=== PATIENT | female | born 1940 | race Caucasian/White ===

== ENCOUNTER → 2018-01-20 13:49 | Outpatient (CLI) | payer MEDICARE, MEDICAID, SELFPAY ==
--- NOTE | 2018-01-20 13:56 | US_ITS ---
US transvaginal HISTORY: ITS.REASON: POST MENOPAUSAL BLEEDING ORDERING PHYSICIAN: Marianela Claudio MD PATIENT AGE: 77 years COMPARISON: 08/26/17 FINDINGS: The uterus is 6.8 x 2.1 x 4 cm with a combined endometrial thickness of 1 cm. The ovaries are not well demonstrated probably atrophic with what appears to represent left ovary a 1 cm x 1.5 cm and possible right ovary at 1.3 x 0.9 cm. No adnexal mass or cul-de-sac fluid. IMPRESSION: Thickened endometrium which may be seen with endometrial hyperplasia or carcinoma
== END ==
PROVIDERS: PCP Family Medicine; Visit Provider Family Medicine
DX: N95.0 Postmenopausal bleeding (principal)
CPT/HCPCS: 76830

== ENCOUNTER → 2019-06-13 08:30 | Outpatient (CLI) | payer MEDICARE, MEDICAID, SELFPAY ==
--- NOTE | 2019-06-13 08:34 | CA_ITS ---
APPROVED REPORT Electrical Test Engineer: RICHELLE Laterality: Bilateral Study Quality: Good Indications: Carotid artery stenosis Risk Factors Hypertension: Hyperlipidemia Doppler Spectral Velocity Analysis ECA (R) 167.00/ cm/s ECA (L) 135.00/ cm/s dICA (R) 105.00/29.90 cm/s dICA (L) 82.30/22.00 cm/s Handy (R) 122.00/28.30 cm/s Handy (L) 89.90/25.10 cm/s pICA (R) 153.00/24.40 cm/s pICA (L) 91.80/20.70 cm/s dCCA (R) 76.60/16.00 cm/s dCCA (L) 98.20/15.70 cm/s pCCA (R) 76.10/11.60 cm/s pCCA (L) 131.00/14.10 cm/s Vert (R) 64.40/ cm/s Vert (L) 33.90/ cm/s ICA/CCA 2.00 ICA/CCA 0.90 Findings Duplex evaluation demonstrates stenosis of the right proximal internal carotid artery in the range of 50-69% with PSV =140 cm/sec, EDV <100 cm/sec, and IC/CC Ratio <4.0. SUHAIL unchanged from study done 08/11/17. Duplex evaluation demonstrates stenosis of /the left proximal internal carotid artery in the range of 20-49% with PSV <140 cm/sec, EDV <100 cm/sec, and IC/CC Ratio <4.0. LICA unchanged from study done 08/11/17. Conclusion Duplex evaluation demonstrates stenosis of the right proximal internal carotid artery in the range of 50-69% with PSV =140 cm/sec, EDV <100 cm/sec, and IC/CC Ratio <4.0. SUHAIL unchanged from study done 08/11/17. Duplex evaluation demonstrates stenosis of /the left proximal internal carotid artery in the range of 20-49% with PSV <140 cm/sec, EDV <100 cm/sec, and IC/CC Ratio <4.0. LICA unchanged from study done 08/11/17. Electronically signed by : Francois Cardona MD 06/14/2019 11:06:58
== END ==
PROVIDERS: PCP Family Medicine; Visit Provider Internal Medicine Cardiovascular Disease
DX: I10 Essential (primary) hypertension (principal); I25.10 Atherosclerotic heart disease of native coronary artery without angina pectoris; I48.0 Paroxysmal atrial fibrillation; I65.29 Occlusion and stenosis of unspecified carotid artery; R09.89 Other specified symptoms and signs involving the circulatory and respiratory systems
CPT/HCPCS: 93880

== ENCOUNTER → 2020-06-17 09:53 | Outpatient (CLI) | payer MEDICARE, MEDICAID, SELFPAY ==
--- NOTE | 2020-06-17 09:54 | CA_ITS ---
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 Study suggests 20-49% stenosis of the left internal cartoid artery unchanged from the 06/13/19 study. Antegrade flow seen bilateral vertebral arteries. 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 Study suggests 20-49% stenosis of the left internal cartoid artery unchanged from the 06/13/19 study. Antegrade flow seen bilateral vertebral arteries. Electronically signed by : Francois Cardona MD 06/17/2020 18:06:53
== END ==
PROVIDERS: PCP Family Medicine; Visit Provider Internal Medicine Cardiovascular Disease
DX: I65.23 Occlusion and stenosis of bilateral carotid arteries (principal); I10 Essential (primary) hypertension; I25.10 Atherosclerotic heart disease of native coronary artery without angina pectoris; I48.0 Paroxysmal atrial fibrillation; R09.89 Other specified symptoms and signs involving the circulatory and respiratory systems
CPT/HCPCS: 93880

== ENCOUNTER 2020-10-18 12:01 | Emergency (ER) | payer MEDICARE, MEDICAID, SELFPAY ==
[2020-10-18 12:15] VITALS: BP 138/61; PULSE 93; RESP 17; TEMP 36.6; O2SAT 97; BMI 28.3
--- NOTE | 2020-10-18 12:17 | HMH.EDUTC ---
[facility] [place] Clinical Impression: Abnormal vaginal bleeding Disposition: Still a Patient Condition on Discharge: Fair Referrals: Marianela Claudio MD [Primary Care Provider] - Time of Disposition: 12:26 Medical Decision Making - Get Inquiry Pt receiving controlled substance: No Get was queried for this patient: No Vital Signs: 10/18/20 12:15 Temperature 97.9 F Temperature Source Oral Pulse Rate [Radial] 93 H Respiratory Rate 17 Blood Pressure [Right Arm] 138/61 Blood Pressure Mean [Right Arm] 86 Blood Pressure Source [Right Arm] Automatic Cuff Blood Pressure Position [Right Arm] Sitting 02 Sat by Pulse Oximetry 97 Oxygen Delivery Method Room Air Medical Decision Narrative: Due to patient age and on xarelto having abnormal vaginal bleeding and passing of clots, patient reporting that she has bleed through 3 pads since 8am this morning recommended transfer to ED for further treatment and evaluation and patient agreed with transfer, spoke with Sheila Ayoub RN and patient moved to room 11 in ED for further treatment [facility] [place] - General Stated complaint: Bleeding Time Seen by Provider: 10/18/20 12:18 Mode of Arrival: Ambulatory Source of Information: Patient Limitations: No Limitations Description of Symptoms (Recalled from Triage Doc. by RN): bleeding from vagina. States she is hacing to use pads and is passing clots. Takes xarelto. HEENT Symptoms (Recalled from RN notes): No Resp Symptoms (Recalled from RN notes): No Skin Symptoms (Recalled from RN notes): No MS Symptoms (Recalled from RN notes): No Functional Status (Recalled from RN notes): wnl - History of Present Illness Provider Complaint: Patient state that she is on xarelto, states that when she initially started the medication a few years ago she had some vaginal bleeding and spotting on and off States that they adjusted the medication and got it to stop but for the last three days she has started bleeding again like she was having a period States that today bleeding is worse and and passing clots States that she has had to change her pad 3 times already today since 8am - Related Data Home Medications Medication Instructions Recorded Confirmed aspirin 81 mg tablet,delayed 81 mg PO ONCE 03/27/18 06/12/20 release biotin 1,000 mcg chewable tablet 1,000 mcg PO DAILY tab 03/27/18 06/12/20 loratadine 10 mg tablet 10 mg PO ONCE 04/06/18 06/12/20 metformin 500 mg tablet 500 mg PO DAILY tab 11/24/18 06/12/20 coenzyme Q10 100 mg capsule 100 mg PO DAILY 06/12/20 06/12/20 Previous Rx's Medication Instructions Recorded simvastatin 10 mg tablet 10 mg PO DAILY #90 tab 06/13/20 furosemide 20 mg tablet 20 mg PO Q OTHER DAY 90 Days #45 07/02/20 tab furosemide 40 mg tablet 40 mg PO Q OTHER DAY 90 Days #45 07/02/20 tab rivaroxaban 15 mg tablet 15 mg PO DAILY #90 tab 07/14/20 lisinopril 5 mg tablet 5 mg PO DAILY #90 tab 07/29/20 diltiazem HCl 240 mg 240 mg PO DAILY #90 cap 09/02/20 capsule,extended release 24 hr Allergies Allergy/AdvReac Type Severity Reaction Status Date / Time rosuvastatin [From Crestor] AdvReac Intermediate stomach Verified 06/13/20 13:50 ache - Worker's Comp Is this a Worker's Comp case?: No [facility] History - Hepatitis A Screen Drug use history?: No High risk sexual behaviors?: No History of sexually transmitted infection?: No Currently employed?: No Childcare worker?: No Do you have indoor plumbing?: Yes Do you have electricity?: Yes Attestation statement:: This patient has been screened for Hepatitis A risk factors. I have reviewed the patient's past medical history: Yes Medical History: Reports:: Anxiety, Atrial Fibrillation, Coronary Artery Disease, Cerebrovascular Accident, Depression, Diabetes Mellitus Type 2, Gastroesophageal Reflux Disease(GERD), Hyperlipidemia, Hypertension, Palpitations Denies:: Diabetes Mellitus Type 1, Seizures Other Medical History: Reports: Arthritis Other [place]
[2020-10-18 12:26] VITALS: BP 161/56; PULSE 90; RESP 20; TEMP 36.6; O2SAT 96; BMI 28.3
[2020-10-18 12:50] LABS: Microscopic, Urine URINE MICROSCOPIC (MICROSCOPIC)
[2020-10-18 12:56] LABS: Basophils # 0.1 K/mm3 (0-0.2); Basophils % 0.7 % (0.1-2.0); Eosinophils # 0.2 K/mm3 (0.0-0.4); Eosinophils % 1.2 % (0.1-12.0); Hematocrit 42.4 % (37.0-47.0); Hemoglobin 13.7 g/dL (12.2-16.2); Lymphocytes # 1.8 K/mm3 (0.7-4.5); Lymphocytes % 14.9 % (10-50); Mean Corpuscular HGB Conc 32.4 g/dL (31.8-35.4); Mean Corpuscular Hemoglobin 30.6 pg (27.0-31.2); Mean Corpuscular Volume 94.3 fl (81-99); Mean Platelet Volume 8.6 fl (7.4-10.4); Monocytes # 0.5 K/mm3 (0.1-1.0); Neutrophils # 9.7 K/mm3 (1.8-7.8); Neutrophils % 79.3 % (37.0-80.0); Platelet Count 266 K/mm3 (142-424); Red Blood Count 4.49 M/mm3 (4.20-5.40); Red Cell Distribution Width 13.5 % (11.5-17.5); White Blood Count 12.2 K/mm3 (4.8-10.8)
[2020-10-18 12:57] LABS: Appearance,Urine SL CLOUDY (Clear); Bilirubin,Urine Negative (Negative); Blood, Urine 3+ (Negative); Color,Urine RED (Yellow); Glucose,Urine (UA) Negative (Negative); Ketones,Urine Negative (Negative); Leukocyte Esterase,Urine TRACE (Negative); Nitrate,Urine POSITIVE (Negative); PH,Urine 5.5 (5.0-8.5); Protein,Urine 1+ (Negative)
[2020-10-18 13:00] LABS: Chloride 106 mmol/L (98-107); Potassium 4.1 mmoL/L (3.5-5.1); Sodium 140 mmol/L (136-145)
[2020-10-18 13:02] LABS: Alanine Aminotransferase 21 U/L (12-78); Aspartate Amino Transferase 25 U/L (14-36); Bacteria,Urine 2+ /lpf; Blood Urea Nitrogen 23 mg/dl (7-17); Creatinine Clearance Estimated 47 mL/min (50-200); Estimated Glomerular Filt Rate 60 ml/min (>60); GFR (African American) 73 ML/MIN (>60); RBC,Urine TNTC #/hpf (0-3)
[2020-10-18 13:03] LABS: Albumin Level 4.6 g/dl (3.5-5.0); Albumin/Globulin Ratio 1.3 (1.1-1.8); Alkaline Phosphatase 74 U/L (38-126); Anion Gap 14.1 mEq/L (5-15); Bilirubin,Total 0.5 mg/dl (0.2-1.3); Calcium 9.7 mg/dl (8.4-10.2); Carbon Dioxide 24 mmol/L (22.0-30.0); Globulin 3.5 g/dL (1.3-3.2); Glucose 168 mg/dl (74-100); Total Protein,Serum 8.1 g/dl (6.3-8.2)
--- NOTE | 2020-10-18 13:07 | PC.NURSE ---
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
--- NOTE | 2020-10-18 13:08 | HMH.EDGENADL ---
ED Disposition Clinical Impression: Vaginal bleeding Disposition: Still a Patient Condition on Discharge: Good Instructions: DI for Vaginal Bleeding Additional Instructions: Call Dr. Rivera on Tuesday to arrange follow-up for vaginal bleeding. Do not take Xarelto today or tomorrow. Call Dr. Rubio on Tuesday for further instructions on Xarelto. Rest and stay off your feet as much as possible for the next 2 days. Return to the emergency room if heavy bleeding or passing of clots returns. Referrals: Pito Kohli MD [Staff Physician] - Marianela Claudio MD [Primary Care Provider] - - Critical Care Critical Care Time: No Attestation: On 10/18/20, the high probability of a clinically significant, sudden or life threatening deterioration of the following system(s) required my full and direct attention, intervention and personal management. The time I documented below is in addition to time spent performing reported procedures but includes the following listed in this critical care notation. Medical Decision Making - Medical Records Medical records reviewed: Yes: I reviewed the patient's medical records. MR Comment: Reviewed prior evaluation for postmenopausal bleeding 2018. Office visit with Dr. Rivera, ultrasound, pathology reports. Ultrasound result as below. - Get Inquiry Pt receiving controlled substance: No Vital Signs: 10/18/20 12:15 10/18/20 12:26 10/18/20 13:10 Temperature 97.9 F 97.8 F Temperature Source Oral Oral Pulse Rate Pulse Rate [Radial] 93 H 90 85 Respiratory Rate 17 20 Blood Pressure Blood Pressure [Right Arm] 138/61 161/56 H 146/58 H Blood Pressure Mean [Right Arm] 86 91 87 Blood Pressure Source Blood Pressure Source [Right Arm] Automatic Cuff Automatic Cuff Automatic Cuff Blood Pressure Position Blood Pressure Position [Right Arm] Sitting Sitting Sitting 02 Sat by Pulse Oximetry 97 96 97 Oxygen Delivery Method Room Air Room Air Room Air 10/18/20 13:32 10/18/20 14:07 10/18/20 14:51 Temperature 97.8 F Temperature Source Oral Pulse Rate 86 Pulse Rate [Radial] 81 64 Respiratory Rate 19 Blood Pressure 126/50 L Blood Pressure [Right Arm] 134/50 L 144/73 H Blood Pressure Mean [Right Arm] 78 96 Blood Pressure Source Automatic Cuff Blood Pressure Source [Right Arm] Automatic Cuff Automatic Cuff Blood Pressure Position Sitting Blood Pressure Position [Right Arm] Sitting Sitting 02 Sat by Pulse Oximetry 97 96 Oxygen Delivery Method Room Air Room Air Room Air - Lab Data Lab Results 10/18/20 12:40: WBC 12.2 H, RBC 4.49, Hgb 13.7, Hct 42.4, MCV 94.3, MCH 30.6, MCHC 32.4, RDW 13.5, Plt Count 266, MPV 8.6, Neut % (Auto) 79.3, Lymph % (Auto) 14.9, [place] % (Auto) 4.0, Eos % (Auto) 1.2, Baso % (Auto) 0.7, Neut # (Auto) 9.7 H, Lymph # (Auto) 1.8, [place] # (Auto) 0.5, Eos # (Auto) 0.2, Baso # (Auto) 0.1 10/18/20 12:40: Sodium 140, Potassium 4.1, Chloride 106, Carbon Dioxide 24, Anion Gap 14.1, BUN 23 H, Creatinine 0.90, Estimated Creat Clear 47, Estimated GFR 60, Est GFR ( Amer) 73, Glucose 168 H, Calcium 9.7, Total Bilirubin 0.5, AST 25, ALT 21, Alkaline Phosphatase 74, Total Protein 8.1, Albumin 4.6, Globulin 3.5 H, Albumin/Globulin Ratio 1.3 10/18/20 12:40: Urine Color Red, Urine Appearance Sl cloudy, Urine pH 5.5, Ur Specific [place] 1.020, Urine Protein 1+, Urine Glucose (UA) Negative, Urine Ketones Negative, Urine Blood 3+, Urine Nitrate Positive, Urine Bilirubin Negative, Urine Urobilinogen 1.0, Ur Leukocyte Esterase Trace, Urine RBC Tntc, Urine WBC 3-5, Ur Squamous Epith Cells 5-10, Urine Bacteria 2+ Result diagrams: 10/18/20 12:40 10/18/20 12:40 Orders (Tests/Meds): ED MEDICATIONS Generic Name Dose Route Start Last Admin Trade Name Freq PRN Reason Stop Dose Admin Silver Nitrate 1 each 10/18/20 14:53 Silver Nitrate Applicator TP 10/18/20 14:54 ONCE ONE Discontinued Medications Generic Name Dose Route Start Last A
[2020-10-18 13:10] VITALS: BP 146/58; PULSE 85; O2SAT 97
--- NOTE | 2020-10-18 13:30 | PC.NURSE ---
Dr Kohli returned call.
--- NOTE | 2020-10-18 13:31 | PC.NURSE ---
Assisted MD with pelvic exam. Pt tolerated well. Pt placed back into original position, blanket placed back over pt pelvic area once the exam was complete.
[2020-10-18 13:32] VITALS: BP 134/50; PULSE 81; O2SAT 97
--- NOTE | 2020-10-18 13:32 | PC.NURSE ---
Dr Durand returned call as well.
--- NOTE | 2020-10-18 13:40 | PC.NURSE ---
SHEN SALVADOR spoke with Dr. Kohli
--- NOTE | 2020-10-18 13:56 | PC.NURSE ---
DR BLAND IN WITH PT
--- NOTE | 2020-10-18 14:06 | PC.NURSE ---
Assisted with pelvic exam, pt tolerated well.
--- NOTE | 2020-10-18 14:06 | HMH.GYNCON ---
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 Negrete is a 80 year old female who is a patient of Dr. Cedillo. She was seen in the past for vaginal bleeding and had a cervical polyp removed. She also had an endometrial biopsy which was negative for hyperplasia. She returns with increased vaginal bleeding. She does take Xarelto for her atrial fibrillation. Her hemoglobin is stable. CC: Review of Systems - Review of Systems Review of systems:: pertinent systems reviewed and negative unless documented below [facility] History I have reviewed the patient's past medical history: Yes Medical History: Reports:: Anxiety, Atrial Fibrillation, Coronary Artery Disease, Cerebrovascular Accident, Depression, Diabetes Mellitus Type 2, Gastroesophageal Reflux Disease(GERD), Hyperlipidemia, Hypertension, Palpitations Denies:: Diabetes Mellitus Type 1, Seizures *Have you ever received a pneumonia vaccine?: No *Have you received a flu vaccine this season?: No Other Medical History: Reports: Arthritis Other Surgeries: Yes: Cardiac Catheterization, Cardiac Surgery, Tubal Ligation Amputation: No - *Social History Smoking Status: Never smoker Alcohol Intake: never Alcohol Intake Frequency:: other Substance Use Type: denies use *Occupational Status:: retired *Travel in the last 8 weeks: None - Psychiatric History Pschychiatric History:: Reports:: Anxiety, Depression Family Hx:: Coronary Artery Disease Meds Home Medications Medication Instructions Recorded Confirmed Type aspirin 81 mg tablet,delayed 81 mg PO ONCE 03/27/18 10/18/20 History release biotin 1,000 mcg chewable tablet 1,000 mcg PO DAILY tab 03/27/18 10/18/20 History loratadine 10 mg tablet 10 mg PO ONCE 04/06/18 10/18/20 History metformin 500 mg tablet 500 mg PO DAILY tab 11/24/18 10/18/20 History coenzyme Q10 100 mg capsule 100 mg PO DAILY 06/12/20 10/18/20 History furosemide 40 mg tablet 40 mg PO Q OTHER DAY 90 Days #45 07/02/20 10/18/20 Rx tab Furosemide [Furosemide 20mg Tab*] 20 mg PO Q OTHER DAY 10/18/20 10/18/20 History Rivaroxaban [Xarelto] 15 mg PO DAILY 10/18/20 10/18/20 History Simvastatin 10 mg PO DAILY 10/18/20 10/18/20 History dilTIAZem HCl [Diltiazem 240mg 240 mg PO DAILY 10/18/20 10/18/20 History 24Hr ER Cap] lisinopriL [Lisinopril 5mg 5 mg PO DAILY 10/18/20 10/18/20 History Tablet] Allergies Allergy/AdvReac Type Severity Reaction Status Date / Time rosuvastatin [From Crestor] AdvReac Intermediate stomach Verified 06/13/20 13:50 ache ASSOCIATE THEATRE PROFESSOR - Exam Vital signs: Temp Pulse Resp BP Pulse Ox 97.8 F 81 20 134/50 L 97 10/18/20 12:26 10/18/20 13:32 10/18/20 12:26 10/18/20 13:32 10/18/20 13:32 - Constitutional no acute distress - Routine HEENT Exam Head: Present: normocephalic Eye: Present: EOMI, PERRL ENT: Present: mucous membranes moist - Routine Exam Patient deferred: external exam, groin exam, perineal exam Comments: She had friable tissue at the top of the vagina. Is not clear whether this with the cervix or the vaginal mucosa. Was difficult to see in the emergency room. I did apply Monsel solution to the top of the vagina. It seemed to stop the bleeding. It seemed that the bleeding was coming from this friable mass - Detailed Pelvic Exam Vagina: Present: ulceration Cervix: Present: ulceration ASSOCIATE THEATRE PROFESSOR - Results - Labs CBC & Chem 7: 10/18/20 12:40 10/18/20 12:40 Labs: Short CBC 10/18/20 Range/Units 12:40 WBC 12.2 H (4.8-10.8) K/mm3 Hgb 13.7 (12.2-16.2) g/dL Hct 42.4 (37.0-47.0) % Plt Count 266 (142-424) K/mm3 BMP 10/18/20 12:40 Sodium 140 Potassium 4.1 Chloride 106 Carbon Dioxide 24 BUN 23 H Creatinine 0.90 Glucose 168 H Calcium 9.7 Liver F
[2020-10-18 14:07] VITALS: BP 144/73; PULSE 64; O2SAT 96
--- NOTE | 2020-10-18 14:39 | PC.NURSE ---
NO blood noted on new araseli.
[2020-10-18 14:51] VITALS: BP 126/50; PULSE 86; RESP 19; TEMP 36.6; O2SAT 96
== END 2020-10-18 14:55 | disposition still patient (30) ==
LOC: UTC 12:06 → ER 12:18
PROVIDERS: Emergency Provider Emergency Medicine; PCP Family Medicine
DX: N93.8 Other specified abnormal uterine and vaginal bleeding (principal); I25.10 Atherosclerotic heart disease of native coronary artery without angina pectoris; I10 Essential (primary) hypertension; I48.0 Paroxysmal atrial fibrillation; E11.65 Type 2 diabetes mellitus with hyperglycemia; F41.8 Other specified anxiety disorders; Z86.73 Personal history of transient ischemic attack (TIA), and cerebral infarction without residual deficits; E78.5 Hyperlipidemia, unspecified; K21.9 Gastro-esophageal reflux disease without esophagitis; Z79.899 Other long term (current) drug therapy
CPT/HCPCS: 17250; 80053; 81001; 85025; 87086; 87088; 87186; 96365; 99283

== ENCOUNTER → 2020-10-20 16:49 | Outpatient (CLI) | payer MEDICARE, MEDICAID, SELFPAY ==
[2020-10-20 16:52] LABS: Microscopic, Urine URINE MICROSCOPIC (MICROSCOPIC)
[2020-10-20 17:33] LABS: Appearance,Urine SL CLOUDY (Clear); Bilirubin,Urine Negative (Negative); Blood, Urine 1+ (Negative); Color,Urine YELLOW (Yellow); Glucose,Urine (UA) TRACE (Negative); Ketones,Urine Negative (Negative); Leukocyte Esterase,Urine 2+ (Negative); Nitrate,Urine Negative (Negative); PH,Urine 5.5 (5.0-8.5); Protein,Urine Negative (Negative); Specific Gravity, Urine 1.015 (1.005-1.030); Urobilinogen,Urine 0.2 EU/dl (0.2)
[2020-10-20 17:55] LABS: Bacteria,Urine 4+ /lpf; Squamous Epithelial Cell,Urine Occasional #/hpf (0-5)
== END ==
PROVIDERS: Visit Provider Nurse Practitioner Obstetrics & Gynecology
DX: N39.0 Urinary tract infection, site not specified (principal)
CPT/HCPCS: 81001; 87086; 87186

== ENCOUNTER 2020-12-11 14:49 | Inpatient (IN) | payer MEDICARE, MEDICAID, SELFPAY ==
[2020-12-11] VITALS (11 sets, daily range): BP systolic 101–159; BP diastolic 38–66; PULSE 39–80; RESP 18–22; TEMP 36.5–37.1; O2SAT 95–98; BMI 27.1; BMI 27.6
--- NOTE | 2020-12-11 15:02 | XR_ITS ---
PROCEDURE: XR CHEST PORTABLE CLINICAL HISTORY: cough Cough, shortness of air, nonsmoker COMPARISON: No exams were available for comparison FINDINGS: A rounded structure with internal ectopic components and leads is present. Bibasilar in new nurse distal increased markings could represent chronic interstitial change however subtle infiltrate cannot be excluded. There is prominence of the right hilar region. Comparison with prior chest x-rays or nonemergent chest CT with contrast recommended to exclude an underlying lesion. There are no pleural effusions. There are degenerative changes in the skeleton. IMPRESSION: Bibasilar increased markings, electronic device, enlarged right hilum. Dictated by: Nikky Owusu MD 12/11/2020 15:45 Nikky Owusu MD in [place] 12/11/2020 15:45
--- NOTE | 2020-12-11 15:05 | PC.NURSE ---
spoke with Sunil Velez
[2020-12-11 15:22] LABS: Basophils # 0.1 K/mm3 (0-0.2); Basophils % 0.5 % (0.1-2.0); Eosinophils # 0.1 K/mm3 (0.0-0.4); Eosinophils % 1.2 % (0.1-12.0); Hematocrit 36.5 % (37.0-47.0); Hemoglobin 11.5 g/dL (12.2-16.2); Lymphocytes # 2.1 K/mm3 (0.7-4.5); Lymphocytes % 19.3 % (10-50); Mean Corpuscular HGB Conc 31.4 g/dL (31.8-35.4); Mean Corpuscular Hemoglobin 29.6 pg (27.0-31.2); Mean Platelet Volume 8.2 fl (7.4-10.4); Monocytes # 0.4 K/mm3 (0.1-1.0); Monocytes % 3.4 % (1.7-9.3); Neutrophils % 75.6 % (37.0-80.0); Platelet Count 295 K/mm3 (142-424); Red Blood Count 3.88 M/mm3 (4.20-5.40); Red Cell Distribution Width 14.1 % (11.5-17.5); White Blood Count 10.6 K/mm3 (4.8-10.8)
[2020-12-11 15:32] LABS: Chloride 106 mmol/L (98-107); Potassium 5.1 mmoL/L (3.5-5.1); Sodium 140 mmol/L (136-145)
[2020-12-11 15:34] LABS: Alanine Aminotransferase 18 U/L (12-78); Aspartate Amino Transferase 23 U/L (14-36); Blood Urea Nitrogen 28 mg/dl (7-17); Creatinine Clearance Estimated 36 mL/min (50-200); Estimated Glomerular Filt Rate 39 ml/min (>60); GFR (African American) 48 ML/MIN (>60)
--- NOTE | 2020-12-11 15:34 | HMH.EDSYNC ---
ED Disposition Clinical Impression: Symptomatic bradycardia, Acute kidney injury, Syncope, near Disposition: Admitted As Inpatient Condition on Discharge: Fair Instructions: DI for Syncope in Adults (Fainting), DI for Syncope in Children (Fainting) Referrals: Marianela Claudio MD [Primary Care Provider] - - Critical Care Critical Care Time: No Attestation: On 12/11/20, the high probability of a clinically significant, sudden or life threatening deterioration of the following system(s) required my full and direct attention, intervention and personal management. The time I documented below is in addition to time spent performing reported procedures but includes the following listed in this critical care notation. Medical Decision Making - Medical Records Medical records reviewed: Yes: I reviewed the patient's medical records. - Get Inquiry Pt receiving controlled substance: No Vital Signs: 12/11/20 14:50 12/11/20 15:20 12/11/20 16:21 Temperature 97.7 F Temperature Source Oral Pulse Rate [Left Radial] 39 L 42 L 75 Respiratory Rate 18 18 22 Blood Pressure [Right Arm] 101/38 L 124/40 L 122/47 L Blood Pressure Mean [Right Arm] 59 68 72 Blood Pressure Source [Right Arm] Automatic Cuff Blood Pressure Position [Right Arm] Sitting 02 Sat by Pulse Oximetry 97 95 97 Oxygen Delivery Method Room Air - Lab Data Lab Results 12/11/20 15:00: WBC 10.6, RBC 3.88 L, Hgb 11.5 L, Hct 36.5 L, MCV 94.0, MCH 29.6, MCHC 31.4 L, RDW 14.1, Plt Count 295, MPV 8.2, Neut % (Auto) 75.6, Lymph % (Auto) 19.3, [place] % (Auto) 3.4, Eos % (Auto) 1.2, Baso % (Auto) 0.5, Neut # (Auto) 8.0 H, Lymph # (Auto) 2.1, [place] # (Auto) 0.4, Eos # (Auto) 0.1, Baso # (Auto) 0.1 12/11/20 15:00: Sodium 140, Potassium 5.1, Chloride 106, Carbon Dioxide 23, Anion Gap 16.1 H, BUN 28 H, Creatinine 1.30 H, Estimated Creat Clear 36, Estimated GFR 39 L, Est GFR ( Amer) 48 L, Glucose 314 H, Calcium 9.2, Total Bilirubin 0.4, AST 23, ALT 18, Alkaline Phosphatase 64, Troponin I < 0.01, Total Protein 7.3, Albumin 4.1, Globulin 3.2, Albumin/Globulin Ratio 1.3, TSH 1.60 12/11/20 15:00: PT 11.5, INR 1.04, APTT 21.8 L 12/11/20 15:00: NT-Pro-B Natriuret Pep 645 H Result diagrams: 12/11/20 15:00 12/11/20 15:00 Orders (Tests/Meds): ED MEDICATIONS Discontinued Medications Generic Name Dose Route Start Last Admin Trade Name Freq PRN Reason Stop Dose Admin Atropine Sulfate 0.5 mg 12/11/20 15:02 Atropine 1mg/10ml Syringe (Crash Cart) IV 12/11/20 15:03 ONCE ONE ORDERS Category Date Time Status CT head/brain wo con Stat Cat Scan 12/11/20 16:54 Ordered Consult to Cardiology [CONS] Routine Cons 12/11/20 16:56 Active Acetone, Serum (Rapid) Stat Lab 12/11/20 16:55 Ordered Covid-19 Nasal PCR ([facility]) Routine Lab 12/11/20 15:51 Ordered Troponin I Q3H Lab 12/11/20 18:15 Ordered Troponin I Q3H Lab 12/11/20 21:15 Ordered Urinalysis and Microscopic Stat Lab 12/11/20 16:55 Ordered - Radiology Data #1 Image(s): Chest Image Reviewed: Yes I reviewed the patient's radiology results, Yes I reviewed the patient's radiology image, Yes I have reviewed radiologist's interpretation IMPRESSION: Bibasilar increased markings, electronic device, enlarged right hilum. - ECG Data Tracing #1 ECG initial impression date: 12/11/20 ECG initial impression time: 14:40 Arrhythmias present: other (Junctional bradycardia with a rate of 40 bpm, normal QTC, nonspecific ST changes) - Reevaluation(s) Time: 17:03 Reevaluation #1: On reevaluation, patient is doing better. She continues to tolerate pacing well. She feels much better with the pacing. I did speak with cardiology. They will continue to monitor the patient. We will admit her for further monitoring and treatment. Medical Decision Narrative: 80-year-old female presented to the emergency department with syncopal episodes. The patient is profoundly bradycardic on examina
[2020-12-11 15:35] LABS: Albumin Level 4.1 g/dl (3.5-5.0); Albumin/Globulin Ratio 1.3 (1.1-1.8); Alkaline Phosphatase 64 U/L (38-126); Anion Gap 16.1 mEq/L (5-15); Bilirubin,Total 0.4 mg/dl (0.2-1.3); Calcium 9.2 mg/dl (8.4-10.2); Carbon Dioxide 23 mmol/L (22.0-30.0); Globulin 3.2 g/dL (1.3-3.2); Glucose 314 mg/dl (74-100); Total Protein,Serum 7.3 g/dl (6.3-8.2)
[2020-12-11 15:44] LABS: NT Pro Brain Natriuretic Pep. 645 pg/mL (0-450)
[2020-12-11 15:51] LABS: Troponin I < 0.01 ng/ml (0.00-0.034)
[2020-12-11 15:55] LABS: INR 1.04 (0.9-1.1); Prothrombin Time 11.5 seconds (9.4-11.8)
[2020-12-11 15:57] LABS: Activated Partial Thrombo Time 21.8 seconds (23.6-34.0)
--- NOTE | 2020-12-11 16:01 | HMH.PNCARD ---
Subjective Date: 12/11/20 Time: 16:01 Principal diagnosis: Syncope, Junctional rhythm Interval history: This 80-year-old female presented to the emergency department with multiple syncopal episodes. The patient is a longstanding history of atrial fibrillation. Patient was having some issues with rapid heart rate and was put on sotalol 2 weeks ago. She states that since then her heart rate has been running low as well as her blood pressure. She states that when she gets up and tries to exert herself she has episodes where she feels like she is going to pass out and she is also passed out a few times. She had another 1 of these episodes earlier today prompting her to come to the emergency department. Cardiology has been decreasing her dose of sotalol, however the patient continues to have symptoms. She does not have any associated chest pain, however does have some mild shortness of breath. She denies any cough or hemoptysis. No abdominal pain or vomiting. She denies any headache or change in vision. No focal weakness. No fevers or chills. The above per Dr. Galvez Patient is feeling better after having atropine and external pacing applied. She denies any chest pain, pressure or tightness. She relates being diagnosed with cervical cancer with plans for complete hysterectomy at on December 29. No earlier appointments with this current physician that she is seeing were available. Past medical history includes: CAD-Medical mgt (2017) YOANDY is present. LICA 20-49% and 50-69% in [place] in 05/2019. A-fib is sinus.A/C with Xarelto, on hold secondary to vaginal bleeding (now discovered to be related to cervical cancer). CHADS-VASC score of 5 (age, female, HTN, DM) with stroke rate of 6.7% annually. LDL goal is < 55, LDL is 105. On statin. Exam Vital signs and Labs for Last 24 Hours: Temp Pulse Resp BP Pulse Ox 97.7 F 39 L 18 101/38 L 97 12/11/20 14:50 12/11/20 14:50 12/11/20 14:50 12/11/20 14:50 12/11/20 14:50 Laboratory Results - last 24 hr 12/11/20 15:00: WBC 10.6, RBC 3.88 L, Hgb 11.5 L, Hct 36.5 L, MCV 94.0, MCH 29.6, MCHC 31.4 L, RDW 14.1, Plt Count 295, MPV 8.2, Neut % (Auto) 75.6, Lymph % (Auto) 19.3, [place] % (Auto) 3.4, Eos % (Auto) 1.2, Baso % (Auto) 0.5, Neut # (Auto) 8.0 H, Lymph # (Auto) 2.1, [place] # (Auto) 0.4, Eos # (Auto) 0.1, Baso # (Auto) 0.1 12/11/20 15:00: Sodium 140, Potassium 5.1, Chloride 106, Carbon Dioxide 23, Anion Gap 16.1 H, BUN 28 H, Creatinine 1.30 H, Estimated Creat Clear 36, Estimated GFR 39 L, Est GFR ( Amer) 48 L, Glucose 314 H, Calcium 9.2, Total Bilirubin 0.4, AST 23, ALT 18, Alkaline Phosphatase 64, Troponin I < 0.01, Total Protein 7.3, Albumin 4.1, Globulin 3.2, Albumin/Globulin Ratio 1.3 12/11/20 15:00: NT-Pro-B Natriuret Pep 645 H I & O for Last 24 hours: Intake & Output 12/09/20 12/10/20 12/11/20 12/12/20 11:59 11:59 11:59 11:59 Weight 148 lb - Constitutional no acute distress - *Routine HEENT Exam Head: Present: normocephalic Eye: Present: EOMI, PERRL ENT: Present: mucous membranes moist - *Routine Neck Exam Present: supple. Absent: lymphadenopathy - *Routine Respiratory Exam Present: CTA bilaterally - *Routine Cardiovascular Exam Present: RRR - *Routine Abdominal Exam Present: soft, normoactive bowel sounds. Absent: tenderness - *Routine Extremities Exam Absent: cyanosis, clubbing, edema - *Routine Skin Exam Present: warm. Absent: rash - *Routine Neurological Exam Present: alert, oriented X3 Progress Note: A&P (1) Bradycardia Status: Acute (2) Cervical cancer Status: Acute (3) Hypotension Status: Acute (4) Vaginal bleeding Status: Acute (5) CAD (coronary artery disease) Status: Chronic (6) Carotid artery stenosis Status: Chronic (7) HTN (hypertension) Status: Chronic (8) PAF (paroxysmal atrial fibrillation) Status: Chronic (9) Junctional escape rhythm Status: Acute Assessment and Plan for
--- NOTE | 2020-12-11 17:02 | PC.NURSE ---
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
[2020-12-11 17:05] LABS: Acetone, Serum (Rapid) None Detected (None Detect)
[2020-12-11 17:23] LABS: Adenovirus,PCR Not Detected (NotDetected); Bordetella Pertussis Not Detected (NotDetected); Chlamydophila Pneumoniae, PCR Not Detected (NotDetected); Coronavirus 19, PCR Not Detected (NotDetected); Coronavirus 229E Not Detected (NotDetected); Coronavirus NL63 Not Detected (NotDetected); Coronavirus OC43 Not Detected (NotDetected); Coronovirus HKU1,PCR Not Detected (NotDetected); Human Metapneumovirus Not Detected (NotDetected); Influenza A, PCR Not Detected (NotDetected); Influenza AH1, 2009 Not Detected (NotDetected); Influenza AH1, PCR Not Detected (NotDetected); Influenza AH3,PCR Not Detected (NotDetected); Influenza B, PCR Not Detected (NotDetected); Mycoplasma Pneumoniae, PCR Not Detected (NotDetected); Parainfluenza 1, PCR Not Detected (NotDetected); Parainfluenza 2, PCR Not Detected (NotDetected); Parainfluenza 3, PCR Not Detected (NotDetected); Parainfluenza 4, PCR Not Detected (NotDetected); Respiratory Syncytial Virus Not Detected (NotDetected); Rhinovirus/Enterovirus Not Detected (NotDetected)
--- NOTE | 2020-12-11 19:20 | PC.NURSE ---
PT ARRIVED TO FLOOR VIA W/C FROM ED W/STAFF AT 1919
[2020-12-11 19:21] LABS: Microscopic, Urine URINE MICROSCOPIC (MICROSCOPIC)
[2020-12-11 19:24] LABS: Appearance,Urine CLEAR (Clear); Bilirubin,Urine Negative (Negative); Blood, Urine Negative (Negative); Color,Urine YELLOW (Yellow); Glucose,Urine (UA) 2+ (Negative); Ketones,Urine Negative (Negative); Leukocyte Esterase,Urine 1+ (Negative); Nitrate,Urine Negative (Negative); Protein,Urine Negative (Negative); Urobilinogen,Urine 0.2 EU/dl (0.2)
[2020-12-11 19:30] LABS: Troponin I < 0.01 ng/ml (0.00-0.034)
[2020-12-11 19:37] LABS: Bacteria,Urine 1+ /lpf; RBC,Urine Occasional #/hpf (0-3)
[2020-12-11 20:51] LABS: POC Glucose,Bedside 248 (70-110)
[2020-12-11 21:45] LABS: Troponin I < 0.01 ng/ml (0.00-0.034)
[2020-12-12] VITALS (8 sets, daily range): BP systolic 131–150; BP diastolic 51–60; PULSE 60–82; RESP 17–20; TEMP 36.7–36.9; O2SAT 95–97; BMI 27.6
--- NOTE | 2020-12-12 06:13 | PC.NURSE ---
Candelaria GUZMAN NOTIFIED OF CONSULT.
--- NOTE | 2020-12-12 06:16 | PC.NURSE ---
Pt is A&Ox4 and has ambulated with staff SBA ad tolerated well. Pt has denied any continued dizziness since admission. Lungs CTA, room air sats >94% t/o shift. Heart sounds are RRR, NSR noted on tele, and rate 60s-80s t/o shift. SBP 130s-150s. Pt denies any chest pain or SOB. No edema present, peripheral pulse 2+. Pt denies any N/V/D. ABD is soft, non-tender with active bowel sounds. Pt reports last BM was 12/10/20. Pt reports chronic constipation. Skin is C/D/I. PIV to Left wrist is intact and no s/s infiltration or infection. NS infusing @ 50ml/hr. Pt remains afebrile. Call light within reach.
[2020-12-12 06:36] LABS: Chloride 109 mmol/L (98-107)
[2020-12-12 06:37] LABS: Sodium 142 mmol/L (136-145)
[2020-12-12 06:39] LABS: Alanine Aminotransferase 11 U/L (12-78); Alkaline Phosphatase 60 U/L (38-126); Aspartate Amino Transferase 17 U/L (14-36); Bilirubin,Total 0.4 mg/dl (0.2-1.3); Blood Urea Nitrogen 24 mg/dl (7-17); Carbon Dioxide 29 mmol/L (22.0-30.0); Creatinine Clearance Estimated 46 mL/min (50-200); Estimated Glomerular Filt Rate 60 ml/min (>60); GFR (African American) 73 ML/MIN (>60)
[2020-12-12 06:40] LABS: Albumin Level 3.7 g/dl (3.5-5.0); Albumin/Globulin Ratio 1.2 (1.1-1.8); Calcium 9.2 mg/dl (8.4-10.2); Glucose 163 mg/dl (74-100); Magnesium 2.2 mg/dl (1.6-2.3); Total Protein,Serum 6.7 g/dl (6.3-8.2)
[2020-12-12 06:41] LABS: Basophils % 0.5 % (0.1-2.0); Eosinophils # 0.2 K/mm3 (0.0-0.4); Eosinophils % 1.8 % (0.1-12.0); Hematocrit 35.9 % (37.0-47.0); Hemoglobin 11.2 g/dL (12.2-16.2); Lymphocytes # 2.3 K/mm3 (0.7-4.5); Lymphocytes % 27.1 % (10-50); Mean Corpuscular HGB Conc 31.1 g/dL (31.8-35.4); Mean Corpuscular Hemoglobin 29.6 pg (27.0-31.2); Mean Corpuscular Volume 95.1 fl (81-99); Monocytes # 0.4 K/mm3 (0.1-1.0); Monocytes % 4.9 % (1.7-9.3); Neutrophils # 5.6 K/mm3 (1.8-7.8); Neutrophils % 65.8 % (37.0-80.0); Platelet Count 220 K/mm3 (142-424); Red Blood Count 3.77 M/mm3 (4.20-5.40); Red Cell Distribution Width 13.9 % (11.5-17.5); White Blood Count 8.4 K/mm3 (4.8-10.8)
[2020-12-12 06:52] LABS: POC Glucose,Bedside 151 (70-110)
--- NOTE | 2020-12-12 07:28 | HMH.PHAVTE ---
[facility] Pharm[facility] VTE Monitoring - Patient Demographics Admission date: 12/11/20 Report Date: 12/12/20 Time: 07:28 Allergies/Adverse Reactions: Patient Allergies rosuvastatin [From Crestor] Adverse Reaction (Intermediate, Verified 12/11/20 14:42) stomach ache Height: 1.55 m Weight: 66.423 kg Patient Problems: Current Active Problems (Last Updated 06/08/19 @ 09:45 by Ashli Garcia RN) Vaginal bleeding (Acute) Cervical cancer (Acute) Junctional escape rhythm (Acute) Symptomatic bradycardia (Acute) Acute kidney injury (Acute) Syncope, near (Acute) Bradycardia (Acute) Hypotension (Acute) Carotid artery stenosis (Chronic) HTN (hypertension) (Chronic) PAF (paroxysmal atrial fibrillation) (Chronic) CAD (coronary artery disease) (Chronic) - VTE Risk Labs: VTE Related Lab Results Hgb 11.2 g/dL (12.2-16.2) L 12/12/20 05:33 Hct 35.9 % (37.0-47.0) L 12/12/20 05:33 Plt Count 220 K/mm3 (142-424) D 12/12/20 05:33 PT 11.5 seconds (9.4-11.8) 12/11/20 15:00 INR 1.04 (0.9-1.1) 12/11/20 15:00 APTT 21.8 seconds (23.6-34.0) L 12/11/20 15:00 BUN 24 mg/dl (7-17) H 12/12/20 05:33 Creatinine 0.90 mg/dl (0.52-1.04) D 12/12/20 05:33 Estimated Creat Clear 46 mL/min (50-200) 12/12/20 05:33 VTE Score: 3 VTE Risk Level: Low Risk - Prophylaxis VTE Prophylaxis Ordered?: Yes Types of VTE Prophylaxis: TEDS Knee High, Pharmacological Location of Applied Device: Bilateral Lower Extremeties Pharmacologic Type: Enoxaparin
--- NOTE | 2020-12-12 08:59 | HMH.PHAINT ---
HOME MEDICATION LIST CLARIFIED USING LIST FROM [facility], [facility] OFFICE AND CARDIOLOGY OFFICE. THE LIST FROM [facility] OFFICE IS NOT CORRECT PT HAS SEEN CARDIOLOGY SINCE LAST [facility] VISIT AND MEDICINES HAVE CHANGED.
--- NOTE | 2020-12-12 09:16 | HMH.PNCARD ---
Subjective Date: 12/12/20 Time: 09:16 Principal diagnosis: Syncope, Junctional rhythm Interval history: 80-year-old white female in bed in no acute distress. Looks much more alert, talkative and interactive today. She denies any problems overnight and has anxious to go home. Telemetry overnight is sinus rhythm. Troponins negative x3. Exam Vital signs and Labs for Last 24 Hours: Temp Pulse Resp BP Pulse Ox 98.1 F 73 20 149/53 H 97 12/12/20 08:00 12/12/20 08:00 12/12/20 08:00 12/12/20 08:00 12/12/20 08:00 Laboratory Results - last 24 hr 12/11/20 15:00: WBC 10.6, RBC 3.88 L, Hgb 11.5 L, Hct 36.5 L, MCV 94.0, MCH 29.6, MCHC 31.4 L, RDW 14.1, Plt Count 295, MPV 8.2, Neut % (Auto) 75.6, Lymph % (Auto) 19.3, [place] % (Auto) 3.4, Eos % (Auto) 1.2, Baso % (Auto) 0.5, Neut # (Auto) 8.0 H, Lymph # (Auto) 2.1, [place] # (Auto) 0.4, Eos # (Auto) 0.1, Baso # (Auto) 0.1 12/11/20 15:00: Sodium 140, Potassium 5.1, Chloride 106, Carbon Dioxide 23, Anion Gap 16.1 H, BUN 28 H, Creatinine 1.30 H, Estimated Creat Clear 36, Estimated GFR 39 L, Est GFR ( Amer) 48 L, Glucose 314 H, Calcium 9.2, Total Bilirubin 0.4, AST 23, ALT 18, Alkaline Phosphatase 64, Troponin I < 0.01, Total Protein 7.3, Albumin 4.1, Globulin 3.2, Albumin/Globulin Ratio 1.3, TSH 1.60 12/11/20 15:00: PT 11.5, INR 1.04, APTT 21.8 L 12/11/20 15:00: NT-Pro-B Natriuret Pep 645 H 12/11/20 15:00: Acetone Level None detected 12/11/20 17:15: Chlamy pneumoniae PCR Not detected, Adenovirus (PCR) Not detected, B. pertussis DNA (PCR) Not detected, Coronavirus OC43 (PCR) Not detected, Coronavirus HKU1 (PCR) Not detected, Coronavirus 229E (PCR) Not detected, SARS-CoV-2 (PCR) Not detected, Coronavirus NL63 (PCR) Not detected, Human Metapneumovir PCR Not detected, Influenza A (H1) PCR Not detected, Influ A (H1N1/09) PCR Not detected, Influenza A (H3) PCR Not detected, Influenza Type A (PCR) Not detected, Influenza Type B (PCR) Not detected, M. pneumoniae (PCR) Not detected, Parainfluenza 1 (PCR) Not detected, Parainfluenza 2 (PCR) Not detected, Parainfluenza 3 (PCR) Not detected, Parainfluenza 4 (PCR) Not detected, RSV (PCR) Not detected, Entero/Rhino (PCR) Not detected 12/11/20 18:18: Troponin I < 0.01 12/11/20 19:15: Urine Color Yellow, Urine Appearance Clear, Urine pH 6.0, Ur Specific [place] 1.020, Urine Protein Negative, Urine Glucose (UA) 2+, Urine Ketones Negative, Urine Blood Negative, Urine Nitrate Negative, Urine Bilirubin Negative, Urine Urobilinogen 0.2, Ur Leukocyte Esterase 1+ A, Urine RBC Occasional, Urine WBC 5-10, Ur Squamous Epith Cells 5-10, Urine Bacteria 1+, Hyaline Casts 3-5 12/11/20 20:28: POC Glucose 248 H 12/11/20 20:58: Troponin I < 0.01 12/12/20 05:33: WBC 8.4, RBC 3.77 L, Hgb 11.2 L, Hct 35.9 L, MCV 95.1, MCH 29.6, MCHC 31.1 L, RDW 13.9, Plt Count 220 D, MPV 8.0, Neut % (Auto) 65.8, Lymph % (Auto) 27.1, [place] % (Auto) 4.9, Eos % (Auto) 1.8, Baso % (Auto) 0.5, Neut # (Auto) 5.6, Lymph # (Auto) 2.3, [place] # (Auto) 0.4, Eos # (Auto) 0.2, Baso # (Auto) 0.0 12/12/20 05:33: Sodium 142, Potassium 5.0, Chloride 109 H, Carbon Dioxide 29 D, Anion Gap 9.0, BUN 24 H, Creatinine 0.90 D, Estimated Creat Clear 46, Estimated GFR 60, Est GFR ( Amer) 73 D, Glucose 163 H D, Calcium 9.2, Magnesium 2.2, Total Bilirubin 0.4, AST 17 D, ALT 11 L D, Alkaline Phosphatase 60, Total Protein 6.7, Albumin 3.7, Globulin 3.0, Albumin/Globulin Ratio 1.2 12/12/20 06:44: POC Glucose 151 H I & O for Last 24 hours: Intake & Output 12/09/20 12/10/20 12/11/20 12/12/20 11:59 11:59 11:59 11:59 Intake Total 1401 / 1401 Output Total 500 / 500 Balance 901 / 901 Weight 146 lb 7 oz - Constitutional no acute distress - *Routine HEENT Exam Head: Present: normocephalic Eye: Present: EOMI, PERRL ENT: Present: mucous membranes moist - *Routine Neck Exam Present: supple. Absent: lymphadenopathy - *Routine Respiratory Exam Present: CTA bilaterally - *Routine Cardiovascular Exam
--- NOTE | 2020-12-12 09:25 | HMH.HPDC ---
General - General Admission date:: 12/11/20 Discharge date: 12/12/20 *Admission Date: 12/11/20 *Chief complaint: weakness, bradycardia *History of present illness: Ms. Negrete is an 80-year-old female with a longstanding history of atrial fibrillation who began feeling weak on her way home from a doctor's appointment in [place] yesterday. She was being seen at for preparation for a complete hysterectomy for cervical cancer and states while at , her heart rate was in the 50s and she felt fine. On the way home, she stopped at a [employer] restaurant to eat and began feeling weak. The patient states she never actually passed out, but she felt like she was in a dream state. She could see and hear everything, but could not talk or move. She had been having issues with rapid heart rate and was placed on sotalol 2 weeks ago by cardiology. Since that time, her heart rate had been running low. She states her dose had been decreased from 80 mg twice daily to 40 mg twice daily by cardiology. She did not have any associated chest pain, however she did have some mild shortness of breath. Her family brought her to the emergency room. Her heart rate was in the 30s and her blood pressure was 101/38. An EKG showed junctional bradycardia with a rate of 40. They did attempt to give her atropine in the emergency room, however she continued to be lightheaded, therefore they placed the patient on external pacing. Her blood pressure medications were stopped and she was admitted. Cardiology saw the patient on consultation and they agreed with the discontinuation of her sotalol and diltiazem. They also stopped her Xarelto due to chronic vaginal bleeding from cervical cancer. She is scheduled to have a complete hysterectomy on December 29 at . [facility] History I have reviewed the patient's past medical history: Yes Medical History: Reports:: Anxiety, Atrial Fibrillation, Cancer (Cervical), Coronary Artery Disease, Cerebrovascular Accident, Depression, Diabetes Mellitus Type 2, Gastroesophageal Reflux Disease(GERD), Hyperlipidemia, Hypertension, Palpitations Denies:: Diabetes Mellitus Type 1, MRSA, Seizures *Have you ever received a pneumonia vaccine?: Yes *Have you received a flu vaccine this season?: Yes Other Medical History: Reports: Arthritis Other Surgeries: Yes: Cardiac Catheterization, Cardiac Surgery, Tubal Ligation Amputation: No Fractures: No - *Social History Smoking Status: Never smoker Alcohol Intake: never Alcohol Intake Frequency:: other Substance Use Type: denies use *Occupational Status:: retired *Travel in the last 8 weeks: None - Psychiatric History Pschychiatric History:: Reports:: Anxiety, Depression Family Hx:: Coronary Artery Disease Review of Systems - Constitutional Reports weakness, Denies chills, Denies fever(s) - Eyes Reports blurry vision, Denies double vision - ENT Denies nasal congestion, Denies sore throat - *Cardiovascular Reports shortness of breath, Denies chest pain - *Respiratory Reports shortness of breath, Denies cough - *Gastrointestinal Reports bright, red blood in stools, Denies abdominal pain, Denies loose stools, Denies nausea, Denies vomiting - *Genitourinary Denies difficulty urinating, Denies painful urination - *Musculoskeletal Denies joint pain - *Neurologic Reports unsteadiness, Reports fainting, Reports dizziness, Reports weakness Exam Vital signs and Labs for Last 24 Hours: Temp Pulse Resp BP Pulse Ox 98.1 F 73 20 149/53 H 97 12/12/20 08:00 12/12/20 08:00 12/12/20 08:00 12/12/20 08:00 12/12/20 08:00 Laboratory Results - last 24 hr 12/11/20 15:00: WBC 10.6, RBC 3.88 L, Hgb 11.5 L, Hct 36.5 L, MCV 94.0, MCH 29.6, MCHC 31.4 L, RDW 14.1, Plt Count 295, MPV 8.2, Neut % (Auto) 75.6, Lymph % (Auto) 19.3, [place] % (Auto) 3.4, Eos % (Auto) 1.2, Baso % (Auto) 0.5, Neut # (Auto) 8.0 H, Lymph # (Auto) 2.1, [place] # (Auto) 0.4, Eos # (Auto) 0.1, Baso # (Auto) 0.1
--- NOTE | 2020-12-12 11:14 | HMH.ACPN2 ---
Internal Medicine - PN: Subj *Date: 12/12/20 *Time: 11:14 Interval history: S: 80-year-old white female hospitalized for symptomatic bradycardia due to medications. The chart has been reviewed. Diltiazem will be discontinued and sotalol will be decreased to 40 mg p.o. twice daily. She is scheduled for [employer] surgery at the beginning of December. Exam Vital signs and Labs for Last 24 Hours: Temp Pulse Resp BP Pulse Ox 98.1 F 74 18 139/52 L 97 12/12/20 08:00 12/12/20 10:00 12/12/20 10:00 12/12/20 10:00 12/12/20 10:00 Laboratory Results - last 24 hr 12/11/20 15:00: WBC 10.6, RBC 3.88 L, Hgb 11.5 L, Hct 36.5 L, MCV 94.0, MCH 29.6, MCHC 31.4 L, RDW 14.1, Plt Count 295, MPV 8.2, Neut % (Auto) 75.6, Lymph % (Auto) 19.3, [place] % (Auto) 3.4, Eos % (Auto) 1.2, Baso % (Auto) 0.5, Neut # (Auto) 8.0 H, Lymph # (Auto) 2.1, [place] # (Auto) 0.4, Eos # (Auto) 0.1, Baso # (Auto) 0.1 12/11/20 15:00: Sodium 140, Potassium 5.1, Chloride 106, Carbon Dioxide 23, Anion Gap 16.1 H, BUN 28 H, Creatinine 1.30 H, Estimated Creat Clear 36, Estimated GFR 39 L, Est GFR ( Amer) 48 L, Glucose 314 H, Calcium 9.2, Total Bilirubin 0.4, AST 23, ALT 18, Alkaline Phosphatase 64, Troponin I < 0.01, Total Protein 7.3, Albumin 4.1, Globulin 3.2, Albumin/Globulin Ratio 1.3, TSH 1.60 12/11/20 15:00: PT 11.5, INR 1.04, APTT 21.8 L 12/11/20 15:00: NT-Pro-B Natriuret Pep 645 H 12/11/20 15:00: Acetone Level None detected 12/11/20 17:15: Chlamy pneumoniae PCR Not detected, Adenovirus (PCR) Not detected, B. pertussis DNA (PCR) Not detected, Coronavirus OC43 (PCR) Not detected, Coronavirus HKU1 (PCR) Not detected, Coronavirus 229E (PCR) Not detected, SARS-CoV-2 (PCR) Not detected, Coronavirus NL63 (PCR) Not detected, Human Metapneumovir PCR Not detected, Influenza A (H1) PCR Not detected, Influ A (H1N1/09) PCR Not detected, Influenza A (H3) PCR Not detected, Influenza Type A (PCR) Not detected, Influenza Type B (PCR) Not detected, M. pneumoniae (PCR) Not detected, Parainfluenza 1 (PCR) Not detected, Parainfluenza 2 (PCR) Not detected, Parainfluenza 3 (PCR) Not detected, Parainfluenza 4 (PCR) Not detected, RSV (PCR) Not detected, Entero/Rhino (PCR) Not detected 12/11/20 18:18: Troponin I < 0.01 12/11/20 19:15: Urine Color Yellow, Urine Appearance Clear, Urine pH 6.0, Ur Specific [place] 1.020, Urine Protein Negative, Urine Glucose (UA) 2+, Urine Ketones Negative, Urine Blood Negative, Urine Nitrate Negative, Urine Bilirubin Negative, Urine Urobilinogen 0.2, Ur Leukocyte Esterase 1+ A, Urine RBC Occasional, Urine WBC 5-10, Ur Squamous Epith Cells 5-10, Urine Bacteria 1+, Hyaline Casts 3-5 12/11/20 20:28: POC Glucose 248 H 12/11/20 20:58: Troponin I < 0.01 12/12/20 05:33: WBC 8.4, RBC 3.77 L, Hgb 11.2 L, Hct 35.9 L, MCV 95.1, MCH 29.6, MCHC 31.1 L, RDW 13.9, Plt Count 220 D, MPV 8.0, Neut % (Auto) 65.8, Lymph % (Auto) 27.1, [place] % (Auto) 4.9, Eos % (Auto) 1.8, Baso % (Auto) 0.5, Neut # (Auto) 5.6, Lymph # (Auto) 2.3, [place] # (Auto) 0.4, Eos # (Auto) 0.2, Baso # (Auto) 0.0 12/12/20 05:33: Sodium 142, Potassium 5.0, Chloride 109 H, Carbon Dioxide 29 D, Anion Gap 9.0, BUN 24 H, Creatinine 0.90 D, Estimated Creat Clear 46, Estimated GFR 60, Est GFR ( Amer) 73 D, Glucose 163 H D, Calcium 9.2, Magnesium 2.2, Total Bilirubin 0.4, AST 17 D, ALT 11 L D, Alkaline Phosphatase 60, Total Protein 6.7, Albumin 3.7, Globulin 3.0, Albumin/Globulin Ratio 1.2 12/12/20 06:44: POC Glucose 151 H I & O for Last 24 hours: Intake & Output 12/09/20 12/10/20 12/11/20 12/12/20 11:59 11:59 11:59 11:59 Intake Total 1401 / 1401 Output Total 500 / 500 Balance 901 / 901 Weight 146 lb 7 oz - Constitutional no acute distress - *Routine HEENT Exam Head: Present: normocephalic Eye: Present: PERRL ENT: Present: mucous membranes moist - *Routine Neck Exam Absent: JVD, carotid bruit - Routine Chest/Breast/Axilla Exam Chest wall: Absent: tenderness - *Routine Respiratory Exam P
[2020-12-12 11:36] LABS: POC Glucose,Bedside 191 (70-110)
--- NOTE | 2020-12-12 11:50 | ECG_ITS ---
APPROVED REPORT Exam: Resting ECG HR:76 bpm ECG Measurements Heart Rate 76 AXES MD 184 P 64 QRSd 82 QRS 11 QT 414 T 64 QTc 465 Conclusion Normal sinus rhythm Normal ECG Electronically signed by : Fausto Nunes, 12/12/2020 14:54:09
== END 2020-12-12 12:28 | disposition home or self-care (01) | DRG 310 ==
LOC: ER 17:04 → 2ND 17:15
PROVIDERS: Admitting Provider Family Medicine; Emergency Provider Emergency Medicine; PCP Family Medicine; Visit Provider Family Medicine
DX: R00.1 Bradycardia, unspecified (principal); I48.0 Paroxysmal atrial fibrillation; E11.9 Type 2 diabetes mellitus without complications; I10 Essential (primary) hypertension; I95.9 Hypotension, unspecified; I25.10 Atherosclerotic heart disease of native coronary artery without angina pectoris; C53.9 Malignant neoplasm of cervix uteri, unspecified; Z79.4 Long term (current) use of insulin; Z79.01 Long term (current) use of anticoagulants; Z79.899 Other long term (current) drug therapy
CPT/HCPCS: 36415; 71045; 80053; 81001; 82009; 82962; 83735; 83880; 84443; 84484; 85025; 85610; 85730; 87086; 87581; 87633; 87798; 93005; 99284

== ENCOUNTER → 2021-01-20 13:01 | Outpatient (CLI) | payer MEDICARE, MEDICAID, SELFPAY ==
--- NOTE | 2021-01-20 13:17 | ECG_ITS ---
APPROVED REPORT Exam: Resting ECG HR:69 bpm ECG Measurements Heart Rate 69 AXES WI 180 P 63 QRSd 78 QRS 13 QT 448 T 55 QTc 480 Conclusion Normal sinus rhythm Normal ECG Electronically signed by : Fausto Nunes, 01/21/2021 13:22:08
== END ==
PROVIDERS: PCP Family Medicine; Visit Provider Obstetrics & Gynecology Gynecology
DX: T50.905A Adverse effect of unspecified drugs, medicaments and biological substances, initial encounter (principal); C53.9 Malignant neoplasm of cervix uteri, unspecified
CPT/HCPCS: 93005

== ENCOUNTER → 2022-05-07 07:55 | Outpatient (CLI) | payer MEDICARE, MEDICAID, SELFPAY ==
[2022-05-07 08:35] LABS: Blood Urea Nitrogen 21 mg/dl (7-17); Estimated Glomerular Filt Rate 69 ml/min (>60); GFR (African American) 83 ML/MIN (>60)
--- NOTE | 2022-05-07 08:41 | CT_ITS ---
FINAL REPORT TECHNIQUE: After the administration of oral and intravenous contrast, axial images were obtained through the abdomen and pelvis by computed tomography. The study was performed with techniques to keep radiation dose as low as reasonably achievable, (ALARA). Individual dose reduction techniques using automated exposure control or adjustment of mA and/or kV according to the patient's size were employed. CLINICAL HISTORY: ENDOMETRIAL CANCER, HERNIA FINDINGS: Abdomen: There is chronic scarring in the lung bases. The liver parenchyma is homogeneous. The gallbladder is present. There are calcified granulomas in the spleen. The pancreas, adrenals and kidneys appear unremarkable. The aorta is normal in caliber. There is no free fluid or adenopathy. There is diastasis of the anterior abdominal wall fascia with a herniated segment of transverse colon. Pelvis: The appendix is not identified. The urinary bladder is incompletely distended. There is no free fluid or adenopathy. The rectum is distended up to 7.3 cm in transverse dimensions. IMPRESSION: Anterior abdominal wall hernia. Distended rectum. Reviewed, Interpreted and Dictated by Real Del Cid MD Transcribed by Christian Escamilla Authenticated and [facility]
== END ==
PROVIDERS: PCP Family Medicine; Visit Provider Nurse Practitioner Family
DX: C54.1 Malignant neoplasm of endometrium (principal)
CPT/HCPCS: 36415; 74177; 82565; 84520; Q9967

== ENCOUNTER → 2022-08-06 15:45 | Outpatient (CLI) | payer MEDICARE, MEDICAID, SELFPAY ==
[2022-08-06 18:25] LABS: Basophils % 0.8 % (0.1-2.0); Eosinophils % 0.3 % (0.1-12.0); Hematocrit 43.8 % (37.0-47.0); Lymphocytes # 0.5 K/mm3 (0.7-4.5); Lymphocytes % 12.8 % (10-50); Mean Corpuscular HGB Conc 31.9 g/dL (31.8-35.4); Mean Corpuscular Hemoglobin 30.8 pg (27.0-31.2); Mean Corpuscular Volume 96.4 fl (81-99); Mean Platelet Volume 9.1 fl (7.4-10.4); Monocytes # 0.2 K/mm3 (0.1-1.0); Monocytes % 5.1 % (1.7-9.3); Neutrophils # 3.3 K/mm3 (1.8-7.8); Platelet Count 258 K/mm3 (142-424); Red Blood Count 4.55 M/mm3 (4.20-5.40); Red Cell Distribution Width 13.7 % (11.5-17.5); White Blood Count 4.1 K/mm3 (4.8-10.8)
[2022-08-06 18:47] LABS: Alanine Aminotransferase 14 U/L (12-78); Albumin Level 4.1 g/dl (3.5-5.0); Albumin/Globulin Ratio 1.4 (1.1-1.8); Alkaline Phosphatase 83 U/L (38-126); Amylase 43 U/L (30-110); Anion Gap 17.9 mEq/L (5-15); Aspartate Amino Transferase 22 U/L (14-36); Bilirubin,Total 0.8 mg/dl (0.2-1.3); Blood Urea Nitrogen 30 mg/dl (7-17); Calcium 8.8 mg/dl (8.4-10.2); Carbon Dioxide 30 mmol/L (22.0-30.0); Chloride 99 mmol/L (98-107); Estimated Glomerular Filt Rate 69 ml/min (>60); GFR (African American) 83 ML/MIN (>60); Globulin 2.9 g/dL (1.3-3.2); Glucose 175 mg/dl (74-100); Lipase 93 U/L (23-300); Potassium 4.9 mmoL/L (3.5-5.1); Sodium 142 mmol/L (136-145)
== END ==
PROVIDERS: PCP Family Medicine; Visit Provider Family Medicine
DX: I25.10 Atherosclerotic heart disease of native coronary artery without angina pectoris (principal); K43.9 Ventral hernia without obstruction or gangrene
CPT/HCPCS: 80053; 82150; 83690; 85025

== ENCOUNTER → 2022-08-26 11:25 | Outpatient (CLI) | payer MEDICARE, MEDICAID, SELFPAY ==
[2022-08-26 18:05] LABS: Basophils % 0.5 % (0.1-2.0); Eosinophils % 0.2 % (0.1-12.0); Hematocrit 40.9 % (37.0-47.0); Hemoglobin 12.8 g/dL (12.2-16.2); Lymphocytes # 1.5 K/mm3 (0.7-4.5); Lymphocytes % 16.5 % (10-50); Mean Corpuscular HGB Conc 31.4 g/dL (31.8-35.4); Mean Corpuscular Hemoglobin 30.8 pg (27.0-31.2); Mean Corpuscular Volume 98.2 fl (81-99); Mean Platelet Volume 9.3 fl (7.4-10.4); Monocytes # 0.5 K/mm3 (0.1-1.0); Monocytes % 5.9 % (1.7-9.3); Neutrophils # 6.9 K/mm3 (1.8-7.8); Neutrophils % 76.8 % (37.0-80.0); Platelet Count 221 K/mm3 (142-424); Red Blood Count 4.16 M/mm3 (4.20-5.40); Red Cell Distribution Width 13.7 % (11.5-17.5)
[2022-08-26 18:56] LABS: Alanine Aminotransferase 15 U/L (12-78); Albumin Level 4.4 g/dl (3.5-5.0); Albumin/Globulin Ratio 1.7 (1.1-1.8); Alkaline Phosphatase 85 U/L (38-126); Anion Gap 18.4 mEq/L (5-15); Aspartate Amino Transferase 23 U/L (14-36); Blood Urea Nitrogen 21 mg/dl (7-17); Calcium 9.8 mg/dl (8.4-10.2); Carbon Dioxide 30 mmol/L (22.0-30.0); Chloride 100 mmol/L (98-107); Estimated Glomerular Filt Rate 69 ml/min (>60); GFR (African American) 83 ML/MIN (>60); Globulin 2.6 g/dL (1.3-3.2); Glucose 206 mg/dl (74-100); Potassium 5.4 mmoL/L (3.5-5.1); Sodium 143 mmol/L (136-145); Uric Acid 9.2 mg/dl (2.5-6.2)
== END ==
PROVIDERS: PCP Nurse Practitioner; Visit Provider Nurse Practitioner
DX: E79.0 Hyperuricemia without signs of inflammatory arthritis and tophaceous disease (principal); L03.114 Cellulitis of left upper limb; N95.0 Postmenopausal bleeding
CPT/HCPCS: 80053; 84550; 85025

== ENCOUNTER → 2022-11-04 07:19 | Outpatient (CLI) | payer MEDICARE, MEDICAID, SELFPAY ==
--- NOTE | 2022-11-04 07:56 | CT_ITS ---
FINAL REPORT TECHNIQUE: After the administration of intravenous contrast, axial images through the chest were performed by computed tomography.This study was performed with techniques to keep radiation doses as low as reasonably achievable, (ALARA). Individualized dose reduction techniques using automated exposure control or adjustment of mA and/or kV according to the patient''s size were employed. CLINICAL HISTORY: ABDOMINAL WALL HERNIA FINDINGS: There are several nonspecific thyroid nodules. There are multiple mildly enlarged mediastinal nodes which are nonspecific, favor reactive. There is no axillary adenopathy. There is mild wall thickening of the thoracic esophagus, favor inflammatory. The heart size is normal. There is no pericardial or pleural effusion. Limited images of the upper abdomen are unremarkable. There are mild bilateral pulmonary ground-glass opacities, favor mild edema. IMPRESSION: Nonspecific thyroid nodules. This could be further evaluated with thyroid ultrasound. Bilateral pulmonary ground-glass opacities, favor mild edema. Reviewed, Interpreted and Dictated by Volodymyr Cowan III, MD Transcribed by Debra Anglin Authenticated and . [facility]
--- NOTE | 2022-11-04 07:56 | CT_ITS ---
FINAL REPORT TECHNIQUE: Postcontrast axial images through the abdomen and pelvis were performed. This study was performed with techniques to keep radiation doses as low as reasonably achievable, (ALARA). Individualized dose reduction techniques using automated exposure control or adjustment of mA and/or kV according to the patient's size were employed. CLINICAL HISTORY: ABDOMINAL WALL HERNIA COMPARISON: 05/07/2022 FINDINGS: Abdomen: The lung bases are clear. The liver is normal in size and attenuation. The gallbladder is present. The spleen is unremarkable. The adrenals are normal. The pancreas is unremarkable. There is a less than 1 cm cyst in the lateral left kidney. The aorta is normal in caliber. No free fluid or adenopathy is identified. Pelvis: The appendix is unremarkable. The patient is status post hysterectomy. There is descending and sigmoid diverticulosis without evidence of diverticulitis. There is a periumbilical hernia containing nonobstructed portions of transverse colon and small bowel. Hernia orifice measures 6 cm in transverse dimension. Hernia sac measures 8.5 cm in transverse dimension. Findings are visually stable since prior. The urinary bladder is unremarkable. No free fluid, free air, abscess or adenopathy is identified. IMPRESSION: Periumbilical hernia as above, visually stable. Descending and sigmoid diverticulosis without evidence of diverticulitis. Reviewed, Interpreted and Dictated by Volodymyr Cowan III, MD Transcribed by Debra Anglin Authenticated and [facility]
[2022-11-04 08:04] LABS: Blood Urea Nitrogen 20 mg/dl (7-17); Estimated Glomerular Filt Rate 69 ml/min (>60); GFR (African American) 83 ML/MIN (>60)
== END ==
PROVIDERS: PCP Family Medicine; Visit Provider Nurse Practitioner Family
DX: K43.9 Ventral hernia without obstruction or gangrene (principal)
CPT/HCPCS: 36415; 71260; 74177; 82565; 84520; Q9967

== ENCOUNTER → 2022-12-28 23:35 | Outpatient (CLI) | payer MEDICARE, MEDICAID, SELFPAY ==
[2022-12-28 19:32] LABS: Alanine Aminotransferase 13 U/L (12-78); Albumin Level 4.1 g/dl (3.5-5.0); Albumin/Globulin Ratio 1.3 (1.1-1.8); Alkaline Phosphatase 68 U/L (38-126); Anion Gap 12.1 mEq/L (5-15); Aspartate Amino Transferase 20 U/L (14-36); Bilirubin,Total 0.5 mg/dl (0.2-1.3); Blood Urea Nitrogen 21 mg/dl (7-17); Calcium 9.2 mg/dl (8.4-10.2); Carbon Dioxide 30 mmol/L (22.0-30.0); Chloride 104 mmol/L (98-107); Estimated Glomerular Filt Rate 69 ml/min (>60); GFR (African American) 83 ML/MIN (>60); Globulin 3.1 g/dL (1.3-3.2); Glucose 143 mg/dl (74-100); Potassium 5.1 mmoL/L (3.5-5.1); Sodium 141 mmol/L (136-145); Total Protein,Serum 7.2 g/dl (6.3-8.2)
== END ==
PROVIDERS: PCP Family Medicine; Visit Provider Family Medicine
DX: E87.5 Hyperkalemia (principal); I10 Essential (primary) hypertension; K43.9 Ventral hernia without obstruction or gangrene
CPT/HCPCS: 80053

== ENCOUNTER → 2023-01-20 12:37 | Outpatient (CLI) | payer MEDICARE, MEDICAID, SELFPAY ==
--- NOTE | 2023-01-20 12:48 | US_ITS ---
FINAL REPORT TECHNIQUE: Sonographic images of the thyroid gland were obtained in the longitudinal and transverse planes. CLINICAL HISTORY: MULTIPLE THYROID NODULES FINDINGS: The right lobe measures 2.4 x 1.9 x 4.8 cm. Multiple cysts and nodules are identified. There is a mixed cystic and solid nodule measuring 2.2 cm consistent with TI-RADS category 3. The left lobe measures 2.4 x 1.5 x 4.5 cm. Multiple cysts are identified. There is an isoechoic 2.2 nodule consistent with TI-RADS category 3. In addition, there are several sub cm nodules consistent with TI-RADS category 4. The isthmus measures 5 mm. This is normal. There is a 1.2 cm hypoechoic nodule consistent with TI-RADS category 4. There is also a 1 cm nodule consistent with TI-RADS category 4. IMPRESSION: Multiple cysts and nodules, favor multinodular goiter. TI-RADS category 3 and 4 nodules. Recommend follow-up but none meet the criteria for biopsy according to size. Reviewed, Interpreted and Dictated by Meme Pike MD Transcribed by Debra Anglin Authenticated and [facility]
== END ==
PROVIDERS: PCP Family Medicine; Visit Provider Registered Nurse
DX: E04.2 Nontoxic multinodular goiter (principal)
CPT/HCPCS: 76536

== ENCOUNTER → 2023-05-10 08:08 | Outpatient (CLI) | payer MEDICARE, MEDICAID, SELFPAY ==
--- NOTE | 2023-05-10 08:14 | CT_ITS ---
FINAL REPORT TECHNIQUE: Thin section axial images are obtained through the abdomen and pelvis after intravenous contrast. Reconstruction images were obtained from the axial data. Exam was performed using dose reduction techniques. CLINICAL HISTORY: ENDOMETRIAL CANCER COMPARISON: 11/04/2022 FINDINGS: LIVER: Homogeneous. No focal lesion. GALLBLADDER/BILIARY SYSTEM: Gallbladder is present. There are probable small gallstones noted in the gallbladder. No biliary dilatation. SPLEEN: There are 2 stable peripheral hypodense splenic lesions unchanged from the prior exam. PANCREAS: Unremarkable. ADRENALS: Unremarkable. SYSTEM: No hydronephrosis, renal mass, or renal stone. Unremarkable urinary bladder. Pelvic organs are unremarkable for age. GI TRACT: No small bowel obstruction or dilatation. Normal appendix. There is diverticulosis without diverticulitis once again noted. There is a ventral hernia containing transverse colon, stable since the prior exam. LYMPH NODES/RETROPERITONEUM/MESENTERY: No lymphadenopathy. No abdominal aortic aneurysm. OTHER: No ascites. A small amount of free fluid is once again noted in the pelvis, unchanged. The uterus is surgically absent. Remaining soft tissues without acute abnormality. BONES: No acute osseous abnormality. IMPRESSION: Stable CT abdomen and pelvis without evidence of recurrence or metastatic disease. Reviewed, Interpreted and Dictated by Meme Pike MD Transcribed by Vivian Stewart Authenticated and [facility]
--- NOTE | 2023-05-10 08:14 | CT_ITS ---
FINAL REPORT TECHNIQUE: Thin section axial images were obtained from the thoracic inlet through the upper abdomen after intravenous contrast injection. Reconstruction images were obtained from the axial data. Exam was performed using dose reduction technique. CLINICAL HISTORY: ENDOMETRIAL CANCER COMPARISON: 11/04/2022 FINDINGS: The enlarged AP window nodes noted previously are stable. For example, the index node was previously noted to be 2.2 cm and on today's exam measures 2 cm. No hilar adenopathy is seen. There is no pleural or pericardial effusion. The bilateral hypodense thyroid nodules noted on the prior CT are stable. There are a cluster of 5 mm or smaller left lower lobe densities present, best seen on images #33 and 34, stable. There is a subpleural less than 5 mm nodule seen best on image #14, also stable. There are new reticulonodular opacities in the posterior right upper lobe when compared to the prior exam. No acute osseous abnormality. IMPRESSION: New reticulonodular densities posterior right upper lobe, favor inflammatory or infection. The AP window adenopathy in the chest is stable. Otherwise stable nodular opacities when compared to the prior CT. Reviewed, Interpreted and Dictated by Meme Pike MD Transcribed by Vivian Stewart Authenticated and [facility]
[2023-05-10 08:43] LABS: Blood Urea Nitrogen 20 mg/dl (7-17); Estimated Glomerular Filt Rate 69 ml/min (>60); GFR (African American) 83 ML/MIN (>60)
== END ==
PROVIDERS: PCP Family Medicine; Visit Provider Registered Nurse
DX: C54.1 Malignant neoplasm of endometrium (principal)
CPT/HCPCS: 36415; 71260; 74177; 82565; 84520; Q9967

== ENCOUNTER → 2023-07-05 12:00 | Outpatient (CLI) | payer MEDICARE, MEDICAID, SELFPAY ==
[2023-07-05 17:57] LABS: Coronavirus 19, PCR Not Detected (NotDetected); Influenza A, PCR Not Detected (NotDetected); Influenza B, PCR Not Detected (NotDetected)
[2023-07-05 18:26] LABS: Anion Gap 14.7 mEq/L (5-15); Blood Urea Nitrogen 27 mg/dl (7-17); Calcium 9.1 mg/dl (8.4-10.2); Carbon Dioxide 31 mmol/L (22.0-30.0); Chloride 101 mmol/L (98-107); Estimated Glomerular Filt Rate 60 ml/min (>60); GFR (African American) 72 ML/MIN (>60); Glucose 213 mg/dl (74-100); Potassium 4.7 mmoL/L (3.5-5.1); Sodium 142 mmol/L (136-145)
[2023-07-05 19:00] LABS: Basophils % 0.3 % (0.1-2.0); Eosinophils # 0.2 K/mm3 (0.0-0.4); Eosinophils % 2.2 % (0.1-12.0); Hematocrit 42.3 % (37.0-47.0); Hemoglobin 13.3 g/dL (12.2-16.2); Lymphocytes # 1.7 K/mm3 (0.7-4.5); Lymphocytes % 20.7 % (10-50); Mean Corpuscular HGB Conc 31.5 g/dL (31.8-35.4); Mean Corpuscular Hemoglobin 30.2 pg (27.0-31.2); Mean Corpuscular Volume 95.6 fl (81-99); Mean Platelet Volume 8.9 fl (7.4-10.4); Monocytes # 0.4 K/mm3 (0.1-1.0); Monocytes % 5.2 % (1.7-9.3); Neutrophils # 5.8 K/mm3 (1.8-7.8); Neutrophils % 71.5 % (37.0-80.0); Platelet Count 218 K/mm3 (142-424); Red Blood Count 4.42 M/mm3 (4.20-5.40); Red Cell Distribution Width 13.6 % (11.5-17.5); White Blood Count 8.1 K/mm3 (4.8-10.8)
== END ==
PROVIDERS: PCP Family Medicine; Visit Provider Family Medicine
DX: J40 Bronchitis, not specified as acute or chronic (principal); R05.9 Cough, unspecified; R93.89 Abnormal findings on diagnostic imaging of other specified body structures; R06.02 Shortness of breath
CPT/HCPCS: 80048; 85025; 87636

== ENCOUNTER 2023-12-13 19:13 | Outpatient (CLI) | payer MEDICARE, MEDICAID, SELFPAY ==
[2023-12-13 19:39] LABS: Basophils % 0.3 % (0.1-2.0); Eosinophils # 0.1 K/mm3 (0.0-0.4); Hematocrit 38.3 % (37.0-47.0); Hemoglobin 12.8 g/dL (12.2-16.2); Lymphocytes # 1.9 K/mm3 (0.7-4.5); Mean Corpuscular HGB Conc 33.3 g/dL (31.8-35.4); Mean Corpuscular Hemoglobin 31.7 pg (27.0-31.2); Mean Corpuscular Volume 95.2 fl (81-99); Mean Platelet Volume 9.6 fl (7.4-10.4); Monocytes # 0.4 K/mm3 (0.1-1.0); Monocytes % 5.8 % (1.7-9.3); Neutrophils # 4.5 K/mm3 (1.8-7.8); Platelet Count 214 K/mm3 (142-424); Red Blood Count 4.02 M/mm3 (4.20-5.40); Red Cell Distribution Width 13.6 % (11.5-17.5); White Blood Count 6.9 K/mm3 (4.8-10.8)
[2023-12-13 21:07] LABS: Alanine Aminotransferase 10 U/L (12-78); Albumin Level 4.3 g/dl (3.5-5.0); Albumin/Globulin Ratio 1.5 (1.1-1.8); Alkaline Phosphatase 68 U/L (38-126); Anion Gap 13.5 mEq/L (5-15); Aspartate Amino Transferase 20 U/L (14-36); Bilirubin,Total 0.6 mg/dl (0.2-1.3); Blood Urea Nitrogen 25 mg/dl (7-17); Calcium 9.7 mg/dl (8.4-10.2); Carbon Dioxide 29 mmol/L (22.0-30.0); Chloride 105 mmol/L (98-107); Estimated Glomerular Filt Rate 60 ml/min (>60); GFR (African American) 72 ML/MIN (>60); Globulin 2.9 g/dL (1.3-3.2); Glucose 136 mg/dl (74-100); Potassium 5.5 mmoL/L (3.5-5.1); Sodium 142 mmol/L (136-145); Total Protein,Serum 7.2 g/dl (6.3-8.2)
== END 2023-12-13 23:59 ==
PROVIDERS: PCP Family Medicine; Visit Provider Family Medicine
DX: E11.9 Type 2 diabetes mellitus without complications (principal); Z87.42 Personal history of other diseases of the female genital tract; Z79.84 Long term (current) use of oral hypoglycemic drugs
CPT/HCPCS: 80053; 85025

== ENCOUNTER 2023-12-27 18:22 | Outpatient (CLI) | payer MEDICARE, MEDICAID, SELFPAY ==
[2023-12-27 18:39] LABS: Chloride 108 mmol/L (98-107); Potassium 4.9 mmoL/L (3.5-5.1); Sodium 141 mmol/L (136-145)
[2023-12-27 18:42] LABS: Anion Gap 9.9 mEq/L (5-15); Blood Urea Nitrogen 31 mg/dl (7-17); Calcium 9.7 mg/dl (8.4-10.2); Carbon Dioxide 28 mmol/L (22.0-30.0); Estimated Glomerular Filt Rate 60 ml/min (>60); GFR (African American) 72 ML/MIN (>60); Glucose 156 mg/dl (74-100)
== END 2023-12-27 23:59 ==
PROVIDERS: PCP Family Medicine; Visit Provider Family Medicine
DX: E11.9 Type 2 diabetes mellitus without complications; Z79.84 Long term (current) use of oral hypoglycemic drugs; Z79.899 Other long term (current) drug therapy; I65.23 Occlusion and stenosis of bilateral carotid arteries
CPT/HCPCS: 80048

== ENCOUNTER 2024-01-04 08:15 | Outpatient (CLI) | payer MEDICARE, MEDICAID, SELFPAY ==
--- NOTE | 2024-01-04 08:15 | CA_ITS ---
APPROVED REPORT EXAM: Comprehensive 2D, Doppler, and color-flow Echocardiogram [employer] Professor: RUPERT Goodwin, RVS Ht: 5 ft 1 in Wt: 146lbs BSA: 1.65 BP: 159/55 mmHg Rhythm: Atrial Fibrillation Indications: cad, paf, aortic valve murmur, Dyspnea 2D Dimensions IVSd 0.99 cm LVEF (Visual) 66.50 % PWd 1.03 cm LA Volume 51.90 mL LVDd 4.66 cm LA Volume Index 30.70 mL/m2 (M/F) 16-34 LVDs 2.95 cm Left Atrium 3.40 cm M-Mode Dimensions RVDd 1.28 cm (0.9-2.6) LA Diam 4.13 cm (1.9-4.0) LVDd 6.02 cm (3.5-5.7) LVDs 4.09 cm (3.5-5.7) IVSd 0.96 cm (0.6-1.1) PWd 0.89 cm (0.6-1.1) EF (Teich) 59.30% EPSs 0.65 cm FS 32.10% EDV (Teich) 181.40 mL TAPSE 1.53 (<1.7) ESV (Teich) 73.80 mL LV Diastology E Decel Time 237 (160-240 msec) E/A Ratio 0.76 MED A' 11.00 cm/s LAT A' 8.90 cm/s Aortic Valve MARY ANN Index 0.59 cm2/m2 AoV Peak Dhruv. 264.0 (50-130 cm/s) AI PHT 421.00 ms AO Peak GR. 27.90 mmHg AO Mean GR. 13.80 (<5 mmHg) AO VTI 64.5 (18-25 cm) MARY ANN (VTI) 1.00 (2.5-4.5 cm2) Mitral Valve MV A Velocity 110.0 (40-130 cm/s) E/A Ratio 0.76 Pulmonary Valve TX End VMAX 177.0 cm/s Left Ventricle The left ventricle is normal size. The left ventricular systolic function is normal. The left ventricular ejection fraction is within the normal range. There is normal left ventricular wall thickness. There is normal LV segmental wall motion. The left ventricular diastolic function is normal. LVEF is 60%. Right Ventricle The right ventricle is normal size. The right ventricular systolic function is normal. Atria The left atrium size is normal. The right atrium size is normal. There is no Doppler evidence of interatrial shunt. Aortic Valve The aortic valve is moderately thickened. Mild to moderate aortic stenosis. MARY ANN by 2D planimetry is 1.4 cm2. Peak velocity 2.7 m/s. Mean AV gradient is 13 mmHg. Max AV gradient is 28 mmHg. Mild aortic regurgitation. Mitral Valve The mitral valve is mildly thickened. No evidence of mitral valve stenosis. There is no mitral valve regurgitation noted. Tricuspid Valve The tricuspid valve leaflets are thin and pliable. Trace tricuspid regurgitation. There is insufficient TR jet to estimate RVSP. Pulmonic Valve The pulmonary valve is normal in structure. Mild pulmonic regurgitation. Great Vessels The aortic root is normal in size. IVC is normal in size and collapses >50% with inspiration. Pericardium There is no pericardial effusion. Other Information Study Quality: Fair Conclusion Normal biventricular systolic function. Mild PI. Mild AI. Mild to moderate (MARY ANN by 2D planimetry is 1.4 cm2. Peak velocity 2.7 m/s. Mean AV gradient is 13 mmHg. Max AV gradient is 28 mmHg). Electronically signed by : Ana Sloan MD 01/06/2024 22:48:40
--- NOTE | 2024-01-04 08:18 | CA_ITS ---
FINAL REPORT TECHNIQUE: Color Doppler, duplex Doppler and oliavres scale sonography of the bilateral neck arterial vasculature was performed. Velocities were measured in the carotid arteries. Stenosis evaluation based on the validated velocity criteria. CLINICAL HISTORY: dizziness, carotid stenosis, Afib FINDINGS: The peak systolic velocity of the right common carotid artery is 69 cm/s. The peak systolic velocity of the right internal carotid artery is 141 cm/s and end diastolic velocity 12 cm/s. The ICA/CCA ratio is 2.1. A mild to moderate amount of plaque is present. The right external carotid artery is patent. The right vertebral artery is patent with antegrade flow. The peak systolic velocity of the left common carotid artery is 115 cm/s. The peak systolic velocity of the left internal carotid artery is 99 cm/s and end diastolic velocity 16 cm/s. The ICA/CCA ratio is 1.0. A [id number] amount of plaque is present. The left external carotid artery is patent.The left vertebral artery is patent with antegrade flow. IMPRESSION: Less than 50% bilateral carotid stenoses. Bilateral patent vertebral arteries with antegrade flow. If indicated, CTA or MRA could further evaluate. Reviewed, Interpreted and Dictated by Volodymyr Cowan III, MD Transcribed by Debra Anglin Authenticated and [facility]
--- NOTE | 2024-01-04 09:08 | US_ITS ---
FINAL REPORT CLINICAL HISTORY: thyroid nodules COMPARISON: 01/20/2023 FINDINGS: THYROID ULTRASOUND: Multiple nodules are present in the thyroid gland bilaterally. The right lobe of the thyroid measures 4.2 x 2.4 x 1.4 cm in size. The largest nodule on the right side measures 17 x 13 x 12 mm in size, was previously 16 x 13 x 12 mm in size. This nodule is cystic and solid, and is stable. Other nodules in the right lobe of the thyroid are stable as well when compared to the prior exam. The left lobe of the thyroid measures 3.6 x 1.6 x 1.6 cm in size. Largest nodule on the left side measures 17 x 15 x 10 mm in size, is solid, isoechoic. This nodule was previously 22 x 20 x 16 mm in size, so is slightly smaller on today's exam. Numerous other left thyroid nodules remain present and are stable in appearance. The isthmus of the thyroid gland measures 5 mm in thickness, and contains several nodules as well, all stable since the prior exam. IMPRESSION: Multiple bilateral thyroid nodules are present, and as described are all either stable in appearance when compared with the prior exam of 2022, or are slightly smaller. Recommend 12-month follow-up thyroid ultrasound for continued evaluation. Reviewed, Interpreted and Dictated by Volodymyr Cowan III, MD Transcribed by Vivian Stewart Authenticated and [facility]
== END 2024-01-04 23:59 ==
LOC: RT 08:15
PROVIDERS: PCP Family Medicine; Visit Provider Otolaryngology
DX: R06.00 Dyspnea, unspecified (principal); R42 Dizziness and giddiness; E04.2 Nontoxic multinodular goiter
CPT/HCPCS: 76536; 93306; 93880

== ENCOUNTER 2024-03-06 13:00 | Outpatient (CLI) | payer MEDICARE, MEDICAID, SELFPAY ==
[2024-03-06 19:39] LABS: Alanine Aminotransferase 13 U/L (12-78); Albumin/Globulin Ratio 1.3 (1.1-1.8); Alkaline Phosphatase 71 U/L (38-126); Anion Gap 12.4 mEq/L (5-15); Aspartate Amino Transferase 22 U/L (14-36); Bilirubin,Total 0.4 mg/dl (0.2-1.3); Blood Urea Nitrogen 21 mg/dl (7-17); Calcium 9.2 mg/dl (8.4-10.2); Carbon Dioxide 32 mmol/L (22.0-30.0); Chloride 102 mmol/L (98-107); Estimated Glomerular Filt Rate 68 ml/min (>60); GFR (African American) 83 ML/MIN (>60); Globulin 3.1 g/dL (1.3-3.2); Glucose 121 mg/dl (74-100); Potassium 4.4 mmoL/L (3.5-5.1); Sodium 142 mmol/L (136-145); Total Protein,Serum 7.1 g/dl (6.3-8.2)
[2024-03-06 20:10] LABS: Thyroid Stimulating Hormone 1.06 uIU/mL (0.465-4.68)
== END 2024-03-06 23:59 | disposition home or self-care (01) ==
LOC: LAB.DROPOF 03-07 09:58
PROVIDERS: PCP Family Medicine; Visit Provider Family Medicine
DX: E04.2 Nontoxic multinodular goiter (principal)
CPT/HCPCS: 80053; 84443

== ENCOUNTER 2024-06-12 14:47 | Outpatient (CLI) | payer MEDICARE, MEDICAID, SELFPAY ==
[2024-06-12 18:44] LABS: Basophils % 0.6 % (0.1-2.0); Eosinophils # 0.1 K/mm3 (0.0-0.4); Eosinophils % 1.7 % (0.1-12.0); Hematocrit 41.6 % (37.0-47.0); Hemoglobin 12.8 g/dL (12.2-16.2); Lymphocytes # 2.1 K/mm3 (0.7-4.5); Lymphocytes % 27.3 % (10-50); Mean Corpuscular HGB Conc 30.8 g/dL (31.8-35.4); Mean Corpuscular Hemoglobin 30.8 pg (27.0-31.2); Mean Platelet Volume 9.4 fl (7.4-10.4); Monocytes # 0.4 K/mm3 (0.1-1.0); Monocytes % 5.9 % (1.7-9.3); Neutrophils # 4.9 K/mm3 (1.8-7.8); Neutrophils % 64.6 % (37.0-80.0); Platelet Count 239 K/mm3 (142-424); Red Blood Count 4.16 M/mm3 (4.20-5.40); Red Cell Distribution Width 14.2 % (11.5-17.5); White Blood Count 7.5 K/mm3 (4.8-10.8)
[2024-06-12 19:39] LABS: Alanine Aminotransferase 11 U/L (12-78); Albumin Level 3.8 g/dl (3.5-5.0); Albumin/Globulin Ratio 1.2 (1.1-1.8); Alkaline Phosphatase 62 U/L (38-126); Anion Gap 9.8 mEq/L (5-15); Aspartate Amino Transferase 20 U/L (14-36); Bilirubin,Total 0.5 mg/dl (0.2-1.3); Blood Urea Nitrogen 36 mg/dl (7-17); Calcium 9.1 mg/dl (8.4-10.2); Carbon Dioxide 29 mmol/L (22.0-30.0); Chloride 105 mmol/L (98-107); Estimated Glomerular Filt Rate 53 ml/min (>60); GFR (African American) 64 ML/MIN (>60); Globulin 3.3 g/dL (1.3-3.2); Glucose 113 mg/dl (74-100); Potassium 4.8 mmoL/L (3.5-5.1); Sodium 139 mmol/L (136-145); Total Protein,Serum 7.1 g/dl (6.3-8.2)
== END 2024-06-12 23:59 | disposition home or self-care (01) ==
LOC: LAB.DROPOF 06-13 14:48
PROVIDERS: PCP Family Medicine; Visit Provider Family Medicine
DX: E11.9 Type 2 diabetes mellitus without complications (principal); R05.9 Cough, unspecified; Z79.84 Long term (current) use of oral hypoglycemic drugs
CPT/HCPCS: 80053; 85025

== ENCOUNTER 2024-08-20 11:21 | Inpatient (IN) | payer MEDICARE, MEDICAID, SELFPAY ==
[2024-08-20] VITALS (14 sets, daily range): BP systolic 105–157; BP diastolic 35–89; PULSE 61–71; RESP 16–18; TEMP 36.6–37.1; O2SAT 90–100; BMI 25.9; BMI 26.1
--- NOTE | 2024-08-20 11:37 | XR_ITS ---
PROCEDURE INFORMATION: Exam: XR Chest Exam date and time: 08/20/2024 12:38 PM Age: 84 years old Clinical indication: Other: Hypotension; Additional info: Pre-syncope, hypotension at scene, gi bleed TECHNIQUE: Imaging protocol: Radiologic exam of the chest. Views: 1 view. COMPARISON: CR XR CHEST PORTABLE 08/20/2024 12:38 PM FINDINGS: Lungs: Bilateral ground-glass regions of opacification. Findings nonspecific however most likely reflect interstitial lung disease. An acute inflammatory process could not be entirely excluded. Pleural spaces: Unremarkable. No pleural effusion. No pneumothorax. Heart/Mediastinum: Unremarkable. No cardiomegaly. Bones/joints: Unremarkable. IMPRESSION: No evidence of acute cardiopulmonary disease.
--- NOTE | 2024-08-20 11:37 | CT_ITS ---
PROCEDURE INFORMATION: Exam: CT Abdomen And Pelvis With Contrast Exam date and time: 08/20/2024 12:39 PM Age: 84 years old Clinical indication: Other: Hypotension; Additional info: Pre-syncope, hypotension, gi bleed TECHNIQUE: Imaging protocol: Computed tomography of the abdomen and pelvis with contrast. Radiation optimization: All CT scans at this facility use at least one of these dose optimization techniques: automated exposure control; mA and/or kV adjustment per patient size (includes targeted exams where dose is matched to clinical indication); or iterative reconstruction. Contrast material: ISOVUE; Contrast volume: 75 ml; Contrast route: IV; COMPARISON: CT ABDOMEN PELVIS W CON 05/10/2023 8:59 AM FINDINGS: Lungs: Bibasilar atelectasis versus parenchymal scarring. Calcified granuloma right lung base Diaphragm: Small hiatal hernia Liver: Decreased density throughout the liver compatible with hepatic steatosis. Evidence of prior hepatic, splenic granulomatous disease. Gallbladder and biliary ducts: Tiny gallstones again suggested. Pancreas: Pancreas unremarkable Spleen: Stable peripheral hypodense splenic lesions unchanged. Adrenal glands: Adrenal glands unremarkable. Kidneys and ureters: Normal. No hydronephrosis. Stomach and bowel: Colonic diverticulosis. No evidence of diverticulitis. Appendix: Appendix unremarkable Intraperitoneal space: Unremarkable. No free air. No significant fluid collection. Vasculature: Moderate regions of atherosclerotic vascular calcification are demonstrated within the abdominal aorta and common iliac arteries. Lymph nodes: Unremarkable. No enlarged lymph nodes. Urinary bladder: Unremarkable as visualized. Reproductive: Unremarkable as visualized. Bones/joints: Unremarkable. No acute fracture. Soft tissues: Unremarkable. IMPRESSION: No evidence of acute abnormality.
--- NOTE | 2024-08-20 11:40 | CT_ITS ---
PROCEDURE INFORMATION: Exam: CT Cervical Spine Without Contrast Exam date and time: 08/20/2024 12:35 PM Age: 84 years old Clinical indication: Injury or trauma; Fall; Blunt trauma TECHNIQUE: Imaging protocol: Computed tomography of the cervical spine without contrast. Radiation optimization: All CT scans at this facility use at least one of these dose optimization techniques: automated exposure control; mA and/or kV adjustment per patient size (includes targeted exams where dose is matched to clinical indication); or iterative reconstruction. COMPARISON: CT HEAD/BRAIN WO CON 08/20/2024 12:35 PM FINDINGS: Bones/joints: No acute fracture. Normal alignment. There is moderate to advanced multilevel degenerative disc disease. The spinal canal appears patent. Lungs: Multiple scattered nodule clusters are identified in the lung apices. Soft tissues: Unremarkable. IMPRESSION: 1. No evidence of acute fracture. 2. Scattered nodule clusters in the lung apices. Comparison with prior chest CT from 05/10/2023 is recommended when it becomes available.
--- NOTE | 2024-08-20 11:40 | CT_ITS ---
PROCEDURE INFORMATION: Exam: CT Head Without Contrast Exam date and time: 08/20/2024 12:35 PM Age: 84 years old Clinical indication: Injury or trauma; Fall; Blunt trauma (contusions or hematomas); Without loss of consciousness TECHNIQUE: Imaging protocol: Computed tomography of the head without contrast. Radiation optimization: All CT scans at this facility use at least one of these dose optimization techniques: automated exposure control; mA and/or kV adjustment per patient size (includes targeted exams where dose is matched to clinical indication); or iterative reconstruction. COMPARISON: CT CERVICAL SPINE WO CON 08/20/2024 12:35 PM FINDINGS: Brain: There is mild to moderate small vessel disease. There is no evidence of acute hemorrhage. There is an extra-axial left frontal mass measuring 3.7 x 2.4 x 2.4 cm with associated vasogenic edema. There is mass effect on the adjacent left frontal lobe. Cerebral ventricles: No ventriculomegaly. Paranasal sinuses: Visualized sinuses are unremarkable. No fluid levels. Mastoid air cells: Visualized mastoid air cells are well aerated. Bones: Soft tissues: Unremarkable. IMPRESSION: 1. No evidence of acute intracranial process. 2. Extra-axial left frontal mass with associated vasogenic edema and mass effect on the adjacent left frontal lobe likely representing a meningioma. MRI would be helpful for further characterization.
[2024-08-20] MEDS: ONDANSETRON 4MG/2ML VIAL 4 MG IV (11:46)
[2024-08-20 11:47] LABS: Albumin Level 3.2 g/dl (3.5-5.0); Chloride 108 mmol/L (98-107); Sodium 141 mmol/L (136-145)
[2024-08-20 11:48] LABS: Potassium 4.3 mmoL/L (3.5-5.1)
[2024-08-20] MEDS: CEFTRIAXONE 1 GM 1 GM in 0.9 % SODIUM CHLORIDE 50 ML IV ×2 (11:49→18:06)
[2024-08-20 11:50] LABS: Alanine Aminotransferase 10 U/L (12-78); Albumin/Globulin Ratio 1.1 (1.1-1.8); Alkaline Phosphatase 43 U/L (38-126); Anion Gap 10.3 mEq/L (5-15); Aspartate Amino Transferase 19 U/L (14-36); Bilirubin,Total 0.4 mg/dl (0.2-1.3); Blood Urea Nitrogen 46 mg/dl (7-17); Carbon Dioxide 27 mmol/L (22.0-30.0); Creatinine Clearance Estimated 42 mL/min (50-200); Estimated Glomerular Filt Rate 60 ml/min (>60); GFR (African American) 72 ML/MIN (>60); Globulin 2.9 g/dL (1.3-3.2); Total Protein,Serum 6.1 g/dl (6.3-8.2)
--- NOTE | 2024-08-20 11:50 | ECG_ITS ---
APPROVED REPORT Exam: Resting ECG HR:63 bpm ECG Measurements Heart Rate 63 AXES NE 204 P 92 QRSd 85 QRS 16 QT 406 T 9 QTc 414 Conclusion SINUS RHYTHM NONSPECIFIC T-WAVE ABNORMALITY BORDERLINE ECG UNCONFIRMED REPORT Electronically signed by : BEULAH WIN, 08/21/2024 05:27:25
[2024-08-20 11:51] LABS: Calcium 8.3 mg/dl (8.4-10.2); Glucose 191 mg/dl (74-100); Lipase 153 U/L (23-300)
[2024-08-20 11:56] LABS: Basophils # 0.1 K/mm3 (0-0.2); Basophils % 0.7 % (0.1-2.0); Eosinophils # 0.1 K/mm3 (0.0-0.4); Eosinophils % 1.4 % (0.1-12.0); Hematocrit 25.4 % (37.0-47.0); Hemoglobin 8.1 g/dL (12.2-16.2); Lymphocytes # 1.3 K/mm3 (0.7-4.5); Lymphocytes % 16.6 % (10-50); Mean Corpuscular HGB Conc 31.9 g/dL (31.8-35.4); Mean Corpuscular Hemoglobin 30.8 pg (27.0-31.2); Mean Corpuscular Volume 96.5 fl (81-99); Mean Platelet Volume 8.4 fl (7.4-10.4); Monocytes # 0.3 K/mm3 (0.1-1.0); Monocytes % 3.7 % (1.7-9.3); Neutrophils # 6.1 K/mm3 (1.8-7.8); Neutrophils % 77.6 % (37.0-80.0); Platelet Count 214 K/mm3 (142-424); Red Blood Count 2.63 M/mm3 (4.20-5.40); Red Cell Distribution Width 14.4 % (11.5-17.5); White Blood Count 7.9 K/mm3 (4.8-10.8)
--- NOTE | 2024-08-20 11:58 | HMH.EDGENADL ---
Discharge Plan Disposition Patient Disposition: Admitted Clinical Impressions Clinical Impression: Acute upper gastrointestinal bleeding, Anemia Discharge ED Provider: [facility] General Chief complaint: Nausea/Vomiting/Diarrhea Stated complaint: Weakness Time Seen by Provider: 08/20/24 11:26 Mode of Arrival: Ambulatory Source of Information: Patient and EMS Limitations: No Limitations Description of Symptoms (Recalled from ER Triage Doc. by RN): Patient presents to ED via EMS with c/o of increased weakness, vomiting, nausea, and dark color bowel movements. Patient reports dark BM's have been 3-4 days. History of Present Illness HPI narrative: 84yoF patient presents with a chief complaint of a single episode of pre-syncope. She reports feeling dizzy while standing up and baking cookies. No witnesses were present during the event. The patient has a history of atrial fibrillation, hypertension, and diabetes. The patient experienced an episode of vomiting with black, coffee-ground emesis. States she has also had black stools for the last couple days. she has a known intracranial tumor and a hernia in her abdomen, which she reports is not causing her pain. Per EMS on scene her initial blood pressure was 92/38. The patient remained alert and oriented throughout the incident. Emergency responders administered a liter of fluid and Zofran for the vomiting. On arrival to ED patient alert, oriented, vitals hemodynamically stable, airway breathing circulation intact. GCS 15 Please note that above description of symptoms, in this electronic medical record under categorization of recalled from ER triage doctor by RN are reflective of an initial nursing assessment, however, is not reflective of my full history and physical exam that was personally taken and clarified. Consequentially, this preceding description of symptoms, which may include the patient's categorized chief complaint in the EMR, do not reflect my personal clinical impression, and the ultimate description of history of present illness and patient stated complaints should be deferred to this section of the note. Unless stated otherwise or congruent with this section of the note, additional signs, symptoms, or incongruence should be interpreted as inaccurate with my clinical impression. Related Data Home Medications ?Medication ?Instructions ?Recorded ?Confirmed aspirin 81 mg tablet,delayed 81 mg PO DAILY heart health 03/27/18 06/12/24 release biotin 1,000 mcg chewable tablet 1,000 mcg PO DAILY Supplement 03/27/18 06/12/24 coenzyme Q10 100 mg capsule (Co 100 mg PO DAILY Supplement 06/12/20 06/12/24 Q-10) fluticasone propionate 50 1 spray intranasal DAILY 11/06/21 06/12/24 mcg/actuation nasal spray,suspension docusate sodium 100 mg capsule 100 mg PO DAILY 05/07/22 06/12/24 (Colace) ascorbic acid (vitamin C) 500 mg 500 mg PO DAILY 11/10/23 06/12/24 tablet docusate sodium 100 mg capsule 100 mg PO DAILY 11/10/23 06/12/24 (Stool Softener) furosemide 20 mg tablet mg PO 11/10/23 06/12/24 Previous Rx's ?Medication ?Instructions ?Recorded furosemide 40 mg tablet See Rx Instructions .Route 09/13/23 .COMPLEX #30 tabs lisinopril 10 mg tablet See Rx Instructions .Route 11/17/23 .COMPLEX #90 tabs rivaroxaban 15 mg tablet (Xarelto) See Rx Instructions .Route 04/09/24 .COMPLEX #30 tabs simvastatin 10 mg tablet See Rx Instructions .Route 04/09/24 .COMPLEX #90 tabs metformin 500 mg tablet See Rx Instructions .Route 04/19/24 .COMPLEX #90 tabs albuterol sulfate 90 mcg/actuation 2 puff inhalation Q4-6H PRN 05/15/24 aerosol inhaler shortness of breath or wheezing #8.5 grams benzonatate 200 mg capsule 200 mg PO TID PRN cough #30 caps 05/15/24 dextromethorphan-guaifenesin ER 60 1 tab PO Q12H #60 tabs 05/15/24 mg-1,200 mg tab,extend release,12hr blood sugar diagnostic (True #50 ea 06/21/24 Metrix Glucose Test Strip) lancets 30 gauge #100 ea 06/21/24 montelukast 10 mg tablet See Rx Instructions .Route 06/27/24 .COMPLEX #30 tabs pramipexole 0.25 mg tablet See Rx Instructions .Route 06/27/24 .COMPLEX #30 tabs gabapentin 100 mg capsule 100 mg PO HS #90 caps 06/28/24 sotalol 80 mg tablet See Rx Instructions .Route 07/05/24 .COMPLEX #60 tabs Allergies Allergy/AdvReac Type Severity Reaction Status Date / Time rosuvastatin [From Crestor] AdvReac Intermediate stomach Verified 06/12/24 11:45 [facility] Disclaimer: The information contained in this section may have been updated after the patient was seen, as this information can be updated by other users. Medical History Thyromegaly Hyperlipidemia Encounter for immunization Abnormal chest CT Bronchitis Multiple thyroid nodules She is basically asymptomatic and these nodules were picked up on a routine CT scan. We will continue to monitor them as they are all less than 1 cm. Per recommendation. She will contact us should the note any change in size or sudden swelling. Renal insufficiency Hyperkalemia Ventral hernia Leg pain, bilateral Hyperuricemia Ventral hernia Discussed smaller portions. Likely had transient obstruction Dyspnea Bradycardia Hypotension Syncope Carotid artery stenosis HTN (hypertension) PAF (paroxysmal atrial fibrillation) CAD (coronary artery disease) Surgical History History of hysterectomy Social History Smoking Status: Never smoker alcohol intake: never substance use type: denies use current occupational status: retired Travel in the last 8 weeks: Inside the [place] Other Medical History Have you received the Flu Vaccine for this season: No Have you received the Pneumonia Vaccine: Yes ROS Obtained: Yes Systems reviewed as appropriate & no additional complaints except as documented Physical Exam General General appearance: alert, in no apparent distress and in distress Head Head exam: atraumatic, normocephalic and normal inspection Eye Eye exam: Present normal appearance, PERRL and EOMI ENT ENT exam: Present normal exam Neck Neck exam: Present normal inspection and full ROM; Absent tenderness Chest Chest inspection: Present normal inspection and symmetric chest wall rise; Absent tenderness Respiratory Respiratory exam: Present normal lung sounds bilaterally; Absent respiratory distress Cardiovascular Cardiovascular exam: Present regular rate, normal rhythm and normal heart sounds Abdominal Exam Abdominal exam: Present soft, normal bowel sounds and hernia (Umbilical hernia, no overlying skin changes, nontender); Absent distention, tenderness, guarding, rebound or rigidity Extremities Exam Extremities exam: Present normal inspection and full ROM; Absent tenderness Back Exam Back exam: Present normal inspection Neurological Exam Neurological exam: Present alert, oriented X3 and CN II-XII intact; Absent motor sensory deficit Psychiatric Psychiatric exam: Present normal affect and normal mood Skin Skin exam: Present warm, dry, intact and normal color; Absent rash Medical Decision Making Medical Records Medical records reviewed: Yes I reviewed the patient's medical records. Screening: Per USPSTF and CDC recommendations, given the prevalence of disease in our region, it is our hospital?s policy to screen for HIV and viral Hepatitis for all patients aged 18 and over and those with ongoing risk factors. Get Inquiry Pt receiving controlled substance: No Get was queried for this patient: No Vital Signs: 08/20/24 11:21 08/20/24 11:30 08/20/24 12:02 Temperature 97.8 F Temperature Source Oral Pulse Rate 64 64 Pulse Rate [Right Brachial] 66 Respiratory Rate 18 Blood Pressure 124/41 L 124/35 L Blood Pressure [Right Arm] 122/42 L Blood Pressure Mean [Right Arm] 68 Blood Pressure Source [Right Arm] Automatic Cuff Blood Pressure Position [Right Arm] Supine 02 Sat by Pulse Oximetry 94 L 100 96 Oxygen Delivery Method Room Air Room Air Room Air 08/20/24 13:00 08/20/24 13:32 08/20/24 14:01 Temperature Temperature Source Pulse Rate 66 69 69 Pulse Rate [Right Brachial] Respiratory Rate Blood Pressure 128/46 L 105/63 L 136/45 L Blood Pressure [Right Arm] Blood Pressure Mean [Right Arm] Blood Pressure Source [Right Arm] Blood Pressure Position [Right Arm] 02 Sat by Pulse Oximetry 93 L 90 L 96 Oxygen Delivery Method Room Air Room Air Room Air 08/20/24 14:30 08/20/24 15:01 Temperature Temperature Source Pulse Rate 65 69 Pulse Rate [Right Brachial] Respiratory Rate Blood Pressure 121/44 L 148/89 H Blood Pressure [Right Arm] Blood Pressure Mean [Right Arm] Blood Pressure Source [Right Arm] Blood Pressure Position [Right Arm] 02 Sat by Pulse Oximetry 96 94 L Oxygen Delivery Method Room Air Room Air Lab Data Lab Results 08/20/24 11:26: WBC 7.9, RBC 2.63 L, Hgb 8.1 L, Hct 25.4 L, MCV 96.5, MCH 30.8, MCHC 31.9, RDW 14.4, Plt Count 214, MPV 8.4, Neut % (Auto) 77.6, Lymph % (Auto) 16.6, Petroleum % (Auto) 3.7, Eos % (Auto) 1.4, Baso % (Auto) 0.7, Neut # (Auto) 6.1, Lymph # (Auto) 1.3, Petroleum # (Auto) 0.3, Eos # (Auto) 0.1, Baso # (Auto) 0.1, PT 13.0 H, INR 1.18 H, APTT 23.2, Sodium 141, Potassium 4.3, Chloride 108 H, Carbon Dioxide 27, Anion Gap 10.3, BUN 46 H, Creatinine 0.90, Estimated Creat Clear 42, Estimated GFR 60, Est GFR ( Amer) 72, Glucose 191 H, Calcium 8.3 L, Total Bilirubin 0.4, AST 19, ALT 10 L, Alkaline Phosphatase 43, Troponin I < 0.01, Total Protein 6.1 L, Albumin 3.2 L, Globulin 2.9, Albumin/Globulin Ratio 1.1, Lipase 153, HIV 1&2 Antibody Rapid Nonreactive 08/20/24 11:58: Blood Type B Positive, Antibody Screen Negative 08/20/24 12:32: Urine Color Yellow, Urine Appearance Clear, Urine pH 6.0, Ur Specific Edison 1.015, Urine Protein Negative, Urine Glucose (UA) Negative, Urine Ketones Negative, Urine Blood Negative, Urine Nitrate Positive, Urine Bilirubin Negative, Urine Urobilinogen 0.2, Ur Leukocyte Esterase 2+ A, Urine RBC None, Urine WBC 10-20, Ur Squamous Epith Cells Occasional, Urine Bacteria 3+ 08/20/24 11:26 08/20/24 11:26 Orders (Tests/Meds): ED MEDICATIONS Generic Name Dose Route Start Last Admin Trade Name Freq PRN Reason Stop Dose Admin Sodium Chloride 10 ml 08/20/24 13:02 08/20/24 13:04 Sodium Chloride 0.9% 10ml Syr (Rad Only) IV 09/19/24 13:01 10 ml NEEDED PRN Administration Maintain IV Site Discontinued Medications Generic Name Dose Route Start Last Admin Trade Name Freq PRN Reason Stop Dose Admin Pantoprazole Sodium 80 mg/ 100 mls @ 100 mls/hr 08/20/24 11:37 08/20/24 12:14 Sodium Chloride IV 08/20/24 12:36 100 mls/hr ONCE ONE Administration Ceftriaxone Sodium 1 gm/ 50 mls @ 100 mls/hr 08/20/24 11:44 08/20/24 11:49 Sodium Chloride IV 08/20/24 12:13 100 mls/hr ONCE ONE Administration Iopamidol 75 ml 08/20/24 13:02 08/20/24 13:03 Iopamidol-370 (76%);100ml Bottle IV 08/20/24 13:03 75 ml ONCE ONE Administration Ondansetron HCl 4 mg 08/20/24 11:37 08/20/24 11:46 Ondansetron 4mg/2ml Vial IV 08/20/24 11:38 4 mg ONCE ONE Administration ORDERS Category Date Time Status Type and Screen Stat BBK 08/20/24 11:[address] abdomen pelvis w con Stat Cat Scan 08/20/24 11:[address] cervical spine wo con Stat Cat Scan 08/20/24 11:[address] head/brain wo con Stat Cat Scan 08/20/24 11:40 Completed XR chest portable Stat Exams 08/20/24 11:37 Completed Activated Partial Thrombo Time Stat Lab 08/20/24 11:26 Completed Complete Blood Count Auto Diff Stat Lab 08/20/24 11:26 Completed Comprehensive Metabolic Panel Stat Lab 08/20/24 11:26 Completed HIV (1&2) Antibody Rapid Stat Lab 08/20/24 11:26 Completed Hep C Ab with Reflex to RNA Stat Lab 08/20/24 11:26 Received Lipase Stat Lab 08/20/24 11:26 Completed Prothrombin Time INR Stat Lab 08/20/24 11:26 Completed Troponin I Q3H Lab 08/20/24 Completed Troponin I Q3H Lab 08/20/24 17:45 Ordered Troponin I Stat Lab 08/20/24 11:26 Completed Urinalysis and Microscopic Stat Lab 08/20/24 12:32 Completed Urine Culture Stat Micro 08/20/24 12:32 Received ECG Data Tracing #1: I reviewed this ECG and interpreted as documented below: Normal sinus rhythm, normal axis, normal intervals, no noted ST elevation. Artifact noted Tracing #2: I reviewed this ECG and interpreted as documented below: Normal sinus rhythm, normal axis, normal intervals, no noted ST elevation HEART Score History (anamnesis): Slightly suspicious ECG: Non-specific disturbance Age: >65 years Risk factors: 1-2 risk factors Troponin: </= normal limit HEART Score: 4 Medical Decision Narrative: Patient with history and exam per above presenting for evaluation of presyncopal episode, coffee-ground emesis, melena, hypotension per EMS. Patient denies hitting her head, denies loss of consciousness, denies neck pain, denies any other symptoms at this time beyond some increased weakness over the last couple days Diagnoses considered include GI bleed, ACS, syncope, arrhythmia, electrolyte abnormality, anemia, UTI ED workup and treatment included: As above Labs were independently interpreted by me, significant for anemia with hemoglobin 8.1, no noted leukocytosis no noted acute electrolyte abnormality, troponin negative, lipase within normal limits, CMP nonactionable, CBC nonactionable, urinalysis with no noted UTI, no hematuria Imaging was independently visualized and interpreted by me, significant for CT imaging no noted acute process of abdomen pelvis no noted acute intracranial abnormality. 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 Fracture or malalignment. There are scattered pulmonary nodules noted which will need follow-up with patient's primary care physician - service she is being admitted to. CT C-spine without noted chest x-ray with no noted acute cardiopulmonary process Please refer to radiology report for full details. My clinical impression at this time is most consistent with symptomatic anemia onset of of upper GI bleed. Discussed patient with gastroenterology who plan to scope patient tomorrow morning. Discussed patient with Dr. Claudio who is agreed to admit patient to his service. Patient admitted with hemodynamically stable vitals. I discussed my clinical impression with patient and answered all questions. At this time, the evidence for any other entities in the differential is insufficient to warrant any further testing or ED observation. This was explained to the patient. The patient was advised that persistent or worsening symptoms require further evaluation. Critical Care Critical Care Time Critical Care Time: Yes Attestation: On 08/20/24, the high probability of a clinically significant, sudden or life threatening deterioration of the following system(s) required my full and direct attention, intervention and personal management. The time I documented below is in addition to time spent performing reported procedures but includes the following listed in this critical care notation. Total Time Total Critical Care Time: 35
[2024-08-20 12:06] LABS: Troponin I < 0.01 ng/ml (0.00-0.034)
[2024-08-20] MEDS: PANTOPRAZOLE SODIUM 80 MG in 0.9 % SODIUM CHLORIDE 100 ML 100 MG IV (12:14)
[2024-08-20 12:20] LABS: Activated Partial Thrombo Time 23.2 seconds (22.8-30.6); INR 1.18 (0.9-1.1)
[2024-08-20 12:36] LABS: Microscopic, Urine URINE MICROSCOPIC (MICROSCOPIC)
--- NOTE | 2024-08-20 12:54 | ECG_ITS ---
APPROVED REPORT Exam: Resting ECG HR:71 bpm ECG Measurements Heart Rate 71 AXES SD 192 P 57 QRSd 90 QRS 10 QT 436 T 48 QTc 458 Conclusion SINUS RHYTHM NONSPECIFIC ST & T-WAVE ABNORMALITY BORDERLINE ECG UNCONFIRMED REPORT Electronically signed by : BEULAH WIN, 08/21/2024 05:27:11
[2024-08-20 12:58] LABS: Appearance,Urine CLEAR (Clear); Bilirubin,Urine Negative (Negative); Blood, Urine Negative (Negative); Color,Urine YELLOW (Yellow); Glucose,Urine (UA) Negative (Negative); Ketones,Urine Negative (Negative); Leukocyte Esterase,Urine 2+ (Negative); Nitrate,Urine POSITIVE (Negative); Protein,Urine Negative (Negative); Specific Gravity, Urine 1.015 (1.005-1.030); Urobilinogen,Urine 0.2 EU/dl (0.2)
[2024-08-20] MEDS: IOPAMIDOL-370 (76%);100ML BOTTLE 75 ML IV (13:03)
[2024-08-20] MEDS: SODIUM CHLORIDE 0.9% 10ML SYR (RAD ONLY) 10 ML IV ×2 (13:03→13:04)
[2024-08-20 13:15] LABS: Bacteria,Urine 3+ /lpf; Squamous Epithelial Cell,Urine Occasional #/hpf (0-5)
[2024-08-20 14:18] LABS: HIV (1&2) Antibody Rapid NONREACTIVE (NONREACTIVE)
--- NOTE | 2024-08-20 14:21 | PC.NURSE ---
MESSAGE LEFT GI TO SPEAK WITH ED MD
--- NOTE | 2024-08-20 14:29 | PC.NURSE ---
SPEAKING WITH GI
[2024-08-20 15:20] LABS: Troponin I < 0.01 ng/ml (0.00-0.034)
--- NOTE | 2024-08-20 15:38 | PC.NURSE ---
DR TORO SPEAKING WITH DR MARCOS
--- NOTE | 2024-08-20 15:47 | PC.NURSE ---
SHOE FITTER NOTIFIED OF ADMISSION
--- NOTE | 2024-08-20 16:12 | EXP.HP ---
History of Present Illness *Admission Date: 08/20/24 *Reason for visit:: near syncope *History of present illness: Ms. Negrete is an 84-year-old female with a history of hyperlipidemia, type 2 diabetes mellitus, hypertension, renal insufficiency, carotid stenosis, paroxysmal atrial fibrillation on Xarelto, coronary artery disease, ventral hernia, and syncope and hypotension who presented to [facility] for evaluation after near syncopal episode at home. She was in the process of baking cookies when she had a sudden onset of feeling funny and almost falling. She was able to catch herself and states she did not fall. She was on the phone with her daughter who called EMS who thus brought her to the ER for evaluation. She did vomit in the ambulance and it was noted to be coffee-ground material. Initial blood pressure was then 92/38. She remained alert and oriented throughout. Follow-up vital signs were normal. She describes recent black stools and weakness. She states she has just had a cold. Laboratory data in the emergency room revealed a hemoglobin of 8.1 hematocrit of 25.4. Platelet count was normal at 214,000. White blood cell count was 7900. Urine revealed a urinary tract infection with positive leuk esterase 2+ positive nitrates and urine bacteria at 3+. She was given Protonix IV, ceftriaxone IV, and Zofran IV. Head CT showed no evidence of acute intracranial process. Neck CT showed no evidence of acute fracture. Chest x-ray showed no evidence of acute cardiopulmonary disease. Abdomen/pelvis CT showed no evidence of acute abnormality. She was admitted with symptomatic anemia. The case was discussed with gastroenterology with plans for scoping the following a.m. Patient at this time denies any chest pain and shortness of breath. She does not recall having any palpitations. She has occasional leg edema. She denies fever and has a periodic cough. [facility] Disclaimer: The information contained in this section may have been updated after the patient was seen, as this information can be updated by other users. Medical History Thyromegaly Hyperlipidemia Encounter for immunization Abnormal chest CT Bronchitis Multiple thyroid nodules She is basically asymptomatic and these nodules were picked up on a routine CT scan. We will continue to monitor them as they are all less than 1 cm. Per recommendation. She will contact us should the note any change in size or sudden swelling. Renal insufficiency Hyperkalemia Ventral hernia Leg pain, bilateral Hyperuricemia Ventral hernia Discussed smaller portions. Likely had transient obstruction Dyspnea Bradycardia Hypotension Syncope Carotid artery stenosis HTN (hypertension) PAF (paroxysmal atrial fibrillation) CAD (coronary artery disease) Surgical History History of hysterectomy Family History (Updated 08/20/24 @ 16:18 by Debra Berg APRN) Other Cancer Diabetes Social History Smoking Status: Never smoker alcohol intake: never substance use type: denies use current occupational status: retired Travel in the last 8 weeks: Inside the [place] Other Medical History Have you received the Flu Vaccine for this season: No Have you received the Pneumonia Vaccine: Yes Review of Systems Constitutional Constitutional: Denies body ache(s), Denies difficulty sleeping, Denies frequent falls and Denies headache(s) Eyes Eyes: Denies change in vision ENT Ears, Nose, Mouth, and Throat: Denies otalgia, Denies headache(s), Reports hearing loss, Denies neck pain and Denies sore throat *Cardiovascular Cardiovascular: Denies chest pain, Reports dyspnea, Denies irregular heart rhythm and Denies palpitations *Respiratory Respiratory: Denies chest congestion, Reports cough (Periodic) and Reports dyspnea *Genitourinary Genitourinary: Denies difficulty voiding and Denies dysuria *Musculoskeletal Musculoskeletal: Reports abnormal gait (Uses a cane or walker when out of the house) and Denies neck pain *Neurologic Neurologic: Reports abnormal gait (Uses a cane or walker when out of the house), Denies abnormal speech, Denies confusion, Denies convulsions, Denies frequent falls and Denies headache(s) Psychiatric Psychiatric: Denies confusion Endocrine Endocrine: Denies palpitations Meds Home Medications and Allergies Home Medications ?Medication ?Instructions ?Recorded ?Confirmed ?Type aspirin 81 mg tablet,delayed 81 mg PO DAILY heart health 03/27/18 06/12/24 History release biotin 1,000 mcg chewable tablet 1,000 mcg PO DAILY Supplement 03/27/18 06/12/24 History coenzyme Q10 100 mg capsule (Co 100 mg PO DAILY Supplement 06/12/20 06/12/24 History Q-10) fluticasone propionate 50 1 spray intranasal DAILY 11/06/21 06/12/24 History mcg/actuation nasal spray,suspension docusate sodium 100 mg capsule 100 mg PO DAILY 05/07/22 06/12/24 History (Colace) furosemide 40 mg tablet See Rx Instructions .Route 09/13/23 06/12/24 Rx .COMPLEX #30 tabs ascorbic acid (vitamin C) 500 mg 500 mg PO DAILY 11/10/23 06/12/24 History tablet docusate sodium 100 mg capsule 100 mg PO DAILY 11/10/23 06/12/24 History (Stool Softener) furosemide 20 mg tablet mg PO 11/10/23 06/12/24 History lisinopril 10 mg tablet See Rx Instructions .Route 11/17/23 06/12/24 Rx .COMPLEX #90 tabs rivaroxaban 15 mg tablet (Xarelto) See Rx Instructions .Route 04/09/24 06/12/24 Rx .COMPLEX #30 tabs simvastatin 10 mg tablet See Rx Instructions .Route 04/09/24 06/12/24 Rx .COMPLEX #90 tabs metformin 500 mg tablet See Rx Instructions .Route 04/19/24 06/12/24 Rx .COMPLEX #90 tabs albuterol sulfate 90 mcg/actuation 2 puff inhalation Q4-6H PRN 05/15/24 06/12/24 Rx aerosol inhaler shortness of breath or wheezing #8.5 grams benzonatate 200 mg capsule 200 mg PO TID PRN cough #30 caps 05/15/24 06/12/24 Rx dextromethorphan-guaifenesin ER 60 1 tab PO Q12H #60 tabs 05/15/24 06/12/24 Rx mg-1,200 mg tab,extend release,12hr blood sugar diagnostic (True #50 ea 06/21/24 Rx Metrix Glucose Test Strip) lancets 30 gauge #100 ea 06/21/24 Rx montelukast 10 mg tablet See Rx Instructions .Route 06/27/24 Rx .COMPLEX #30 tabs pramipexole 0.25 mg tablet See Rx Instructions .Route 06/27/24 Rx .COMPLEX #30 tabs gabapentin 100 mg capsule 100 mg PO HS #90 caps 06/28/24 Rx sotalol 80 mg tablet See Rx Instructions .Route 07/05/24 Rx .COMPLEX #60 tabs New Prescriptions to Start Prescriptions: Allergies Allergy/AdvReac Type Severity Reaction Status Date / Time rosuvastatin [From Crestor] AdvReac Intermediate stomach Verified 06/12/24 11:45 ache Exam Data for Last 24 hours Vital signs and Labs for Last 24 Hours: Temp Pulse Resp BP Pulse Ox O2 Del Method 97.8 F 69 18 148/89 H 94 L Room Air 08/20/24 11:21 08/20/24 15:01 08/20/24 11:21 08/20/24 15:01 08/20/24 15:01 08/20/24 15:01 Laboratory Results - last 24 hr 08/20/24 11:26: WBC 7.9, RBC 2.63 L, Hgb 8.1 L, Hct 25.4 L, MCV 96.5, MCH 30.8, MCHC 31.9, RDW 14.4, Plt Count 214, MPV 8.4, Neut % (Auto) 77.6, Lymph % (Auto) 16.6, [place] % (Auto) 3.7, Eos % (Auto) 1.4, Baso % (Auto) 0.7, Neut # (Auto) 6.1, Lymph # (Auto) 1.3, [place] # (Auto) 0.3, Eos # (Auto) 0.1, Baso # (Auto) 0.1, PT 13.0 H, INR 1.18 H, APTT 23.2, Sodium 141, Potassium 4.3, Chloride 108 H, Carbon Dioxide 27, Anion Gap 10.3, BUN 46 H, Creatinine 0.90, Estimated Creat Clear 42, Estimated GFR 60, Est GFR ( Amer) 72, Glucose 191 H, Calcium 8.3 L, Total Bilirubin 0.4, AST 19, ALT 10 L, Alkaline Phosphatase 43, Troponin I < 0.01, Total Protein 6.1 L, Albumin 3.2 L, Globulin 2.9, Albumin/Globulin Ratio 1.1, Lipase 153, HIV 1&2 Antibody Rapid Nonreactive 08/20/24 11:58: Blood Type B Positive, Antibody Screen Negative 08/20/24 12:32: Urine Color Yellow, Urine Appearance Clear, Urine pH 6.0, Ur Specific [place] 1.015, Urine Protein Negative, Urine Glucose (UA) Negative, Urine Ketones Negative, Urine Blood Negative, Urine Nitrate Positive, Urine Bilirubin Negative, Urine Urobilinogen 0.2, Ur Leukocyte Esterase 2+ A, Urine RBC None, Urine WBC 10-20, Ur Squamous Epith Cells Occasional, Urine Bacteria 3+ 08/20/24 : Troponin I < 0.01 I & O for Last 24 hours: Intake & Output 08/18/24 08/19/24 08/20/24 08/21/24 11:59 11:59 11:59 11:59 Weight 142 lb Constitutional Constitutional: no acute distress Comments: She appears comfortable lying in the bed. Conversant. Hard of hearing *Routine HEENT Exam Head: Present normocephalic and atraumatic Eye: Present PERRL; Absent conjunctival icterus, scleral injection or conjunctivae pink ENT: Present mucous membranes moist and oropharynx clear *Routine Neck Exam Neck: Present carotid bruit (Versus radiating murmur); Absent lymphadenopathy, thyromegaly or tenderness *Routine Respiratory Exam Respiratory: Present crackles (Few in bilateral bases posteriorly) *Routine Cardiovascular Exam Cardiovascular: Present RRR *Routine Abdominal Exam Abdominal: Present soft and normoactive bowel sounds; Absent tenderness *Routine Rectal Exam Rectal:: deferred *Routine Genitalia Exam Genitalia:: deferred *Routine Extremities Exam Extremities: Present pulses intact; Absent edema or calf tenderness *Routine Neurological Exam Neurological: Present alert, oriented X3 and normal speech Assessment and Plan *Assessment and plan (1) Anemia: Status: Acute Category: Medical Code(s): D64.9 - Anemia, unspecified (2) Gastrointestinal tract bleed: Status: Acute Category: Medical Code(s): K92.2 - Gastrointestinal hemorrhage, unspecified (3) Aortic stenosis: Status: Acute Qualifiers: Cardiac valve disease etiology: etiology unspecified Qualified Code(s): I35.0 - Nonrheumatic aortic (valve) stenosis Category: Medical Code(s): I35.0 - Nonrheumatic aortic (valve) stenosis (4) Thyromegaly: Status: Acute Category: Medical Code(s): E01.0 - Iodine-deficiency related diffuse (endemic) goiter (5) Hyperlipidemia: Status: Acute Qualifiers: Hyperlipidemia type: mixed hyperlipidemia Qualified Code(s): E78.2 - Mixed hyperlipidemia Category: Medical Code(s): E78.5 - Hyperlipidemia, unspecified (6) Multiple thyroid nodules: Problem Comment: She is basically asymptomatic and these nodules were picked up on a routine CT scan. We will continue to monitor them as they are all less than 1 cm. Per recommendation. She will contact us should the note any change in size or sudden swelling. Status: Acute Category: Medical Code(s): E04.2 - Nontoxic multinodular goiter (7) Diabetes mellitus: Status: Acute Category: Medical Code(s): E11.9 - Type 2 diabetes mellitus without complications (8) Renal insufficiency: Status: Acute Category: Medical Code(s): N28.9 - Disorder of kidney and ureter, unspecified (9) Ventral hernia: Status: Acute Category: Medical Code(s): K43.9 - Ventral hernia without obstruction or gangrene (10) Syncope, near: Status: Acute Category: Medical Code(s): R55 - Syncope and collapse (11) PAF (paroxysmal atrial fibrillation): Status: Chronic Category: Medical Code(s): I48.0 - Paroxysmal atrial fibrillation (12) CAD (coronary artery disease): Status: Chronic Qualifiers: Coronary Disease-Associated Artery/Lesion type: [place] artery [place] vs. transplanted heart: [place] heart Associated angina: without angina Qualified Code(s): I25.10 - Atherosclerotic heart disease of [place] coronary artery without angina pectoris Category: Medical Code(s): I25.10 - Atherosclerotic heart disease of [place] coronary artery without angina pectoris Plan Gastroenterology has been consulted. Will place on sliding scale insulin. Will continue with antibiotic for UTI. 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
--- NOTE | 2024-08-20 16:42 | PC.NURSE ---
arrived by w/c from ED
--- NOTE | 2024-08-20 18:13 | PC.NURSE ---
NEW ADMIT THIS SHIFT FOR ANEMIA AND SYNCOPE. SHE IS AOX4 BUT VERY [place]. VERY PLEASANT SINCE ARRIVAL TO FLOOR. 1 ASSIST TO TRANSFER FROM WHEELCHAIR TO BED. NOT REQUIRING O2 SUPPORT. NPO @ MIDNIGHT FOR GI CONSULT IN AM.
[2024-08-20 18:47] LABS: Troponin I < 0.01 ng/ml (0.00-0.034)
[2024-08-20 19:25] LABS: Basophils # 0.1 K/mm3 (0-0.2); Basophils % 0.7 % (0.1-2.0); Eosinophils # 0.1 K/mm3 (0.0-0.4); Eosinophils % 0.7 % (0.1-12.0); Hematocrit 23.3 % (37.0-47.0); Hemoglobin 7.4 g/dL (12.2-16.2); Lymphocytes # 1.7 K/mm3 (0.7-4.5); Mean Corpuscular HGB Conc 31.7 g/dL (31.8-35.4); Mean Corpuscular Hemoglobin 30.5 pg (27.0-31.2); Mean Corpuscular Volume 96.2 fl (81-99); Mean Platelet Volume 8.1 fl (7.4-10.4); Monocytes # 0.5 K/mm3 (0.1-1.0); Neutrophils # 6.7 K/mm3 (1.8-7.8); Neutrophils % 74.7 % (37.0-80.0); Platelet Count 201 K/mm3 (142-424); Red Blood Count 2.43 M/mm3 (4.20-5.40); Red Cell Distribution Width 14.7 % (11.5-17.5)
[2024-08-20] MEDS: SOTALOL 80MG TABLET 80 MG PO (20:53)
[2024-08-20 21:05] LABS: POC Glucose,Bedside 186 (70-110)
[2024-08-20] MEDS: humaLOG 100 UNITS/ML 10ML VIAL (SSI) SUBCUT (21:21)
[2024-08-20 22:14] LABS: Hematocrit 22.3 % (37.0-47.0); Hemoglobin 7.3 g/dL (12.2-16.2)
[2024-08-21] VITALS (28 sets, daily range): BP systolic 111–149; BP diastolic 41–67; PULSE 60–112; RESP 16–20; TEMP 36.6–37; O2SAT 90–100; BMI 66.4
--- NOTE | 2024-08-21 00:05 | PC.NURSE ---
1 unit of blood started at this time, d/t Hgb: 7.4
--- NOTE | 2024-08-21 02:53 | PC.NURSE ---
blood transfusion ended at this time, Pt tolerated transfusion well, will follow vitals in 1 hour, 2 Hour Post H&H per MD ordered for 0438.
[2024-08-21 05:53] LABS: MANUAL DIFFERENTIAL MANUAL DIFFERENTIAL (MANUAL DIFF)
[2024-08-21 05:54] LABS: POC Glucose,Bedside 175 (70-110)
[2024-08-21 05:57] LABS: Basophils % 0.4 % (0.1-2.0); Eosinophils # 0.2 K/mm3 (0.0-0.4); Hematocrit 28.2 % (37.0-47.0); Lymphocytes # 1.7 K/mm3 (0.7-4.5); Lymphocytes % 21.4 % (10-50); Mean Corpuscular HGB Conc 33.7 g/dL (31.8-35.4); Mean Corpuscular Hemoglobin 31.1 pg (27.0-31.2); Mean Corpuscular Volume 92.5 fl (81-99); Mean Platelet Volume 8.2 fl (7.4-10.4); Monocytes # 0.4 K/mm3 (0.1-1.0); Monocytes % 5.3 % (1.7-9.3); Neutrophils # 5.8 K/mm3 (1.8-7.8); Neutrophils % 70.9 % (37.0-80.0); Platelet Count 171 K/mm3 (142-424); Red Blood Count 3.04 M/mm3 (4.20-5.40); Red Cell Distribution Width 15.8 % (11.5-17.5); White Blood Count 8.1 K/mm3 (4.8-10.8)
[2024-08-21 06:05] LABS: Hemoglobin 9.5 g/dL (12.2-16.2)
--- NOTE | 2024-08-21 06:42 | PC.NURSE ---
Patient left floor to go to the OR at 06:41.
[2024-08-21] MEDS: LACTATED RINGERS 1000ML 1,000 ML 25 ML IV (06:56)
[2024-08-21 07:03] LABS: Lymphocytes % 25 % (10-50); Monocytes % 7 % (2-9); Neutrophils % 68 % (42-76); Total Cells Counted 100
[2024-08-21 07:04] LABS: Platelet Estimate Normal; RBC Morphology Normal
--- NOTE | 2024-08-21 07:10 | EXP.ANES.CKL ---
[facility] Disclaimer: The information contained in this section may have been updated after the patient was seen, as this information can be updated by other users. Medical History Thyromegaly Hyperlipidemia Encounter for immunization Abnormal chest CT Bronchitis Multiple thyroid nodules She is basically asymptomatic and these nodules were picked up on a routine CT scan. We will continue to monitor them as they are all less than 1 cm. Per recommendation. She will contact us should the note any change in size or sudden swelling. Renal insufficiency Hyperkalemia Ventral hernia Leg pain, bilateral Hyperuricemia Ventral hernia Discussed smaller portions. Likely had transient obstruction Dyspnea Bradycardia Hypotension Syncope Carotid artery stenosis HTN (hypertension) PAF (paroxysmal atrial fibrillation) CAD (coronary artery disease) Surgical History History of hysterectomy Family History (Updated 08/20/24 @ 16:18 by Debra Berg APRN) Other Cancer Diabetes Social History Smoking Status: Never smoker alcohol intake: never substance use type: denies use current occupational status: retired Travel in the last 8 weeks: Inside the [facility] Anesthesia Checklist Patient Identification Patient Identification: Arm Band and Family Structural Data Admitted From: Inpatient Planned Operative Procedure/s: EGD. Consent for Planned Operative Procedure(s) Verified: Yes Verified Documents: Surgical Consent and History and Physical NPO Status Verified Time NPO: 00:00 Additional verifications Patient : No Anesthesia Reactions: No Hx Blood Transfusions: No Blood Transfusion Reaction: No Cephalosporin Allergy: No Previous Colonoscopy: Yes Airway Assessment Mallampati Score:: Class III C-Spine Mobility Assessed: Yes TMJ Mobility Assessed: Yes Dentition: Edentulous Neurological Assessment Level of Consciousness: Awake, Alert, Appropriate and Follows Commands Hx Seizures: No Numbness or tingling in extremities: No Anesthesia Plan Anesthesia Risk discussed: Yes ASA Class: III Anesthesia Type: MAC Preoperative Comments Pre-Operative Comments: History of esophogeal polyps. Advanced age. Hard of hearing. Upper gastrointestinal bleeding. Aortic stenosis. Renal insufficiency. Ventral hernia. HTN. CAD.
--- NOTE | 2024-08-21 07:49 | ECG_ITS ---
APPROVED REPORT Exam: Resting ECG HR:73 bpm ECG Measurements Heart Rate 73 AXES MI 203 P 48 QRSd 94 QRS -1 QT 414 T 17 QTc 440 Conclusion SINUS RHYTHM LEFT VENTRICULAR HYPERTROPHY AND ST-T CHANGE [VOLTAGE CRITERIA PLUS ST/T ABNORMALITY] INFERIOR MYOCARDIAL INFARCTION , PROBABLY OLD [40+ ms Q WAVE AND/OR ST/T ABNORMALITY IN II/aVF] ABNORMAL ECG UNCONFIRMED REPORT Electronically signed by : Fausto Nunes MD 08/21/2024 15:53:07
--- NOTE | 2024-08-21 07:50 | HMH.PROCNOTE ---
[facility] Procedure Note Date: 08/21/24 Time: 07:50 Procedure Note:: Upper Endoscopy Procedure Report: Esophagogastroduodenoscopy with APC ablation and cold biopsies Endoscopost: Naseem Gale II, MD Referring Physician: Suresh Claudio MD Date of Procedure: August 21, 2024 Equipment: Olympus GIF 190 standard upper endoscope Sedation: MAC sedation Indications: Mrs. Ngerete is an 84-year-old female who is admitted for acute GI bleed. The patient does report melena and coffee-ground emesis. She had a feeling of near syncope and called EMS. She had coffee-ground emesis in the ambulance. She has had recent black/melanotic stools. In the emergency room, her hemoglobin and hematocrit were 8.1 and 25.4. The patient is on Xarelto and baby aspirin but reports no NSAIDs. The patient did receive 2 units of PRBCs. Her hemoglobin and hematocrit last evening were 7.3 and 22.3. Today her hemoglobin 9.5 and hematocrit 28.2 improved. The patient reports no prior upper GI bleed. Iron studies are pending. Procedure: Prior to the procedure, a history and physical exam was performed, and patient's medications and allergies were reviewed. The risks, benefits and alternatives of the sedation and procedure were discussed with the patient. All questions were answered and informed consent was obtained. The patient was brought to the procedure room. Patient identification and proposed procedure were verified by the physician and the nurse. The patient was placed in a left lateral decubitus position and the scope was passed under direct vision. Throughout the procedure, the patient's blood pressure, pulse, and oxygen saturations were monitored continuously. The upper GI endoscopy was accomplished without difficulty. The patient tolerated the procedure well. Findings: The scope was passed directly into the upper esophagus and advanced to the third portion of the duodenum. The post bulbar duodenum and duodenal bulb were normal with normal mucosa and conniventes. There was mild to moderate duodenal lymphoid stasis. The scope was withdrawn through a normal duodenal bulb and pylorus into the stomach. Within the stomach there was a moderate amount of coffee-ground material and some fresh heme/blood. After washings, there was oozing of fresh blood from an angiodysplasia/AVM along the lesser curvature. The APC was utilized to ablate/coagulate this AVM with hemostasis. After multiple washings, there were a few other scattered AVMs with a little coffee-ground. Each of these was ablated using the APC (argon plasma blue leather setter). There was mild gastric atrophy and mild chronic gastritis. Biopsies were obtained from the incisura/lesser curvature. Upon retroflexion there was a very small sliding 1 to 2 cm hiatal hernia. The scope was then withdrawn into the esophagus. There was no evidence of reflux esophagitis but there was a single tongue of salmon-colored mucosa consistent with short segment Larsen's esophagus. Biopsies were obtained from the distal esophagus. The remainder of the mid and proximal esophageal mucosa was normal. Impression: 1. 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 Mild chronic gastritis with gastric atrophy 3. Short segment Larsen's esophagus with very small 1 to 2 cm hiatal hernia Plan: The patient's GI bleeding was from the gastric AVMs/angiodysplasias. I did do APC ablation of all visualized AVMs. Angiodysplasias which are also called AVMs (arteriovenous malformations) can remain clinically silent or cause gastrointestinal bleeding. Patients who bleed typically present with occult not overt gastrointestinal blood loss. Angiodysplasias are aberrant blood vessels which are more frequently found in the gastrointestinal tract, where they are probably more common than anywhere else in the body. The vast majority are acquired later in life. The reasons for the distortion of vascular structures observed as we get older are poorly understood. Angiodysplasias are composed of ectatic, dilated, thin-walled blood vessels and the most prominent feature in angiodysplasias is the presence of dilated, tortuous submucosal veins. A proposed theory is that angiodysplasias develop due to intermittent, recurrent low-grade obstruction of submucosal veins. Over years, the obstruction results in dilatation and tortuosity of the draining areas (ie, submucosal vessels, venules, and superficial capillaries). Angiodysplasia may be found during evaluation of gastrointestinal (GI) bleeding or it may be discovered incidentally during an endoscopic evaluation being performed for other reasons. If bleeding occurs, the bleeding tends be recurrent and chronic. However, marked acute bleeding causing orthostasis or hypotension can rarely occur. Angiodysplasia of the stomach or duodenum has been incriminated as the cause of blood loss in 4 to 7 percent of patients with gastrointestinal bleeding . Such patients may present with either occult bleeding or overt bleeding. In addition, angiodysplasia may be detected as an incidental finding. I recommend treating angiodysplasia found during upper endoscopy or colonoscopy in patients with occult bleeding, even if the lesions are not bleeding at the time of the endoscopy. If needed, patients should also be started on iron replacement therapy. If the anemia persists despite these measures, more aggressive diagnostic and therapeutic options can be considered (eg, video capsule enteroscopy or even interoperative enteroscopy which is deeper evaluation of the small intestine). In refractory and difficult cases, some medical therapies have been effectively used including estrogen (with or without progesterone), angiogenesis inhibitors (i.e. thalidomide) and octreotide have been used. A variety of endoscopic treatments can be used to treat angiodysplasia, with approaches employing cautery being the most widely used. Argon plasma coagulation (APC) uses high frequency energy transmitted to tissue by ionized gas. This technique has been used for a variety of bleeding lesions, including angiodysplasia. APC is safe and is the most common and most successful method used to treat angiodysplasia. I will check iron studies and would recommend parenteral iron repletion if the patient is iron deficient.
--- NOTE | 2024-08-21 08:07 | EXP.ACUTE.PN ---
Subjective *Date: 08/21/24 *Time: 08:40 Interval history: Patient is just returned from the procedure. Daughters are at her bedside. They state that she ate and drank well last evening and enjoyed her dinner. She did not sleep much due to being nervous for the procedure. At this time patient denies any chest pain or shortness of breath. She is still quite drowsy. Hemoglobin this morning was 9.5 with hematocrit of 28.2. She did receive 1 unit of packed red blood cells during the night. Documentation from EGD per Dr. Gale on 08/21/2024 as follows. Impression: 1. 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 Mild chronic gastritis with gastric atrophy 3. Short segment Larsen's esophagus with very small 1 to 2 cm hiatal hernia Plan: The patient's GI bleeding was from the gastric AVMs/angiodysplasias. I did do APC ablation of all visualized AVMs. Angiodysplasias which are also called AVMs (arteriovenous malformations) can remain clinically silent or cause gastrointestinal bleeding. Patients who bleed typically present with occult not overt gastrointestinal blood loss. Angiodysplasias are aberrant blood vessels which are more frequently found in the gastrointestinal tract, where they are probably more common than anywhere else in the body. The vast majority are acquired later in life. The reasons for the distortion of vascular structures observed as we get older are poorly understood. Angiodysplasias are composed of ectatic, dilated, thin-walled blood vessels and the most prominent feature in angiodysplasias is the presence of dilated, tortuous submucosal veins. A proposed theory is that angiodysplasias develop due to intermittent, recurrent low-grade obstruction of submucosal veins. Over years, the obstruction results in dilatation and tortuosity of the draining areas (ie, submucosal vessels, venules, and superficial capillaries). Angiodysplasia may be found during evaluation of gastrointestinal (GI) bleeding or it may be discovered incidentally during an endoscopic evaluation being performed for other reasons. If bleeding occurs, the bleeding tends be recurrent and chronic. However, marked acute bleeding causing orthostasis or hypotension can rarely occur. Angiodysplasia of the stomach or duodenum has been incriminated as the cause of blood loss in 4 to 7 percent of patients with gastrointestinal bleeding . Such patients may present with either occult bleeding or overt bleeding. In addition, angiodysplasia may be detected as an incidental finding. I recommend treating angiodysplasia found during upper endoscopy or colonoscopy in patients with occult bleeding, even if the lesions are not bleeding at the time of the endoscopy. If needed, patients should also be started on iron replacement therapy. If the anemia persists despite these measures, more aggressive diagnostic and therapeutic options can be considered (eg, video capsule enteroscopy or even interoperative enteroscopy which is deeper evaluation of the small intestine). In refractory and difficult cases, some medical therapies have been effectively used including estrogen (with or without progesterone), angiogenesis inhibitors (i.e. thalidomide) and octreotide have been used. A variety of endoscopic treatments can be used to treat angiodysplasia, with approaches employing cautery being the most widely used. Argon plasma coagulation (APC) uses high frequency energy transmitted to tissue by ionized gas. This technique has been used for a variety of bleeding lesions, including angiodysplasia. APC is safe and is the most common and most successful method used to treat angiodysplasia. I will check iron studies and would recommend parenteral iron repletion if the patient is iron deficient. Medical Exam Vital signs and Labs for Last 24 Hours: Vital Signs Temp Pulse Pulse Resp BP BP Pulse Ox 08/21/24 07:44 98.2 F 77 18 133/63 94 L 08/21/24 07:18 08/21/24 04:52 70 08/21/24 04:31 08/21/24 04:00 98.2 F 70 16 133/44 L 94 L 08/21/24 03:38 98.5 F 71 18 128/41 L 90 L 08/21/24 03:00 08/21/24 02:38 98.3 F 71 16 149/48 H 91 L 08/21/24 02:05 98.5 F 69 18 130/45 L 90 L 08/21/24 01:05 98.6 F 69 18 111/50 L 90 L 08/21/24 01:00 08/21/24 00:50 98.4 F 69 20 120/43 L 92 L 08/21/24 00:35 98.4 F 69 18 111/43 L 93 L 08/21/24 00:20 98.3 F 70 18 90 L 08/21/24 00:15 97.9 F 71 20 122/42 L 91 L 08/21/24 00:10 98.0 F 72 20 122/46 L 91 L 08/21/24 00:05 98.3 F 71 18 128/43 L 90 L 08/21/24 00:00 70 08/21/24 00:00 98.0 F 70 16 128/49 L 91 L 08/20/24 23:55 98.2 F 71 18 157/44 H 92 L 08/20/24 23:00 08/20/24 21:00 08/20/24 20:27 70 08/20/24 20:00 08/20/24 18:09 08/20/24 17:00 08/20/24 16:20 98.7 F 61 18 122/36 L 08/20/24 16:01 65 122/36 L 97 08/20/24 16:00 98.1 F 66 16 136/53 L 96 08/20/24 15:30 64 134/45 L 96 08/20/24 15:01 69 148/89 H 94 L 08/20/24 14:30 65 121/44 L 96 08/20/24 14:01 69 136/45 L 96 08/20/24 13:32 69 105/63 L 90 L 08/20/24 13:00 66 128/46 L 93 L 08/20/24 12:02 64 124/35 L 96 08/20/24 11:30 64 124/41 L 100 08/20/24 11:21 97.8 F 66 18 122/42 L 94 L O2 Del Method O2 Flow Rate 08/21/24 07:44 Nasal Cannula 5 08/21/24 07:18 Nasal Cannula 5 08/21/24 04:52 08/21/24 04:31 Room Air 08/21/24 04:00 Room Air 08/21/24 03:38 08/21/24 03:00 Room Air 08/21/24 02:38 08/21/24 02:05 08/21/24 01:05 08/21/24 01:00 Room Air 08/21/24 00:50 08/21/24 00:35 08/21/24 00:20 08/21/24 00:15 08/21/24 00:10 08/21/24 00:05 08/21/24 00:00 08/21/24 00:00 Room Air 08/20/24 23:55 08/20/24 23:00 Room Air 08/20/24 21:00 Room Air 08/20/24 20:27 08/20/24 20:00 Room Air 08/20/24 18:09 Room Air 08/20/24 17:00 Room Air 08/20/24 16:20 Room Air 08/20/24 16:01 Room Air 08/20/24 16:00 Room Air 08/20/24 15:30 Room Air 08/20/24 15:01 Room Air 08/20/24 14:30 Room Air 08/20/24 14:01 Room Air 08/20/24 13:32 Room Air 08/20/24 13:00 Room Air 08/20/24 12:02 Room Air 08/20/24 11:30 Room Air 08/20/24 11:21 Room Air Intake and Output 08/20/24 08/21/24 08/21/24 19:59 03:59 11:59 Intake Total 450 / 450 250 / 700 Output Total 0 / 0 400 / 400 Balance 450 / 450 250 / 700 -400 / 300 Intake: Intake, Oral Amount 450 / 450 0 / 450 Intake (Blood Product) Amt 250 / 250 Red Blood Cells Unit 250 / 250 [id number] Output: Output, Urine Amount 0 / 0 400 / 400 Other: Weight 141 lb 14.938 oz 361 lb 1.875 oz Patient Weight 08/21/24 11:59 Weight 361 lb 1.875 oz Laboratory Results - last 24 hr 08/20/24 11:26: WBC 7.9, RBC 2.63 L, Hgb 8.1 L, Hct 25.4 L, MCV 96.5, MCH 30.8, MCHC 31.9, RDW 14.4, Plt Count 214, MPV 8.4, Neut % (Auto) 77.6, Lymph % (Auto) 16.6, [place] % (Auto) 3.7, Eos % (Auto) 1.4, Baso % (Auto) 0.7, Neut # (Auto) 6.1, Lymph # (Auto) 1.3, [place] # (Auto) 0.3, Eos # (Auto) 0.1, Baso # (Auto) 0.1, PT 13.0 H, INR 1.18 H, APTT 23.2, Sodium 141, Potassium 4.3, Chloride 108 H, Carbon Dioxide 27, Anion Gap 10.3, BUN 46 H, Creatinine 0.90, Estimated Creat Clear 42, Estimated GFR 60, Est GFR ( Amer) 72, Glucose 191 H, Calcium 8.3 L, Total Bilirubin 0.4, AST 19, ALT 10 L, Alkaline Phosphatase 43, Troponin I < 0.01, Total Protein 6.1 L, Albumin 3.2 L, Globulin 2.9, Albumin/Globulin Ratio 1.1, Lipase 153, HIV 1&2 Antibody Rapid Nonreactive 08/20/24 11:58: Blood Type B Positive, Antibody Screen Negative 08/20/24 12:32: Urine Color Yellow, Urine Appearance Clear, Urine pH 6.0, Ur Specific [place] 1.015, Urine Protein Negative, Urine Glucose (UA) Negative, Urine Ketones Negative, Urine Blood Negative, Urine Nitrate Positive, Urine Bilirubin Negative, Urine Urobilinogen 0.2, Ur Leukocyte Esterase 2+ A, Urine RBC None, Urine WBC 10-20, Ur Squamous Epith Cells Occasional, Urine Bacteria 3+ 08/20/24 16:05: Troponin I < 0.01 08/20/24 19:06: WBC 9.0, RBC 2.43 L, Hgb 7.4 L, Hct 23.3 L, MCV 96.2, MCH 30.5, MCHC 31.7 L, RDW 14.7, Plt Count 201, MPV 8.1, Neut % (Auto) 74.7, Lymph % (Auto) 19.0, [place] % (Auto) 5.0, Eos % (Auto) 0.7, Baso % (Auto) 0.7, Neut # (Auto) 6.7, Lymph # (Auto) 1.7, [place] # (Auto) 0.5, Eos # (Auto) 0.1, Baso # (Auto) 0.1, Blood Type B Positive, Antibody Screen Negative, Crossmatch (AHG) See Detail 08/20/24 20:52: POC Glucose 186 H 08/20/24 22:06: Hgb 7.3 L, Hct 22.3 L 08/20/24 : Troponin I < 0.01 08/21/24 05:45: WBC 8.1, RBC 3.04 L D, Hgb 9.5 L D, Hct 28.2 L, MCV 92.5, MCH 31.1, MCHC 33.7, RDW 15.8, Plt Count 171, MPV 8.2, Neut % (Auto) 70.9, Lymph % (Auto) 21.4, [place] % (Auto) 5.3, Eos % (Auto) 2.0, Baso % (Auto) 0.4, Neut # (Auto) 5.8, Lymph # (Auto) 1.7, [place] # (Auto) 0.4, Eos # (Auto) 0.2, Baso # (Auto) 0.0, Total Counted 100, Neutrophils % (Manual) 68, Lymphocytes % (Manual) 25, Monocytes % (Manual) 7, Platelet Estimate Normal, RBC Morphology Normal 08/21/24 05:46: POC Glucose 175 H I & O for Labs for Last 24 Hours: Intake & Output 08/18/24 08/19/24 08/20/24 08/21/24 11:59 11:59 11:59 11:59 Intake Total 700 / 700 Output Total 400 / 400 Balance 300 / 300 Weight 142 lb 361 lb 1.875 oz Constitutional: Present no acute distress and somnolent Comment:: Warm and pale Respiratory: Present CTA bilaterally Cardiac: Present Reg Rate and Rhythm (Monitor showing sinus rhythm) GI: Present soft and normal bowel sounds; Absent distention, tenderness or guarding Extremities: Absent tenderness or edema Neuro: Present alert (Awakens easily but wants to sleep. Does seem oriented.) Assessment and Plan *Assessment and plan (1) Anemia: Status: Acute Category: Medical Code(s): D64.9 - Anemia, unspecified (2) Gastrointestinal tract bleed: Status: Acute Category: Medical Code(s): K92.2 - Gastrointestinal hemorrhage, unspecified (3) Aortic stenosis: Status: Acute Qualifiers: Cardiac valve disease etiology: etiology unspecified Qualified Code(s): I35.0 - Nonrheumatic aortic (valve) stenosis Category: Medical Code(s): I35.0 - Nonrheumatic aortic (valve) stenosis (4) Thyromegaly: Status: Acute Category: Medical Code(s): E01.0 - Iodine-deficiency related diffuse (endemic) goiter (5) Hyperlipidemia: Status: Acute Qualifiers: Hyperlipidemia type: mixed hyperlipidemia Qualified Code(s): E78.2 - Mixed hyperlipidemia Category: Medical Code(s): E78.5 - Hyperlipidemia, unspecified (6) Multiple thyroid nodules: Problem Comment: She is basically asymptomatic and these nodules were picked up on a routine CT scan. We will continue to monitor them as they are all less than 1 cm. Per recommendation. She will contact us should the note any change in size or sudden swelling. Status: Acute Category: Medical Code(s): E04.2 - Nontoxic multinodular goiter (7) Diabetes mellitus: Status: Acute Category: Medical Code(s): E11.9 - Type 2 diabetes mellitus without complications (8) Renal insufficiency: Status: Acute Category: Medical Code(s): N28.9 - Disorder of kidney and ureter, unspecified (9) Ventral hernia: Status: Acute Category: Medical Code(s): K43.9 - Ventral hernia without obstruction or gangrene (10) Syncope, near: Status: Acute Category: Medical Code(s): R55 - Syncope and collapse (11) PAF (paroxysmal atrial fibrillation): Status: Chronic Category: Medical Code(s): I48.0 - Paroxysmal atrial fibrillation (12) CAD (coronary artery disease): Status: Chronic Qualifiers: Associated angina: without angina Coronary Disease-Associated Artery/Lesion type: [place] artery [place] vs. transplanted heart: [place] heart Qualified Code(s): I25.10 - Atherosclerotic heart disease of [place] coronary artery without angina pectoris Category: Medical Code(s): I25.10 - Atherosclerotic heart disease of [place] coronary artery without angina pectoris (13) AVM (arteriovenous malformation) of stomach, acquired with hemorrhage: Status: Acute Category: Medical Code(s): K31.811 - Angiodysplasia of stomach and duodenum with bleeding Plan EGD completed. Continue with H&H monitoring. Dr. Gale to follow as well. Iron studies have been ordered.
[2024-08-21] MEDS: SOTALOL 80 MG PO ×2 (08:36→20:32)
[2024-08-21] MEDS: PANTOPRAZOLE 40MG VIAL 40 MG IV ×2 (08:36→20:32)
[2024-08-21 09:25] LABS: Iron 253 ug/dL (37-170)
[2024-08-21 09:34] LABS: Total Iron Binding Capacity 313 ug/dL (265-497)
[2024-08-21 09:38] LABS: HCV Ab Non Reactive (Non Reactive)
[2024-08-21 10:03] LABS: Ferritin 37.9 ng/ml (11.1-264)
[2024-08-21 10:21] LABS: POC Glucose,Bedside 264 (70-110)
--- OUTSIDE RECORDS SUMMARY | 2024-08-21 10:21 | XMS_ITS ---
[facility] Address [address] [facility] [address] [place] [id number] Care Team Providers Care Civil Estimator Name Role Phone Swathi Claudio Primary Care Provider [phone] Migration, Provider Unavailable Unavailable ALLERGIES Allergen (clinical drug ingredient) Drug/Non Drug Allergy documented on EMR Reaction Allergy Type Onset Date Status colchicine Colcrys stomach upset Drug Allergy Ac tive REASON FOR VISIT Multum To Medispan Conversion Encounter MEDICATIONS Medication SIG (Take, Route, Frequency, Duration) Notes Start Date End Date Status Pramipexole Dihydrochloride 0.25 MG 1 tab(s) orally At Bed Time for 30 day(s) 04/06/2022 Active Colace 100 MG 1 cap(s) orally once a day Active metFORMIN HCl 500 MG 1 tab(s) orally for 90 Active Flonase Allergy Relief 50 MCG/ACT as directed in each nostril once a day for 30 day(s) 12/19/2020 Active Lisinopril 10 MG 1 tab(s) orally once a day Active Gabapentin 100 MG 1 cap(s) orally At B ed Time 07/07/2022 Active Furosemide 20 MG 1 tab(s) orally everyother day Active CoQ-10 100 MG 1 cap(s) orally once a day for 30 day(s) 04/18/2020 Active Biotin 1000 MCG 1 tab(s) orally once a day for 30 day(s) Active Loratadine 10 MG 1 tab(s) orally once a day Active Sotalol HCl 80 MG 1/2 orally twice a day Active Furosemide 40 MG 1 tab(s) orally ever y other day Active Simvastatin 10 MG 1 tab(s) orally once a day (at bedtime) for 30 Active Aspirin 81 MG 1 tab(s) orally once a day Active Encounters Encounter Location Date Provider Diagnosis [facility] [address] [facility] [address] [place] [id number] 03/26/2023 Provider Migration Type 2 diabetes mellitus with diabetic neuropathy, without long-term current use of insulin E11.40 ASSESSMENTS Encounter Date Diagnosis Assessment Notes Treatment Notes Treatment Clinical Notes 03/26/2023 Type 2 diabetes mellitus with diabetic neuropathy, without long-term current use of insulin (ICD-10 - E11.40) PLAN OF TREATMENT Medication Medication Name Sig Start Date Stop Date Notes metFORMIN HCl 500 MG 1 tab(s) orally for 90 Gabapentin 100 MG 1 cap(s) orally At Bed Time 07/07/2022 Sotalol HCl 80 MG 1/2 orally twice a day
--- OUTSIDE RECORDS SUMMARY | 2024-08-21 10:21 | XMS_ITS | Patient Health Record ---
[facility] Address [address] [facility] [address] [place] [id number] Care Team Providers Care Change House Attendant Name Role Phone Swathi Claudio Primary Care Provider ALLERGIES Allergen (clinical drug ingredient) Drug/Non Drug Allergy documented on EMR Reaction Allergy Type Onset Date Status colchicine Colcrys stomach upset Drug Allergy Ac tive RESULTS Component Value Reference Range Notes H-CBC (Not yet reviewed by darryn cruz) Interpretation: Performing Lab: Notes/Report: WBC 9.0 4.8-10.8 K/mm3 RBC 2.43 4.20-5.40 M/mm3 HGB 7.4 12.2-16.2 g/dL HCT 23.3 37.0-47.0 % MCV 96.2 81-99 fl MCH 30.5 27.0-31.2 pg MCHC 31.7 31.8-35.4 g/dL RDW 14.7 11.5-17.5 % PLT 201 142-424 K/mm3 MPV 8.1 7.4-10.4 fl NE% 74.7 37.0-80.0 % LY% 19.0 10-50 % MO% 5.0 1.7-9.3 % EO% 0.7 0.1-12.0 % BA% 0.7 0.1-2.0 % NE# 6.7 1.8-7.8 K/mm3 LY# 1.7 0.7-4.5 K/mm3 MO# 0.5 0.1-1.0 K/mm3 EO# 0.1 0.0-0.4 K/mm3 BA# 0.1 0-0.2 K/mm3 H-URC (Not yet reviewed by darryn cruz) Interpretation: Performing Lab: Notes/Report: U500.0100 TRANSFUSED PRODUCT: Red Blood Cells COUNT: 1 M-Hemoglobin and Hematocrit (Not yet reviewed by provider) Interpretation: Performing Lab: Notes/Report: HGB 7.3 12.2-16.2 g/dL HCT 22.3 37.0-47.0 % H-Type and Screen (Not yet r eviewed by provider) Interpretation: Performing Lab: Notes/Report: Comment: Type and hold 2 units PRBC BT B Positive ABS NEGATIVE H-Crossmatch (Not yet review ed by provider) Interpretation: Performing Lab: Notes/Report: Comment: Type and hold 2 units PRBC XM UNIT NUMBER: [id number] XM COMPATIBLE: Y XM PRODUCT: Red Blood Cells XM SOURCE: [facility] XM BLOOD TYPE: B Positive XM VOLUME: 250mL XM CROSSMATCH COMPONENTS: XMNOTE Notification JUANA ZAMORANO Notified by Fernanda Worthington, [facility] 08/20/24 231. JUANA ZAMORANO Notified by Fernanda Worthington [facility] 08/20/24 231. XM UNIT NUMBER: [id number] XM COMPATIBLE: Y XM PRODUCT: Red Blood Cells XM SOURCE: [facility] XM BLOOD TYPE: B Positive XM VOLUME: 250mL XM CROSSMATCH COMPONENTS: XMNOTE Notification JUANA ZAMORANO Notified by Fernanda Worthington, [facility] 08/20/24 231. JUANA ZAMORANO Notified by Fernanda Worthington, [facility] 08/20/24 231. M-Complete Blood Count Man D if (Not yet reviewed by provider) Interpretation: Performing Lab: Notes/Report: WBC 8.1 4.8-10.8 K/mm3 RBC 3.04 4.20-5.40 M/mm3 Delta: 2.43 on 08/20/24-1905 HGB 9.5 12.2-16.2 g/dL Delta: 7.3 on 08/20/24-2205 HCT 28.2 37.0-47.0 % MCV 92.5 81-99 fl MCH 31.1 27.0-31.2 pg MCHC 33.7 31.8-35.4 g/dL RDW 15.8 11.5-17.5 % PLT 171 142-424 K/mm3 MPV 8.2 7.4-10.4 fl NE% 70.9 37.0-80.0 % LY% 21.4 10-50 % MO% 5.3 1.7-9.3 % EO% 2.0 0.1-12.0 % BA% 0.4 0.1-2.0 % NE# 5.8 1.8-7.8 K/mm3 LY# 1.7 0.7-4.5 K/mm3 MO# 0.4 0.1-1.0 K/mm3 EO# 0.2 0.0-0.4 K/mm3 BA# 0.0 0-0.2 K/mm3 MDIFF MANUAL DIFFERENTIAL MANUAL DIFF TCC 100 NEUT%M 68 42-76 % LYMPH%M 25 10-50 % MONO%M 7 2-9 % PLTE Normal RM Normal REASON FOR REFERRAL No Information MEDICATIONS Medication SIG (Take, Route, Frequency, Duration) Notes Start Date End Date Status Pramipexole Dihydrochloride 0.25 MG 1 tab(s) orally At Bed Time for 30 day(s) 04/06/2022 Active Sotalol HCl 80 MG 1/2 orally twice a day Active Furosemide 40 MG 1 tab(s) orally ever y other day Active Simvastatin 10 MG 1 tab(s) orally once a day (at bedtime) for 30 Active Gabapentin 100 MG 1 cap(s) orally At B ed Time 07/07/2022 Active Colace 100 MG 1 cap(s) orally once a day Active Aspirin 81 MG 1 tab(s) orally once a day Active Furosemide 20 MG 1 tab(s) orally everyother day Active CoQ-10 100 MG 1 cap(s) orally once a day for 30 day(s) 04/18/2020 Active Biotin 1000 MCG 1 tab(s) orally once a day for 30 day(s) Active Loratadine 10 MG 1 tab(s) orally once a day Active metFORMIN HCl 500 MG 1 tab(s) orally for 90 Active Flonase Allergy Relief 50 MCG/ACT as directed in each nostril once a day for 30 day(s) 12/19/2020 Active Lisinopril 10 MG 1 tab(s) orally once a day Active IMMUNIZATIONS Vaccine Route Administration Date Status Comme nts mDtngkge-cawofbdjo-vdgqkel e pts. IM Intramuscular 09/02/2009 Administered dKmnosbt-gahpcpifq-mlhzafj e pts. IM 08/05/2010 Administered bPkwzsmf-grcynlita-fpwgqis e pts. IM Intramuscular 07/27/2011 Administered xFlu shot-36 months and older IM Intramuscular 09/14/2005 Administered xFlu shot-36 months and older IM Intramuscular 09/02/2006 Administered xFlu shot-36 months and older IM Intramuscular 08/21/2007 Administered xFlu shot-36 months and older IM Intramuscular 07/31/2008 Administered xFlu shot-36 months and older IM Intramuscular 09/02/2009 Administered Tetanus Tdap-Adacel (over 7yrs) IM Intramuscular 08/08/2017 Administered Shingrix Unknown 04/07/2019 Administered Prevnar (PCV13) IM Intramuscular 07/31/2014 Administered PNEUMOVAX 23 VACCINE IM Intramuscular 04/06/2019 Administe red pneumovax IM Intramuscular 09/14/2005 Administered Fluzone High Dose (65yr and older) IM Intramuscular 07/25/2012 Administered Fluzone High Dose (65yr and older) IM Intramuscular 08/01/2013 Administered Fluzone High Dose (65yr and older) IM Intramuscular 07/31/2014 Administered Fluzone High Dose (65yr and older) IM Intramuscular 07/31/2015 Administered Fluzone High Dose (65yr and older) IM Intramuscular 06/29/2016 Administered Fluzone High Dose (65yr and older) IM Intramuscular 08/08/2017 Administered Fluzone High Dose (65yr and older) IM Intramuscular 08/22/2018 Administered Fluzone High Dose (65yr and older) IM Intramuscular 08/01/2020 Administered Fluzone High Dose (65yr and older) IM Intramuscular 07/23/2021 Administered SOCIAL HISTORY Sex Assigned At : Social History Observation Description Sex Assigned At Unknown PROBLEMS Problem Type ICD Code Onset Dates Problem Status W/U Status Risk SNOMED Code Notes Problem Type 2 diabetes mellitus without complications (E11.9) Active confirmed 99148880 Problem Essential (primary) hypertension (I10) Active confirmed 43389802 Problem Vertigo (R42) Active confirmed 92574079 1 Problem Hyperuricemia (E79.0) Active confirmed 58977846 Problem Mixed hyperlipidemia (E78.2) Active confirmed 83695416 Problem Vasomotor rhinitis (J30.0) Active confirmed 6793746 Problem Ventral hernia without obstruction or gangrene (K43.9) Active confirmed 358055026 Problem Postmenopausal bleeding (N95.0) Active confirmed 32141091 Problem Acquired 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) Active confirmed 223929790 Problem Acquired absence of ovaries, unilateral (Z90.721) Active confirmed 621624279 Problem DUB (dysfunctional uterine bleeding) (N93.8) Active confirmed 03350837 Problem skilled nursing current use of anticoagulant therapy (Z79.01) Active confirmed 560685722 Problem 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) Active confirmed 98654145 Problem Endometrial carcinoma (C54.1) Active confirmed 960348361 Problem Cataract of both eyes, unspecified cataract type (H26.9) Active confirmed 24250564 Problem Type 2 diabetes mellitus with diabetic neuropathy, without long-term current use of insulin (E11.40) Active confirmed 91991133 PLAN OF TREATMENT Pending Test Test Name Order Date H-CBC 08/20/2024 H-URC 08/20/2024 M-Complete Blood Count Man Dif M-Hemoglobin and Hematocrit 08/20/2024 H-Type and Screen 08/20/2024 H-Crossmatch 08/20/2024 Insurance Providers Payer Name Payer Address Payer Phone Subscriber Number Group Number Insured Name Patient Relationship to Insured Coverage Start Date Coverage End Date MEDICARE PART B [address] [address] [place] [address] [phone] [id number] LEONEL BALLARD Self - patient is the insured [employer] [address] [place] [address] [id number] LEONEL BALLARD Self - patient is the insured MEDICATIONS ADMINISTERED Medication Instructions Date of Administration Dosage Notes Depo- Medrol 40 mg/ml 05/27/2008 1.0 cm3 MEDICAL (GENERAL) HISTORY Medical History History ICD Code hyperlipidemia type 2 diabetes cataracts declines mammogram - 08/08/17 declines colonoscopy - 08/08/17 declines DEXA - 08/08/17 hypertension cancer, cervical Surgical History Surgery Date(Month/Year) tubal ligation 1978 colonoscopy 2004 Total Hysterectomy 12/29/2020 Hospitalization History Reason Date(Month/Year) [id number] tubal atrial flutter/fib dizziness 08/10/17 Dr. Rivera, [facility] endometrial bx and polyp removal 03/2018 Total Hysterectomy, [facility] 12/29/2020
[2024-08-21] MEDS: humaLOG 100 UNITS/ML 10ML VIAL (SSI) SUBCUT ×3 (10:50→20:49)
[2024-08-21 10:54] LABS: POC Glucose,Bedside 225 (70-110)
[2024-08-21] MEDS: DOCUSATE SODIUM 100 MG CAPSULE PO (14:06)
[2024-08-21 14:24] LABS: Hematocrit 27.4 % (37.0-47.0); Hemoglobin 9.2 g/dL (12.2-16.2)
[2024-08-21 16:06] LABS: POC Glucose,Bedside 203 (70-110)
--- NOTE | 2024-08-21 16:12 | PC.NURSE ---
PT IS SITTING UP IN THE CHAIR. ALERT AND ORIENTED X4. EATING AND DRINKING WELL. PT HAS AMBULATED TO THE BATHROOM WITH 1 ASSIST. ABDOMEN SOFT/DISTENDED WITH HERNIA NOTED. ACTIVE BOWEL SOUNDS. VSS. WILL CONTINUE TO MONITOR.
[2024-08-21] MEDS: CEFTRIAXONE 1 GM 1 GM in 0.9 % SODIUM CHLORIDE 50 ML IV (17:54)
[2024-08-21] MEDS: SODIUM CHLORIDE 0.9% 10ML VIAL 10 ML IV (20:32)
[2024-08-21 20:49] LABS: POC Glucose,Bedside 207 (70-110)
[2024-08-22] VITALS: BP 130/45; PULSE 69; PULSE 70; RESP 16; TEMP 36.9; O2SAT 93
[2024-08-22 04:00] VITALS: BP 126/40; PULSE 66; PULSE 70; RESP 17; TEMP 37.1; O2SAT 95; BMI 30.8
[2024-08-22] MEDS: humaLOG 100 UNITS/ML 10ML VIAL (SSI) SUBCUT ×2 (06:49→11:25)
--- NOTE | 2024-08-22 07:40 | PC.NURSE ---
Dr. Gale at bedside
[2024-08-22 07:54] VITALS: BP 151/52; PULSE 78; RESP 20; TEMP 36.8; O2SAT 91
[2024-08-22 08:00] VITALS: PULSE 75
--- NOTE | 2024-08-22 08:06 | EXP.PN ---
Subjective *Date: 08/22/24 *Time: 08:06 Interval history: No further hematemesis. Patient reports no abdominal pain or melena. Patient not back on anticoagulation. Hemoglobin and hematocrit this morning stable. No abdominal complaints. Exam Data for Last 24 hours Vital signs and Labs for Last 24 Hours: Temp Pulse Resp BP Pulse Ox O2 Del Method O2 Flow Rate 98.3 F 78 20 151/52 H 91 L Room Air 2 08/22/24 07:54 08/22/24 07:54 08/22/24 07:54 08/22/24 07:54 08/22/24 07:54 08/22/24 07:54 08/21/24 10:30 Laboratory Results - last 24 hr 08/20/24 11:26: Hepatitis C Antibody Non reactive 08/21/24 07:58: POC Glucose 264 H 08/21/24 08:40: Iron 253 H, TIBC 313, Iron Saturation 80.02922 H, Ferritin 37.9 08/21/24 10:45: POC Glucose 225 H 08/21/24 14:07: Hgb 9.2 L, Hct 27.4 L 08/21/24 15:57: POC Glucose 203 H 08/21/24 20:39: POC Glucose 207 H I & O for Last 24 hours: Intake & Output 08/19/24 08/20/24 08/21/24 08/22/24 23:59 23:59 23:59 23:59 Intake Total 450 / 450 1000 / 1000 540 / 540 Output Total 0 / 0 400 / 400 0 / 0 Balance 450 / 450 600 / 600 540 / 540 Weight 141 lb 14.938 oz 361 lb 1.875 oz 167 lb 9.6 oz Microbiology Reports for the Last 24 Hours: Microbiology 08/20/24 12:32 Urine,Clean Catch Urine Culture - Preliminary Assessment and Plan *Assessment and plan (1) AVM (arteriovenous malformation) of stomach, acquired with hemorrhage: Status: Acute Category: Medical Code(s): K31.811 - Angiodysplasia of stomach and duodenum with bleeding (2) Gastrointestinal tract bleed: Status: Acute Category: Medical Code(s): K92.2 - Gastrointestinal hemorrhage, unspecified (3) Acute upper gastrointestinal bleeding: Status: Acute Category: Medical Code(s): K92.2 - Gastrointestinal hemorrhage, unspecified Plan 1. Bleeding gastric angiodysplasias. I did perform APC ablation with control of hemorrhage. The patient has been off of anticoagulation. She is on this for atrial fibrillation. I do feel that she will need to resume this within 5 to 7 days. I did speak with family and there should be consideration for the Watchman procedure. The Watchman Left Atrial Appendage Closure provides a new option for patients with non-valvular atrial fibrillation who may require an alternative to long-term use of blood thinners. This is especially important in persons that have chronic gastrointestinal blood loss with resulting iron deficiency anemia that is greatly exacerbated by the use of blood thinners (anticoagulation). Patient's recent iron levels were increased (iron saturation of 80%).
--- NOTE | 2024-08-22 08:20 | PC.NURSE ---
Saritha BINDER SORTER at bedside
[2024-08-22 08:38] LABS: Basophils % 0.5 % (0.1-2.0); Eosinophils # 0.2 K/mm3 (0.0-0.4); Eosinophils % 2.4 % (0.1-12.0); Hemoglobin 9.2 g/dL (12.2-16.2); Lymphocytes # 1.6 K/mm3 (0.7-4.5); Lymphocytes % 20.5 % (10-50); Mean Corpuscular HGB Conc 33.9 g/dL (31.8-35.4); Mean Corpuscular Hemoglobin 31.3 pg (27.0-31.2); Mean Corpuscular Volume 92.6 fl (81-99); Mean Platelet Volume 8.8 fl (7.4-10.4); Monocytes # 0.4 K/mm3 (0.1-1.0); Monocytes % 4.8 % (1.7-9.3); Neutrophils # 5.6 K/mm3 (1.8-7.8); Neutrophils % 71.8 % (37.0-80.0); Platelet Count 203 K/mm3 (142-424); Red Blood Count 2.92 M/mm3 (4.20-5.40); Red Cell Distribution Width 16.4 % (11.5-17.5); White Blood Count 7.9 K/mm3 (4.8-10.8)
--- NOTE | 2024-08-22 08:51 | EXP.ACUTE.PN ---
Subjective *Date: 08/22/24 *Time: 08:51 Interval history: Patient's daughter states they are concerned with her BP. She states it drops when she stands and her diastolic is always low. She thinks this is what causes her to be dizzy. She is also concerned with her taking a diuretic. She would like to have cardiology speak with the patient about a Watchman procedure again. Medical Exam Vital signs and Labs for Last 24 Hours: Vital Signs Temp Pulse Pulse Resp BP Pulse Ox O2 Del Method 08/22/24 08:12 Room Air 08/22/24 07:54 98.3 F 78 20 151/52 H 91 L Room Air 08/22/24 06:51 Room Air 08/22/24 05:00 Room Air 08/22/24 04:00 98.7 F 66 17 126/40 L 95 08/22/24 04:00 70 08/22/24 03:00 Room Air 08/22/24 01:00 Room Air 08/22/24 00:00 98.5 F 69 16 130/45 L 93 L Room Air 08/22/24 00:00 70 08/21/24 23:00 Room Air 08/21/24 21:00 Room Air 08/21/24 20:32 Room Air 08/21/24 20:00 71 08/21/24 20:00 97.9 F 112 H 17 133/43 L 92 L Nasal Cannula 08/21/24 18:09 Room Air 08/21/24 17:00 Room Air 08/21/24 16:00 98.1 F 66 19 118/43 L 95 Room Air 08/21/24 16:00 70 08/21/24 15:00 Room Air 08/21/24 12:30 71 16 132/46 L 99 Room Air 08/21/24 12:30 Room Air 08/21/24 12:00 60 08/21/24 10:58 Nasal Cannula 08/21/24 10:30 98.4 F 60 20 123/44 L 100 Nasal Cannula 08/21/24 10:00 64 16 130/46 L 100 Nasal Cannula 08/21/24 09:30 68 17 149/56 H 99 Nasal Cannula 08/21/24 09:15 73 20 142/51 H 96 Nasal Cannula 08/21/24 09:00 72 16 143/59 H 93 L Nasal Cannula O2 Flow Rate 08/22/24 08:12 08/22/24 07:54 08/22/24 06:51 08/22/24 05:00 08/22/24 04:00 08/22/24 04:00 08/22/24 03:00 08/22/24 01:00 08/22/24 00:00 08/22/24 00:00 08/21/24 23:00 08/21/24 21:00 08/21/24 20:32 08/21/24 20:00 08/21/24 20:00 08/21/24 18:09 08/21/24 17:00 08/21/24 16:00 08/21/24 16:00 08/21/24 15:00 08/21/24 12:30 08/21/24 12:30 08/21/24 12:00 08/21/24 10:58 08/21/24 10:30 2 08/21/24 10:00 2 08/21/24 09:30 2 08/21/24 09:15 2 08/21/24 09:00 2 Intake and Output 08/21/24 08/22/24 08/22/24 19:59 03:59 11:59 Intake Total 750 / 1290 540 / 1290 Output Total 0 / 0 0 / 0 0 / 0 Balance 750 / 1290 0 / 1290 540 / 1290 Intake: Intake, Oral Amount 750 / 1290 540 / 1290 Output: Output, Urine Amount 0 / 0 0 / 0 0 / 0 Other: Number of Unmeasured Voids 1 1 1 Weight 167 lb 9.6 oz Patient Weight 08/22/24 11:59 Weight 167 lb 9.6 oz Laboratory Results - last 24 hr 08/20/24 11:26: Hepatitis C Antibody Non reactive 08/21/24 07:58: POC Glucose 264 H 08/21/24 08:40: Iron 253 H, TIBC 313, Iron Saturation 80.63634 H, Ferritin 37.9 08/21/24 10:45: POC Glucose 225 H 08/21/24 14:07: Hgb 9.2 L, Hct 27.4 L 08/21/24 15:57: POC Glucose 203 H 08/21/24 20:39: POC Glucose 207 H 08/22/24 08:30: WBC 7.9, RBC 2.92 L, Hgb 9.2 L, Hct 27.0 L, MCV 92.6, MCH 31.3 H, MCHC 33.9, RDW 16.4, Plt Count 203, MPV 8.8, Neut % (Auto) 71.8, Lymph % (Auto) 20.5, [place] % (Auto) 4.8, Eos % (Auto) 2.4, Baso % (Auto) 0.5, Neut # (Auto) 5.6, Lymph # (Auto) 1.6, [place] # (Auto) 0.4, Eos # (Auto) 0.2, Baso # (Auto) 0.0 I & O for Labs for Last 24 Hours: Intake & Output 08/19/24 08/20/24 08/21/24 08/22/24 11:59 11:59 11:59 11:59 Intake Total 700 / 700 1290 / 1290 Output Total 400 / 400 0 / 0 Balance 300 / 300 1290 / 1290 Weight 142 lb 361 lb 1.875 oz 167 lb 9.6 oz Microbiology Reports for the Last 24 Hours: Microbiology 08/20/24 12:32 Urine,Clean Catch Urine Culture - Preliminary Constitutional: Present no acute distress Respiratory: Present CTA bilaterally Cardiac: Present Reg Rate and Rhythm GI: Present soft and tenderness (mild tenderness around the umbilicus); Absent distention Extremities: Absent edema Skin: Present intact Neuro: Present alert, awake and oriented x 3 Assessment and Plan *Assessment and plan (1) Anemia: Status: Acute Category: Medical Code(s): D64.9 - Anemia, unspecified (2) Gastrointestinal tract bleed: Status: Acute Category: Medical Code(s): K92.2 - Gastrointestinal hemorrhage, unspecified (3) Aortic stenosis: Status: Acute Qualifiers: Cardiac valve disease etiology: etiology unspecified Qualified Code(s): I35.0 - Nonrheumatic aortic (valve) stenosis Category: Medical Code(s): I35.0 - Nonrheumatic aortic (valve) stenosis (4) Thyromegaly: Status: Acute Category: Medical Code(s): E01.0 - Iodine-deficiency related diffuse (endemic) goiter (5) Hyperlipidemia: Status: Acute Qualifiers: Hyperlipidemia type: mixed hyperlipidemia Qualified Code(s): E78.2 - Mixed hyperlipidemia Category: Medical Code(s): E78.5 - Hyperlipidemia, unspecified (6) Multiple thyroid nodules: Problem Comment: She is basically asymptomatic and these nodules were picked up on a routine CT scan. We will continue to monitor them as they are all less than 1 cm. Per recommendation. She will contact us should the note any change in size or sudden swelling. Status: Acute Category: Medical Code(s): E04.2 - Nontoxic multinodular goiter (7) Diabetes mellitus: Status: Acute Category: Medical Code(s): E11.9 - Type 2 diabetes mellitus without complications (8) Renal insufficiency: Status: Acute Category: Medical Code(s): N28.9 - Disorder of kidney and ureter, unspecified (9) Ventral hernia: Status: Acute Category: Medical Code(s): K43.9 - Ventral hernia without obstruction or gangrene (10) Syncope, near: Status: Acute Category: Medical Code(s): R55 - Syncope and collapse (11) PAF (paroxysmal atrial fibrillation): Status: Chronic Category: Medical Code(s): I48.0 - Paroxysmal atrial fibrillation (12) CAD (coronary artery disease): Status: Chronic Qualifiers: Coronary Disease-Associated Artery/Lesion type: [place] artery [place] vs. transplanted heart: [place] heart Associated angina: without angina Qualified Code(s): I25.10 - Atherosclerotic heart disease of [place] coronary artery without angina pectoris Category: Medical Code(s): I25.10 - Atherosclerotic heart disease of [place] coronary artery without angina pectoris (13) AVM (arteriovenous malformation) of stomach, acquired with hemorrhage: Status: Acute Category: Medical Code(s): K31.811 - Angiodysplasia of stomach and duodenum with bleeding Plan Dr. Gale spoke with the family about consideration for the Watchman procedure. They would like to speak with cardiology. Will consult cardiology as they will need to discuss patient's BP medication as well. H&H is stable.
[2024-08-22] MEDS: DOCUSATE SODIUM 100 MG CAPSULE PO (09:44)
[2024-08-22] MEDS: SOTALOL 80 MG PO (09:44)
[2024-08-22] MEDS: PANTOPRAZOLE 40MG VIAL 40 MG IV (09:45)
[2024-08-22 11:25] LABS: POC Glucose,Bedside 199 (70-110)
--- NOTE | 2024-08-22 11:36 | PC.NURSE ---
per Dr. Claudio, patient to take 20 mg of oral lasix daily
--- NOTE | 2024-08-22 11:57 | P.CONCA_ITS ---
History of Present Illness History of Present Illness Consult date: 08/22/24 Requesting physician: Juliane Flores Consult reason: hypotension Chief complaint: weakness History of present illness: 84-year-old white female admitted for acute GI bleed. She is status post ablation of gastric angiodysplasias. We are requested to consult for episodes of low blood pressure at home. Patient is an established office patient of ours with a history of nonobstructive CAD, mild to moderate aortic stenosis, paroxysmal A-fib on Xarelto. She also takes lisinopril 10, sotalol 80 and Lasix daily. She presented here on 08/20 with coffee-ground emesis dark stool and near syncope. As mentioned she underwent GI workup and had ablation of gastric angiodysplasias. Dr. Gale has recommended resuming anticoagulation 5 to 7 days post procedure but long-term recommends watchman. I discussed this with patient and she is agreeable and would like to have this arranged. Regarding her blood pressure, patient's family is bedside and states she is orthostatic at home when she takes Lasix. States without Lasix she has occasional edema. She has never had syncope from this. [facility] Disclaimer: The information contained in this section may have been updated after the patient was seen, as this information can be updated by other users. Medical History Thyromegaly Hyperlipidemia Encounter for immunization Abnormal chest CT Bronchitis Multiple thyroid nodules Renal insufficiency Hyperkalemia Ventral hernia Leg pain, bilateral Hyperuricemia Ventral hernia Dyspnea Bradycardia Hypotension Syncope Carotid artery stenosis HTN (hypertension) PAF (paroxysmal atrial fibrillation) CAD (coronary artery disease) Surgical History History of hysterectomy Family History Other Cancer Diabetes Social History Smoking Status: Never smoker alcohol intake: never substance use type: denies use current occupational status: retired Travel in the last 8 weeks: Inside the [facility] Review of Systems Constitutional Constitutional: Denies frequent falls and Denies headache(s) Eyes Eyes: Denies loss of vision ENT Ears, Nose, Mouth, and Throat: Denies headache(s) *Cardiovascular Cardiovascular: Denies chest pain and Denies dyspnea *Respiratory Respiratory: Denies cough and Denies dyspnea *Gastrointestinal Gastrointestinal: Denies change in stool character, Denies nausea and Denies vomiting *Musculoskeletal Musculoskeletal: Reports abnormal gait (Uses a cane or walker when out of the house) Integumentary/Breasts Skin/Breast: Denies changing lesions *Neurologic Neurologic: Reports abnormal gait (Uses a cane or walker when out of the house), Denies abnormal speech, Denies confusion, Denies convulsions, Denies frequent falls, Denies headache(s) and Denies loss of vision Psychiatric Psychiatric: Denies confusion Exam Data for Last 24 hours Vital signs and Labs for Last 24 Hours: Temp Pulse Resp BP Pulse Ox O2 Del Method O2 Flow Rate 98.3 F 75 20 151/52 H 91 L Room Air 2 08/22/24 07:54 08/22/24 08:00 08/22/24 07:54 08/22/24 07:54 08/22/24 07:54 08/22/24 11:16 08/21/24 10:30 Laboratory Results - last 24 hr 08/20/24 12:32: Urine Color Yellow, Urine Appearance Clear, Urine pH 6.0, Ur Specific [place] 1.015, Urine Protein Negative, Urine Glucose (UA) Negative, Urine Ketones Negative, Urine Blood Negative, Urine Nitrate Positive, Urine Bilirubin Negative, Urine Urobilinogen 0.2, Ur Leukocyte Esterase 2+ A, Urine RBC None, Urine WBC 10-20, Ur Squamous Epith Cells Occasional, Urine Bacteria 3+ 08/21/24 14:07: Hgb 9.2 L, Hct 27.4 L 08/21/24 15:57: POC Glucose 203 H 08/21/24 20:39: POC Glucose 207 H 08/22/24 08:30: WBC 7.9, RBC 2.92 L, Hgb 9.2 L, Hct 27.0 L, MCV 92.6, MCH 31.3 H , MCHC 33.9, RDW 16.4, Plt Count 203, MPV 8.8, Neut % (Auto) 71.8, Lymph % (A uto) 20.5, [place] % (Auto) 4.8, Eos % (Auto) 2.4, Baso % (Auto) 0.5, Neut # (Auto) 5.6, Lymph # (Auto) 1.6, [place] # (Auto) 0.4, Eos # (Auto) 0.2, Baso # (Auto) 0.0 08/22/24 11:15: POC Glucose 199 H I & O for Last 24 hours: Intake & Output 08/19/24 08/20/24 08/21/24 08/22/24 23:59 23:59 23:59 23:59 Intake Total 450 / 450 1000 / 1000 540 / 540 Output Total 0 / 0 400 / 400 0 / 0 Balance 450 / 450 600 / 600 540 / 540 Weight 141 lb 14.938 oz 361 lb 1.875 oz 167 lb 9.6 oz Microbiology Reports for the Last 24 Hours: Microbiology 08/20/24 12:32 Urine,Clean Catch Urine Culture - Preliminary Gram Negative Rods Gram Negative Rods#2 Constitutional Constitutional: no acute distress and cooperative *Routine HEENT Exam Eye: Present PERRL *Routine Respiratory Exam Respiratory: Present CTA bilaterally; Absent accessory muscle use, wheezes or crackles *Routine Cardiovascular Exam Cardiovascular: Present RRR, Normal S1 and Normal S2; Absent murmur, gallop or rubs *Routine Abdominal Exam Abdominal: Present soft; Absent tenderness *Routine Extremities Exam Extremities: Present pulses intact; Absent cyanosis or edema *Routine Skin Exam Skin: Present intact; Absent erythema or wounds *Routine Neurological Exam Neurological: Present alert and oriented X3 Routine Psychiatric Exam Psychiatric: Present cooperative Meds Home Medications and Allergies Home Medications ?Medication ?Instructions ?Recorded ?Confirmed ?Type aspirin 81 mg tablet,delayed 81 mg PO DAILY heart health 03/27/18 08/21/24 History release coenzyme Q10 100 mg capsule (Co 100 mg PO DAILY Supplement 06/12/20 08/21/24 History Q-10) docusate sodium 100 mg capsule 100 mg PO DAILY 11/10/23 08/21/24 History (Stool Softener) furosemide 20 mg tablet 20 mg PO Q48H 11/10/23 08/21/24 History gabapentin 100 mg capsule 100 mg PO HS #90 caps 06/28/24 08/21/24 Rx biotin 1 mg capsule 1 mg PO DAILY 08/21/24 08/21/24 History furosemide 40 mg tablet 40 mg PO Q48H 08/21/24 08/21/24 History lisinopril 10 mg tablet 10 mg PO DAILY 08/21/24 08/21/24 History metformin 500 mg tablet 500 mg PO DAILY 08/21/24 08/21/24 History montelukast 10 mg tablet 10 mg PO HS 08/21/24 08/21/24 History pramipexole 0.25 mg tablet 0.25 mg PO HS 08/21/24 08/21/24 History simvastatin 10 mg tablet 10 mg PO HS 08/21/24 08/21/24 History sotalol 80 mg tablet 80 mg PO BID 08/21/24 08/21/24 History ferrous gluconate 324 mg (37.5 mg 324 mg PO DAILY #30 tabs 08/22/24 Rx iron) tablet pantoprazole 40 mg tablet,delayed 40 mg PO DAILY #30 tabs 08/22/24 Rx release sucralfate 1 gram tablet 1 g PO BID #120 tabs 08/22/24 Rx New Prescriptions to Start Prescriptions: ferrous gluconate Marianela Claudio pantoprazole Marianela Claudio sucralfate Marianela Claudio Allergies Allergy/AdvReac Type Severity Reaction Status Date / Time rosuvastatin [From Crestor] AdvReac Intermediate stomach Verified 06/12/24 11:45 ache Assessment and Plan *Assessment and plan (1) AVM (arteriovenous malformation) of stomach, acquired with hemorrhage: Status: Acute Category: Medical Code(s): K31.811 - Angiodysplasia of stomach and duodenum with bleeding (2) Gastrointestinal tract bleed: Status: Acute Category: Medical Code(s): K92.2 - Gastrointestinal hemorrhage, unspecified (3) PAF (paroxysmal atrial fibrillation): Status: Chronic Category: Medical Code(s): I48.0 - Paroxysmal atrial fibrillation (4) CAD (coronary artery disease): Status: Chronic Qualifiers: Coronary Disease-Associated Artery/Lesion type: [place] artery [place] vs. transplanted heart: [place] heart Associated angina: without angina Qualified Code(s): I25.10 - Atherosclerotic heart disease of [place] coronary artery without angina pectoris Category: Medical Code(s): I25.10 - Atherosclerotic heart disease of [place] coronary artery without angina pectoris (5) Orthostasis: Status: Acute Category: Medical Code(s): I95.1 - Orthostatic hypotension Plan Mild Orthostasis - Recommend reducing Lasix to half of current dose with additional PRN - work on hydration and stand slowly, we discussed arteriosclerosis with her age of 84 PAF - SR here - cont home dose Sotalol - change Xarelto to Eliquis 2.5mg BID at discharge (5 days post ablation) - refer to , Dr Quiles for Watchman device Acute GI Bleed - gastric angiodysplasias - s/p ablation here - high risk of recurrence, will reduce OAC and refer for Watchman Mild-Mod - euvolemic here - cont OP monitoring CV stable for DC home with the following changes made at discharge. - reduce lasix dosing by half - change Xarelto to Eliquis 2.5mg BID starting 5 days post gastric ablation - referral to Dr. Quiles [facility] for Watchman Device - office f/u with us in 2 weeks
[2024-08-22 12:00] VITALS: BP 155/47; PULSE 91; RESP 18; TEMP 36.7; O2SAT 93
[2024-08-22 12:33] LABS: POC Glucose,Bedside 170 (70-110)
--- NOTE | 2024-08-23 13:24 | CARE MANAGER ---
Contacted patient related to hospital discharge. She states she is feeling better. She has new medications and aware to stop anticoagulant. She is aware of follow up appointment and denies questions or concerns. JAUN Benson
--- NOTE | 2024-08-27 16:34 | P.DS_ITS ---
General Admission date:: 08/20/24 Discharge date: 08/22/24 HPI HPI HPI: Ms. Negrete is an 84-year-old female with a history of hyperlipidemia, type 2 diabetes mellitus, hypertension, renal insufficiency, carotid stenosis, paroxysmal atrial fibrillation on Xarelto, coronary artery disease, ventral hernia, and syncope and hypotension who presented to [facility] for evaluation after near syncopal episode at home. She was in the process of baking cookies when she had a sudden onset of feeling funny and almost falling. She was able to catch herself and states she did not fall. She was on the phone with her daughter who called EMS who thus brought her to the ER for evaluation. She did vomit in the ambulance and it was noted to be coffee-ground material. Initial blood pressure was then 92/38. She remained alert and oriented throughout. Follow-up vital signs were normal. She describes recent black stools and weakness. She states she has just had a cold. Laboratory data in the emergency room revealed a hemoglobin of 8.1 hematocrit of 25.4. Platelet count was normal at 214,000. White blood cell count was 7900. Urine revealed a urinary tract infection with positive leuk est erase 2+ positive nitrates and urine bacteria at 3+. She was given Protonix IV, ceftriaxone IV, and Zofran IV. Head CT showed no evidence of acute intracranial process. Neck CT showed no evidence of acute fracture. Chest x-ray showed no evidence of acute cardiopulmonary disease. Abdomen/pelvis CT showed no evidence of acute abnormality. She was admitted with symptomatic anemia. The case was discussed with gastroenterology with plans for scoping the following a.m. Patient at this time denies any chest pain and shortness of breath. She does not recall having any palpitations. She has occasional leg edema. She denies fever and has a periodic cough. Hospital Course Hospital Course Hospital Course: Patient was admitted with symptomatic anemia with GI bleed. She received 1 unit of packed red blood cells after admission. She was seen by gastroenterology and EGD was performed by Dr. Gale the following morning with the following impression as follows: Impression: 1. 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 Mild chronic gastritis with gastric atrophy 3. Short segment Larsen's esophagus with very small 1 to 2 cm hiatal hernia Plan: The patient's GI bleeding was from the gastric AVMs/angiodysplasias. I did do APC ablation of all visualized AVMs. Hemoglobin after 1 unit of packed red blood cell Hgb was 9.5 with hematocrit of 28.2. She was given Rocephin for UTI. Family was concerned about low blood pressure at home and requested cardiology consultation for this and possible Watchman procedure. Dr. Gale has recommended resuming anticoagulation 5 to 7 days postprocedure but long-term recommends Watchman. Cardiology did see pt and recommend reducing Lasix to half of current dose with additional as needed, changing Xarelto to Eliquis 2.5 twice daily 5 days post ablation and refer to , Dr. Quiles for watchman's device. H&H remained stable. She was able to eat and tolerated food well. In the p.m. of 08/22/2024 she was discharged to home with follow-up Dr. Claudio in the [place] office and also with cardiology. Dr. Gale also followed the patient and noted stable iron levels with an iron saturation of 80%. Exam Data for Last 24 hours Vital signs and Labs for Last 24 Hours: Temp Pulse Resp BP Pulse Ox O2 Del Method O2 Flow Rate 98.1 F 91 H 18 155/47 H 93 L Room Air 2 08/22/24 12:00 08/22/24 12:00 08/22/24 12:00 08/22/24 12:00 08/22/24 12:00 08/22/24 13:00 08/21/24 10:30 Narrative: Constitutional: Present no acute distress Respiratory: Present CTA bilaterally Cardiac: Present Reg Rate and Rhythm GI: Present soft and tenderness (mild tenderness around the umbilicus); Absent distention Extremities: Absent edema Skin: Present intact Neuro: Present alert, awake and oriented x 3 Results Data Completed and Pending Completed studies during hospitalization [Text1]: 08/20/2024 CT of abd/pelvis FINDINGS: Lungs: Bibasilar atelectasis versus parenchymal scarring. Calcified granuloma right lung base Diaphragm: Small hiatal hernia Liver: Decreased density throughout the liver compatible with hepatic steatosis. Evidence of prior hepatic, splenic granulomatous disease. Gallbladder and biliary ducts: Tiny gallstones again suggested. Pancreas: Pancreas unremarkable Spleen: Stable peripheral hypodense splenic lesions unchanged. Adrenal glands: Adrenal glands unremarkable. Kidneys and ureters: Normal. No hydronephrosis. Stomach and bowel: Colonic diverticulosis. No evidence of diverticulitis. Appendix: Appendix unremarkable Intraperitoneal space: Unremarkable. No free air. No significant fluid collection. Vasculature: Moderate regions of atherosclerotic vascular calcification are demonstrated within the abdominal aorta and common iliac arteries. Lymph nodes: Unremarkable. No enlarged lymph nodes. Urinary bladder: Unremarkable as visualized. Reproductive: Unremarkable as visualized. Bones/joints: Unremarkable. No acute fracture. Soft tissues: Unremarkable. IMPRESSION: No evidence of acute abnormality. 08/20/2024 CXR FINDINGS: Lungs: Bilateral ground-glass regions of opacification. Findings nonspecific however most likely reflect interstitial lung disease. An acute inflammatory process could not be entirely excluded. Pleural spaces: Unremarkable. No pleural effusion. No pneumothorax. Heart/Mediastinum: Unremarkable. No cardiomegaly. Bones/joints: Unremarkable. IMPRESSION: No evidence of acute cardiopulmonary disease. 08/20/2024 CT of cervical spine IMPRESSION: 1. No evidence of acute fracture. 2. Scattered nodule clusters in the lung apices. Comparison with prior chest 08/20/[address] MPRESSION: 1. No evidence of acute intracranial process. 2. Extra-axial left frontal mass with associated vasogenic edema and mass effect on the adjacent left frontal lobe likely representing a meningioma. MRI would be helpful for further characterization. DS: Diagnosis Discharge Diagnosis (1) AVM (arteriovenous malformation) of stomach, acquired with hemorrhage: Status: Acute Code(s): K31.811 - Angiodysplasia of stomach and duodenum with bleeding (2) Gastrointestinal tract bleed: Status: Acute Code(s): K92.2 - Gastrointestinal hemorrhage, unspecified (3) PAF (paroxysmal atrial fibrillation): Status: Chronic Code(s): I48.0 - Paroxysmal atrial fibrillation (4) CAD (coronary artery disease): Status: Chronic Code(s): I25.10 - Atherosclerotic heart disease of [place] coronary artery without angina pectoris Qualifiers: Coronary Disease-Associated Artery/Lesion type: [place] artery [place] vs. transplanted heart: [place] heart Associated angina: without angina Qualified Code(s): I25.10 - Atherosclerotic heart disease of [place] coronary artery without angina pectoris (5) Orthostasis: Status: Acute Code(s): I95.1 - Orthostatic hypotension Meds Home Medications and Allergies Home Medications ?Medication ?Instructions ?Recorded ?Confirmed ?Type aspirin 81 mg tablet,delayed 81 mg PO DAILY heart health 03/27/18 08/21/24 History release coenzyme Q10 100 mg capsule (Co 100 mg PO DAILY Supplement 06/12/20 08/21/24 History Q-10) docusate sodium 100 mg capsule 100 mg PO DAILY 11/10/23 08/21/24 History (Stool Softener) furosemide 20 mg tablet 20 mg PO Q48H 11/10/23 08/21/24 History gabapentin 100 mg capsule 100 mg PO HS #90 caps 06/28/24 08/21/24 Rx biotin 1 mg capsule 1 mg PO DAILY 08/21/24 08/21/24 History furosemide 40 mg tablet 40 mg PO Q48H 08/21/24 08/21/24 History lisinopril 10 mg tablet 10 mg PO DAILY 08/21/24 08/21/24 History metformin 500 mg tablet 500 mg PO DAILY 08/21/24 08/21/24 History montelukast 10 mg tablet 10 mg PO HS 08/21/24 08/21/24 History pramipexole 0.25 mg tablet 0.25 mg PO HS 08/21/24 08/21/24 History simvastatin 10 mg tablet 10 mg PO HS 08/21/24 08/21/24 History sotalol 80 mg tablet 80 mg PO BID 08/21/24 08/21/24 History ferrous gluconate 324 mg (37.5 mg 324 mg PO DAILY #30 tabs 08/22/24 Rx iron) tablet pantoprazole 40 mg tablet,delayed 40 mg PO DAILY #30 tabs 08/22/24 Rx release sucralfate 1 gram tablet 1 g PO BID #120 tabs 08/22/24 Rx New Prescriptions to Start Prescriptions: ferrous gluconate Marianela Claudio pantoprazole Marianela Claudio sucralfate Marianela Claudio Allergies Allergy/AdvReac Type Severity Reaction Status Date / Time rosuvastatin [From Crestor] AdvReac Intermediate stomach Verified 06/12/24 11:45 ache Discharge Plan Disposition Patient Disposition: Home, Self-Care Condition: Fair Discharge Order Discharge Orders: Discharge Order (Routine); Ordered 08/22/24 Ordered By: Marianela Claudio Follow up Plan Follow up with: Marianela Claudio MD [Primary Care Provider] - 08/28/24 12:00 pm Prescriptions/Medication Reconciliation: New sucralfate 1 gram tablet 1 g PO BID Qty: 120 4RF pantoprazole 40 mg tablet,delayed release (DR/EC) 40 mg PO DAILY Qty: 30 4RF ferrous gluconate 324 mg (37.5 mg iron) tablet 324 mg PO DAILY Qty: 30 0RF Continued aspirin 81 mg tablet,delayed release (DR/EC) 81 mg PO DAILY docusate sodium [Stool Softener] 100 mg capsule 100 mg PO DAILY furosemide 20 mg tablet 20 mg PO Q48H Rx Instructions: Take 1 tablet by mouth every 48 hours for edema alternating with Lasix 40 mg tablet. coenzyme Q10 [Co Q-10] 100 mg capsule 100 mg PO DAILY gabapentin 100 mg capsule 100 mg PO HS Qty: 90 0RF furosemide 40 mg tablet 40 mg PO Q48H Patient Comments: TAKE 1 TABLET BY MOUTH EVERY 48 HOURS FOR EDEMA ALTERNATING WITH LASIX 20 MG TABLET. Rx Instructions: TAKE 1 TABLET EVERY 48 HOURS FOR EDEMA ALTERNATING WITH LASIX 20 MG TABLET. biotin 1 mg Capsule 1 mg PO DAILY metformin 500 mg tablet 500 mg PO DAILY Patient Comments: TAKE 1 TABLET BY MOUTH ONCE DAILY FOR DIABETES. sotalol 80 mg tablet 80 mg PO BID Patient Comments: TAKE 1 TABLET BY MOUTH TWICE DAILY. simvastatin 10 mg tablet 10 mg PO HS Patient Comments: TAKE 1 TABLET BY MOUTH ONCE DAILY. lisinopril 10 mg tablet 10 mg PO DAILY Patient Comments: TAKE 1 TABLET BY MOUTH ONCE DAILY. pramipexole 0.25 mg tablet 0.25 mg PO HS Patient Comments: TAKE 1 TABLET BY MOUTH NIGHTLY AT BEDTIME. montelukast 10 mg tablet 10 mg PO HS Patient Comments: TAKE 1 TABLET BY MOUTH NIGHTLY AT BEDTIME. Discontinued Xarelto 15 mg tablet 15 mg PO QPMWITHMEAL Patient Comments: TAKE 1 TABLET BY MOUTH EVERY EVENING WITH A MEAL. Problem Reconciliation Problems Reviewed?: Yes Patient Discharge Instructions ACTIVITY: Limited activity DIET: continue same diet Patient Instructions: Anemia, DI for Gastrointestinal Bleeding Print Language: Andorran Providers Primary Care Provider: Marianela Claudio Admit Provider: Marianela Claudio Attending Provider: Marianela Claudio
== END 2024-08-22 13:34 | disposition home or self-care (01) | DRG 379 ==
LOC: ER 15:43 → 2ND 16:10
PROVIDERS: Internal Medicine Gastroenterology; Nurse Practitioner Family; Admitting Provider Family Medicine; Emergency Provider Student in an Organized Health Care Education/Training Program; PCP Family Medicine; Visit Provider Family Medicine
PROC: 0DJ08ZZ Inspection of Upper Intestinal Tract, Via Natural or Artificial Opening Endoscopic (ICD-10-PCS; CPT 43235; principal; 2024-08-21 07:00)
DX: K31.811 Angiodysplasia of stomach and duodenum with bleeding (principal); D64.9 Anemia, unspecified; I35.0 Nonrheumatic aortic (valve) stenosis; E78.2 Mixed hyperlipidemia; E04.2 Nontoxic multinodular goiter; E11.9 Type 2 diabetes mellitus without complications; N28.9 Disorder of kidney and ureter, unspecified; K43.9 Ventral hernia without obstruction or gangrene; R55 Syncope and collapse; I48.0 Paroxysmal atrial fibrillation; I25.10 Atherosclerotic heart disease of native coronary artery without angina pectoris; K22.70 Barrett's esophagus without dysplasia; K44.9 Diaphragmatic hernia without obstruction or gangrene; K29.70 Gastritis, unspecified, without bleeding; Z79.84 Long term (current) use of oral hypoglycemic drugs
CPT/HCPCS: 43255; 36415; 70450; 71045; 72125; 74177; 80053; 81001; 82728; 82962; 83540; 83550; 83690; 84484; 85007; 85014; 85018; 85025; 85048; 85049; 85610; 85730; 86803; 86850; 87086; 87088; 87186; 87389; 88305; 93005; 93225; 93227; 99291; C2618; J0696; J2405; J7120; P9016; Q9967

== ENCOUNTER 2024-08-28 14:06 | Outpatient (CLI) | payer MEDICARE, MEDICAID, SELFPAY | END 2024-08-28 23:59 | disposition home or self-care (01) | LOC: RAD 14:08 | PROVIDERS: PCP Family Medicine; Visit Provider Family Medicine | DX: R06.02 Shortness of breath (principal); K31.811 Angiodysplasia of stomach and duodenum with bleeding; D64.9 Anemia, unspecified | CPT/HCPCS: 71046 ==

== ENCOUNTER 2024-08-28 18:54 | Outpatient (CLI) | payer MEDICARE, MEDICAID, SELFPAY ==
[2024-08-28 19:33] LABS: Basophils % 0.4 % (0.1-2.0); Eosinophils # 0.2 K/mm3 (0.0-0.4); Eosinophils % 3.2 % (0.1-12.0); Hematocrit 30.6 % (37.0-47.0); Hemoglobin 9.9 g/dL (12.2-16.2); Lymphocytes # 1.2 K/mm3 (0.7-4.5); Lymphocytes % 18.3 % (10-50); Mean Corpuscular HGB Conc 32.4 g/dL (31.8-35.4); Mean Corpuscular Hemoglobin 30.9 pg (27.0-31.2); Mean Corpuscular Volume 95.2 fl (81-99); Mean Platelet Volume 8.7 fl (7.4-10.4); Monocytes # 0.4 K/mm3 (0.1-1.0); Monocytes % 5.4 % (1.7-9.3); Neutrophils # 4.7 K/mm3 (1.8-7.8); Neutrophils % 72.7 % (37.0-80.0); Platelet Count 272 K/mm3 (142-424); Red Blood Count 3.22 M/mm3 (4.20-5.40); Red Cell Distribution Width 15.9 % (11.5-17.5); White Blood Count 6.5 K/mm3 (4.8-10.8)
[2024-08-28 19:49] LABS: Anion Gap 8.9 mEq/L (5-15); Blood Urea Nitrogen 18 mg/dl (7-17); Calcium 8.9 mg/dl (8.4-10.2); Carbon Dioxide 31 mmol/L (22.0-30.0); Chloride 105 mmol/L (98-107); Estimated Glomerular Filt Rate 68 ml/min (>60); GFR (African American) 82 ML/MIN (>60); Glucose 126 mg/dl (74-100); Potassium 3.9 mmoL/L (3.5-5.1); Sodium 141 mmol/L (136-145)
== END 2024-08-28 23:59 | disposition home or self-care (01) ==
LOC: LAB.DROPOF 18:55
PROVIDERS: PCP Family Medicine; Visit Provider Family Medicine
DX: E11.9 Type 2 diabetes mellitus without complications (principal); N39.0 Urinary tract infection, site not specified; D64.9 Anemia, unspecified
CPT/HCPCS: 71046; 80048; 85025; 87086

== ENCOUNTER 2024-09-11 11:45 | Outpatient (CLI) | payer MEDICARE, MEDICAID, SELFPAY ==
[2024-09-11 18:56] LABS: Basophils % 0.6 % (0.1-2.0); Eosinophils # 0.1 K/mm3 (0.0-0.4); Eosinophils % 1.7 % (0.1-12.0); Hematocrit 33.4 % (37.0-47.0); Hemoglobin 10.6 g/dL (12.2-16.2); Lymphocytes # 1.2 K/mm3 (0.7-4.5); Lymphocytes % 19.6 % (10-50); Mean Corpuscular HGB Conc 31.8 g/dL (31.8-35.4); Mean Corpuscular Hemoglobin 30.5 pg (27.0-31.2); Mean Corpuscular Volume 95.9 fl (81-99); Mean Platelet Volume 8.6 fl (7.4-10.4); Monocytes # 0.3 K/mm3 (0.1-1.0); Monocytes % 5.4 % (1.7-9.3); Neutrophils # 4.5 K/mm3 (1.8-7.8); Neutrophils % 72.7 % (37.0-80.0); Platelet Count 247 K/mm3 (142-424); Red Blood Count 3.49 M/mm3 (4.20-5.40); Red Cell Distribution Width 15.2 % (11.5-17.5); White Blood Count 6.2 K/mm3 (4.8-10.8)
[2024-09-11 19:14] LABS: Anion Gap 10.4 mEq/L (5-15); Blood Urea Nitrogen 13 mg/dl (7-17); Calcium 9.2 mg/dl (8.4-10.2); Carbon Dioxide 34 mmol/L (22.0-30.0); Chloride 105 mmol/L (98-107); Estimated Glomerular Filt Rate 80 ml/min (>60); GFR (African American) 96 ML/MIN (>60); Glucose 166 mg/dl (74-100); Potassium 4.4 mmoL/L (3.5-5.1); Sodium 145 mmol/L (136-145); Uric Acid 6.9 mg/dl (2.5-6.2)
== END 2024-09-11 23:59 | disposition home or self-care (01) ==
LOC: LAB.DROPOF 09-12 12:53
PROVIDERS: PCP Family Medicine; Visit Provider Family Medicine
DX: D64.9 Anemia, unspecified (principal); E11.9 Type 2 diabetes mellitus without complications; E79.0 Hyperuricemia without signs of inflammatory arthritis and tophaceous disease
CPT/HCPCS: 80048; 84550; 85025

== ENCOUNTER 2024-10-09 13:40 | Outpatient (CLI) | payer MEDICARE, MEDICAID, SELFPAY ==
[2024-10-09 18:38] LABS: Anion Gap 9.7 mEq/L (5-15); Blood Urea Nitrogen 16 mg/dl (7-17); Calcium 9.3 mg/dl (8.4-10.2); Carbon Dioxide 34 mmol/L (22.0-30.0); Chloride 104 mmol/L (98-107); Estimated Glomerular Filt Rate 80 ml/min (>60); GFR (African American) 96 ML/MIN (>60); Glucose 131 mg/dl (74-100); Potassium 3.7 mmoL/L (3.5-5.1); Sodium 144 mmol/L (136-145)
[2024-10-09 19:06] LABS: White Blood Count 6.3 K/mm3 (4.8-10.8)
[2024-10-09 19:07] LABS: Basophils # 0.1 K/mm3 (0-0.2); Basophils % 0.8 % (0.1-2.0); Eosinophils # 0.1 K/mm3 (0.0-0.4); Eosinophils % 1.6 % (0.1-12.0); Hematocrit 35.3 % (37.0-47.0); Hemoglobin 10.9 g/dL (12.2-16.2); Lymphocytes # 1.5 K/mm3 (0.7-4.5); Lymphocytes % 24.1 % (10-50); Mean Corpuscular HGB Conc 30.9 g/dL (31.8-35.4); Mean Corpuscular Hemoglobin 28.6 pg (27.0-31.2); Mean Corpuscular Volume 92.7 fl (81-99); Mean Platelet Volume 11.5 fl (7.4-10.4); Monocytes # 0.4 K/mm3 (0.1-1.0); Neutrophils # 4.1 K/mm3 (1.8-7.8); Platelet Count 230 K/mm3 (142-424); Red Blood Count 3.81 M/mm3 (4.20-5.40); Red Cell Distribution Width 13.6 % (11.5-17.5)
== END 2024-10-09 23:59 | disposition home or self-care (01) ==
LOC: LAB.DROPOF 10-10 12:48
PROVIDERS: PCP Family Medicine; Visit Provider Family Medicine
DX: D64.9 Anemia, unspecified (principal); R53.1 Weakness
CPT/HCPCS: 80048; 85025

== ENCOUNTER 2024-10-14 02:02 | Inpatient (IN) | payer MEDICARE, MEDICAID, SELFPAY ==
[2024-10-14] VITALS (11 sets, daily range): BP systolic 130–175; BP diastolic 43–58; PULSE 68–88; RESP 14–20; TEMP 36.6–37.7; O2SAT 91–100; BMI 26.2; BMI 25.7
--- NOTE | 2024-10-14 02:09 | ED_ITS ---
Discharge Plan Disposition Patient Disposition: Admitted Condition: Good Chief Complaint: Weakness Clinical Impressions Clinical Impression: Respiratory failure, Acute exacerbation of CHF (congestive heart failure), Acute UTI Discharge ED Provider: René Coleman General Adult HPI General Chief complaint: Weakness Stated complaint: Hip pain Time Seen by Provider: 10/14/24 02:09 History of Present Illness HPI narrative: 84-year-old female with history of heart failure coronary artery disease anemia diabetes presents for worsening generalized weakness. She has been having worsening lower extremity edema and has been less mobile than normal. Tonight after going to a holiday green party she was unable to use her legs like normal, felt like her hips were giving out and her feet hurt. No reported fever at home but she has had a cough that is worsened over the last couple of days Related Data Home Medications ?Medication ?Instructions ?Recorded ?Confirmed coenzyme Q10 100 mg capsule (Co 100 mg PO DAILY Supplement 06/12/20 10/09/24 Q-10) docusate sodium 100 mg capsule 100 mg PO DAILY 11/10/23 10/09/24 (Stool Softener) biotin 1 mg capsule 1 mg PO DAILY 08/21/24 10/09/24 montelukast 10 mg tablet 10 mg PO HS 08/21/24 10/09/24 pramipexole 0.25 mg tablet 0.25 mg PO HS 08/21/24 10/09/24 simvastatin 10 mg tablet 10 mg PO HS 08/21/24 10/09/24 Previous Rx's ?Medication ?Instructions ?Recorded ferrous gluconate 324 mg (37.5 mg 324 mg PO DAILY #30 tabs 08/22/24 iron) tablet pantoprazole 40 mg tablet,delayed 40 mg PO DAILY #30 tabs 08/22/24 release sucralfate 1 gram tablet 1 g PO BID #120 tabs 08/22/24 apixaban 2.5 mg tablet (Eliquis) 2.5 mg PO BID PAT #60 tabs 08/28/24 colchicine 0.6 mg tablet 0.6 mg PO BID hyperuricemia #60 09/11/24 tabs gabapentin 100 mg capsule 100 mg PO HS #90 caps 09/24/24 furosemide 20 mg tablet 20 mg PO DAILY #30 tabs 09/26/24 lisinopril 10 mg tablet 10 mg PO DAILY #90 tabs 09/26/24 metformin 500 mg tablet 500 mg PO DAILY #90 tabs 09/26/24 sotalol 80 mg tablet 80 mg PO BID #60 tabs 09/26/24 Allergies Allergy/AdvReac Type Severity Reaction Status Date / Time rosuvastatin (From Crestor) AdvReac Intermediate stomach Verified 10/09/24 12:18 ache [facility] Disclaimer: The information contained in this section may have been updated after the patient was seen, as this information can be updated by other users. Medical History (Updated 10/14/24 @ 04:07 by René Coleman MD) Weakness Hyperuricemia UTI (urinary tract infection) E. coli infection Encounter for immunization Short of breath on exertion Aortic stenosis Cervical cancer Right carotid bruit Anticoagulant causing adverse effect in therapeutic use Thyromegaly Hyperlipidemia Abnormal chest CT Multiple thyroid nodules Renal insufficiency Hyperkalemia Ventral hernia Leg pain, bilateral Hyperuricemia Ventral hernia Bradycardia Hypotension Syncope Carotid artery stenosis HTN (hypertension) PAF (paroxysmal atrial fibrillation) CAD (coronary artery disease) Surgical History History of hysterectomy Family History Other Cancer Diabetes Social History Smoking Status: Never smoker alcohol intake: never substance use type: denies use current occupational status: retired Travel in the last 8 weeks: None Have you lived/traveled outside [place] in past 30 days?: No Contact w/someone who lives/traveled outside US past 30 days?: No Exposure to someone with infectious disease in past 14 days?: No Do you have a fever (greater than 100.4 F or 38 C)?: No Have you tested positive for COVID-19: No Exposed to someone with COVID-19 in past 14 days?: No Do you have a sore throat?: No Do you have a cough?: No Do you have any weakness?: No Do you have any diarrhea?: No Are you experiencing any unusual bleeding?: No Do you have any muscle aches/pain?: No Do you have any abdominal pain?: No Are you experiencing loss of taste or smell?: No Other Medical History Have you received the Flu Vaccine for this season: No Have you received the Pneumonia Vaccine: Yes ROS Obtained: Yes All systems reviewed & no additional complaints except as documented Physical Exam General General appearance: in no apparent distress Comment: Sleeping comfortably, easily arousable Head Head exam: atraumatic and normocephalic Eye Eye exam: Present normal appearance, PERRL and EOMI ENT ENT exam: Present normal oropharynx and normal external ear exam Neck Neck exam: Present normal inspection and full ROM Chest Chest inspection: Present normal inspection and symmetric chest wall rise; Absent tenderness Respiratory Respiratory exam: Present other (Crackles in the bases bilaterally); Absent respiratory distress Cardiovascular Cardiovascular exam: Present regular rate and normal rhythm Abdominal Exam Abdominal exam: Present soft; Absent distention, tenderness or guarding Extremities Exam Extremities exam: Present edema (2+ bilateral lower extremity pitting edema) Back Exam Back exam: Present normal inspection; Absent tenderness Neurological Exam Neurological exam: Present alert and oriented X3; Absent motor sensory deficit Psychiatric Psychiatric exam: Present normal affect and normal mood Skin Skin exam: Present warm, dry and normal color Lymphatic Lymphatic Findings: no adenopathy Medical Decision Making Medical Records Medical records reviewed: Yes I reviewed the patient's medical records. Screening: Per USPSTF and CDC recommendations, given the prevalence of disease in our region, it is our hospital?s policy to screen for HIV and viral Hepatitis for all patients aged 18 and over and those with ongoing risk factors. Get Inquiry Pt receiving controlled substance: No Get was queried for this patient: No Vital Signs: 10/14/24 02:03 Temperature 98.7 F Temperature Source Oral Pulse Rate [Right] 88 Respiratory Rate 17 Blood Pressure [Right Arm] 175/52 H Blood Pressure Mean [Right Arm] 93 Blood Pressure Source [Right Arm] Automatic Cuff Blood Pressure Position [Right Arm] Supine 02 Sat by Pulse Oximetry 94 L Oxygen Delivery Method Nasal Cannula Oxygen Flow Rate (LPM) 2 Lab Data Lab results reviewed: Yes I reviewed the patient's lab results. Lab Results 10/14/24 02:45: WBC 7.6, RBC 3.40 L, Hgb 9.7 L, Hct 30.7 L, MCV 90.3, MCH 28.5, MCHC 31.6 L, RDW 13.3, Plt Count 194, MPV 11.1 H, Neut % (Auto) 76.9, Lymph % (Auto) 13.7, [place] % (Auto) 8.6, Eos % (Auto) 0.3, Baso % (Auto) 0.1, Neut # (Auto) 5.9, Lymph # (Auto) 1.0, [place] # (Auto) 0.7, Eos # (Auto) 0.0, Baso # (Auto) 0.0, PT 11.6, INR 1.04, APTT 28.0, Sodium 140, Potassium 3.1 L, Chloride 104, Carbon Dioxide 31 H, Anion Gap 8.1, BUN 17, Creatinine 0.70, Estimated Creat Clear 42, Estimated GFR 80, Est GFR ( Amer) 96, Glucose 175 H, Calcium 8.8, Magnesium 1.6, Total Bilirubin 0.9, AST 25, ALT 14, Alkaline Phosphatase 61, Troponin I < 0.01, NT-Pro-B Natriuret Pep 2480 H, Total Protein 6.6, Albumin 3.7, Globulin 2.9, Albumin/Globulin Ratio 1.3, TSH 0.37 L, Thyroxine (T4) 10.2 10/14/24 03:10: Urine Color Yellow, Urine Appearance Slightly cloudy, Urine pH 6.0, Ur Specific [place] 1.025, Urine Protein 1+ A, Urine Glucose (UA) Trace, Urine Ketones 1+, Urine Blood Trace-i, Urine Nitrate Positive A, Urine Bilirubin Negative, Urine Urobilinogen 0.2, Ur Leukocyte Esterase Trace, Urine RBC 3-5, Urine WBC 5-10, Ur Squamous Epith Cells None, Urine Bacteria 4+ 10/14/24 02:45 10/14/24 02:45 Orders (Tests/Meds): ED MEDICATIONS Generic Name Dose Route Start Last Admin Trade Name Ollie PRN Reason Stop Dose Admin Furosemide 40 mg 10/14/24 09:00 Furosemide 40mg/4ml Vial IV 11/13/24 08:59 DAILY DONITA Ceftriaxone Sodium 1 gm/ 50 mls @ 100 mls/hr 10/14/24 03:33 10/14/24 03:49 Sodium Chloride IV 10/14/24 04:02 100 mls/hr ONCE ONE Administration Ceftriaxone Sodium 1 gm/ 50 mls @ 100 mls/hr 10/14/24 10:00 Sodium Chloride IV 10/24/24 09:59 Q24H DONITA Insulin Human Lispro 0 unit 10/14/24 04:00 Humalog 100 Units/Ml 10ml Vial (Ssi) SUBCUT 11/13/24 03:59 Q6H DONITA Protocol Potassium Chloride 40 meq 10/14/24 03:39 10/14/24 03:49 Potassium Chloride 20meq/15ml Udc PO 10/14/24 03:40 40 meq ONCE ONE Administration Potassium Chloride 20 meq 10/14/24 09:00 Potassium Chloride 20meq Tab PO 11/13/24 08:59 BID DONITA Discontinued Medications Generic Name Dose Route Start Last Admin Trade Name Freq PRN Reason Stop Dose Admin Furosemide 60 mg 10/14/24 03:22 10/14/24 03:30 Furosemide 40mg/4ml Vial IV 10/14/24 03:23 60 mg ONCE ONE Administration ORDERS Category Date Time Status CXR --portable [XR chest portable] Stat Exams 10/14/24 02:34 Completed Pelvis XR 1-2 views [XR pelvis 1-2V] Stat Exams 10/14/24 02:34 Completed BNP [NT Pro Brain Natriuretic Pep.] Stat Lab 10/14/24 02:45 Completed CBC w/Auto Diff [Complete Blood Count Auto Diff] Stat Lab 10/14/24 02:45 Completed CMP [Comprehensive Metabolic Panel] Stat Lab 10/14/24 02:45 Completed INR [Prothrombin Time INR] Stat Lab 10/14/24 02:45 Completed Magnesium Stat Lab 10/14/24 02:45 Completed Mini Respiratory Panel Stat Lab 10/14/24 02:40 Received PTT [Activated Partial Thrombo Time] Stat Lab 10/14/24 02:45 Completed T4 (Thyroxine) Stat Lab 10/14/24 02:45 Completed TSH [Thyroid Stimulating Hormone] Stat Lab 10/14/24 02:45 Completed Troponin I Q3H Lab 10/14/24 02:45 Completed Troponin I Q3H Lab 10/14/24 05:45 Ordered UA [Urinalysis and Microscopic] Stat Lab 10/14/24 03:10 Completed Urine Culture Stat Micro 10/14/24 03:10 Received Medical Decision Narrative: 84-year-old female presents for worsening generalized weakness and lower extremity pain. History was obtained via interactive discussion with patient, family, chart. On arrival, patient is afebrile, hemodynamically stable, satting mid to high 80s on room air, improved on 2 L nasal cannula, moving all extremities spontaneously. Full physical exam performed and significant for crackles in the lung bases, bilateral lower extremity pitting edema Differential includes but is not limited to heart failure exacerbation, pneumonia, flu,. Patient was given 1 g ceftriaxone, 60 mg Lasix, 40 potassium during ED stay. For symptomatic management and correction of underlying abnormalities. On my interpretation, workup shows elevated BNP, negative initial troponin, mild hypokalemia mildly worsened anemia.. On my interpretation, chest x-ray shows bilateral pulmonary edema and trace effusions. Pelvis x-ray shows no acute fracture. Urine is consistent with UTI given positive nitrates and 4+ bacteria on a cath sample. Given patient history, exam and workup, patient's presentation most likely represents acute hypoxic respiratory failure secondary to heart failure exacerbation. González is listed as a PCP, but I called and spoke with Amberly who reports that since she is seen at the [place] location, she should go to the hospitalist team. Therefore, I called and spoke with the hospitalist team for admission for acute heart failure exacerbation and UTI. Procedures Risk/Benefits of Procedure(s) Were Explained: Yes Critical Care Critical Care Time Critical Care Time: No
--- NOTE | 2024-10-14 02:34 | XR_ITS ---
PROCEDURE INFORMATION: Exam: XR Pelvis Exam date and time: 10/14/2024 2:45 AM Age: 84 years old Clinical indication: Other: Weakness; Additional info: Weakness, hips giving out TECHNIQUE: Imaging protocol: Radiologic exam of the pelvis. Views: 1 or 2 view. COMPARISON: CT ABDOMEN PELVIS W CON 08/20/2024 12:39 PM FINDINGS: Bones/joints: Unremarkable. No acute fracture. Soft tissues: Unremarkable. Intraperitoneal space: Numerous surgical clips within the pelvis. IMPRESSION: No acute fracture or dislocation.
--- NOTE | 2024-10-14 02:34 | XR_ITS ---
PROCEDURE INFORMATION: Exam: XR Chest Exam date and time: 10/14/2024 2:45 AM Age: 84 years old Clinical indication: Shortness of breath; Additional info: SOA, volume overload TECHNIQUE: Imaging protocol: Radiologic exam of the chest. Views: 1 view. COMPARISON: CR XR CHEST 2V 08/28/2024 2:18 PM FINDINGS: Lungs: Bilateral interstitial opacities. No focal consolidation. Pleural spaces: Unremarkable. No pleural effusion. No pneumothorax. Heart/Mediastinum: Unremarkable. No cardiomegaly. Vasculature: The aorta is calcified. Bones/joints: Unremarkable. IMPRESSION: Bilateral interstitial opacities, suspicious for pulmonary edema or volume overload.
--- NOTE | 2024-10-14 02:44 | ECG_ITS ---
APPROVED REPORT Exam: Resting ECG HR:77 bpm ECG Measurements Heart Rate 77 AXES [place] 177 P 68 QRSd 92 QRS 51 QT 334 T 33 QTc 366 Conclusion SINUS RHYTHM WITH OCCASIONAL SUPRAVENTRICULAR PREMATURE COMPLEXES NONSPECIFIC ST & T-WAVE ABNORMALITY BORDERLINE ECG UNCONFIRMED REPORT Electronically signed by : BEULAH WIN, 10/14/2024 06:55:30
[2024-10-14 02:50] LABS: Coronavirus 19, PCR Not Detected (NotDetected); Human Rhinovirus Not Detected (NotDetected); Influenza A, PCR Not Detected (NotDetected); Influenza B, PCR Not Detected (NotDetected); Respiratory Syncytial Virus Not Detected (NotDetected)
[2024-10-14 02:59] LABS: White Blood Count 7.6 K/mm3 (4.8-10.8)
[2024-10-14 03:00] LABS: Basophils % 0.1 % (0.1-2.0); Eosinophils % 0.3 % (0.1-12.0); Hematocrit 30.7 % (37.0-47.0); Hemoglobin 9.7 g/dL (12.2-16.2); Lymphocytes % 13.7 % (10-50); Mean Corpuscular HGB Conc 31.6 g/dL (31.8-35.4); Mean Corpuscular Hemoglobin 28.5 pg (27.0-31.2); Mean Corpuscular Volume 90.3 fl (81-99); Mean Platelet Volume 11.1 fl (7.4-10.4); Monocytes # 0.7 K/mm3 (0.1-1.0); Monocytes % 8.6 % (1.7-9.3); Neutrophils # 5.9 K/mm3 (1.8-7.8); Neutrophils % 76.9 % (37.0-80.0); Platelet Count 194 K/mm3 (142-424); Red Cell Distribution Width 13.3 % (11.5-17.5)
[2024-10-14 03:06] LABS: Alanine Aminotransferase 14 U/L (12-78); Albumin Level 3.7 g/dl (3.5-5.0); Albumin/Globulin Ratio 1.3 (1.1-1.8); Alkaline Phosphatase 61 U/L (38-126); Anion Gap 8.1 mEq/L (5-15); Aspartate Amino Transferase 25 U/L (14-36); Bilirubin,Total 0.9 mg/dl (0.2-1.3); Blood Urea Nitrogen 17 mg/dl (7-17); Calcium 8.8 mg/dl (8.4-10.2); Carbon Dioxide 31 mmol/L (22.0-30.0); Chloride 104 mmol/L (98-107); Creatinine Clearance Estimated 42 mL/min (50-200); Estimated Glomerular Filt Rate 80 ml/min (>60); GFR (African American) 96 ML/MIN (>60); Globulin 2.9 g/dL (1.3-3.2); Glucose 175 mg/dl (74-100); Magnesium 1.6 mg/dl (1.6-2.3); Potassium 3.1 mmoL/L (3.5-5.1); Sodium 140 mmol/L (136-145); Total Protein,Serum 6.6 g/dl (6.3-8.2)
[2024-10-14 03:08] LABS: INR 1.04 (0.9-1.1); Prothrombin Time 11.6 seconds (10.1-12.5)
[2024-10-14 03:16] LABS: Bilirubin,Urine Negative (Negative); Blood, Urine TRACE-I (Negative); Color,Urine YELLOW (Yellow); Glucose,Urine (UA) TRACE (Negative); Ketones,Urine 1+ (Negative); Leukocyte Esterase,Urine TRACE (Negative); Microscopic, Urine URINE MICROSCOPIC (MICROSCOPIC); Nitrate,Urine POSITIVE (Negative); Protein,Urine 1+ (Negative); Specific Gravity, Urine 1.025 (1.005-1.030); Urobilinogen,Urine 0.2 EU/dl (0.2)
[2024-10-14 03:19] LABS: NT Pro Brain Natriuretic Pep. 2480 pg/mL (0-450)
[2024-10-14 03:20] LABS: Troponin I < 0.01 ng/ml (0.00-0.034)
[2024-10-14 03:21] LABS: Appearance,Urine Slightly Cloudy (Clear)
[2024-10-14 03:23] LABS: T4 (Thyroxine) 10.2 ug/dl (5.53-11.0)
[2024-10-14 03:27] LABS: Bacteria,Urine 4+ /lpf
[2024-10-14] MEDS: FUROSEMIDE 40MG/4ML VIAL 60 MG IV (03:30)
[2024-10-14 03:37] LABS: Thyroid Stimulating Hormone 0.37 uIU/mL (0.465-4.68)
[2024-10-14] MEDS: CEFTRIAXONE 1 GM 1 GM in 0.9 % SODIUM CHLORIDE 50 ML IV (03:49)
[2024-10-14] MEDS: POTASSIUM CHLORIDE 20MEQ/15ML UDC 40 MEQ PO (03:49)
--- NOTE | 2024-10-14 03:57 | P.HP_ITS ---
History of Present Illness *Admission Date: 10/14/24 *Reason for visit:: Weakness, shortness of air *History of present illness: Ms. Negrete is a 84-year-old female with a past medical history of CHF [facility] Disclaimer: The information contained in this section may have been updated after the patient was seen, as this information can be updated by other users. Medical History (Updated 10/09/24 @ 13:18 by González UGILLEN MD) Weakness Hyperuricemia UTI (urinary tract infection) E. coli infection Encounter for immunization Short of breath on exertion Aortic stenosis Cervical cancer Right carotid bruit Anticoagulant causing adverse effect in therapeutic use Thyromegaly Hyperlipidemia Abnormal chest CT Multiple thyroid nodules Renal insufficiency Hyperkalemia Ventral hernia Leg pain, bilateral Hyperuricemia Ventral hernia Bradycardia Hypotension Syncope Carotid artery stenosis HTN (hypertension) PAF (paroxysmal atrial fibrillation) CAD (coronary artery disease) Surgical History History of hysterectomy Family History Diabetes Cancer Social History Smoking Status: Never smoker alcohol intake: never substance use type: denies use current occupational status: retired Travel in the last 8 weeks: None Have you lived/traveled outside US in past 30 days?: No Contact w/someone who lives/traveled outside US past 30 days?: No Exposure to someone with infectious disease in past 14 days?: No Do you have a fever (greater than 100.4 F or 38 C)?: No Have you tested positive for COVID-19: No Exposed to someone with COVID-19 in past 14 days?: No Do you have a sore throat?: No Do you have a cough?: No Do you have any weakness?: No Do you have any diarrhea?: No Are you experiencing any unusual bleeding?: No Do you have any muscle aches/pain?: No Do you have any abdominal pain?: No Are you experiencing loss of taste or smell?: No Other Medical History Have you received the Flu Vaccine for this season: No Have you received the Pneumonia Vaccine: Yes Meds Home Medications and Allergies Home Medications ?Medication ?Instructions ?Recorded ?Confirmed ?Type coenzyme Q10 100 mg capsule (Co 100 mg PO DAILY Supplement 06/12/20 10/09/24 History Q-10) docusate sodium 100 mg capsule 100 mg PO DAILY 11/10/23 10/09/24 History (Stool Softener) biotin 1 mg capsule 1 mg PO DAILY 08/21/24 10/09/24 History montelukast 10 mg tablet 10 mg PO HS 08/21/24 10/09/24 History pramipexole 0.25 mg tablet 0.25 mg PO HS 08/21/24 10/09/24 History simvastatin 10 mg tablet 10 mg PO HS 08/21/24 10/09/24 History ferrous gluconate 324 mg (37.5 mg 324 mg PO DAILY #30 tabs 08/22/24 10/09/24 Rx iron) tablet pantoprazole 40 mg tablet,delayed 40 mg PO DAILY #30 tabs 08/22/24 10/09/24 Rx release sucralfate 1 gram tablet 1 g PO BID #120 tabs 08/22/24 10/09/24 Rx apixaban 2.5 mg tablet (Eliquis) 2.5 mg PO BID PAT #60 tabs 08/28/24 10/09/24 Rx colchicine 0.6 mg tablet 0.6 mg PO BID hyperuricemia #60 09/11/24 10/09/24 Rx tabs gabapentin 100 mg capsule 100 mg PO HS #90 caps 09/24/24 10/09/24 Rx furosemide 20 mg tablet 20 mg PO DAILY #30 tabs 09/26/24 10/09/24 Rx lisinopril 10 mg tablet 10 mg PO DAILY #90 tabs 09/26/24 10/09/24 Rx metformin 500 mg tablet 500 mg PO DAILY #90 tabs 09/26/24 10/09/24 Rx sotalol 80 mg tablet 80 mg PO BID #60 tabs 09/26/24 10/09/24 Rx New Prescriptions to Start Prescriptions: Allergies Allergy/AdvReac Type Severity Reaction Status Date / Time rosuvastatin (From Crestor) AdvReac Intermediate stomach Verified 10/09/24 12:18 ache Exam Data for Last 24 hours Vital signs and Labs for Last 24 Hours: Temp Pulse Resp BP Pulse Ox O2 Del Method O2 Flow Rate 98.7 F 88 17 175/52 H 94 L Nasal Cannula 2 10/14/24 02:03 10/14/24 02:03 10/14/24 02:03 10/14/24 02:03 10/14/24 02:03 10/14/24 02:03 10/14/24 02:03 Laboratory Results - last 24 hr 10/14/24 02:45: WBC 7.6, RBC 3.40 L, Hgb 9.7 L, Hct 30.7 L, MCV 90.3, MCH 28.5, MCHC 31.6 L, RDW 13.3, Plt Count 194, MPV 11.1 H, Neut % (Auto) 76.9, Lymph % (Auto) 13.7, Dickinson % (Auto) 8.6, Eos % (Auto) 0.3, Baso % (Auto) 0.1, Neut # (Auto) 5.9, Lymph # (Auto) 1.0, Dickinson # (Auto) 0.7, Eos # (Auto) 0.0, Baso # (Auto) 0.0, PT 11.6, INR 1.04, APTT 28.0, Sodium 140, Potassium 3.1 L, Chloride 104, Carbon Dioxide 31 H, Anion Gap 8.1, BUN 17, Creatinine 0.70, Estimated Creat Clear 42, Estimated GFR 80, Est GFR ( Amer) 96, Glucose 175 H, Calcium 8.8, Magnesium 1.6, Total Bilirubin 0.9, AST 25, ALT 14, Alkaline Phosphatase 61, Troponin I < 0.01, NT-Pro-B Natriuret Pep 2480 H, Total Protein 6.6, Albumin 3.7, Globulin 2.9, Albumin/Globulin Ratio 1.3, TSH 0.37 L, Thyroxine (T4) 10.2 10/14/24 03:10: Urine Color Yellow, Urine Appearance Slightly cloudy, Urine pH 6.0, Ur Specific [place] 1.025, Urine Protein 1+ A, Urine Glucose (UA) Trace, Urine Ketones 1+, Urine Blood Trace-i, Urine Nitrate Positive A, Urine Bilirubin Negative, Urine Urobilinogen 0.2, Ur Leukocyte Esterase Trace, Urine RBC 3-5, Urine WBC 5-10, Ur Squamous Epith Cells None, Urine Bacteria 4+ I & O for Last 24 hours: Intake & Output 10/11/24 10/12/24 10/13/24 10/14/24 23:59 23:59 23:59 23:59 Weight 64.864 kg
--- NOTE | 2024-10-14 03:59 | P.HP_ITS ---
<Statement entered by Suresh Mobley MD - 10/21/24 13:11> Rounded on patient after nurse practitioner. ?Personally examined and interviewed patient. Agree with exam findings and care plan as documented. History of Present Illness *Admission Date: 10/14/24 *History of present illness: Ms. 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 She presents to [facility] due to ongoing weakness over the last few days. She was at a [employer] Party when she became really weak and short of air. She was brought into the ER for evaluation. In the ER, the patient underwent a Cxray that showed pulmonary edema. BNP was elevated at 2480. CBC showed a normocytic, hypochromic anemia, but was otherwise unremarakble. CMP showed a potassium of 3.1. Urinalysis showed 4 plus bacteria, 5-10 WBC and was positive for nitrates. Pelvis xray was negative. In the ER, the patient received: Rocephin 1 gram, Lasix 60 mg iv and Potassium 40 equivalents po. The patient is admitted with initial impression: CHF exacerbation and UTI [facility] Disclaimer: The information contained in this section may have been updated after the patient was seen, as this information can be updated by other users. Medical History Weakness Hyperuricemia UTI (urinary tract infection) E. coli infection Encounter for immunization Short of breath on exertion Aortic stenosis Cervical cancer Right carotid bruit Anticoagulant causing adverse effect in therapeutic use Thyromegaly Hyperlipidemia Abnormal chest CT Multiple thyroid nodules Renal insufficiency Hyperkalemia Ventral hernia Leg pain, bilateral Hyperuricemia Ventral hernia Bradycardia Hypotension Syncope Carotid artery stenosis HTN (hypertension) PAF (paroxysmal atrial fibrillation) CAD (coronary artery disease) Surgical History History of hysterectomy Family History Other Cancer Diabetes Social History Smoking Status: Never smoker alcohol intake: never substance use type: denies use current occupational status: retired Travel in the last 8 weeks: None Have you lived/traveled outside US in past 30 days?: No Contact w/someone who lives/traveled outside US past 30 days?: No Exposure to someone with infectious disease in past 14 days?: No Do you have a fever (greater than 100.4 F or 38 C)?: No Have you tested positive for COVID-19: No Exposed to someone with COVID-19 in past 14 days?: No Do you have a sore throat?: No Do you have a cough?: No Do you have any weakness?: No Do you have any diarrhea?: No Are you experiencing any unusual bleeding?: No Do you have any muscle aches/pain?: No Do you have any abdominal pain?: No Are you experiencing loss of taste or smell?: No Other Medical History Have you received the Flu Vaccine for this season: No Have you received the Pneumonia Vaccine: Yes Review of Systems Review of Systems Review of systems:: pertinent systems reviewed and negative unless documented below Constitutional Constitutional: Reports weakness Eyes Eyes: Reports system reviewed and no additional complaints, except as documented ENT Ears, Nose, Mouth, and Throat: Reports system reviewed and no additional complaints, except as documented *Cardiovascular Cardiovascular: Reports dyspnea *Respiratory Respiratory: Reports cough and Reports dyspnea *Gastrointestinal Gastrointestinal: Reports system reviewed and no additional complaints, except as documented *Genitourinary Genitourinary: Reports system reviewed and no additional complaints, except as documented *Musculoskeletal Musculoskeletal: Reports system reviewed and no additional complaints, except as documented Integumentary/Breasts Skin/Breast: Reports system reviewed and no additional complaints, except as documented *Neurologic Neurologic: Reports weakness Psychiatric Psychiatric: Reports system reviewed and no additional complaints, except as documented Endocrine Endocrine: Reports system reviewed and no additional complaints, except as documented Hematologic/Lymphatic Hematologic/Lymphatic: Reports system reviewed and no additional complaints, except as documented Allergic/Immunologic Allergic/Immunologic: Reports system reviewed and no additional complaints, except as documented Meds Home Medications and Allergies Home Medications ?Medication ?Instructions ?Recorded ?Confirmed ?Type coenzyme Q10 100 mg capsule (Co 100 mg PO DAILY Supplement 06/12/20 10/09/24 History Q-10) docusate sodium 100 mg capsule 100 mg PO DAILY 11/10/23 10/09/24 History (Stool Softener) biotin 1 mg capsule 1 mg PO DAILY 08/21/24 10/09/24 History montelukast 10 mg tablet 10 mg PO HS 08/21/24 10/09/24 History pramipexole 0.25 mg tablet 0.25 mg PO HS 08/21/24 10/09/24 History simvastatin 10 mg tablet 10 mg PO HS 08/21/24 10/09/24 History ferrous gluconate 324 mg (37.5 mg 324 mg PO DAILY #30 tabs 08/22/24 10/09/24 Rx iron) tablet pantoprazole 40 mg tablet,delayed 40 mg PO DAILY #30 tabs 08/22/24 10/09/24 Rx release sucralfate 1 gram tablet 1 g PO BID #120 tabs 08/22/24 10/09/24 Rx apixaban 2.5 mg tablet (Eliquis) 2.5 mg PO BID PAT #60 tabs 08/28/24 10/09/24 Rx colchicine 0.6 mg tablet 0.6 mg PO BID hyperuricemia #60 09/11/24 10/09/24 Rx tabs gabapentin 100 mg capsule 100 mg PO HS #90 caps 09/24/24 10/09/24 Rx furosemide 20 mg tablet 20 mg PO DAILY #30 tabs 09/26/24 10/09/24 Rx lisinopril 10 mg tablet 10 mg PO DAILY #90 tabs 09/26/24 10/09/24 Rx metformin 500 mg tablet 500 mg PO DAILY #90 tabs 09/26/24 10/09/24 Rx sotalol 80 mg tablet 80 mg PO BID #60 tabs 09/26/24 10/09/24 Rx New Prescriptions to Start Prescriptions: Allergies Allergy/AdvReac Type Severity Reaction Status Date / Time rosuvastatin (From Crestor) AdvReac Intermediate stomach Verified 10/09/24 12:18 ache Exam Data for Last 24 hours Vital signs and Labs for Last 24 Hours: Temp Pulse Resp BP Pulse Ox O2 Del Method O2 Flow Rate 98.7 F 88 17 175/52 H 94 L Nasal Cannula 2 10/14/24 02:03 10/14/24 02:03 10/14/24 02:03 10/14/24 02:03 10/14/24 02:03 10/14/24 02:03 10/14/24 02:03 Laboratory Results - last 24 hr 10/14/24 02:45: WBC 7.6, RBC 3.40 L, Hgb 9.7 L, Hct 30.7 L, MCV 90.3, MCH 28.5, MCHC 31.6 L, RDW 13.3, Plt Count 194, MPV 11.1 H, Neut % (Auto) 76.9, Lymph % (Auto) 13.7, [place] % (Auto) 8.6, Eos % (Auto) 0.3, Baso % (Auto) 0.1, Neut # (Auto) 5.9, Lymph # (Auto) 1.0, [place] # (Auto) 0.7, Eos # (Auto) 0.0, Baso # (Auto) 0.0, PT 11.6, INR 1.04, APTT 28.0, Sodium 140, Potassium 3.1 L, Chloride 104, Carbon Dioxide 31 H, Anion Gap 8.1, BUN 17, Creatinine 0.70, Estimated Creat Clear 42, Estimated GFR 80, Est GFR ( Amer) 96, Glucose 175 H, Calcium 8.8, Magnesium 1.6, Total Bilirubin 0.9, AST 25, ALT 14, Alkaline Phosphatase 61, Troponin I < 0.01, NT-Pro-B Natriuret Pep 2480 H, Total Protein 6.6, Albumin 3.7, Globulin 2.9, Albumin/Globulin Ratio 1.3, TSH 0.37 L, Thyroxine (T4) 10.2 10/14/24 03:10: Urine Color Yellow, Urine Appearance Slightly cloudy, Urine pH 6.0, Ur Specific [place] 1.025, Urine Protein 1+ A, Urine Glucose (UA) Trace, Urine Ketones 1+, Urine Blood Trace-i, Urine Nitrate Positive A, Urine Bilirubin Negative, Urine Urobilinogen 0.2, Ur Leukocyte Esterase Trace, Urine RBC 3-5, Urine WBC 5-10, Ur Squamous Epith Cells None, Urine Bacteria 4+ I & O for Last 24 hours: Intake & Output 10/11/24 10/12/24 10/13/24 10/14/24 23:59 23:59 23:59 23:59 Weight 64.864 kg Constitutional Constitutional: no acute distress *Routine HEENT Exam Head: Present normocephalic Eye: Present EOMI and normal accommodation ENT: Present mucous membranes moist *Routine Neck Exam Neck: Present full ROM and JVD *Routine Respiratory Exam Respiratory: Present rales, crackles and distant breath sounds *Routine Cardiovascular Exam Cardiovascular: Present Normal S1, Normal S2 and irregular rhythm *Routine Abdominal Exam Abdominal: Present soft and normoactive bowel sounds *Routine Rectal Exam Rectal:: deferred *Routine Genitalia Exam Genitalia:: deferred *Routine Extremities Exam Extremities: Present edema *Routine Skin Exam Skin: Present intact Assessment and Plan *Assessment and plan (1) CHF exacerbation: Status: Acute Qualifiers: Heart failure type: unspecified Qualified Code(s): I50.9 - Heart failure, unspecified Category: Medical Code(s): I50.9 - Heart failure, unspecified (2) UTI (urinary tract infection): Status: Acute Qualifiers: Hematuria presence: with hematuria Urinary tract infection type: acute cystitis Qualified Code(s): N30.01 - Acute cystitis with hematuria Category: Medical Code(s): N39.0 - Urinary tract infection, site not specified (3) Acute hypoxic respiratory failure: Status: Acute Category: Medical Code(s): J96.01 - Acute respiratory failure with hypoxia (4) Hypokalemia: Status: Acute Category: Medical Code(s): E87.6 - Hypokalemia (5) Atrial fibrillation: Status: Acute Qualifiers: Atrial fibrillation type: paroxysmal Qualified Code(s): I48.0 - Paroxysmal atrial fibrillation Category: Medical Code(s): I48.91 - Unspecified atrial fibrillation (6) Diabetes mellitus: Status: Acute Qualifiers: Diabetes mellitus complication status: without complication Diabetes mellitus nursing home insulin use: with nursing home use Diabetes mellitus type: type 2 Qualified Code(s): E11.9 - Type 2 diabetes mellitus without complications; Z79.4 - penitentiary (current) use of insulin Category: Medical Code(s): E11.9 - Type 2 diabetes mellitus without complications (7) Iron deficiency anemia: Status: Acute Qualifiers: Iron deficiency anemia type: unspecified iron deficiency Qualified Code(s): D50.9 - Iron deficiency anemia, unspecified Category: Medical Code(s): D50.9 - Iron deficiency anemia, unspecified Plan 84-year-old female with a past medical history of non obstructive CAD, mild to moderate aortic stenosis, 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, Atrial Fibrillation on chronic anticoagulation, Iron Deficiency Anemia and DM who presents with generalized weakness and shortness of air - CHF exacerbation Presents due to generalized weakness and shortness of air Cxray consistent with Pulmonary edema, BNP elevatated at 2480 Cardiology note from 07/2024 reviewed, do not see diagnosis of CHF mentioned Echo ordered for evaluation Daily weights, strict intake and output Continue Lasix, continue potassium supplementation Monitor on telemetry Trend troponin - Acute Hypoxic Respiratory Failure Currently requiring 2 liters oxygen Does not wear oxygen at home Titrate to keep oxygen saturation 92% or greater Likely due to above - UTI Continue Rocephin Follow urine cultures - Atrial Fibrillation Continue Sotalol, Eliquis once medications reconcilled - Diabetes Mellitus Continue Sliding Scale insulin Check A1c - Iron Deficiency Anemia Continue home Iron supplementation once medications are reconcilled
--- NOTE | 2024-10-14 04:03 | PC.NURSE ---
Report called to JAUN Augustine
--- NOTE | 2024-10-14 04:23 | PC.NURSE ---
Patient arrived to floor via stretcher from ED at 04:17.
--- NOTE | 2024-10-14 05:32 | PC.NURSE ---
Patient is alert and oriented x4. Extremely hard of hearing. Tolerating 2L NC well. Crackles noted in bilateral bases. 2+ pitting edema to BLE. Brewster in place and draining clear, yellow urine. Redness noted on patients bottom, but otherwise no open sores. Patient's family remains in room. Call light within patients reach.
[2024-10-14] MEDS: humaLOG 100 UNITS/ML 10ML VIAL (SSI) SUBCUT ×4 (05:55→21:06)
[2024-10-14 05:56] LABS: POC Glucose,Bedside 190 (70-110)
[2024-10-14 06:28] LABS: Troponin I < 0.01 ng/ml (0.00-0.034)
--- NOTE | 2024-10-14 07:10 | HMH.PHAINT1 ---
Pharmacy Intervention Comments: Home medication list verified using list from outpatient pharmacy
[2024-10-14] MEDS: CEFTRIAXONE SODIUM 1 GM in 0.9 % SODIUM CHLORIDE 50 ML IV (09:28)
[2024-10-14] MEDS: FUROSEMIDE 40MG/4ML VIAL 40 MG IV ×2 (09:28→14:40)
[2024-10-14] MEDS: POTASSIUM CHLORIDE 20MEQ TAB 20 MEQ PO ×2 (09:28→20:49)
[2024-10-14] MEDS: GABAPENTIN 100MG CAPSULE 100 MG PO (12:01)
[2024-10-14] MEDS: LISINOPRIL 10MG TABLET 10 MG PO (12:29)
[2024-10-14] MEDS: SOTALOL 80MG TABLET 80 MG PO (12:29)
[2024-10-14 12:41] LABS: POC Glucose,Bedside 186 (70-110)
[2024-10-14] MEDS: APIXABAN 2.5 MG 1 EACH PO ×2 (13:12→20:50)
[2024-10-14] MEDS: PRAMIPEXOLE 0.25 MG PO ×2 (13:31→21:00)
[2024-10-14 15:14] LABS: Free T4 (Free Thyroxine) 1.74 ng/dl (0.78-2.19)
[2024-10-14] MEDS: *PAT OWN MED* MONTELUKAST SODIUM 10MG TAB 10 MG PO (17:44)
[2024-10-14 18:12] LABS: POC Glucose,Bedside 186 (70-110)
--- NOTE | 2024-10-14 18:15 | PC.NURSE ---
Pt. assist x2 to standing at the side of the bed. Pt. tolerated standing position for approx. 1 min. Pt. complains of bilateral foot pain, left worse than right. Rating pain 7/10. Dr. Mobley at bedside, discussed increasing Gabapentin dose. Daughters at bedside and agree with POC. Pt. O2 saturation at 96% on RA when awake but drops to 90% on RA. 2L NC applied when sleeping, O2 sat. remains above 95%. MD aware. Brewster catheter removed. Purwick put in place. Pt. provided with drink. Legs elevated on 2 pillows. Call light within reach. No needs voiced at this time.
--- NOTE | 2024-10-14 18:33 | EXP.EVENT.NO ---
? Given additional Lasix 40 mg this afternoon. Patient is having great response to Lasix diuresis, total of negative net 3 L today. ? Continues to require 1 to 2 L nasal cannula. Will continue diuresis and anticipate discharge in the morning. Pending echo. ? Continues to have bilateral feet pain, left worse than right. Palpable pulses bilaterally. Has a history of peripheral neuropathy/restless leg syndrome. Resumed home gabapentin 100 mg and pramipexole. But continues to have lower extremity pain, likely exacerbated by lower extremity swelling. Ordered additional gabapentin 200 mg. Awaiting response. ? Follow-up lower extremity DVT rule outs.
[2024-10-14] MEDS: GABAPENTIN 100MG CAPSULE 200 MG PO (18:47)
[2024-10-14] MEDS: SOTALOL 80 MG PO (20:50)
[2024-10-14] MEDS: *PAT OWN MED* PANTOPRAZOLE 40MG TABLET 40 MG PO (20:50)
[2024-10-14] MEDS: SIMVASTATIN 10 MG 1 EACH PO (20:50)
[2024-10-14 21:08] LABS: POC Glucose,Bedside 172 (70-110)
[2024-10-14] MEDS: ACETAMINOPHEN 325MG TAB 650 MG PO (22:18)
[2024-10-15] VITALS: BP 114/73; PULSE 65; PULSE 66; RESP 16; TEMP 36.7; O2SAT 99
--- NOTE | 2024-10-15 02:45 | PC.NURSE ---
Addendum entered by Fawn Angelo RN 10/15/24 06:25: Bladder scanned patient again per protocol due to no urine output. 328ml noted. Addendum entered by Fawn Angelo RN 10/15/24 05:49: Patient placed on bedside commode for approximately 15 mins. No urine output Addendum entered by Fawn Angelo RN 10/15/24 04:52: 0440: Bladder scanned patient again per protocol due to no urine output. 323ml noted. Original Note: Patient has not voided within 8 hours of loera removal. Bladder scanned patient with 250ml noted. Encouraging PO intake and will repeat in 2 hours if patient has not voided.
--- NOTE | 2024-10-15 03:49 | CA_ITS ---
APPROVED REPORT EXAM: Comprehensive 2D, Doppler, and color-flow Echocardiogram Director Digital Catalogue: Brielle Martinez CRT Ht: 5 ft 1 in Wt: 140lbs BSA: 1.62 BP: 175/52 mmHg Indications: Congestive Heart Failure, Atrial Fibrillation, Diabetes, Peripheral Edema, CAD, Hypertension/HDD, UTI, MILD/MOD 2D Dimensions LA Volume 46.70 mL LA Volume Index 28.10 mL/m2 (M/F) 16-34 M-Mode Dimensions RVDd 2.64 cm (0.9-2.6) LA Diam 2.59 cm (1.9-4.0) LVDd 3.65 cm (3.5-5.7) LVDs 2.31 cm (3.5-5.7) IVSd 1.34 cm (0.6-1.1) PWd 0.87 cm (0.6-1.1) EF (Teich) 67.50% FS 36.70% EDV (Teich) 56.30 mL TAPSE 1.93 (<1.7) ESV (Teich) 18.30 mL LV Diastology E Decel Time 150 (160-240 msec) E/A Ratio 1.10 MED A' 13.50 cm/s LAT A' 11.30 cm/s Aortic Valve MARY ANN Index 0.46 cm2/m2 AoV Peak Dhruv. 274.0 (50-130 cm/s) AI PHT 282.00 ms AO Peak GR. 29.90 mmHg AO Mean GR. 19.00 (<5 mmHg) AO VTI 67.6 (18-25 cm) MARY ANN (VTI) 0.77 (2.5-4.5 cm2) Mitral Valve MV E Max Dhruv. 106.0 (40-130 cm/s) MV A Velocity 96.0 (40-130 cm/s) E/A Ratio 1.10 MV PHT 44.0 ms Pulmonary Valve PV Peak Velocity 89.0 (50-150 cm/s) Tricuspid Valve TR P. Velocity 314.00 cm/s RAP Estimate 10.00 mmHg RVSP 49.50 mmHg Left Ventricle The left ventricle is normal size. The left ventricular systolic function is normal. The left ventricular ejection fraction is within the normal range. There is increased LV wall thickness. There is normal LV segmental wall motion. Diastolic function is indeterminate. LVEF is 55%. Right Ventricle The right ventricle is normal size. The right ventricular systolic function is normal. Atria The left atrium is mildly dilated. The right atrium size is normal. There is no Doppler evidence of interatrial shunt. Aortic Valve The aortic valve is moderately thickened. Moderate aortic stenosis. MARY ANN by continuity equation is 1.2 cm???. Peak velocity 2.8 m/s. Mean AV gradient 12 mmHg. Max AV gradient 30 mmHg. Mild to moderate aortic regurgitation. Mitral Valve The mitral valve leaflets are mildly thickened. No evidence of mitral valve stenosis. Mild mitral regurgitation. Tricuspid Valve Tricuspid valve is grossly normal in structure and function. Trace tricuspid regurgitation. There is insufficient TR jet to estimate RVSP. Pulmonic Valve The pulmonary valve is normal in structure. Mild pulmonic regurgitation. Great Vessels The aortic root is normal in size. The ascending aorta is not well-visualized. IVC is normal in size and collapses >50% with inspiration. Pericardium There is no pericardial effusion. Other Information Study Quality: Fair Conclusion Normal biventricular systolic function. Mild LA dilation. Thickened AV with moderate (MARY ANN by continuity equation is 1.2 cm???. Peak velocity 2.8 m/s. Mean AV gradient 12 mmHg. Max AV gradient 30 mmHg). Mild to moderate AI. Mild MR, mild PI. Electronically signed by : Ana Sloan MD 10/15/2024 11:44:58
[2024-10-15 04:00] VITALS: BP 163/49; PULSE 68; PULSE 70; RESP 17; O2SAT 99; BMI 25.7
[2024-10-15 08:00] VITALS: BP 145/54; PULSE 70; PULSE 74; RESP 15; TEMP 37.4; O2SAT 92
--- NOTE | 2024-10-15 08:35 | PC.NURSE ---
. aware pt hasn't urinated in 8 hours or more.
[2024-10-15 09:36] LABS: Red Blood Count 3.52 M/mm3 (4.20-5.40); White Blood Count 7.9 K/mm3 (4.8-10.8)
[2024-10-15 09:37] LABS: Basophils % 0.3 % (0.1-2.0); Eosinophils % 0.4 % (0.1-12.0); Hematocrit 32.4 % (37.0-47.0); Lymphocytes # 1.1 K/mm3 (0.7-4.5); Lymphocytes % 13.8 % (10-50); Mean Corpuscular HGB Conc 30.9 g/dL (31.8-35.4); Mean Corpuscular Hemoglobin 28.4 pg (27.0-31.2); Monocytes # 0.5 K/mm3 (0.1-1.0); Neutrophils # 6.2 K/mm3 (1.8-7.8); Platelet Count 186 K/mm3 (142-424); Red Cell Distribution Width 13.4 % (11.5-17.5)
[2024-10-15 09:45] LABS: Albumin Level 3.6 g/dl (3.5-5.0); Chloride 101 mmol/L (98-107); Potassium 3.6 mmoL/L (3.5-5.1); Sodium 134 mmol/L (136-145)
[2024-10-15] MEDS: ACETAMINOPHEN 325MG TAB 650 MG PO (09:46)
[2024-10-15] MEDS: POTASSIUM CHLORIDE 20MEQ TAB 20 MEQ PO (09:47)
[2024-10-15 09:48] LABS: Alanine Aminotransferase 12 U/L (12-78); Albumin/Globulin Ratio 1.2 (1.1-1.8); Alkaline Phosphatase 53 U/L (38-126); Anion Gap 2.6 mEq/L (5-15); Aspartate Amino Transferase 22 U/L (14-36); Bilirubin,Total 0.8 mg/dl (0.2-1.3); Blood Urea Nitrogen 16 mg/dl (7-17); Calcium 8.8 mg/dl (8.4-10.2); Carbon Dioxide 34 mmol/L (22.0-30.0); Creatinine Clearance Estimated 41 mL/min (50-200); Estimated Glomerular Filt Rate 68 ml/min (>60); GFR (African American) 82 ML/MIN (>60); Glucose 233 mg/dl (74-100); Total Protein,Serum 6.6 g/dl (6.3-8.2)
[2024-10-15 09:49] LABS: Magnesium 1.7 mg/dl (1.6-2.3)
[2024-10-15] MEDS: CEFTRIAXONE SODIUM 1 GM in 0.9 % SODIUM CHLORIDE 50 ML IV (09:49)
[2024-10-15] MEDS: FUROSEMIDE 40MG/4ML VIAL 40 MG IV ×2 (09:49→15:20)
[2024-10-15] MEDS: LISINOPRIL 10MG TABLET 10 MG PO (09:49)
[2024-10-15] MEDS: SOTALOL 80MG TABLET 80 MG PO (09:50)
[2024-10-15] MEDS: APIXABAN 5MG TABLET 2.5 MG PO (09:50)
[2024-10-15 09:52] LABS: POC Glucose,Bedside 239 (70-110)
[2024-10-15] MEDS: humaLOG 100 UNITS/ML 10ML VIAL (SSI) SUBCUT (10:53)
[2024-10-15 12:00] VITALS: BP 115/43; PULSE 60; PULSE 63; RESP 16; TEMP 36.9; O2SAT 98
[2024-10-15] MEDS: GABAPENTIN 100MG CAPSULE 100 MG PO (13:09)
[2024-10-15 13:18] LABS: Iron 27 ug/dL (37-170)
[2024-10-15 13:22] LABS: Hemoglobin A1C 6.3 % (4.0-6.0)
[2024-10-15 13:29] LABS: Total Iron Binding Capacity 323 ug/dL (265-497)
[2024-10-15 13:44] LABS: Uric Acid 8.3 mg/dl (2.5-6.2)
[2024-10-15 13:52] LABS: Ferritin 36.9 ng/ml (11.1-264)
--- NOTE | 2024-10-15 13:55 | HMH.PTEV ---
Physical Therapy Evaluation Rehab PT IP Evaluation Start: 10/15/24 10:40 Freq: ONCE Status: Active Protocol: Document 10/15/24 13:45 CABRERA (Rec: 10/15/24 13:54 CABRERA [id number]) Subjective/History History History Per H&P: Ms. Negrete is an 84-year-old female with a past medical history of non obstructive CAD, mild to moderate aortic stenosis, 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, Atrial Fibrillation on chronic anticoagulation, Iron Deficiency Anemia and DM. She presents to [facility] due to ongoing weakness over the last few days. She was at a [employer] when she became really weak and short of air. She was brought into the ER for evaluation. Subjective Subjective Pt and pt daughter's provided hx. Pt lives with her son in a single-story home with 0 BARRY. Pt uses a rollator or can for IND ambulation. Pt's family reports they can and will provide 24/7 assistance. Pt has BSC, rollator, RW, cane, and transport chair. New diagnosis of cancer in past 12 No months? Rehab PT IP Eval Objective Appearance Patient Behavior Appropriate,Cooperative Patient Orientation Person,Place,Birthday Difficulty following instructions none Speech Pattern Clear Balance Ability to Arise Able, uses arms to help Sitting Balance Steady, safe Standing Balance Unsteady Transfers Bed Transfer Ability Minimal x 1 (25% assist) Sit to Stand Bed Transfer Ability Minimal x 2 (25% assist) Rehab PT IP prob,goals,plan Problems Date of Evaluation: 10/15/24 PT IP Problems Bed Mobility,Transfers,Gait, Balance,Safety Rehab Potential Rehab Potential Good Plan PT Intervention Plan Bed Mobility,Transfers,Gait, Balance,Self care,Safety, Therapeutic Exercise Other Intervention Plan 1-2 times PT Plan Frequency Daily Duration LOS Discharge Goals Bed Transfer Ability Independent Sit to Stand Chair Transfer Ability Supervision/Stand by Discharge Plan PT Discharge Plan Initial physical therapy evaluation performed. Patient presents below baseline at this time in functional mobility, transfers, gait, and strength. Pt was able to demonstrate a stand. Pt is limited by B foot pain rather than weakness. Pt would benefit from skilled PT while at [facility] to prevent further functional decline and maximize safety with mobility. Pt safe to d/c home with 24/7 assistance when deemed medically necessary d/t current level of mobility, home set-up, and family support. PT recommending home health PT services to address deficits. Eval Complexity Eval Charge Codes 60014 - Moderate Complexity PHYSICIAN CERTIFICATION: I certify the specified therapy services for Chen Negrete are required, authorized, and reviewed every 30 days.
--- NOTE | 2024-10-15 14:04 | HMH.OTEV ---
OT Inpatient Evaluation Rehab OT IP Evaluation Start: 10/15/24 10:40 Freq: ONCE Status: Active Protocol: Document 10/15/24 13:48 KATY (Rec: 10/15/24 14:04 KATY [id number]) Rehab OT IP Assessment Subjective History Ms. Negrete is a 84-year- old female with a past medical history of non obstructive CAD, mild to moderate aortic stenosis, 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, Atrial Fibrillation on chronic anticoagulation, Iron Deficiency Anemia and DM. She presents to [facility] due to ongoing weakness over the last few days. She was at a [employer] Party when she became really weak and short of air. She was brought into the ER for evaluation. In the ER, the patient underwent a Cxray that showed pulmonary edema. BNP was elevated at 2480. CBC showed a normocytic, hypochromic anemia, but was otherwise unremarakble. CMP showed a potassium of 3.1. Urinalysis showed 4 plus bacteria, 5-10 WBC and was positive for nitrates. Pelvis xray was negative. In the ER, the patient received: Rocephin 1 gram, Lasix 60 mg iv and Potassium 40 equivalents po. The patient is admitted with initial impression: CHF exacerbation and UTI Patient lives alone in 1 story home. Patient stated to use a RW at home. Subjective okay. Instructed Patient on proper hand and foot placement to complete bed mobility from supine->sit @ EOB requiring total dependent. Instructed Patient on completing EOB-> stand requiring total assistance x2 with partial standing. Patient stood <30 secs with needing Max A from EOB->supine. Left Patient sitting upright in bed with needs met. Objective Patient Orientation Person,Place,Name,Age Right Upper Extremity Gross ROM WFL Left Upper Extremity Gross ROM WFL Bed Mobility bed mobility - supine/sit Assist Level Total/Dependent (100%) Transfer Training Sit/Stand Transfer Assist Level Total/Dependent (100%) Rehab OT IP prob,goals,plan Problems Date of Evaluation: 10/15/24 OT IP Problems Bed Mobility,Transfers,Balance ,Self care,Safety Rehab Potential Rehab Potential Good Equipment Needs Assistive Devices None / NA Plan OT intervention Plan Bed Mobility,Transfers,Balance ,Self care,Safety,Therapeutic Exercise OT Plan Frequency Daily Duration LOS Discharge Goals Bed Mobility Ability Assistance x2 Sit to Stand Chair Transfer Ability Maximum x 2 (75% assist) Chair Transfer Ability Maximum x 2 (75% assist) Discharge Plan OT Discharge Plan Recommend placement at this time. Patient will required 24 /7 care to complete ADLs and fx'l mobility safely. Patient to continue skilled OT IP services while here at [facility]. Eval Complexity Eval Charge Codes 49852 - Low Complexity PHYSICIAN CERTIFICATION: I certify the specified therapy services for Chen Negrete are required, authorized, and reviewed every 30 days.
--- NOTE | 2024-10-15 14:08 | HMH.OTEV ---
OT Inpatient Evaluation Rehab OT IP Evaluation Start: 10/15/24 10:40 Freq: ONCE Status: Active Protocol: Document 10/15/24 13:48 KATY (Rec: 10/15/24 14:04 KATY [id number]) Rehab OT IP Assessment Subjective History Ms. Negrete is a 84-year- old female with a past medical history of non obstructive CAD, mild to moderate aortic stenosis, 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, Atrial Fibrillation on chronic anticoagulation, Iron Deficiency Anemia and DM. She presents to [facility] due to ongoing weakness over the last few days. She was at a [employer] when she became really weak and short of air. She was brought into the ER for evaluation. In the ER, the patient underwent a Cxray that showed pulmonary edema. BNP was elevated at 2480. CBC showed a normocytic, hypochromic anemia, but was otherwise unremarakble. CMP showed a potassium of 3.1. Urinalysis showed 4 plus bacteria, 5-10 WBC and was positive for nitrates. Pelvis xray was negative. In the ER, the patient received: Rocephin 1 gram, Lasix 60 mg iv and Potassium 40 equivalents po. The patient is admitted with initial impression: CHF exacerbation and UTI Patient lives alone in 1 story home. Patient stated to use a RW at home. However Patient will be living with daughter once d/c from hospital. Patient will require 24/ care from family. Subjective okay. Instructed Patient on proper hand and foot placement to complete bed mobility from supine->sit @ EOB requiring Mod A x2. Instructed Patient on completing EOB->stand requiring mod A x2 with partial standing. Patient stood <30 secs with needing Max A from EOB->supine. Left Patient sitting upright in bed with needs met. Patient reported pain and discomfort in B LE at bottom of feet. Objective Patient Orientation Person,Place,Name,Age Right Upper Extremity Gross ROM WFL Left Upper Extremity Gross ROM WFL Bed Mobility bed mobility - supine/sit Assist Level Maximum x 2 (75% assist) Transfer Training Sit/Stand Transfer Assist Level Moderate x 2 (50% assist) Rehab OT IP prob,goals,plan Problems Date of Evaluation: 10/15/24 OT IP Problems Bed Mobility,Transfers,Balance ,Self care,Safety Rehab Potential Rehab Potential Good Equipment Needs Assistive Devices None / NA Plan OT intervention Plan Bed Mobility,Transfers,Balance ,Self care,Safety,Therapeutic Exercise OT Plan Frequency Daily Duration LOS Discharge Goals Bed Mobility Ability Assistance x2 Sit to Stand Chair Transfer Ability Moderate x 1 (50% assist) Chair Transfer Ability Moderate x 1 (50% assist) Discharge Plan OT Discharge Plan Recommend placement at this time or return home with family with services. Patient will required 24/7 care to complete ADLs and fx'l mobility safely. Patient to continue skilled OT IP services while here at [facility]. Eval Complexity Eval Charge Codes 86596 - Low Complexity PHYSICIAN CERTIFICATION: I certify the specified therapy services for Chen Negrete are required, authorized, and reviewed every 30 days.
--- NOTE | 2024-10-15 14:11 | SW/DCPLANNER ---
I spoke w/ patient's daughters (patient was asleep) regarding plans once medically stable for discharge. PT/OT evaluated patient and recommended home health services. Daughters are fine w/ home health and prefer to use [facility]. Patient information/order will be faxed to [facility] at time of discharge. Per daughter's patient will be discharging home later this afternoon. Daughter's also stated that if home O2 is needed they prefer to use [facility].
[2024-10-15 14:34] LABS: Vitamin B12 248 pg/mL (239-931)
--- NOTE | 2024-10-15 14:36 | EXP.DC.SUM ---
General Admission date:: 10/14/24 Hospital Course Hospital Course Hospital Course: 84-year-old female with a past medical history of non obstructive CAD, mild to moderate aortic stenosis, 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, Atrial Fibrillation on chronic anticoagulation, Iron Deficiency Anemia and DM who presents with generalized weakness and shortness of air. #Acute hypoxic respiratory failure #Acute HFpEF exacerbation - Presented due to generalized weakness and shortness of air - CXR consistent with Pulmonary edema, BNP elevatated at 2480 - ECHO shows normal biventricular function, thickened AV with moderate . - Clinically improved with IV Lasix diuresis. Weaned to PO Lasix 40mg daily. - Patient has a history of hypotension, so MRA and SGLTi can be started if needed outpatient with cardiology. - Patient was saturating 86% on room air at rest while sleeping, 94% on 2L nasal cannula. Will need supplemental O2. - Will follow-up with cardiology within 1 week. - PT/OT recommended home health, referral made. #UTI - Urine cultures growing EColi, pansensitive. Treated with ceftraixone for 2 days. - Discharged with cefdinir for 3 more days. #Restless legs syndrome #Iron deficiency anemia - Numbness/tingling/pain in feet worse since fluid overload/edema. Improved slightly with diuresis. - Diabetes well control, unlikely to be PAD. No DVT in bilateral venous dopplers. - Increased gabapentin to 100mg TID, switched pramiprexole to ropironole. - Iron studies show deficiency, given IV venofer. Discharged with ferrous sulfate 325mg BID. #Atrial Fibrillation - Continue Sotalol, Eliquis. Rate controlled. #Diabetes Mellitus - A1c 6.3%. Continue metformin. #Low TSH - TSH low 0.37, but in acute HFpEF. Recommend repeating outpatient in 3-4 weeks once HFpEF stable. Exam Data for Last 24 hours Vital signs and Labs for Last 24 Hours: Temp Pulse Resp BP Pulse Ox O2 Del Method O2 Flow Rate 98.5 F 63 16 115/43 L 98 Room Air 2 10/15/24 12:00 10/15/24 12:00 10/15/24 12:00 10/15/24 12:00 10/15/24 12:00 10/15/24 13:36 10/15/24 12:00 Laboratory Results - last 24 hr 10/14/24 02:45: Free T4 1.74 10/14/24 03:10: Urine Color Yellow, Urine Appearance Slightly cloudy, Urine pH 6.0, Ur Specific [place] 1.025, Urine Protein 1+ A, Urine Glucose (UA) Trace, Urine Ketones 1+, Urine Blood Trace-i, Urine Nitrate Positive A, Urine Bilirubin Negative, Urine Urobilinogen 0.2, Ur Leukocyte Esterase Trace, Urine RBC 3-5, Urine WBC 5-10, Ur Squamous Epith Cells None, Urine Bacteria 4+ 10/14/24 17:32: POC Glucose 186 H 10/14/24 20:47: POC Glucose 172 H 10/15/24 09:10: WBC 7.9, RBC 3.52 L, Hgb 10.0 L, Hct 32.4 L, MCV 92.0, MCH 28.4, MCHC 30.9 L, RDW 13.4, Plt Count 186, MPV 11.0 H, Neut % (Auto) 79.0, Lymph % (Auto) 13.8, [place] % (Auto) 6.0, Eos % (Auto) 0.4, Baso % (Auto) 0.3, Neut # (Auto) 6.2, Lymph # (Auto) 1.1, [place] # (Auto) 0.5, Eos # (Auto) 0.0, Baso # (Auto) 0.0, Sodium 134 L, Potassium 3.6, Chloride 101, Carbon Dioxide 34 H, Anion Gap 2.6 L, BUN 16, Creatinine 0.80, Estimated Creat Clear 41, Estimated GFR 68, Est GFR ( Amer) 82, Glucose 233 H, Hemoglobin A1c 6.3 H, Uric Acid 8.3 H, Calcium 8.8, Magnesium 1.7, Iron 27 L, TIBC 323, Iron Saturation 8.67375 L, Ferritin 36.9, Total Bilirubin 0.8, AST 22, ALT 12, Alkaline Phosphatase 53, Total Protein 6.6, Albumin 3.6, Globulin 3.0, Albumin/Globulin Ratio 1.2 10/15/24 09:46: POC Glucose 239 H I & O for Last 24 hours: Intake & Output 10/12/24 10/13/24 10/14/24 10/15/24 23:59 23:59 23:59 23:59 Intake Total 720 / 720 270 / 270 Output Total 3375 / 3375 200 / 200 Balance -2655 / -2655 70 / 70 Weight 63.548 kg 63.503 kg Microbiology Reports for the Last 24 Hours: Microbiology 10/14/24 03:10 Urine,Clean Catch Urine Culture - Preliminary Gram Negative Rods Constitutional Constitutional: no acute distress *Routine HEENT Exam Head: Present normocephalic Eye: Present EOMI and PERRL ENT: Present mucous membranes moist *Routine Neck Exam Neck: Present supple; Absent lymphadenopathy *Routine Respiratory Exam Respiratory: Present CTA bilaterally *Routine Cardiovascular Exam Cardiovascular: Present RRR *Routine Abdominal Exam Abdominal: Present soft and normoactive bowel sounds; Absent tenderness *Routine Extremities Exam Extremities: Absent cyanosis, clubbing or edema *Routine Skin Exam Skin: Present warm; Absent rash *Routine Neurological Exam Neurological: Present alert and oriented X3 Results Data Completed and Pending Labs on day of discharge: Labs from last 24 hours 10/15/24 10/15/24 10/14/24 09:46 09:10 20:47 WBC 7.9 RBC 3.52 L Hgb 10.0 L Hct 32.4 L MCV 92.0 MCH 28.4 MCHC 30.9 L RDW 13.4 Plt Count 186 MPV 11.0 H Neut % (Auto) 79.0 Lymph % (Auto) 13.8 [place] % (Auto) 6.0 Eos % (Auto) 0.4 Baso % (Auto) 0.3 Neut # (Auto) 6.2 Lymph # (Auto) 1.1 [place] # (Auto) 0.5 Eos # (Auto) 0.0 Baso # (Auto) 0.0 Sodium 134 L Potassium 3.6 Chloride 101 Carbon Dioxide 34 H Anion Gap 2.6 L BUN 16 Creatinine 0.80 Estimated Creat Clear 41 Estimated GFR 68 Est GFR ( Amer) 82 Glucose 233 H POC Glucose 239 H 172 H Hemoglobin A1c 6.3 H Uric Acid 8.3 H Calcium 8.8 Magnesium 1.7 Iron 27 L TIBC 323 Iron Saturation 8.97433 L Ferritin 36.9 Total Bilirubin 0.8 AST 22 ALT 12 Alkaline Phosphatase 53 Total Protein 6.6 Albumin 3.6 Globulin 3.0 Albumin/Globulin Ratio 1.2 Vitamin B12 Pending Free T4 Urine Color Urine Appearance Urine pH Ur Specific [place] Urine Protein Urine Glucose (UA) Urine Ketones Urine Blood Urine Nitrate Urine Bilirubin Urine Urobilinogen Ur Leukocyte Esterase Urine RBC Urine WBC Ur Squamous Epith Cells Urine Bacteria 10/14/24 10/14/24 10/14/24 17:32 03:10 02:45 WBC RBC Hgb Hct MCV MCH MCHC RDW Plt Count MPV Neut % (Auto) Lymph % (Auto) [place] % (Auto) Eos % (Auto) Baso % (Auto) Neut # (Auto) Lymph # (Auto) [place] # (Auto) Eos # (Auto) Baso # (Auto) Sodium Potassium Chloride Carbon Dioxide Anion Gap BUN Creatinine Estimated Creat Clear Estimated GFR Est GFR ( Amer) Glucose POC Glucose 186 H Hemoglobin A1c Uric Acid Calcium Magnesium Iron TIBC Iron Saturation Ferritin Total Bilirubin AST ALT Alkaline Phosphatase Total Protein Albumin Globulin Albumin/Globulin Ratio Vitamin B12 Free T4 1.74 Urine Color Yellow Urine Appearance Slightly cloudy Urine pH 6.0 Ur Specific [place] 1.025 Urine Protein 1+ A Urine Glucose (UA) Trace Urine Ketones 1+ Urine Blood Trace-i Urine Nitrate Positive A Urine Bilirubin Negative Urine Urobilinogen 0.2 Ur Leukocyte Esterase Trace Urine RBC 3-5 Urine WBC 5-10 Ur Squamous Epith Cells None Urine Bacteria 4+ Preliminary micro results at discharge 10/14/24 03:10 Urine Culture - Preliminary Urine,Clean Catch Gram Negative Rods DS: Diagnosis Discharge Diagnosis (1) CHF exacerbation: Status: Acute Code(s): I50.9 - Heart failure, unspecified Qualifiers: Heart failure type: unspecified Qualified Code(s): I50.9 - Heart failure, unspecified (2) UTI (urinary tract infection): Status: Acute Code(s): N39.0 - Urinary tract infection, site not specified Qualifiers: Hematuria presence: with hematuria Urinary tract infection type: acute cystitis Qualified Code(s): N30.01 - Acute cystitis with hematuria (3) Acute hypoxic respiratory failure: Status: Acute Code(s): J96.01 - Acute respiratory failure with hypoxia (4) Hypokalemia: Status: Acute Code(s): E87.6 - Hypokalemia (5) Atrial fibrillation: Status: Acute Code(s): I48.91 - Unspecified atrial fibrillation Qualifiers: Atrial fibrillation type: paroxysmal Qualified Code(s): I48.0 - Paroxysmal atrial fibrillation (6) Diabetes mellitus: Status: Acute Code(s): E11.9 - Type 2 diabetes mellitus without complications Qualifiers: Diabetes mellitus complication status: without complication Diabetes mellitus snf insulin use: with plasma center nurse use Diabetes mellitus type: type 2 Qualified Code(s): E11.9 - Type 2 diabetes mellitus without complications; Z79.4 - skilled nursing (current) use of insulin (7) Iron deficiency anemia: Status: Acute Code(s): D50.9 - Iron deficiency anemia, unspecified Qualifiers: Iron deficiency anemia type: unspecified iron deficiency Qualified Code(s): D50.9 - Iron deficiency anemia, unspecified Meds Home Medications and Allergies Home Medications ?Medication ?Instructions ?Recorded ?Confirmed ?Type coenzyme Q10 100 mg capsule (Co 100 mg PO DAILY Supplement 06/12/20 10/14/24 History Q-10) docusate sodium 100 mg capsule 100 mg PO DAILY 11/10/23 10/14/24 History (Stool Softener) biotin 1 mg capsule 2 mg PO DAILY 08/21/24 10/14/24 History montelukast 10 mg tablet 10 mg PO HS 08/21/24 10/14/24 History simvastatin 10 mg tablet 10 mg PO HS 08/21/24 10/14/24 History pantoprazole 40 mg tablet,delayed 40 mg PO DAILY #30 tabs 08/22/24 10/14/24 Rx release lisinopril 10 mg tablet 10 mg PO DAILY #90 tabs 09/26/24 10/14/24 Rx metformin 500 mg tablet 500 mg PO DAILY #90 tabs 09/26/24 10/14/24 Rx sotalol 80 mg tablet 80 mg PO BID #60 tabs 09/26/24 10/14/24 Rx apixaban 2.5 mg tablet (Eliquis) 2.5 mg PO BID 10/14/24 10/14/24 History allopurinol 100 mg tablet 100 mg PO DAILY #30 tabs 10/15/24 Rx cyanocobalamin (vitamin B-12) 1,000 mcg PO DAILY #30 caps 10/15/24 Rx 1,000 mcg capsule ferrous sulfate 325 mg (65 mg 325 mg PO BID #60 tabs 10/15/24 Rx iron) tablet furosemide 20 mg tablet 40 mg (2 x 20 mg) PO DAILY #30 tabs 10/15/24 Rx gabapentin 100 mg capsule 100 mg PO TID 30 days #90 caps 12/23/24 Rx ropinirole 2 mg tablet 2 mg PO HS #30 tabs 10/15/24 Rx cefdinir 300 mg capsule 300 mg PO BID 7 days #14 caps 10/17/24 Rx New Prescriptions to Start Prescriptions: allopurinol Leandra,Suresh cefdinir Miriam,Ron cyanocobalamin (vitamin B-12) Leandra,Suresh ferrous sulfate Leandra,Suresh furosemide Leandra,Suresh gabapentin Leandra,Suresh ropinirole Leandra,Suresh Allergies Allergy/AdvReac Type Severity Reaction Status Date / Time rosuvastatin (From Crestor) AdvReac Intermediate stomach Verified 10/14/24 04:33 ache Discharge Plan Disposition Patient Disposition: Home Health Service Condition: Fair Discharge Order Discharge Orders: Discharge Order (Routine); Ordered 10/15/24 Ordered By: Suresh Mobley Follow up Plan Follow up with: Melquiades Contreras PA [Physician [facility]] - 10/19/24 (please call for appointment) Marianela Claudio MD [Primary Care Provider] - 10/23/24 2:20 pm Prescriptions/Medication Reconciliation: New ropinirole 2 mg tablet 2 mg PO HS Qty: 30 0RF Rx Instructions: administer 1-3 hours before bedtime cyanocobalamin (vitamin B-12) 1,000 mcg capsule 1,000 mcg PO DAILY Qty: 30 0RF ferrous sulfate 325 mg (65 mg iron) tablet 325 mg PO BID Qty: 60 0RF allopurinol 100 mg tablet 100 mg PO DAILY Qty: 30 0RF cefdinir 300 mg capsule 300 mg PO BID 7 Days Qty: 14 0RF Continued docusate sodium [Stool Softener] 100 mg capsule 100 mg PO DAILY coenzyme Q10 [Co Q-10] 100 mg capsule 100 mg PO DAILY sotalol 80 mg tablet 80 mg PO BID Qty: 60 2RF Patient Comments: TAKE 1 TABLET BY MOUTH TWICE DAILY. metformin 500 mg tablet 500 mg PO DAILY Qty: 90 1RF Patient Comments: TAKE 1 TABLET BY MOUTH ONCE DAILY FOR DIABETES. lisinopril 10 mg tablet 10 mg PO DAILY Qty: 90 1RF Patient Comments: TAKE 1 TABLET BY MOUTH ONCE DAILY. biotin 1 mg Capsule 2 mg PO DAILY simvastatin 10 mg tablet 10 mg PO HS Patient Comments: TAKE 1 TABLET BY MOUTH ONCE DAILY. montelukast 10 mg tablet 10 mg PO HS Patient Comments: TAKE 1 TABLET BY MOUTH NIGHTLY AT BEDTIME. pantoprazole 40 mg tablet,delayed release (DR/EC) 40 mg PO DAILY Qty: 30 4RF Eliquis 2.5 mg tablet 2.5 mg PO BID Changed furosemide 20 mg tablet 40 mg PO DAILY Qty: 30 4RF gabapentin 100 mg capsule 100 mg PO TID 30 Days Qty: 90 1RF Discontinued pramipexole 0.25 mg tablet 0.25 mg PO HS Patient Comments: TAKE 1 TABLET BY MOUTH NIGHTLY AT BEDTIME. sucralfate 1 gram tablet 1 g PO BID Qty: 120 4RF Problem Reconciliation Problems Reviewed?: Yes Patient Discharge Instructions Additional Instructions: You may try ropinirole versus pramipexole for feet pain/restless leg syndromes. If ropinirole works, you may decrease gabapentin throughout the day. Your iron levels were low and you were given IV iron during admission. Continue taking ferrous sulfate twice a day. Patient Instructions: DI for Heart Failure, DI for Urinary Tract Infection (UTI) Print Language: Nauruan Providers Primary Care Provider: Marianela Claudio Admit Provider: Suresh Mobley Attending Provider: Suresh Mobley
--- NOTE | 2024-10-15 15:13 | PC.NURSE ---
Pt. is 92-93 % on Ra at rest.
[2024-10-15] MEDS: IRON SUCROSE COMPLEX 200 MG in 0.9 % SODIUM CHLORIDE 100 ML 220 MG IV (15:20)
--- NOTE | 2024-10-15 18:35 | CA_ITS ---
FINAL REPORT CLINICAL HISTORY: CHF, A-fib, mild/mod AI, HTN, HLD COMPARISON: None FINDINGS: Multiple transverse and longitudinal scans were performed of the femoral popliteal deep venous system, with augmentation and compression maneuvers. Normal phasic flow was noted in the visualized deep venous system. No intraluminal increased echogenicity is noted to suggest thrombus. There is normal compression and augmentation of the venous structures. No abnormal venous collaterals are seen. IMPRESSION: No evidence of deep venous thrombosis of the bilateral lower extremities. Reviewed, Interpreted and Dictated by Marianela Herman MD Transcribed by Tonya Leung Authenticated and [facility]
--- NOTE | 2024-10-16 11:53 | SW/DCPLANNER ---
[facility] called today 10/16/24 and stated that they could take the patient for PT and OT and that it will probably be or Tuesday of this week before they can do the Eval. Woody aHrp
--- NOTE | 2024-10-16 12:55 | CARE MANAGER ---
Patient's room air saturation was reported by nurse to be 86% on RA at rest.
--- NOTE | 2024-10-16 13:02 | CARE MANAGER ---
Patient's daughter called and stated that patient's oxygen was falling into 80s and was checking to see if supplemental O2 could be ordered. Due to nursing staff stating yesterday during MDRs that patient dipped to 86% on RA while at rest, I was able to order patient home oxygen. Ordered through [facility] and plan is to deliver today to patient's sister's home which is where she is staying.
--- NOTE | 2024-10-18 10:25 | SW/DCPLANNER ---
Phoned patient x2 and each time no answer. Woody KIM [employer] Inspector
== END 2024-10-15 16:37 | disposition home health service (06) | DRG 291 ==
LOC: ER 02:08 → 2ND 04:06
PROVIDERS: Admitting Provider Student in an Organized Health Care Education/Training Program; Emergency Provider Emergency Medicine; PCP Family Medicine; Visit Provider Student in an Organized Health Care Education/Training Program
DX: I50.33 Acute on chronic diastolic (congestive) heart failure (principal); J96.01 Acute respiratory failure with hypoxia; N39.0 Urinary tract infection, site not specified; G25.81 Restless legs syndrome; D50.9 Iron deficiency anemia, unspecified; E11.9 Type 2 diabetes mellitus without complications; E87.6 Hypokalemia; I48.0 Paroxysmal atrial fibrillation; Z85.41 Personal history of malignant neoplasm of cervix uteri; I25.10 Atherosclerotic heart disease of native coronary artery without angina pectoris
CPT/HCPCS: 71045; 72170; 80053; 81001; 82607; 82728; 82962; 83036; 83540; 83550; 83735; 83880; 84436; 84439; 84443; 84484; 84550; 85025; 85610; 85730; 87086; 87088; 87186; 87631; 93005; 93306; 93970; 97162; 97165; 99285; J0696; J1756; J1940

== ENCOUNTER 2024-10-23 13:20 | Outpatient (CLI) | payer MEDICARE, MEDICAID, SELFPAY ==
[2024-10-23 20:00] LABS: Basophils % 0.6 % (0.1-2.0); Eosinophils # 0.1 K/mm3 (0.0-0.4); Eosinophils % 1.5 % (0.1-12.0); Hematocrit 34.2 % (37.0-47.0); Hemoglobin 10.5 g/dL (12.2-16.2); Lymphocytes # 1.5 K/mm3 (0.7-4.5); Lymphocytes % 23.1 % (10-50); Mean Corpuscular HGB Conc 30.7 g/dL (31.8-35.4); Mean Corpuscular Hemoglobin 28.8 pg (27.0-31.2); Mean Corpuscular Volume 93.7 fl (81-99); Mean Platelet Volume 10.7 fl (7.4-10.4); Monocytes # 0.4 K/mm3 (0.1-1.0); Monocytes % 6.5 % (1.7-9.3); Neutrophils # 4.4 K/mm3 (1.8-7.8); Neutrophils % 67.5 % (37.0-80.0); Platelet Count 249 K/mm3 (142-424); Red Blood Count 3.65 M/mm3 (4.20-5.40); White Blood Count 6.6 K/mm3 (4.8-10.8)
[2024-10-23 20:01] LABS: Anion Gap 10.8 mEq/L (5-15); Blood Urea Nitrogen 17 mg/dl (7-17); Carbon Dioxide 36 mmol/L (22.0-30.0); Chloride 98 mmol/L (98-107); Estimated Glomerular Filt Rate 60 ml/min (>60); GFR (African American) 72 ML/MIN (>60); Glucose 147 mg/dl (74-100); Potassium 4.8 mmoL/L (3.5-5.1); Sodium 140 mmol/L (136-145)
== END 2024-10-23 23:59 | disposition home or self-care (01) ==
LOC: LAB.DROPOF 10-25 13:21
PROVIDERS: PCP Family Medicine; Visit Provider Family Medicine
DX: D64.9 Anemia, unspecified (principal); I11.0 Hypertensive heart disease with heart failure
CPT/HCPCS: 80048; 85025

== ENCOUNTER 2024-11-06 16:02 | Outpatient (CLI) | payer MEDICARE, MEDICAID, SELFPAY ==
[2024-11-06 18:21] LABS: Basophils % 0.6 % (0.1-2.0); Eosinophils # 0.2 K/mm3 (0.0-0.4); Eosinophils % 2.1 % (0.1-12.0); Hematocrit 37.3 % (37.0-47.0); Hemoglobin 11.5 g/dL (12.2-16.2); Lymphocytes # 1.6 K/mm3 (0.7-4.5); Lymphocytes % 22.9 % (10-50); Mean Corpuscular HGB Conc 30.8 g/dL (31.8-35.4); Mean Corpuscular Hemoglobin 28.6 pg (27.0-31.2); Mean Corpuscular Volume 92.8 fl (81-99); Mean Platelet Volume 11.1 fl (7.4-10.4); Monocytes # 0.4 K/mm3 (0.1-1.0); Neutrophils # 4.9 K/mm3 (1.8-7.8); Neutrophils % 69.1 % (37.0-80.0); Platelet Count 192 K/mm3 (142-424); Red Blood Count 4.02 M/mm3 (4.20-5.40); Red Cell Distribution Width 14.6 % (11.5-17.5)
== END 2024-11-06 23:59 | disposition home or self-care (01) ==
LOC: LAB.DROPOF 11-07 13:53
PROVIDERS: PCP Family Medicine; Visit Provider Family Medicine
DX: D64.9 Anemia, unspecified (principal)
CPT/HCPCS: 85025

== ENCOUNTER 2024-12-25 10:12 | Outpatient (CLI) | payer MEDICARE, MEDICAID, SELFPAY ==
[2024-12-25 20:19] LABS: Basophils % 0.6 % (0.1-2.0); Eosinophils # 0.2 K/mm3 (0.0-0.4); Eosinophils % 2.4 % (0.1-12.0); Hematocrit 32.7 % (37.0-47.0); Hemoglobin 10.3 g/dL (12.2-16.2); Lymphocytes # 1.7 K/mm3 (0.7-4.5); Lymphocytes % 25.2 % (10-50); Mean Corpuscular HGB Conc 31.5 g/dL (31.8-35.4); Mean Corpuscular Hemoglobin 30.1 pg (27.0-31.2); Mean Corpuscular Volume 95.6 fl (81-99); Mean Platelet Volume 10.9 fl (7.4-10.4); Monocytes # 0.5 K/mm3 (0.1-1.0); Monocytes % 6.7 % (1.7-9.3); Neutrophils # 4.3 K/mm3 (1.8-7.8); Neutrophils % 64.7 % (37.0-80.0); Platelet Count 195 K/mm3 (142-424); Red Blood Count 3.42 M/mm3 (4.20-5.40); Red Cell Distribution Width 16.2 % (11.5-17.5); White Blood Count 6.7 K/mm3 (4.8-10.8)
[2024-12-25 21:14] LABS: Alanine Aminotransferase 11 U/L (12-78); Albumin/Globulin Ratio 1.6 (1.1-1.8); Alkaline Phosphatase 73 U/L (38-126); Anion Gap 10.2 mEq/L (5-15); Aspartate Amino Transferase 18 U/L (14-36); Bilirubin,Total 0.3 mg/dl (0.2-1.3); Blood Urea Nitrogen 25 mg/dl (7-17); Calcium 9.1 mg/dl (8.4-10.2); Carbon Dioxide 32 mmol/L (22.0-30.0); Chloride 103 mmol/L (98-107); Estimated Glomerular Filt Rate 68 ml/min (>60); GFR (African American) 82 ML/MIN (>60); Globulin 2.5 g/dL (1.3-3.2); Glucose 125 mg/dl (74-100); Potassium 4.2 mmoL/L (3.5-5.1); Sodium 141 mmol/L (136-145); Total Protein,Serum 6.5 g/dl (6.3-8.2)
[2024-12-25 22:05] LABS: Vitamin B12 951 pg/mL (239-931)
== END 2024-12-25 23:59 | disposition home or self-care (01) ==
LOC: LAB.DROPOF 12-26 10:12
PROVIDERS: PCP Family Medicine; Visit Provider Family Medicine
DX: D64.9 Anemia, unspecified (principal); E11.9 Type 2 diabetes mellitus without complications; Z79.4 Long term (current) use of insulin; Z68.26 Body mass index [BMI] 26.0-26.9, adult; E66.3 Overweight
CPT/HCPCS: 80053; 82607; 85025

== ENCOUNTER 2025-01-02 10:41 | Outpatient (CLI) | payer MEDICARE, MEDICAID, SELFPAY ==
--- NOTE | 2025-01-02 10:42 | US_ITS ---
FINAL REPORT TECHNIQUE: Sonographic images of the thyroid were obtained. CLINICAL HISTORY: thyroid nodule COMPARISON: 01/04/2024 FINDINGS: THYROID ULTRASOUND The right thyroid gland measures 3.8 x 1.5 x 2.1 cm. The left thyroid gland measures 3.5 x 1.7 x 2.2 cm. The parenchyma is diffusely heterogeneous. RIGHT LOBE NODULES: There is a 1.9 cm nodule in the superior pole of the right lobe which is mixed, solid and cystic, TI-RADS 3. There is a predominantly cystic lesion in the lower pole of the right lobe measuring up to 1.6 cm, similar to previous exam. Other subcentimeter solid and cystic lesions in the right lobe are stable. LEFT LOBE NODULE: There is a TI-RADS 4 lesion measuring up to 2.1 cm, which is somewhat difficult to discriminate from the adjacent heterogeneous parenchyma, but the dominant nodule in the lower pole of the left lobe of the thyroid appears larger than on the previous exam. IMPRESSION: Dominant nodule lower pole left lobe of the thyroid now measuring up to 2.1 cm. Per TI-RADS criteria, recommend tissue sampling. Reviewed, Interpreted and Dictated by Real Del Cid MD Transcribed by Tonya Leung Authenticated and [facility]
== END 2025-01-02 23:59 | disposition home or self-care (01) ==
LOC: RAD 10:42
PROVIDERS: PCP Family Medicine; Visit Provider Nurse Practitioner
DX: E01.0 Iodine-deficiency related diffuse (endemic) goiter (principal)
CPT/HCPCS: 76536

== ENCOUNTER 2025-02-19 11:55 | Outpatient (CLI) | payer MEDICARE, MEDICAID, SELFPAY ==
[2025-02-19 19:25] LABS: Basophils # 0.1 K/mm3 (0-0.2); Basophils % 0.7 % (0.1-2.0); Eosinophils # 0.1 Kmm3 (0.0-0.4); Eosinophils % 1.8 % (0.1-12.0); Hematocrit 36.3 % (37.0-47.0); Hemoglobin 11.4 g/dL (12.2-16.2); Lymphocytes # 1.6 K/mm3 (0.7-4.5); Mean Corpuscular HGB Conc 31.4 g/dL (31.8-35.4); Mean Corpuscular Hemoglobin 31.5 pg (27.0-31.2); Mean Corpuscular Volume 100.3 fl (81-99); Mean Platelet Volume 10.6 fl (7.4-10.4); Monocytes # 0.4 K/mm3 (0.1-1.0); Monocytes % 5.6 % (1.7-9.3); Neutrophils # 4.6 K/mm3 (1.8-7.8); Neutrophils % 67.3 % (37.0-80.0); Nucleated Red Blood Cells # 0 10^3/uL; Nucleated Red Blood Cells % 0 %; Platelet Count 203 K/mm3 (142-424); Red Blood Count 3.62 M/mm3 (4.20-5.40); Red Cell Distribution Width-SD 47.6 fL; White Blood Count 6.8 K/mm3 (4.8-10.8)
[2025-02-19 19:59] LABS: Alanine Aminotransferase 13 U/L (12-78); Albumin Level 3.9 g/dl (3.5-5.0); Albumin/Globulin Ratio 1.4 (1.1-1.8); Alkaline Phosphatase 70 U/L (38-126); Anion Gap 11.5 mEq/L (5-15); Aspartate Amino Transferase 19 U/L (14-36); Bilirubin,Total 0.6 mg/dl (0.2-1.3); Blood Urea Nitrogen 21 mg/dl (7-17); Calcium 9.3 mg/dl (8.4-10.2); Carbon Dioxide 30 mmol/L (22.0-30.0); Chloride 106 mmol/L (98-107); Estimated Glomerular Filt Rate 60 ml/min (>60); GFR (African American) 72 ML/MIN (>60); Globulin 2.8 g/dL (1.3-3.2); Glucose 166 mg/dl (74-100); Potassium 4.5 mmoL/L (3.5-5.1); Sodium 143 mmol/L (136-145); Total Protein,Serum 6.7 g/dl (6.3-8.2)
[2025-02-19 20:15] LABS: Creatine Kinase < 20 U/L (30-135)
== END 2025-02-19 23:59 | disposition home or self-care (01) ==
LOC: LAB.DROPOF 02-21 12:49
PROVIDERS: PCP Family Medicine; Visit Provider Family Medicine
DX: D64.9 Anemia, unspecified (principal); R60.0 Localized edema
CPT/HCPCS: 80053; 82550; 85025

== ENCOUNTER 2025-03-15 09:14 | Outpatient (CLI) | payer MEDICARE, MEDICAID, SELFPAY ==
--- NOTE | 2025-03-15 09:21 | CT_ITS ---
FINAL REPORT TECHNIQUE: Axial CT with contrast with 3-D MIP reconstruction This study was performed with techniques to keep radiation doses as low as reasonably achievable, (ALARA). Individualized dose reduction techniques using automated exposure control or adjustment of mA and/or kV according to the patient''s size were employed. CLINICAL HISTORY: ENDOMETRIAL CANCER COMPARISON: 04/30/2023 FINDINGS: Pulmonary vessels enhance in normal fashion without evidence of embolism. Thoracic aorta shows no dissection or aneurysm. There has been interval progression of reticulonodular density within the lungs. There is an increasing density in the right upper lobe with new areas of nodularity in the apex. There is new involvement of the left upper lobe. The lower lobes are clear. There is mild emphysematous change. There is no significant pleural effusion. There is no significant pericardial effusion. AP window adenopathy is stable measuring up to 21 mm. There is no hilar adenopathy. IMPRESSION: Worsening reticulonodular density, now within the bilateral upper lobes, remains suspicious for infectious etiology. Stable mild AP window adenopathy favored to be reactive. Reviewed, Interpreted and Dictated by Marianela Herman MD Transcribed by She Orr Authenticated and [facility]
--- NOTE | 2025-03-15 09:21 | CT_ITS ---
FINAL REPORT TECHNIQUE: IV contrast enhanced exam This study was performed with techniques to keep radiation doses as low as reasonably achievable, (ALARA). Individualized dose reduction techniques using automated exposure control or adjustment of mA and/or kV according to the patient''s size were employed. CLINICAL HISTORY: endometrial cancer COMPARISON: 05/10/2023 FINDINGS: Abdomen: The gallbladder is unremarkable. Solid abdominal organs are unremarkable. Central abdominal wall hernia contains transverse colon, similar to the prior study. There is no free air. No fluid collection is seen. There is no adenopathy. Pelvis: The appendix is normal. Mild sigmoid diverticulosis. The patient is status post hysterectomy. There is no free fluid. No pelvic mass is seen. There is no adenopathy. IMPRESSION: Stable exam without evidence of metastatic disease. Reviewed, Interpreted and Dictated by Marianela Herman MD Transcribed by She Orr Authenticated and [facility]
[2025-03-15] MEDS: SODIUM CHLORIDE 0.9% 10ML SYR (RAD ONLY) 10 ML IV (09:47)
[2025-03-15] MEDS: IOPAMIDOL-370 (76%);100ML BOTTLE 75 ML IV (09:47)
== END 2025-03-15 23:59 | disposition home or self-care (01) ==
LOC: RAD 09:18
PROVIDERS: PCP Family Medicine; Visit Provider Registered Nurse
DX: C54.1 Malignant neoplasm of endometrium (principal); R91.8 Other nonspecific abnormal finding of lung field
CPT/HCPCS: 71260; 74177; Q9967

== ENCOUNTER 2025-06-18 12:00 | Outpatient (CLI) | payer MEDICARE, MEDICAID, SELFPAY ==
[2025-06-18 15:51] LABS: Alanine Aminotransferase 11 U/L (12-78); Albumin Level 4.3 g/dl (3.5-5.0); Albumin/Globulin Ratio 1.6 (1.1-1.8); Alkaline Phosphatase 72 U/L (38-126); Anion Gap 13.6 mEq/L (5-15); Aspartate Amino Transferase 21 U/L (14-36); Bilirubin,Total 0.7 mg/dl (0.2-1.3); Blood Urea Nitrogen 22 mg/dl (7-17); Calcium 9.6 mg/dl (8.4-10.2); Carbon Dioxide 32 mmol/L (22.0-30.0); Chloride 102 mmol/L (98-107); Creatinine,Serum 0.80 mg/dl (0.52-1.04); Estimated Glomerular Filt Rate 68 ml/min (>60); GFR (African American) 82 ML/MIN (>60); Globulin 2.7 g/dL (1.3-3.2); Glucose 146 mg/dl (74-100); Potassium 4.6 mmoL/L (3.5-5.1); Sodium 143 mmol/L (136-145); Total Protein,Serum 7.0 g/dl (6.3-8.2)
--- OUTSIDE RECORDS SUMMARY | 2025-06-19 13:19 | XMS_ITS | Encounter Summary ---
Author Organization [facility] Address [address] [place] [address] Care Team Providers Care Telephone Maintainer Name Role Phone Suresh Claudio MD Primary Care Provider [phone] Pito Kohli MD Unavailable [phone] Norberto Art MD Unavailable [phone] Encounter Details Date Type Department Care Team (Late st Contact Info) Description 06/04/2025 Telephone [facility] [place] Suraj [address] [place] [address] [place] [address] Social History Tobacco Use Types Packs/Day Years Used Date Smoking Tobacco: Never Smokeless Tobacco: Never Alcohol Use Standard Drinks/Week Comments Never 0 (1 standard drink = 0.6 oz pur e alcohol) PHQ-2 Answer Date Recorded Patient Health Questionnaire-2 Score 0 09/14/2024 PHQ-9 Answer Date Recorded Patient Health Questionnaire-9 Score 0 09/14/2024 PHQ-2A Answer Date Recorded Patient Health Questionnaire-2 Score 0 07/18/2023 Comments No Sex and Gender Information Value Date Recorded Sex Assigned at Not on file Legal Sex Female 6:56 PM EDT Gender Identity Not on file Sexual Orientation Not on file documented as of this encounter Miscellaneous Notes * Telephone Encounter - Alee Hawkins - 06/04/2025 1:41 PM EDT Patient called for 6 month post Watchman telephone follow up. Patient denies any CV, bleeding or neurologic events since last contact. No hospitalizations since last contact. Currently taking Clopidogrel 75 mg and EC ASA 81 mg daily. Instructed to discontinue taking Plavix and continue EC ASA. Will contact patient at 1 year post Watchman. documented in this encounter Plan of Treatment Not on file documented as of this encounter Visit Diagnoses Not on filedocumented in this encounter Additional Health Concerns Assessment Noted Time PHQ-9 Depression Total Score: 0 09/14/20 10:31 AM EST A fall risk assessment has been complete d for the patient 09/14/2024 10:31 AM EST A Body Mass Index follow-up plan has been documented for the patient 11/21/2024 11:37 AM EST documented as of this encounter Care Teams Telephone Maintainer Relationship Specialty Start Date End Date Suresh Claudio MD [address] [facility] [address] [place] [address] PCP - General Family Medicine 04/07/21 Pito Kohli MD [address] [place] [address] Referring Physician 05/05/21 Norberto Art MD [address] [place] [address] Surgeon Neurosurgery 07/15/22 documented as of this encounter
--- OUTSIDE RECORDS SUMMARY | 2025-06-19 13:19 | XMS_ITS | Encounter Summary ---
Author Organization [facility] Address [address] [place] [address] Care Team Providers Care Plumbing Manager Name Role Phone Suresh Claudio MD Primary Care Provider [phone] Pito Kohli MD Unavailable [phone] Norberto Art MD Unavailable [phone] Reason for Referral * Consultation (Routine) - Closed Specialty Diagnoses / Procedures Referred By Contac t Referred To Contact Cardiology Diagnoses Episodic atrial fibrillation (CMS/HCC) Gera Chung MD [facility] [place] [address] Phone: tel: fax: Suresh Quiles MD [address] [place] [address] Phone: tel: fax: Referral ID Status Reason Start Date Expiration Date V isits Requested Visits Authorized [id number] Closed Specialty Services Required 08/29/2024 02/28/2026 1 1 Encounter Details Date Type Department Care Team (Latest Contact Info) Description 08/29/2024 Community Orders [facility] [address] [place] [address] Gera Chung MD [address] [place] [address] [phone] Episodic atrial fibrillation (CMS/HCC) (Primary Dx) Social History Tobacco Use Types Packs/Day Years Used Date Smoking Tobacco: Never Smokeless Tobacco: Never Alcohol Use Standard Drinks/Week Comments Never 0 (1 standard drink = 0.6 oz pur e alcohol) PHQ-2 Answer Date Recorded Patient Health Questionnaire-2 Score 0 07/18/2023 PHQ-2A Answer Date Recorded Patient Health Questionnaire-2 Score 0 07/18/2023 Comments No Sex and Gender Information Value Date Recorded Sex Assigned at Not on file Legal Sex Female 6:56 PM EDT Gender Identity Not on file Sexual Orientation Not on file documented as of this encounter Plan of Treatment Scheduled Referrals Name Type Priority Associated Diagnoses Orde r Schedule Ambulatory referral to Cardiology Outpatient Referral Routine Episodic atrial fibrillation (CMS/HCC) 1 Occurrences starting 08/29/2024 until 02/26/2026 documented as of this encounter Visit Diagnoses Diagnosis Episodic atrial fibrillation (CMS/HCC)- Primary documented in this encounter Additional Health Concerns Assessment Noted Time A fall risk assessment has been complete d for the patient 03/12/2024 12:38 PM EDT documented as of this encounter Care Teams Plumbing Manager Relationship Specialty Start Date End Date Suresh Claudio MD [address] [place] [address] PCP - General Family Medicine 04/07/21 Pito Kohli MD [address] [place] [address] Referring Physician 05/05/21 Norberot Art MD [address] [place] [address] Surgeon Neurosurgery 07/15/22 documented as of this encounter
--- OUTSIDE RECORDS SUMMARY | 2025-06-19 13:19 | XMS_ITS | Clinical Summary ---
Author Organization [facility] Address [address] [place] [address] Phone Care Team Providers Care Cold Mill Supervisor Name Role Phone Unavailable Primary Care Provider Unavailabl e Allergies No known active allergies Medications aspirin 81 mg Oral Tablet, Delayed Release (E.C.) Take 81 mg by mouth daily. Active ciprofloxacin HCl (CIPRO) 500 mg Oral Tablet Take 500 mg by mouth every 12 hours. Active polyethylene glycol (GLYCOLAX) 17 gram/dose Oral Powder Take 17 g by mouth daily. Active lisinopril (PRINIVIL;ZESTRI L) 20 mg Oral Tablet Take 20 mg by mouth daily. Active simvastatin (ZOCOR) 10 mg Oral Tablet Take 10 mg by mouth nightly. Active Medical History Medical History Date Comments Hypertension Social History Tobacco Use Types Packs/Day Years Used Date Smoking Tobacco: Never Smokeless Tobacco: Never Alcohol Use Standard Drinks/Week Comments No 0 (1 standard drink = 0.6 oz pur e alcohol) Comments No Sex and Gender Information Value Date Recorded Sex Assigned at Not on file Legal Sex Female 11:56 AM EDT Gender Identity Not on file Sexual Orientation Not on file Obstetrics History Last Filed Vital Signs Vital Sign Reading Time Taken Comments Blood Pressure 124/61 08/10/2017 1:12 PM EDT Pulse 169 08/10/2017 1:12 PM EDT Temperature 36.7 C (98 F) 08/10/2017 12:50 PM EDT Respiratory Rate 20 08/10/2017 1:12 PM EDT Oxygen Saturation 98% 08/10/2017 1:12 PM EDT Inhaled Oxygen Concentration - - Weight 68.9 kg (152 lb) 08/10/2017 12:50 PM EDT Height 157.5 cm (5' 2 ) 08/10/2017 12:50 PM EDT Body Mass Index 27.8 08/10/2017 12:50 PM EDT Plan of Treatment Health Maintenance Due Date Last Done Comments Wellness Exam Medicare 1943 DTaP/TDaP/Td (1 - Tdap) 1958 Pneumococcal Vaccine 50+ (1 of 1 - PCV) 1989 Zoster (1 of 2) 1989 Bone Density Screening 2004 RSV or 60+ (1 - 1-d ose 75+ series) 2014 COVID-19 Vaccine (1 - 2023-2 5 season) 2024 Influenza Vaccine (#1) 2025 Hepatitis B Vaccine Aged Out No longe r eligible based on patient's age to complete this topic Meningococcal B Vaccine Aged Out No l onger eligible based on patient's age to complete this topic Insurance MEDICARE [place] PART A AND B MEDICAID [id number]
--- OUTSIDE RECORDS SUMMARY | 2025-06-19 13:19 | XMS_ITS | Encounter Summary ---
Author Organization [facility] Address [address] [place] [address] Care Team Providers Care Budget Technician Name Role Phone Suresh Claudio MD Primary Care Provider [phone] Pito Kohli MD Unavailable [phone] Norberto Art MD Unavailable [phone] Reason for Visit * Reason Onset Date Comments [facility] Same Day Appt/Overbook Request 05/07/2025 Encounter Details Date Type Department Care Team (Late st Contact Info) Description 05/07/2025 Telephone [facility] [place] [facility] [address] [facility], [address] [place] [address] Lalita Mcneil, DORIS [address] [place] [address] [facility] Same Day Appt/Overbook Request Social History Tobacco Use Types Packs/Day Years [...] encounter Miscellaneous Notes * Telephone Encounter - Andrea Mcintyre RN - 05/10/2025 10:44 AM EDT Called and spoke with Fernanda all questions answered. DANIELLE * Telephone Encounter - Carolina Sims - 05/10/2025 9:55 AM EDT Clinical Concern/Question Reason for Call: Daughter called and states that she understands that PT does not need to be seen again in person but is unsure about Eliquis and how she should proceed w dosage, stopping etc Best contact number: [phone] (home) Optimal time of day to reach caller: ANYTIME Additional comments/information from caller: None Note: Please do not reply to this message. Follow-up communication and further actions as a result of this message need to be communicated with the patient directly, if the patient is not active onMyChart. If the patient is active on MyChart, they will receive notification of the communication/outcome via [employer]. * Telephone Encounter - Lalita Mcneil PA - 05/09/2025 3:46 PM EDT Spoke with patient. She had necessary testing and follow-up after her watchman procedure, so no other in-person visit or testing is needed. * Telephone Encounter - Francoise Gudino - 05/09/2025 3:31 PM EDT Same Day Appt/Overbook Request Reason for Call: Patient needs to make follow up to be seen, they are not sure if testing is needed. Best contact number: [phone] (home) Optimal time of day to reach caller: ANYTIME Additional comments/information from caller: None Note: Please do not reply to this message. Follow-up communication and further actions as a result of this message need to be communicated with the patient directly, if the patient is not active onMyChart. If the patient is active on MyChart, they will receive notification of the communication/outcome via MyChart. documented in this encounter Plan of Treatment Not on file documented as of this encounter Visit Diagnoses Not on filedocumented in this encounter Additional Health Concerns Assessment Noted Time PHQ-9 Depression Total Score: 0 09/14/20 24 10:31 AM EST A fall risk assessment has been complete d for the patient 09/14/2024 10:31 AM EST A Body Mass Index follow-up plan has been documented for the patient 11/21/2024 11:37 AM EST documented as of this encounter Care Teams Budget Technician Relationship Specialty Start Date End Date Suresh Claudio MD [address] [place] [address] PCP - General Family Medicine 04/07/21 Pito Kohli MD [address] [place] [address] Referring Physician 05/05/21 Norberto Art MD [address] [place] [address] Surgeon Neurosurgery 07/15/22 documented as of this encounter
--- OUTSIDE RECORDS SUMMARY | 2025-06-19 13:19 | XMS_ITS | Encounter Summary ---
Author Organization [facility] Address [address] [place] [address] Care Team Providers Care Coat Tailor Name Role Phone Suresh Claudio MD Primary Care Provider [phone] Pito Kohli MD Unavailable [phone] Norberto Art MD Unavailable [phone] Reason for Visit * Reason Onset Date Comments HCN - Patient Message 05/20/2025 Encounter Details Date Type Department Care Team (Late st Contact Info) Description 05/20/2025 Telephone [facility] [place] Suraj [address] [place] [address] Saul Mcneil MD [address] [place] [address] HCN - Patient Message Social History Tobacco Use Types Packs/Day Years [...] * Telephone Encounter - Alee Hawkins - 05/20/2025 12:25 PM EDT Spoke to Fernanda the patient's daughter and she is stoppiing the half does eliquis and will a baby aspirin daily. * Telephone Encounter - Nena Cortez - 05/20/2025 11:54 AM EDT Patient Phone Message Reason for Call: Pt's daughter is requesting a call to be advised on if it is OK for her to stop taking her blood thinner at once. Best contact number and optimal time of day to reach caller: [phone] Note: Please do not reply to this message. Follow-up communication and further actions as a result of this message need to be communicated with the patient directly, if the patient is not active onMyChart. If the patient is active on MyChart, they will receive notification of the communication/outcome via [employer]. documented in this encounter Plan of Treatment [...] documented as of this encounter Care Teams Coat Tailor Relationship Specialty Start Date End Date Suresh Claudio MD [address] [place] [address] PCP - General Family Medicine 04/07/21 Pito Kohli MD [address] [place] [address] Referring Physician 05/05/21 Norberto Art MD [address] [facility] [address] [place] [address] Surgeon Neurosurgery 07/15/22 documented as of this encounter
--- OUTSIDE RECORDS SUMMARY | 2025-06-19 13:20 | XMS_ITS | Patient Health Record ---
[facility] Address [address] [facility] [address] [place] [id number] Care Team Providers Care Physician Executive Name Role Phone Swathi Claudio Primary Care Provider [phone] Allergies Allergen (clinical drug ingredient) Drug/Non Drug Allergy documented on EMR Reaction Allergy Type Onset Date Status colchicine Colcrys stomach upset Drug Allergy Ac tive Results Component Value Reference Range Notes H-CBC Reviewed date:08/21/2024 03:51:11 PM Interpretation: Performing Lab: Notes/Report: WBC 9.0 4.8-10.8 [...] 0.0-0.4 K/mm3 BA# 0.1 0-0.2 K/mm3 H-URC Reviewed date:08/27/2024 10:53:39 AM Interpretation: Performing Lab: Notes/Report: U500.0100 TRANSFUSED PRODUCT: Red Blood Cells COUNT: 1 M-Hemoglobin and Hematocrit Reviewed date:08/21/2024 03:51:11 PM Interpretation: Performing Lab: Notes/Report: HGB 7.3 12.2-16.2 g/dL HCT 22.3 37.0-47.0 % H-Type and Screen Reviewed date:08/27/2024 10:53:39 AM Interpretation: Performing Lab: Notes/Report: Comment: Type and hold 2 units PRBC BT B Positive ABS NEGATIVE H-Crossmatch Reviewed date:08/27/2024 10:53:39 AM Interpretation: Performing Lab: Notes/Report: Comment: Type and hold 2 units PRBC XM UNIT NUMBER: [id number] XM COMPATIBLE: Y XM PRODUCT: Red Blood Cells XM SOURCE: [facility] XM BLOOD TYPE: B Positive XM VOLUME: 250mL XM CROSSMATCH COMPONENTS: XMNOTE Notification JUANA ZAMORANO Notified by Fernanda Worthington [facility] 08/20/24 2310. JUANA ZAMORANO Notified by Fernanda Worthington [facility] 08/20/24 231. XM UNIT NUMBER: [id number] XM COMPATIBLE: Y XM PRODUCT: Red Blood Cells XM SOURCE: [facility] XM BLOOD TYPE: B Positive XM VOLUME: 250mL XM NOT AVAILABLE: Y XM CROSSMATCH COMPONENTS: XMNOTE Notification JUANA ZAMORANO Notified by Fernanda Worthington [employer] 08/20/24 2310. JUANA ZAMORANO Notified by Fernanda Worthington [facility] 08/20/24 231. M-Complete Blood Count Man D if Reviewed date:08/21/2024 03:51:11 PM Interpretation: Performing Lab: Notes/Report: WBC 8.1 4.8-10.8 [...] 7 2-9 % PLTE Normal RM Normal M-Hemoglobin and Hematocrit Reviewed date:08/21/2024 03:51:11 PM Interpretation: Performing Lab: Notes/Report: HGB 9.2 12.2-16.2 g/dL HCT 27.4 37.0-47.0 % Reason For Referral No Information Medications Medication SIG (Take, Route, Frequency, Duration) Notes Start Date End Date Status Pramipexole Dihydrochloride 0.25 MG 1 tab(s) orally At Bed Time; Duration: 30 day(s) 04/06/2022 Active Sotalol HCl 80 MG 1/2 orally twice a day Active Furosemide 40 MG 1 tab(s) orally ever y other day Active Simvastatin 10 MG 1 tab(s) orally once a day (at bedtime); Duration: 30 Active Gabapentin 100 MG 1 cap(s) orally At B ed Time 07/07/2022 Active Colace 100 MG 1 cap(s) orally once a day Active Aspirin 81 MG 1 tab(s) orally once a day Active Furosemide 20 MG 1 tab(s) orally everyother day Active CoQ-10 100 MG 1 cap(s) orally once a day; Duration: 30 day(s) 04/18/2020 Active Biotin 1000 MCG 1 tab(s) orally once a day; Duration: 30 day(s) Active Loratadine 10 MG 1 tab(s) orally once a day Active metFORMIN HCl 500 MG 1 tab(s) orally; Duration: 90 Active Flonase Allergy Relief 50 MCG/ACT as directed in each nostril once a day; Duration: 30 day(s) 12/19/2020 Active Lisinopril 10 MG 1 tab(s) orally once a day Active Immunizations Vaccine Route Administration Date Status Comme nts hQgwgfcx-rlftmpabc-eepxftx e pts. IM Intramuscular 09/02/2009 Administered fHwgyemi-qbzmobxum-fzvfibb e pts. IM 08/05/2010 Administered dWpryalg-werkennwk-ftctiap e pts. IM Intramuscular 07/27/2011 Administered xFlu [...] (65yr and older) IM Intramuscular 07/23/2021 Administered Problems Problem Type SNOMED Code ICD Code Onset Dates Problem Status W/U Status Risk Notes Problem Type II diabetes mellitus without complication (818054699) Type 2 diabetes mellitus without complications (E11.9) Active confirmed Problem Essential hypertension (15807505) Essential (primary) hypertension (I10) Active confirmed Problem Vertigo (462449459) Vertigo (R42) Active confirmed Problem Hyperuricemia (89089282) Hyperuricemia (E79.0) Active confirmed Problem Multiple thyroid nodules (807030924) Multiple thyroid nodules (E04.2) Active confirmed Problem Mixed hyperlipidemia (354104288) Mixed hyperlipidemia (E78.2) Active confirmed Problem Vasomotor rhinitis (3785965) Vasomotor rhinitis (J30.0) Active confirmed Problem Hernia of anterior abdominal wall (disorder) (125811407) Ventral hernia without obstruction or gangrene (K43.9) Active confirmed Problem Postmenopausal bleeding (11787520) Postmenopausal bleeding (N95.0) Active confirmed Problem Hysterectomy (139884403) Acquired 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) Active confirmed Problem Absent ovary, acquired (021586134) Acquired absence of ovaries, unilateral (Z90.721) Active confirmed Problem Abnormal vaginal bleeding (964276782) DUB (dysfunctional uterine bleeding) (N93.8) Active confirmed Problem Long-term current use of anticoagulant (921519205) rodent exterminator current use of anticoagulant therapy (Z79.01) Active confirmed Problem Atherosclerotic heart disease of [place] coronary artery without angina pectoris (264875234130350) 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) Active confirmed Problem Atrial fibrillation (01700000) PAF (paroxysmal atrial fibrillation) (I48.0) Active confirmed Problem Hyperlipidaemia (40242346) Hyperlipidemia, unspecified hyperlipidemia type (E78.5) Active confirmed Problem Atherosclerotic heart disease of [place] coronary artery without angina pectoris (115107278189042) Atherosclerosis of [place] coronary artery without angina pectoris, unspecified whether [place] or transplanted heart (I25.10) Active confirmed Problem Thyromegaly (7894080) Thyromegaly (E01.0) Active confirmed Problem Endometrial carcinoma (259256542) Endometrial carcinoma (C54.1) Active confirmed Problem Cataract (258865663) Cataract of both eyes, unspecified cataract type (H26.9) Active confirmed Problem Aortic valve disorder (4150641) Aortic valve stenosis, etiology of cardiac valve disease unspecified (I35.0) Active confirmed Problem Arteriovenous malformation (75030930) 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) Active confirmed Problem Type II diabetes mellitus without complication (213344355) Type 2 diabetes mellitus without complication, unspecified whether termination clerk insulin use (E11.9) Active confirmed Problem Diabetic peripheral neuropathy associated with type 2 diabetes mellitus (0461782855517) Type 2 diabetes mellitus with diabetic neuropathy, without long-term current use of insulin (E11.40) Active confirmed Problem Anemia (749949313) Acute anemia (D64.9) Active confirmed Plan Of Treatment No Information Insurance Providers Payer Name Payer Address Payer Phone Subscriber Number Group Number Insured Name Patient Relationship to Insured Coverage Start Date Coverage End Date MEDICARE PART B [address] [address] [place] [id number] [id number] LEONEL [place] Self - patient is the insured MEDICA[employer] [address] [place] [address] [id number] LEONEL [place] Self - patient is the insured Medications Administered Medication Instructions Date of Administration Dosage Notes Depo- Medrol 40 mg/ml 05/27/2008 1.0 mL Medical (General) History Medical History History ICD Code hyperlipidemia type 2 diabetes cataracts declines mammogram - 08/08/17 declines colonoscopy - 08/08/17 declines DEXA - 08/08/17 hypertension cancer, cervical Surgical History Surgery Date(Month/Year) tubal ligation 1978 colonoscopy 2004 Total Hysterectomy 12/29/2020 Hospitalization History Reason Date(Month/Year) [id number] tubal atrial flutter/fib dizziness 08/10/17 Dr. Rivera, [facility] endometrial bx and polyp removal 03/2018 Total Hysterectomy, [facility] 12/29/2020
--- OUTSIDE RECORDS SUMMARY | 2025-06-19 13:20 | XMS_ITS ---
Author Organization [facility] Address [address] 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 Acute kidney injury 08/30/2024 Anticoagulant causing adverse effect in therapeu tic use 08/30/2024 Bradycardia 08/30/2024 CAD (coronary artery disease) 08/30/2024 Carotid artery stenosis 08/30/2024 Cervical cancer 08/30/2024 Cervical polyp 08/30/2024 Stenosis of cervix 08/30/2024 Dyspnea 08/30/2024 Endometrial thickening on ultrasound 08/30/2024 HTN (hypertension) 08/30/2024 Hypotension 08/30/2024 Syncope, near 08/30/2024 Hyperuricemia 08/30/2024 Junctional escape rhythm 08/30/2024 PAF (paroxysmal atrial fibrillation) 08/30/2024 Postmenopausal bleeding 08/30/2024 Vaginal bleeding 08/30/2024 Right carotid bruit 08/30/2024 Syncope 08/30/2024 Ventral hernia 08/30/2024 Diabetes mellitus type II, non insulin dependent 08/30/2024 Leg pain 08/30/2024 Aortic stenosis 08/30/2024 Abdominal wall hernia 07/02/2022 Meningioma 01/12/2022 Endometrial cancer 04/04/2021 Cancer Staging:Clinical stage from 12/29/2020:FIGO Stage IA(cT1a, cN0, cM0) - Unsigned Current Treatment and Therapy Plans No current plan information found. Past Treatment and Therapy Plans No past plan information found. Lifetime Dose Tracking * Chemical Lifetime Dose Automatic Entry Manual Entr y Fluoro Time 4.5 minutes 0 minutes 4.5 minutes Air Kerma 70 mGy 0 mGy 70 mGy Air Kerma Area Product 6,222 Gy-cm2 0 Gy-cm2 6,222 Gy-cm2
--- OUTSIDE RECORDS SUMMARY | 2025-06-19 13:20 | XMS_ITS | Clinical Summary ---
Author Organization [facility] Address [address] [place] [address] Care Team Providers Care Physician Practice Administrator Name Role Phone Suresh Claudio MD Primary Care Provider [phone] Pito Kohli MD Unavailable [phone] Norberto Art MD Unavailable [phone] Allergies No known active allergies Medications sotalol (Betapace) 80 MG tablet Take 1 tablet (80 mg) by mouth 2 (two) times a day. Active metFORMIN (Glucophage) 500 MG tablet 1 tab(s) orally once a day Active simvastatin (Zocor) 10 MG tablet Take 1 tablet (10 mg) by mouth 1 (one) time each day. 04/28/2021 Active furosemide (Lasix) 20 MG tablet Take 1 tablet (20 mg) by mouth every other day. Active biotin 1000 MCG tablet Take 1 tablet (1,000 mcg) by mouth 1 (one) time each day. Active docusate sodium (Colace) 100 MG capsule Take 1 capsule (100 mg) by mouth 1 (one) time each day. Active furosemide (Lasix) 40 MG tablet Take 1 tablet (40 mg) by mouth every other day. Active lisinopril 10 MG tablet Take 1 tablet (10 mg) by mouth 1 (one) time each day. 11/06/2021 Active Coenzyme Q10 (Q-SORB) 100 MG capsule 1 cap(s) orally once a day Active gabapentin (Neurontin) 100 MG capsule Take 1 capsule (100 mg) by mouth 3 (three) times a day. 05/08/2022 Active pantoprazole (Protonix) 40 MG EC tablet Take 1 tablet (40 mg) by mouth 1 (one) time each day before breakfast. Do not crush, chew, or split. Active apixaban (Eliquis) 2.5 MG tablet Take 1 tablet (2.5 mg) by mouth 2 (two) times a day. Active aspirin 81 MG chewable tablet Chew 1 tablet (81 mg) 1 (one) time each day. aspirin 81 mg tablet 90 tablet 3 11/20/2024 Active allopurinol (Zyloprim) 100 MG tablet Take 1 tablet (100 mg) by mouth 1 (one) time each day. Active cyanocobalamin 1000 MCG tablet Take 2 tablets (2,000 mcg) by mouth 1 (one) time each day. 10/15/2024 Active FeroSul 325 (65 Fe) MG tablet Take 1 tablet (325 mg) by mouth 2 (two) times a day. 10/15/2024 Active Active Problems Problem Noted Date Diagnosed Date [...] 12/29/2020:FIGO Stage IA(cT1a, cN0, cM0) - Unsigned Encounters Date Type Department Care Team Description 06/04/2025 Telephone Critical access hospital [facility] [address] [place] [address] Alee Hawkins 05/20/2025 Telephone Critical access hospital [facility] [address] [place] [id number] Saul Mcneil MD [facility] - Patient Message 05/07/2025 Telephone Critical access hospital [facility] [address] [facility] [address], [address] [place] [address] Lalita Mcneil PA [facility] Same Day Appt/Overbook Request 03/19/2025 Telephone [facility] [address] [place] [address] Conchita Goode, TONE from Last 3 Months Family History Medical History Relation Name Comments Cancer Father Cancer Mother Stroke Mother Colon cancer Other Family history of malignant neoplasm of colon Stroke Son Relation Name Status Comments Father Mother Other Son Alive Social History Tobacco Use Types Packs/Day Years Used Date Smoking Tobacco: Never Smokeless Tobacco: Never Tobacco Cessation:Counseling Given: Not Answered Alcohol Use Standard Drinks/Week Comments Never 0 [...] on file Sexual Orientation Not on file Last Filed Vital Signs Vital Sign Reading Time Taken Comments Blood Pressure 153/48 11/21/2024 9:42 AM EST Pulse 70 11/21/2024 9:42 AM EST Temperature 36.9 C (98.4 F) 11/21/2024 8:25 AM EST Respiratory Rate 25 11/21/2024 9:42 AM EST Oxygen Saturation 94% 11/21/2024 9:42 AM EST Inhaled Oxygen Concentration - - Weight 62.3 kg (137 lb 5.6 oz) 11/20/2024 7:18 A M EST Height 157.5 cm (5' 2 ) 11/20/2024 7:18 AM EST Body Mass Index 25.12 11/20/2024 7:18 AM EST Plan of Treatment Health Maintenance Due Date Last Done Comments [facility]-Bone Density Scan 1940 [facility]-Medicare Annual Wellness (AWV) 1940 [facility]-Infant/Child/Adol SDOH Screenings 1940 [id number] Vaccine (#1) 1944 Diabetes: Dental Exam 1949 [facility]- SDOH Screenings 1957 [facility]-Adult SDOH Screenings 1957 [facility]-Zoster Vaccines (1 of 2) 1958 [facility]-RSV Vaccine: 60+ Years or (1 - 1-dose 75+ series) 2014 [facility]-Pneumococcal Vaccine: 50+ Years (2 of 2 - PCV) 04/06/2020 04/06/2019 [facility]-Diabetes: Hemoglobin A1C 06/10/2021 12/11/2020 [facility]-Influenza Vaccine (#1) 06/24/202508/28, 09/13/2023, 08/06/2022, Additional history exists [facility]-Depression Screening 09/14/2025 09/14/2024, 08/25 [facility]-DTaP,Tdap,and Td Vaccines (2 - Td or Tdap) 08/08/2027 08/08/2017 [facility]-Obesity Intervention Completed 024, 09/14/2024, 07/15/2022, Additional history exists HPV Vaccines Aged Out No longer eligi ble based on patient's age to complete this topic [facility]-HIB Vaccines Aged Out No longer e ligible based on patient's age to complete this topic [facility]-Hepatitis A Vaccines Aged Out No longer eligible based on patient's age to complete this topic [facility]-IPV Vaccines Aged Out No longer e ligible based on patient's age to complete this topic [facility]-Rotavirus Vaccines Aged Out No lo nger eligible based on patient's age to complete this topic Medical Devices Implanted Type Area Dispatch Supervisor Device Identifier Shelf Expiration Date Model / Serial / Lot Watchman Fxd Curve Dble 20mm - [id number] Implanted:Qty : 1 on 11/20/2024 by Suresh Quiles MD at [facility] [place] [employer] [facility] 85 08/16/2027 [id number] / / [id number] Device Watchman Flx Pro Felisha Closure 20mm - [id number] Implanted:Qty : 1 on 11/20/2024 by Suresh Quiles MD at [facility] [employer] [facility] 85 07/03/2027 [id number] / / [id number] Device Watchman Flx Pro Procedure - [id number] Implanted:Qty : 1 on 11/20/2024 by Suresh Quiles MD at [facility] [employer] [facility] 85 [id number] / / Procedures Procedure Name Priority Date/Time Associated Diagnosis Comments HEMOGLOBIN A1C Routine 12/11/2020 11:20 AM EST from Last 3 Months or Most Recently Relevant to Health Maintenance Results * (ABNORMAL) Hemoglobin A1c (12/11/2020 11:20 AM EST) Hemoglobin A1c 6.6(H) 4.7 - 6.0 % SUNQUEST Comment: Glycohemoglobin Reference Range, 0 years and up: 4.7 to 6.0% . HA1C Interpretive Data: Diagnosis of Diabetes: Diabetic > or = 6.5% Pre-diabetic 5.7 to 6.4% Non-diabetic < or = 5.6% . Glycemic Targets for Type I and Type II Diabetics: Non- Adults <7.0% Adults <6.0% Children and Adolescents <7.5% . Source: [place] [employer]. Standards of medical care in diabetes, 2017. Diabetes Care.2017:40 (suppl 1):S1-S135. . HbA1c assay performed by an ion-exchange chromatography method that is certified traceable to the DCCT. 12/11/2020 11:2 0 AM EST 12/11/2020 11:36 AM EST us Davy Rosales MD LAB BLOOD ORDERABLES F inal Result SUNQUEST from Last 3 Months or Most Recently Relevant to Health Maintenance Insurance MEDICARE Member Subscriber Plan / Payer (Ef fective 2004-Present) Name:Penelope, Chenlisa Osborne Member ID:[id number] Relation to Subscriber:Self Name:Penelope, Chen Osborne Subscriber ID:[id number] Payer ID:MEDICARE Group ID:Not on file Type:Medicare Address: [place] [phone] Advance Directives * Full Code (Latest Code Status on File) Date Activated Date Inactivated Comments 11/20/2024 9:42 AM 11/21/2024 2:05 PM Question Answer Comments Patient has decision-making capacity? Yes Care Teams Physician Practice Administrator Relationship Specialty Start Date End Date Suresh Claudio MD [address] [place] [address] PCP - General Family Medicine 04/07/21 Pito Kohli MD [address] [place] [address] Referring Physician 05/05/21 Norberto Art MD [address] [place] [address] Surgeon Neurosurgery 07/15/22
== END 2025-06-18 23:59 | disposition home or self-care (01) ==
LOC: LAB.DROPOF 06-19 13:16
PROVIDERS: PCP Family Medicine; Visit Provider Family Medicine
DX: E11.9 Type 2 diabetes mellitus without complications (principal)
CPT/HCPCS: 80053

== ENCOUNTER 2025-06-26 15:02 | Emergency (ER) | payer MEDICARE, MEDICAID, SELFPAY ==
[2025-06-26] VITALS (19 sets, daily range): BP systolic 134–174; BP diastolic 49–66; PULSE 63–87; RESP 16–25; TEMP -17.7–38.1; O2SAT 89–93; BMI 34.0
--- NOTE | 2025-06-26 15:17 | HMH.EDGENADL ---
Discharge Plan Disposition Patient Disposition: Xfer Other Prescriptions Prescriptions: No Action aspirin [Adult Aspirin Regimen] 81 mg tablet,delayed release (DR/EC) 81 mg PO DAILY ferrous sulfate 325 mg (65 mg iron) tablet 325 mg PO BID Qty: 60 3RF docusate sodium [Stool Softener] 100 mg capsule 100 mg PO DAILY Qty: 60 2RF montelukast 10 mg tablet 10 mg PO HS Qty: 30 3RF coenzyme Q10 [Co Q-10] 100 mg capsule 100 mg PO DAILY pantoprazole 40 mg tablet,delayed release (DR/EC) 40 mg PO DAILY Qty: 30 4RF allopurinol 100 mg tablet 100 mg PO DAILY Qty: 30 3RF lisinopril 10 mg tablet 10 mg PO DAILY Qty: 90 1RF Patient Comments: TAKE 1 TABLET BY MOUTH ONCE DAILY. cyanocobalamin (vitamin B-12) 1,000 mcg capsule 1,000 mcg PO DAILY Qty: 30 4RF simvastatin 10 mg tablet 10 mg PO HS Qty: 90 1RF Patient Comments: TAKE 1 TABLET BY MOUTH ONCE DAILY. gabapentin 100 mg capsule 100 mg PO TID 30 Days Qty: 90 2RF sotalol 80 mg tablet 80 mg PO BID Qty: 60 3RF Patient Comments: TAKE 1 TABLET BY MOUTH TWICE DAILY. metformin 500 mg tablet 500 mg PO DAILY Qty: 90 1RF Patient Comments: TAKE 1 TABLET BY MOUTH ONCE DAILY FOR DIABETES. furosemide 20 mg tablet See Rx Instructions .ROUTE .COMPLEX Qty: 30 4RF Dose Instruction: Take 2 Tablets by mouth once daily. Rx Instructions: Take 2 Tablets by mouth once daily. biotin 1 mg Capsule 2 mg PO DAILY Referrals Follow up/Referrals: González Henao MD [Primary Care Provider, Family Practice] - See instructions Clinical Impressions Clinical Impression: Intracranial mass, Vasogenic cerebral edema, Midline shift of brain, Fever of unknown origin Print Language Print Language: Zimbabwean Discharge ED Provider: Sunil Braxton Adult HPI General Chief complaint: Weakness Stated complaint: fell 2x, extremly weak, nauseaus Time Seen by Provider: 06/26/25 15:14 Mode of Arrival: Ambulatory Source of Information: Patient and Spouse Description of Symptoms (Recalled from ER Triage Doc. by RN): johnathon presents to theED with family for severe weakness. patient stated this has been ongoing for a few weeks now. patient hard of hearing. patient had a watchmnas procedure in December per family. History of Present Illness HPI narrative: Chen Negrete is an 85F with a history of heart failure, coronary artery disease, anemia, diabetes, meningioma, who presents to the ED for comaplaints of generalized weakness. Patient states that when she tried to stand up this morning, she felt very weak all over and was unable to get out of her chair. She does state that she normally walks with a cane. She states that she is also been having increased urinary frequency and is on a water pill but she had an episode of incontinence today, which is abnormal for her. She denies any abdominal pain. She does report a chronic abdominal hernia and wears an abdominal brace. Patient denies any chest pain or shortness of breath. She reports a history of a meningioma and did state that she had a headache yesterday and has a mild headache currently. Patient reports that she has some right lower extremity weakness at baseline that is not worse than normal. Family reports that her PCP follows her meningioma. Reportedly she had a Watchman device that was placed in November or December and was taken off of her Eliquis approximately 2 to 3 weeks ago. Patient was noted to be febrile on arrival with a temperature of 100.5 ?F. Family states that they believe they recently had a respiratory infection that could be COVID and are concerned she may have it as well. Related Data Home Medications ?Medication ?Instructions ?Recorded ?Confirmed coenzyme Q10 100 mg capsule (Co 100 mg PO DAILY Supplement 06/12/20 06/18/25 Q-10) biotin 1 mg capsule 2 mg PO DAILY 08/21/24 06/18/25 aspirin 81 mg tablet,delayed 81 mg PO DAILY 06/18/25 06/18/25 release (Adult Aspirin Regimen) Previous Rx's ?Medication ?Instructions ?Recorded pantoprazole 40 mg tablet,delayed 40 mg PO DAILY #30 tabs 02/19/25 release allopurinol 100 mg tablet 100 mg PO DAILY #30 tabs 03/07/25 lisinopril 10 mg tablet 10 mg PO DAILY #90 tabs 03/19/25 cyanocobalamin (vitamin B-12) 1,000 mcg PO DAILY #30 caps 04/02/25 1,000 mcg capsule gabapentin 100 mg capsule 100 mg PO TID leg pain 30 days #90 04/03/25 caps montelukast 10 mg tablet 10 mg PO HS #30 tabs 04/03/25 simvastatin 10 mg tablet 10 mg PO HS #90 tabs 04/03/25 metformin 500 mg tablet 500 mg PO DAILY #90 tabs 04/22/25 sotalol 80 mg tablet 80 mg PO BID #60 tabs 04/22/25 furosemide 20 mg tablet See Rx Instructions .Route 05/02/25 .COMPLEX #30 tabs docusate sodium 100 mg capsule 100 mg PO DAILY #60 caps 06/18/25 (Stool Softener) ferrous sulfate 325 mg (65 mg 325 mg PO BID #60 tabs 06/18/25 iron) tablet Allergies Allergy/AdvReac Type Severity Reaction Status Date / Time rosuvastatin (From Crestor) AdvReac Intermediate stomach Verified 06/18/25 09:45 ache [facility] Disclaimer: The information contained in this section may have been updated after the patient was seen, as this information can be updated by other users. Medical History (Updated 06/26/25 @ 18:50 by Sunil Braxton MD) Imbalance Localized edema History of atrial fibrillation Orthostasis Weakness Hyperuricemia UTI (urinary tract infection) E. coli infection Encounter for immunization Short of breath on exertion Aortic stenosis Cervical cancer Right carotid bruit Anticoagulant causing adverse effect in therapeutic use Thyromegaly Hyperlipidemia Abnormal chest CT Multiple thyroid nodules Renal insufficiency Hyperkalemia Ventral hernia Leg pain, bilateral Hyperuricemia Ventral hernia Bradycardia Hypotension Syncope Carotid artery stenosis HTN (hypertension) PAF (paroxysmal atrial fibrillation) CAD (coronary artery disease) Surgical History History of hysterectomy Family History Other Cancer Diabetes Social History Smoking Status: Never smoker alcohol intake: never substance use type: denies use current occupational status: retired Travel in the last 8 weeks?: None Have you lived/traveled outside US in past 30 days?: No Contact w/someone who lives/traveled outside US past 30 days?: No Exposure to someone with infectious disease in past 14 days?: No Do you have a fever (greater than 100.4 F or 38 C)?: No Have you tested positive for COVID-19?: No Exposed to someone with COVID-19 in past 14 days?: No Do you have a sore throat?: No Do you have a cough?: No Do you have any weakness?: No Do you have any diarrhea?: No Are you experiencing any unusual bleeding?: No Do you have any muscle aches/pain?: No Do you have any abdominal pain?: No Are you experiencing loss of taste or smell?: No Other Medical History Have you received the Flu Vaccine for this season: No Have you received the Pneumonia Vaccine: Yes ROS Obtained: Yes Systems reviewed as appropriate & no additional complaints except as documented Physical Exam General General appearance: alert and in no apparent distress Head Head exam: atraumatic Eye Eye exam: Present normal appearance ENT ENT exam: Present normal external ear exam Neck Neck exam: Present full ROM Chest Chest inspection: Present symmetric chest wall rise Respiratory Respiratory exam: Present normal lung sounds bilaterally; Absent respiratory distress, wheezes or stridor Cardiovascular Cardiovascular exam: Present regular rate and normal rhythm Abdominal Exam Abdominal exam: Present soft; Absent tenderness or guarding Extremities Exam Extremities exam: Present normal inspection Back Exam Back exam: Present normal inspection Neurological Exam Neurological exam: Present alert, oriented X3 and motor sensory deficit (4 out of 5 strength with plantarflexion of the right foot but otherwise no focal neurological deficit) Psychiatric Psychiatric exam: Present normal affect Skin Skin exam: Present warm and dry Medical Decision Making Medical Records Screening: Per USPSTF and CDC recommendations, given the prevalence of disease in our region, it is our hospital?s policy to screen for HIV and viral Hepatitis for all patients aged 18 and over and those with ongoing risk factors. Get Inquiry Pt receiving controlled substance: No Vital Signs: 06/26/25 15:09 06/26/25 15:51 06/26/25 16:02 Temperature 99.3 F 100.5 F H Temperature Source Oral Oral Pulse Rate 87 Pulse Rate [Left Brachial] 83 Respiratory Rate 16 Blood Pressure 161/56 H Blood Pressure [Left Arm] 170/60 H Blood Pressure Mean [Left Arm] 96 Blood Pressure Source [Left Arm] Automatic Cuff Blood Pressure Position [Left Arm] Sitting 02 Sat by Pulse Oximetry 93 L 92 L Oxygen Delivery Method Room Air 06/26/25 16:15 06/26/25 16:37 Temperature Temperature Source Pulse Rate 80 83 Pulse Rate [Left Brachial] Respiratory Rate Blood Pressure Blood Pressure [Left Arm] Blood Pressure Mean [Left Arm] Blood Pressure Source [Left Arm] Blood Pressure Position [Left Arm] 02 Sat by Pulse Oximetry 90 L 91 L Oxygen Delivery Method Lab Data Lab Results 06/26/25 16:15: WBC 8.9, RBC 4.01 L, Hgb 12.7, Hct 38.5, MCV 96.0, MCH 31.7 H, MCHC 33.0, RDW 12.7, Plt Count 184, MPV 10.3, Neut % (Auto) 78.9, Lymph % (Auto) 11.2, Parke % (Auto) 8.4, Eos % (Auto) 0.3, Baso % (Auto) 0.3, Neut # (Auto) 7.0, Lymph # (Auto) 1.0, Parke # (Auto) 0.8, Eos # (Auto) 0.0, Baso # (Auto) 0.0, VBG pH 7.41, VBG pCO2 47.8, VBG pO2 41.7 H, VBG HCO3 29.6, VBG Total CO2 31.1 H, VBG O2 Saturation 75.7 H, VBG Base Excess 5.0 H, VBG Lactic Acid 1.9, Sodium 141, Potassium 3.7, Chloride 102, Carbon Dioxide 29, Anion Gap 13.7, BUN 31 H, Creatinine 0.90, Estimated Creat Clear 52, Estimated GFR 59, Est GFR ( Amer) 72, Glucose 207 H, Calcium 10.1, Total Bilirubin 0.8, AST 25, ALT 13, Alkaline Phosphatase 84, Troponin I < 0.01, Total Protein 8.4 H, Albumin 4.7, Globulin 3.7 H, Albumin/Globulin Ratio 1.3, Procalcitonin 0.046 06/26/25 16:15 06/26/25 16:15 Orders (Tests/Meds): ED MEDICATIONS Discontinued Medications Generic Name Dose Route Start Last Admin Trade Name Freq PRN Reason Stop Dose Admin Acetaminophen 1,000 mg 06/26/25 16:01 06/26/25 16:38 Acetaminophen 500mg Tab PO 06/26/25 16:02 1,000 mg ONCE ONE Administration Dexamethasone Sodium Phosphate 6 mg 06/26/25 17:55 06/26/25 18:31 Dexamethasone 4mg/Ml 1ml Vial IV 06/26/25 17:56 6 mg ONCE ONE Administration Lactated Ringer's 500 mls @ 999 mls/hr 06/26/25 16:46 06/26/25 17:03 Lactated Ringer's 500ml IV 06/26/25 17:16 999 mls/hr .Q31M ONE Administration Levetiracetam 2,000 mg/ Sodium 120 mls @ 240 mls/hr 06/26/25 17:54 06/26/25 18:32 Chloride IV 06/26/25 17:55 240 mls/hr ONCE ONE Administration Iopamidol 80 ml 06/26/25 17:30 06/26/25 17:38 Iopamidol-370 (76%);100ml Bottle IV 06/26/25 17:31 80 ml ONCE ONE Administration Sodium Chloride 10 ml 06/26/25 17:30 06/26/25 17:38 Sodium Chloride 0.9% 10ml Syr (Rad Only) IV 06/26/25 17:31 10 ml ONCE ONE Administration Sodium Chloride 50 ml 06/26/25 17:30 06/26/25 17:38 0.9 % Sodium Chloride 50 Ml Vial IV 06/26/25 17:31 50 ml ONCE ONE Administration ORDERS Category Date Time Status CT angio head Stat Cat Scan 06/26/25 16:[address] angio neck Stat Cat Scan 06/26/25 16:[address] head/brain wo con Stat Cat Scan 06/26/25 16:01 Completed CXR --portable [XR chest portable] Stat Exams 06/26/25 16:01 Completed CBC w/Auto Diff [Complete Blood Count Auto Diff] Stat Lab 06/26/25 16:15 Completed CMP [Comprehensive Metabolic Panel] Stat Lab 06/26/25 16:15 Results CRP [C-Reactive Protein] Stat Lab 06/26/25 16:15 Results Full Resp Panel w/COVID ([facility]) Routine Lab 06/26/25 16:15 Received Procalcitonin Stat Lab 06/26/25 16:15 Results Troponin I Q3H Lab 06/26/25 19:15 Ordered Troponin I Q3H Lab 06/26/25 22:15 Ordered Troponin I Stat Lab 06/26/25 16:15 Results UA [Urinalysis and Microscopic] Stat Lab 06/26/25 16:01 Ordered Blood Culture Stat Micro 06/26/25 16:39 Received VBG [Venous Blood Gas] Stat RT 06/26/25 16:15 Completed ECG Data Tracing #1: I reviewed this ECG and interpreted as documented below: Normal sinus rhythm. No ST elevation or depression. QTc normal at 383 Medical Decision Narrative: Chen Negrete is an 85F with a history of heart failure, coronary artery disease, anemia, diabetes, meningioma, who presents to the ED for comaplaints of generalized weakness. Patient states that when she tried to stand up this morning, she felt very weak all over and was unable to get out of her chair. She does state that she normally walks with a cane. She states that she is also been having increased urinary frequency and is on a water pill but she had an episode of incontinence today, which is abnormal for her. She denies any abdominal pain. She does report a chronic abdominal hernia and wears an abdominal brace. Patient denies any chest pain or shortness of breath. She reports a history of a meningioma and did state that she had a headache yesterday and has a mild headache currently. Patient reports that she has some right lower extremity weakness at baseline that is not worse than normal. Family reports that her PCP follows her meningioma. Reportedly she had a Watchman device that was placed in November or December and was taken off of her Eliquis approximately 2 to 3 weeks ago. Patient was noted to be febrile on arrival with a temperature of 100.5 ?F. Family states that they believe they recently had a respiratory infection that could be COVID and are concerned she may have it as well. On arrival, patient is mildly hypertensive blood pressure 161/56, heart rate 83 bpm, 91% on room air and was placed on 2 L nasal cannula. Physical exam, stated above, revealed an overall well-appearing female in no distress. She is alert and oriented x 3. GCS 15. Abdomen is soft, nontender nondistended. Cardiopulmonary exam is unremarkable. She has some mild right lower extremity weakness with plantarflexion at the ankle and big toe, however she states that this is her baseline and unchanged from her baseline. Neuro exam is otherwise unremarkable. Differential diagnosis includes, but is not limited to: Sepsis, urinary tract affection, pneumonia, viral respiratory infection, metastatic disease, enlarging intracranial mass, large vessel occlusion, ACS, electrolyte derangement, metabolic derangement, among others. The most morbid conditions were considered and workup was based on these. Workup in the Emergency Department included: CTA of the head and neck, CT head without contrast, blood culture x 2, troponin, full respiratory panel, urinalysis, procalcitonin, CMP, CRP, chest x-ray, VBG with lactate, EKG. Patient was given 1 g of oral Tylenol for her fever. Patient was also given 500 cc lactated ringer bolus as she has not been able to provide a urine sample yet with straight cath or pure wick. She does not appear volume overloaded. EKG without evidence of ischemia. See interpretation above. Chest x-ray interpreted by me personally. No focal consolidation, no pneumothorax, no widened mediastinum, no enlargement of the cardiac silhouette. Unremarkable chest x-ray. See radiology report for details. CBC with no leukocytosis, no anemia, platelets within normal limits. VBG unremarkable nonactionable with normal lactate. CMP grossly unremarkable nonactionable with no TEDDY, electrolytes within normal limits. Glucose 207. Liver enzymes within normal limits. Initial troponin less than 0.01. Procalctinonin normal at 0.046. CT imaging was interpreted by me personally and I received a call from radiology. Patient noted to have a left frontal mass that appears larger compared to previous study in 2023 and now measures 4.2 cm. There is vasogenic edema markedly increased from prior exam. There is increasing mass effect with midline shift to the right measuring 5 mm. No large vessel occlusion. Patient noted to have moderate to severe stenosis and several vessels but no acute occlusion. Per previous study, patient's mass measured 3.7 x 2.4 x 2.4 cm and had vasogenic edema at that time with mass effect in the left frontal lobe however radiologist states that, mass has grown with more vasogenic edema compared to previous study. Given this, patient will be given 6 mg of IV dexamethasone and loaded with Keppra for seizure prophylaxis. Hypertonic saline was considered, however patient does not have evidence of impending herniation and will defer at this time. I discussed results with patient and daughter at bedside and recommended that she be transferred to the [facility] for evaluation by neurosurgery. She does state that she was previously seen by neurosurgery at and received radiation several years ago. Ultimately, she is in agreement with this plan. Will attempt to discuss case with [facility] transfer center. Patient does not meet sepsis criteria with no obvious source so antibiotics were not given at this time. Will follow-up urine if she is able to provide a sample as well as respiratory panel. I spoke with Dr. Vicente at the [facility] transfer center and she graciously accepted the patient to the [facility] emergency department for further management. I discussed transfer with patient and she and daughter are in agreement at this time for transfer. Urinalysis and viral respiratory panel are pending at this time. Critical Care Critical Care Time Critical Care Time: No
--- OUTSIDE RECORDS SUMMARY | 2025-06-26 15:20 | XMS_ITS | Encounter Summary ---
Author Organization [facility] Address [address] [place] [address] Care Team Providers Care Email Production Consultant Name Role Phone Suresh Claudio MD Primary Care Provider [phone] Pito Kohli MD Unavailable [phone] Norberto Art MD Unavailable [phone] Reason for Referral * Consultation (Routine) - Closed Specialty Diagnoses / Procedures Referred By Contac t Referred To Contact Cardiology Diagnoses Episodic atrial fibrillation (CMS/HCC) Gera Chung MD [facility] [place] [address] Phone: tel: fax: Suresh Quiles MD [address] [place] [address] Phone: tel: fax: Referral ID Status Reason Start Date Expiration Date V isits Requested Visits Authorized [id number] Closed Specialty Services Required 08/29/2024 02/28/2026 1 1 Encounter Details Date Type Department Care Team (Latest Contact Info) Description 08/29/2024 Community Orders Community Practice [address] [place] [address] Gera Chung MD [address] [place] [address] [phone] Episodic atrial fibrillation (CMS/HCC) (Primary Dx) Social [...] documented as of this encounter Care Teams Email Production Consultant Relationship Specialty Start Date End Date Suresh Claudio MD [address] [place] [address] PCP - General Family Medicine 04/07/21 Pito Kohli MD [address] [place] [address] Referring Physician 05/05/21 Norberto Art MD [address] [place] [address] Surgeon Neurosurgery 07/15/22 documented as of this encounter
--- OUTSIDE RECORDS SUMMARY | 2025-06-26 15:20 | XMS_ITS | Encounter Summary ---
Author Organization [facility] Address [address] [place] [address] Care Team Providers Care Bacon De Rinder Name Role Phone Suresh Claudio MD Primary Care Provider [phone] Pito Kohli MD Unavailable [phone] Norberto Art MD Unavailable [phone] Reason for Visit * Reason Onset Date Comments [facility] Same Day Appt/Overbook Request 05/07/2025 Encounter Details Date Type Department Care Team (Late st Contact Info) Description 05/07/2025 Telephone [facility] [place] [address] [place] [address] Lalita Mcneil, DORIS [address] [place] [id number] [facility] Same Day Appt/Overbook Request Social [...] w dosage, stopping etc Best contact number: [phone] (home) Optimal time of day to reach caller: ANYTIME Additional comments/information from caller: None Note: Please do not reply to this message. Follow-up communication and further actions as a result of this message need to be communicated with the patient directly, if the patient is not active onMyChart. If the patient is active on MyChart, they will receive notification of the communication/outcome via [employer]. * Telephone Encounter - Lalita Mcneil PA [...] if testing is needed. Best contact number: [phone] (home) Optimal time of day to reach [...] documented as of this encounter Care Teams Bacon De Rinder Relationship Specialty Start Date End Date Suresh Claudio MD [address] [place] [address] PCP - General Family Medicine 04/07/21 Pito Kohli MD [address], [place] [address] Referring Physician 05/05/21 Norberto Art MD [address] [place] [address] Surgeon Neurosurgery 07/15/22 documented as of this encounter
--- OUTSIDE RECORDS SUMMARY | 2025-06-26 15:20 | XMS_ITS | Encounter Summary ---
Author Organization [facility] Address [address] [place] [address] Care Team Providers Care Indoor Landscape Architect Name Role Phone Suresh Claudio MD Primary Care Provider [phone] Pito Kohli MD Unavailable [phone] Norberto Art MD Unavailable [phone] Encounter Details Date Type Department Care Team (Late st Contact Info) Description 06/04/2025 Telephone [facility] [place] [address] [place] [address] [place] [address] Social History Tobacco Use Types Packs/Day Years [...] documented as of this encounter Care Teams Indoor Landscape Architect Relationship Specialty Start Date End Date Suresh Claudio MD [address] [facility] [address] [place] [address] PCP - General Family Medicine 04/07/21 Pito Kohli MD [address] [place] [address] Referring Physician 05/05/21 Norberto Art MD [address] [place] [address] Surgeon Neurosurgery 07/15/22 documented as of this encounter
--- OUTSIDE RECORDS SUMMARY | 2025-06-26 15:20 | XMS_ITS ---
Author Organization Unknown Results OrderDate OrderTestName ResultName ResultDate Value Units Range AbnormalFlag ResultStatus ObservationNotes TestCode ResultCode DateRecorded AccessionNumber DiagnosticSectionCode DiagnosticSectionName Sequence Interpretation Cust om 08/20/2024 00:00:00 H-Crossmatch XMNOTE [id number]:00:00 Notification - Reviewed Inpatient labs reviewed at [facility] H-Crossmatch 08/20/2024 00:00: 00:00:10K-HknnksbxseOJ8599-67XhtjpmrxpoYY4015-14-20X37:00:00 CROSSMATCH COMPONENTS:-ReviewedInpatient labs reviewed at [facility] Coding H-Crossmatch 08/20/2024 00:00: 00:00:00H-Type and FeohsqEZH0866-22-84M69:00:00 NEGATIVE-ReviewedInpatient labs reviewed at [facility] Coding H-Type and Screen 08/20/2024 00:00: 00:00:00H-Type and SvhvvtTR4460-08-92Y30:00:00B Positive-ReviewedInpatient labs reviewed at [facility] Coding H-Type and Screen 08/20/2024 00:00: 00:00:00M-Hemoglobin and HematocritHCT 6509-96-25N04:00:0022.337.0-47.0 - %LReviewedInpatient labs reviewed at [facility] Coding M-Hemoglobin and Hematocrit 08/20/2024 00:00: 00:00:00M-Hemoglobin and HematocritHGB 3169-68-44M46:00:007.3g/dL12.2-16.2 - g/dLLReviewedInpatient labs reviewed at [facility] Coding M-Hemoglobin and Hematocrit 08/20/2024 00:00: 00:00:00H-RZED959.57220408-08-23I57:00:00 TRANSFUSED PRODUCT: Red Blood Cells COUNT: 1-ReviewedInpatient labs reviewed at [facility] Coding H-URC 08/20/2024 00:00: 00:00:00H-CBCBA#1402-15-67N78:00:000.1K/mm30-0.2 - K/ps2YviotojbMeqdfincj labs reviewed at [facility] Coding H-CBC 08/20/2024 00:00: 00:00:00H-CBCEO#1763-05-10Q38:00:000.1K/mm30.0-0.4 - K/tx9TeuftetrWedplvfbs labs reviewed at [facility] Coding H-CBC 08/20/2024 00:00: 00:00:00H-CBCMO#2683-03-77O57:00:000.5K/mm30.1-1.0 - K/vk5FolflevyWkyklvhjq labs reviewed at [facility] Coding H-CBC 08/20/2024 00:00: 00:00:00H-CBCLY#4786-73-89T44:00:001.7K/mm30.7-4.5 - K/mj1LcwzpomkJhfinzvov labs reviewed at [facility] Coding H-CBC 08/20/2024 00:00: 00:00:00H-CBCNE#1433-61-69M37:00:006.7K/mm31.8-7.8 - K/gc4YinrwuiuZxaruxwsx labs reviewed at [facility] Coding H-CBC 08/20/2024 00:00: 00:00:00H-CBCBA%7604-08-29S05:00:000.70.1-2.0 - % ReviewedInpatient labs reviewed at [facility] Coding H-CBC 08/20/2024 00:00: 00:00:00H-CBCEO%6954-87-63N21:00:000.70.1-12.0 - % ReviewedInpatient labs reviewed at [facility] Coding H-CBC 08/20/2024 00:00:001 00:00:00H-CBCMO%3054-35-44D57:00:005.01.7-9.3 - % ReviewedInpatient labs reviewed at [facility] Coding H-CBC 08/20/2024 00:00:001 00:00:00H-CBCLY%6694-55-56E87:00:0019.010-50 - % ReviewedInpatient labs reviewed at [facility] Coding H-CBC 08/20/2024 00:00:001 00:00:00H-CBCNE%3477-60-60A42:00:0074.737.0-80.0 - %ReviewedInpatient labs reviewed at [facility] Coding H-CBC 08/20/2024 00:00:001 00:00:64G-OZNTNK3446-94DWUZVJ2086-18-40U55:00:008.1fl7.4-10.4 - flReviewedInpatient labs reviewed at [facility] Coding H-CBC 08/20/2024 00:00: 00:00:91G-WXQGGC1697-63SMNDNX8724-56-14D94:00:91221E/tj2962-338 - K/fg5ZsirrjouMyxahgxla labs reviewed at [facility] Coding H-CBC 08/20/2024 00:00: 00:00:44W-RYQLDM4633-41VHAOCK1470-10-48H98:00:0014.711.5-17.5 - %ReviewedInpatient labs reviewed at [facility] Coding H-CBC 08/20/2024 00:00:001 00:00:46O-WTGVXXU4934-74AQAUWKD6798-64-06U85:00:0031.7g/dL31.8- 35.4 - g/dLLReviewedInpatient labs reviewed at [facility] Coding H-CBC 08/20/2024 00:00:001 00:00:37B-KBEZBA9489-21MNSYLT1687-77-62V28:00:0030.5pg27.0-31.2 - pgReviewedInpatient labs reviewed at [facility] Coding H-CBC 08/20/2024 00:00:001 00:00:73K-AUWKHH8716-59OAABPI6804-74-14T48:00:0096.4zk36-81 - flReviewedInpatient labs reviewed at [facility] Coding H-CBC 08/20/2024 00:00: 00:00:02A-LMESAY9735-05XBRFVI3145-13-63J72:00:0023.337.0-47.0 - %LReviewedInpatient labs reviewed at [facility] Coding H-CBC 08/20/2024 00:00: 00:00:27Q-TNVTTS7381-80VFUKCO1511-62-53Q58:00:007.4g/dL12.2- 16.2 - g/dLLReviewedInpatient labs reviewed at [facility] Coding H-CBC 08/20/2024 00:00: 00:00:69J-LSXKXA9879-49QZKFVD9761-69-88U12:00:002.43M/mm34.20- 5.40 - M/sq8UWftyumygAhslwkksm labs reviewed at [facility] Coding H-CBC 08/20/2024 00:00: 00:00:93U-EZTKOV2095-96UYNWFX9742-49-03G61:00:009.0K/mm34.8- 10.8 - K/oj0UbvtkjgyLskaolihx labs reviewed at [facility] Coding H-CBC 08/20/2024 00:00: 00:00:00M-Hemoglobin and HematocritHCT 6207-28-07R27:00:0027.437.0-47.0 - %LReviewedInpatient labs reviewed at [facility] Coding M-Hemoglobin and Hematocrit 08/21/2024 00:00:001 00:00:00M-Hemoglobin and HematocritHGB 5499-88-84W25:00:009.2g/dL12.2-16.2 - g/dLLReviewedInpatient labs reviewed at [facility] Coding M-Hemoglobin and Hematocrit 08/21/2024 00:00: 00:00:00M-Complete Blood Count Man DifRM 5474-62-59U12:00:00Normal-ReviewedInpatient labs reviewed at [facility] Coding M-Complete Blood Count Man D if 08/21/2024 00:00: 00:00:00M-Complete Blood Count Man DifPLTE 5149-54-42E60:00:00Normal-ReviewedInpatient labs reviewed at [facility] Coding M-Complete Blood Count Man D if 08/21/2024 00:00: 00:00:00M-Complete Blood Count Man DifMONO%M 2470-64-31Y90:00:0072-9 - %ReviewedInpatient labs reviewed at [facility] Coding M-Complete Blood Count Man D if 08/21/2024 00:00: 00:00:00M-Complete Blood Count Man DifLYMPH%M 7259-24-36V23:00:773996-20 - %ReviewedInpatient labs reviewed at [facility] Coding M-Complete Blood Count Man D if 08/21/2024 00:00: 00:00:00M-Complete Blood Count Man DifNEUT%M 6725-27-21Q89:00:893324-97 - %ReviewedInpatient labs reviewed at [facility] Coding M-Complete Blood Count Man D if 08/21/2024 00:00: 00:00:00M-Complete Blood Count Man DifTCC 5505-06-75R80:00:79144-ZjqzxmexMfgzihyen labs reviewed at [facility] Coding M-Complete Blood Count Man D if 08/21/2024 00:00: 00:00:00M-Complete Blood Count Man DifBA# 3229-40-33L73:00:000.0K/mm30-0.2 - K/eo4TadzutueAveyhurbd labs reviewed at [facility] Coding M-Complete Blood Count Man D if 08/21/2024 00:00: 00:00:00M-Complete Blood Count Man DifEO# 8192-08-72D14:00:000.2K/mm30.0-0.4 - K/ah1DphnqxqnLjeogwkev labs reviewed at [facility] Coding M-Complete Blood Count Man D if 08/21/2024 00:00: 00:00:00M-Complete Blood Count Man DifMO# 5247-03-86B65:00:000.4K/mm30.1-1.0 - K/rn3JbeasqokEcjqbeluv labs reviewed at [facility] Coding M-Complete Blood Count Man D if 08/21/2024 00:00: 00:00:00M-Complete Blood Count Man DifLY# 6243-68-36X14:00:001.7K/mm30.7-4.5 - K/lb6XcqusoxsGbzjmpvdf labs reviewed at [facility] Coding M-Complete Blood Count Man D if 08/21/2024 00:00: 00:00:00M-Complete Blood Count Man DifNE# 9423-00-34M91:00:005.8K/mm31.8-7.8 - K/hh3MlgqtdxvPucnxfhdj labs reviewed at [facility] Coding M-Complete Blood Count Man D if 08/21/2024 00:00: 00:00:00M-Complete Blood Count Man DifBA% 2010-58-09K92:00:000.40.1-2.0 - %ReviewedInpatient labs reviewed at [facility] Coding M-Complete Blood Count Man D if 08/21/2024 00:00: 00:00:00M-Complete Blood Count Man DifEO% 9340-25-23K67:00:002.00.1-12.0 - %ReviewedInpatient labs reviewed at [facility] Coding M-Complete Blood Count Man D if 08/21/2024 00:00: 00:00:00M-Complete Blood Count Man DifMO% 6911-80-48A01:00:005.31.7-9.3 - %ReviewedInpatient labs reviewed at [facility] Coding M-Complete Blood Count Man D if 08/21/2024 00:00: 00:00:00M-Complete Blood Count Man DifLY% 5875-08-29D90:00:0021.410-50 - %ReviewedInpatient labs reviewed at [facility] Coding M-Complete Blood Count Man D if 08/21/2024 00:00: 00:00:00M-Complete Blood Count Man DifNE% 7610-05-13Q64:00:0070.937.0-80.0 - %ReviewedInpatient labs reviewed at [facility] Coding M-Complete Blood Count Man D if 08/21/2024 00:00: 00:00:00M-Complete Blood Count Man DifMPV 4252-53-19R46:00:008.2fl7.4-10.4 - flReviewedInpatient labs reviewed at [facility] Coding M-Complete Blood Count Man D if 08/21/2024 00:00: 00:00:00M-Complete Blood Count Man DifPLT 1969-84-53I93:00:13880U/ku7628-295 - K/bb1BdgaogbnZzjlkfnly labs reviewed at [facility] Coding M-Complete Blood Count Man D if 08/21/2024 00:00: 00:00:00M-Complete Blood Count Man DifRDW 9714-91-98J24:00:0015.811.5-17.5 - %ReviewedInpatient labs reviewed at [facility] Coding M-Complete Blood Count Man D if 08/21/2024 00:00: 00:00:00M-Complete Blood Count [facility] 3810-69-73Q36:00:0033.7g/dL31.8-35.4 - g/dLReviewedInpatient labs reviewed at [facility] Coding M-Complete Blood Count Man D if 08/21/2024 00:00: 00:00:00[facility] 6325-24-45P45:00:0031.1pg27.0-31.2 - pgReviewedInpatient labs reviewed at [facility] Coding M-Complete Blood Count Man D if 08/21/2024 00:00: 00:00:00M-Complete Blood Count Man DifMCV 7870-81-93J72:00:0092.1yo88-06 - flReviewedInpatient labs reviewed at [facility] Coding M-Complete Blood Count Man D if 08/21/2024 00:00: 00:00:00M-Complete Blood Count Man DifHCT 4211-02-05L05:00:0028.237.0-47.0 - %LReviewedInpatient labs reviewed at [facility] Coding M-Complete Blood Count Man D if 08/21/2024 00:00: 00:00:00M-Complete Blood Count Man DifHGB 9981-65-83W81:00:009.5g/dL12.2-16.2 - g/dLDLReviewedInpatient labs reviewed at [facility] Coding M-Complete Blood Count Man D if 08/21/2024 00:00: 00:00:00M-Complete Blood Count Man DifRBC 2545-25-63Q02:00:003.04M/mm34.20-5.40 - M/uz9ERGgobxgwbOnxrlqszi labs reviewed at [facility] Coding M-Complete Blood Count Man D if 08/21/2024 00:00: 00:00:00M-Complete Blood Count Man DifWBC 6251-19-45L30:00:008.1K/mm34.8-10.8 - K/xz4IafmtmchCknetkjzf labs reviewed at [facility] Coding M-Complete Blood Count Man D if 08/21/2024 00:00: 00:00:00M-Complete Blood Count Man DifMDIFF 5799-03-88F37:00:00MANUAL DIFFERENTIALMANUAL DIFF -ReviewedInpatient labs reviewed at [facility] Coding M-Complete Blood Count Man D if 08/21/2024 00:00:00
--- OUTSIDE RECORDS SUMMARY | 2025-06-26 15:20 | XMS_ITS | Encounter Summary ---
Author Organization [facility] Address [address] [place] [address] Care Team Providers Care Wet Chemistry Analyst Name Role Phone Suresh Claudio MD Primary Care Provider [phone] Pito Kohli MD Unavailable [phone] Norberto Art MD Unavailable [phone] Reason for Visit * Reason Onset Date Comments HCN - Patient Message 05/20/2025 Encounter Details Date Type Department Care Team (Late st Contact Info) Description 05/20/2025 Telephone [facility] [place] [facility] [address] [place] [address] Saul Mcneil MD [address] [place] [address] HCN - Patient Message Social [...] optimal time of day to reach caller: [phone] Note: Please do not reply to this message. Follow-up communication and further actions as a result of this message need to be communicated with the patient directly, if the patient is not active onMyChart. If the patient is active on MyChart, they will receive notification of the communication/outcome via [employer]. documented in this encounter Plan of Treatment [...] documented as of this encounter Care Teams Wet Chemistry Analyst Relationship Specialty Start Date End Date Suresh Claudio MD [address] [place] [address] PCP - General Family Medicine 04/07/21 Pito Kohli MD [address] [place] [address] Referring Physician 05/05/21 Norberto Art MD [address] [facility] [address] [place] [address] Surgeon Neurosurgery 07/15/22 documented as of this encounter
--- OUTSIDE RECORDS SUMMARY | 2025-06-26 15:20 | XMS_ITS | Clinical Summary ---
Author Organization [facility] Address [address] [place] [address] Phone Care Team Providers Care Travel Registered Nurse Icu Name Role Phone Unavailable Primary Care Provider [...]
--- OUTSIDE RECORDS SUMMARY | 2025-06-26 15:21 | XMS_ITS | Clinical Summary ---
Author Organization [facility] Address [address] [place] [address] Care Team Providers Care Automatic Pinsetter Adjuster Name Role Phone Suresh Claudio MD Primary Care Provider [phone] Pito Kohli MD Unavailable [phone] Norberto Art MD Unavailable [phone] Allergies No known active allergies Medications [...] Type Department Care Team Description 06/04/2025 Telephone [facility] [address] [place] [address] Ross Alee L 05/20/2025 Telephone [facility] [address] [place] [address] Saul Mcneil MD HCN - Patient Message 05/07/2025 Telephone [facility] [address] [facility] [place] [address] Lalita Mcneil PA HCN Same Day Appt/Overbook Request from Last 3 Months Family History Medical [...] Scan 1940 [facility]-Medicare Annual Wellness (AWV) 1940 [facility]-/Child/Adol SDOH Screenings 1940 OXM-TUFNE-73 Vaccine (#1) 1945 Diabetes: Dental Exam 1949 [...] this topic Medical Devices Implanted Type Area Supervisor Electronics Inspection Device Identifier Shelf Expiration Date Model / Serial / Lot Watchman Fxd Curve Dble 20mm - [id number] Implanted:Qty : 1 on 11/20/2024 by Suresh Quiles MD at [facility] [place] [employer]1398 85 08/16/2027 [id number] / / [id number] Device Watchman Flx Pro Felisha Closure 20mm - [id number] Implanted:Qty : 1 on 11/20/2024 by Suresh Quiles MD at [facility] [place] [employer]1398 85 07/03/2027 [id number] / / [id number] Device Watchman Flx Pro Procedure - [id number] Implanted:Qty : 1 on 11/20/2024 by Suresh Quiles MD at [facility] [place] [employer] [facility]-1398 85 [id number] / / Procedures Procedure Name [...] <6.0% Children and Adolescents <7.5% . Source: [employer]. Standards of medical care in diabetes, 2017. Diabetes Care.2017:40 (suppl 1):S1-S135. . HbA1c assay performed by an ion-exchange chromatography method that is certified traceable to the DCCT. 12/11/2020 11:2 0 AM EST 12/11/2020 11:36 AM EST Davy Rosales MD LAB BLOOD ORDERABLES F inal Result SUNQUEST from Last 3 Months or Most Recently Relevant to Health Maintenance Insurance MEDICARE Member Subscriber Plan / Payer (Ef fective 2004-Present) Name:Chen Negrete Member ID:[id number] Relation to Subscriber:Self Name:Chen Negrete Subscriber ID:[id number] Payer ID:MEDICARE Group ID:Not on file Type:Medicare Address: [address] Advance Directives * Full Code (Latest Code Status on File) Date Activated Date Inactivated Comments 11/20/2024 9:42 AM 11/21/2024 2:05 PM Question Answer Comments Patient has decision-making capacity? Yes Care Teams Automatic Pinsetter Adjuster Relationship Specialty Start Date End Date Suresh Claudio MD [address] [place] [address] PCP - General Family Medicine 04/07/21 Pito Kohli MD [address] [place] [address] Referring Physician 05/05/21 Norberto Art MD [address] [place] [address] Surgeon Neurosurgery 07/15/22
--- OUTSIDE RECORDS SUMMARY | 2025-06-26 15:21 | XMS_ITS | Patient Health Record ---
Author Organization [facility] Address [address] [facility] [address] [place] [id number] Care Team Providers Care Optometrist Owner Name Role Phone Swathi Claudio Primary Care Provider Allergies Allergen (clinical drug ingredient) Drug/Non Drug [...] hold 2 units PRBC XM UNIT NUMBER: [id number] XM COMPATIBLE: Y XM PRODUCT: Red Blood Cells XM SOURCE: [facility] XM BLOOD TYPE: B Positive XM VOLUME: 250mL XM CROSSMATCH COMPONENTS: XMNOTE Notification JUANA ZAMORANO Notified by Fernanda Worthington [facility] 08/20/24 2310. JUANA ZAMORANO Notified by Fernanda Worthington [facility] 08/20/24 231. XM UNIT NUMBER: [id number] XM COMPATIBLE: Y XM PRODUCT: Red Blood Cells XM SOURCE: [facility] XM BLOOD TYPE: B Positive XM VOLUME: 250mL XM NOT AVAILABLE: Y XM CROSSMATCH COMPONENTS: XMNOTE Notification JUANA ZAMORANO Notified by Fernanda Worthington [facility] 08/20/24 2310. JUANA ZAMORANO Notified by Fernanda Worthington [facility] 08/20/24 231. M-Complete Blood Count Man [...] Vaccine Route Administration Date Status Comme nts Fluzone High Dose (65yr and older) IM [...] (65yr and older) IM Intramuscular 07/23/2021 Administered pneumovax IM Intramuscular 09/14/2005 Administered PNEUMOVAX 23 VACCINE IM Intramuscular 04/06/2019 Administe red Prevnar (PCV13) IM Intramuscular 07/31/2014 Administered Shingrix Unknown 04/07/2019 Administered Tetanus Tdap-Adacel (over 7yrs) IM Intramuscular 08/08/2017 Administered xFlu shot-36 months and older IM Intramuscular 09/14/2005 Administered xFlu shot-36 months and older IM Intramuscular 09/02/2006 Administered xFlu shot-36 months and older IM Intramuscular 08/21/2007 Administered xFlu shot-36 months and older IM Intramuscular 07/31/2008 Administered xFlu shot-36 months and older IM Intramuscular 09/02/2009 Administered vUrfvqdl-fnrhnekuf-pgnmgvm e pts. IM Intramuscular 09/02/2009 Administered nBrmrihq-ggcilumys-qujigra e pts. IM 08/05/2010 Administered iYmrpgfw-lvdwxbefq-ydjzwpl e pts. IM Intramuscular 07/27/2011 Administered Problems Problem Type SNOMED Code ICD Code Onset Dates Problem Status W/U Status Risk Notes Problem Type II diabetes mellitus without complication (828795540) Type 2 diabetes mellitus without complications (E11.9) Active confirmed Problem Essential hypertension (11629743) Essential (primary) hypertension (I10) Active confirmed Problem Vertigo (521774708) Vertigo (R42) Active confirmed Problem Hyperuricemia (81992532) Hyperuricemia (E79.0) Active confirmed Problem Multiple thyroid nodules (364912913) Multiple thyroid nodules (E04.2) Active confirmed Problem Mixed hyperlipidemia (323691372) Mixed hyperlipidemia (E78.2) Active confirmed Problem Vasomotor rhinitis (9539084) Vasomotor rhinitis (J30.0) Active confirmed Problem Hernia of anterior abdominal wall (disorder) (086388819) Ventral hernia without obstruction or gangrene (K43.9) Active confirmed Problem Postmenopausal bleeding (89775649) Postmenopausal bleeding (N95.0) Active confirmed Problem Hysterectomy (399530957) Acquired 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) Active confirmed Problem Absent ovary, acquired (378116352) Acquired absence of ovaries, unilateral (Z90.721) Active confirmed Problem Abnormal vaginal bleeding (903682191) DUB (dysfunctional uterine bleeding) (N93.8) Active confirmed Problem Long-term current use of anticoagulant (366454358) 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 of anticoagulant therapy (Z79.01) Active confirmed Problem Atherosclerotic heart disease of [place] coronary artery without angina pectoris (289979190990961) 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) Active confirmed Problem Atrial fibrillation (76557559) PAF (paroxysmal atrial fibrillation) (I48.0) Active confirmed Problem Hyperlipidaemia (69495491) Hyperlipidemia, unspecified hyperlipidemia type (E78.5) Active confirmed Problem Atherosclerotic heart disease of [place] coronary artery without angina pectoris (359128457321542) Atherosclerosis of [place] coronary artery without angina pectoris, unspecified whether [place] or transplanted heart (I25.10) Active confirmed Problem Thyromegaly (1005901) Thyromegaly (E01.0) Active confirmed Problem Endometrial carcinoma (658572683) Endometrial carcinoma (C54.1) Active confirmed Problem Cataract (592113357) Cataract of both eyes, unspecified cataract type (H26.9) Active confirmed Problem Aortic valve disorder (2381728) Aortic valve stenosis, etiology of cardiac valve disease unspecified (I35.0) Active confirmed Problem Arteriovenous malformation (36954207) 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) Active confirmed Problem Type II diabetes mellitus without complication (674633902) Type 2 diabetes mellitus without complication, unspecified whether nursing home insulin use (E11.9) Active confirmed Problem Diabetic peripheral neuropathy associated with type 2 diabetes mellitus (7134881606429) Type 2 diabetes mellitus with diabetic neuropathy, without long-term current use of insulin (E11.40) Active confirmed Problem Anemia (524230682) Acute anemia (D64.9) Active confirmed Plan Of Treatment No Information Insurance Providers Payer Name Payer Address Payer Phone Subscriber Number Group Number Insured Name Patient Relationship to Insured Coverage Start Date Coverage End Date MEDICARE PART B [address] [address] [place] [address] [id number] LEONEL BALLARD Self - patient is the insured MEDICA[employer] [address] [place] [address] [id number] LEONEL BALLARD Self - patient is the [...] Total Hysterectomy 12/29/2020 Hospitalization History Reason Date(Month/Year) [id number] tubal atrial flutter/fib dizziness 08/10/17 Dr. Rivera, [facility] endometrial bx and polyp removal 03/2018 Total Hysterectomy, [facility] 12/29/2020
--- OUTSIDE RECORDS SUMMARY | 2025-06-26 15:21 | XMS_ITS ---
Author Organization [facility] Address [address] [place] [address] Care Team Providers Care Chair Finisher Name Role Phone Suresh Claudio MD Primary Care Provider [phone] iPto Kohli MD Unavailable [phone] Norberto Art MD Unavailable [phone] Active Problems Problem Noted Date Diagnosed [...]
--- NOTE | 2025-06-26 15:59 | ECG_ITS ---
APPROVED REPORT Exam: Resting ECG HR:85 bpm ECG Measurements Heart Rate 85 AXES MO 200 P 87 QRSd 93 QRS -2 QT 341 T 32 QTc 383 Conclusion SINUS RHYTHM NONSPECIFIC ST & T-WAVE ABNORMALITY BORDERLINE ECG UNCONFIRMED REPORT Normal sinus rhythm. No ST elevation or depression. QTc of 383 Electronically signed by : KRISTIE CEE, 06/27/2025 01:00:49
--- NOTE | 2025-06-26 16:01 | CT_ITS ---
PROCEDURE INFORMATION: Exam: CT Head Without Contrast Exam date and time: 06/26/2025 5:26 PM Age: 85 years old Clinical indication: Stroke-like symptoms; Headache; Additional info: HX meningioma, headache TECHNIQUE: Imaging protocol: Computed tomography of the head without contrast. Radiation optimization: All CT scans at this facility use at least one of these dose optimization techniques: automated exposure control; mA and/or kV adjustment per patient size (includes targeted exams where dose is matched to clinical indication); or iterative reconstruction. Other technique: STROKE PROTOCOL was implemented. COMPARISON: CT HEAD/BRAIN WO CON 08/20/2024 12:35 PM FINDINGS: Limitations: Patient motion. Brain: Age-related volume loss. Decreased attenuation of the supratentorial white matter is likely secondary to chronic microvascular ischemia. There is extensive left cerebral vasogenic edema with ill-defined mass centered at the left frontal lobe. Mass measures up to approximately 4 cm. Small hyperdense component likely representing calcification was present on prior examination. Mass effect midline shift to the right measuring 5 mm. Chronic lacunar infarcts at the bilateral basal ganglia. Cerebral ventricles: No obstructive hydrocephalus. Paranasal sinuses: Mild paranasal sinus disease. Mastoid air cells: Visualized mastoid air cells are well aerated. Bones: Unremarkable. No acute fracture. Soft tissues: Unremarkable. IMPRESSION: 1. Left frontal mass with extensive adjacent vasogenic edema, markedly increased from prior examination dated 08/12/2024. 2. Significantly increasing mass effect with midline shift to the right measuring 5 mm.
--- NOTE | 2025-06-26 16:01 | XR_ITS ---
PROCEDURE INFORMATION: Exam: XR Chest Exam date and time: 06/26/2025 5:27 PM Age: 85 years old Clinical indication: Fever TECHNIQUE: Imaging protocol: Radiologic exam of the chest. Views: 1 view. COMPARISON: CT CHEST W CON 03/15/2025 9:34 AM FINDINGS: Lungs: There are chronic interstitial changes. No alveolar consolidation. Pulmonary nodules are better demonstrated on CT. Pleural spaces: Unremarkable. No pleural effusion. No pneumothorax. Heart/Mediastinum: Unremarkable. No cardiomegaly. Vasculature: Aortic calcification. Bones/joints: Osteopenia. Degenerative change involving the shoulders and spine. IMPRESSION: 1. No acute process. 2. Pulmonary nodules are better demonstrated on CT.
--- NOTE | 2025-06-26 16:01 | CT_ITS ---
PROCEDURE INFORMATION: Exam: CTA Head With Contrast, Arteriography Exam date and time: 06/26/2025 5:30 PM Age: 85 years old Clinical indication: Stroke-like symptoms; Headache; Additional info: HX meningioma, headache, rle weakness TECHNIQUE: Imaging protocol: Computed tomographic angiography of the head with contrast. Exam focused on the arteries. 3D rendering (Not supervised by radiologist): MIP and/or 3D reconstructed images were created by the technologist. Radiation optimization: All CT scans at this facility use at least one of these dose optimization techniques: automated exposure control; mA and/or kV adjustment per patient size (includes targeted exams where dose is matched to clinical indication); or iterative reconstruction. Contrast material: ISOVUE 370; Contrast volume: 100 ml; Contrast route: INTRAVENOUS (IV); COMPARISON: CT HEAD/BRAIN WO CON 06/26/2025 5:26 PM FINDINGS: Limitations: Patient motion. ANTERIOR CIRCULATION: Right internal carotid artery: Calcification involving the right carotid siphon with moderate stenosis. Right middle cerebral artery: Moderate right MCA M1 stenosis. Right anterior cerebral artery: No occlusion or significant stenosis. No aneurysm. Left internal carotid artery: Calcification involving the left carotid siphon with moderate to severe stenosis. Left middle cerebral artery: Moderate left MCA M1 stenosis. Left anterior cerebral artery: Left ANALI A1 segment is either markedly hypoplastic or absent. POSTERIOR CIRCULATION: Right vertebral artery: Right vertebral artery is dominant. Calcification involving the right vertebral artery without hemodynamically significant stenosis. Left vertebral artery: Calcification and irregularity involving the left vertebral artery with severe stenosis. Basilar artery: No occlusion or significant stenosis. No aneurysm. Right posterior cerebral artery: Moderate proximal right SAW TAILER P2 stenosis. Left posterior cerebral artery: No occlusion or significant stenosis. No aneurysm. Brain: There is irregularly enhancing left frontal lobe mass measuring up to 4.2 cm. IMPRESSION: 1. Severe left vertebral artery V4 stenosis. 2. Moderate to severe left carotid siphon stenosis. 3. Moderate right carotid siphon stenosis. 4. Moderate left MCA M1 stenosis. 5. Moderate right MCA M1 stenosis. 6. Moderate proximal right SAW TAILER P2 stenosis. 7. Moderate stenosis involving the right carotid siphon. 8. 4.2 cm enhancing left frontal lobe mass with extensive adjacent edema.
--- NOTE | 2025-06-26 16:01 | CT_ITS ---
PROCEDURE INFORMATION: Exam: CTA Neck With Contrast Exam date and time: 06/26/2025 5:30 PM Age: 85 years old Clinical indication: Stroke-like symptoms; Headache; Additional info: HX meningioma, headache, rle weakness TECHNIQUE: Imaging protocol: Computed tomographic angiography of the neck with contrast. Exam focused on the cervical segments of the vasculature. 3D rendering (Not supervised by radiologist): MIP and/or 3D reconstructed images were created by the technologist. Radiation optimization: All CT scans at this facility use at least one of these dose optimization techniques: automated exposure control; mA and/or kV adjustment per patient size (includes targeted exams where dose is matched to clinical indication); or iterative reconstruction. Contrast material: ISOVUE 370; Contrast volume: 100 ml; Contrast route: INTRAVENOUS (IV); COMPARISON: CT CERVICAL SPINE WO CON 08/20/2024 12:35 PM FINDINGS: Limitations: Patient motion. Limited by artifact arising from metallic dental hardware/dental amalgam. Right common carotid artery: Calcification of the right common carotid bifurcation without hemodynamically significant stenosis. Right internal carotid artery: Calcification of the proximal right internal carotid artery. Stenosis measures 50%. Right external carotid artery: No occlusion or stenosis of the origin. Left common carotid artery: Calcification at the left common carotid artery without hemodynamically significant stenosis. Left internal carotid artery: Dense calcification at the proximal left internal carotid artery. Stenosis measures up to 80%. Left external carotid artery: No occlusion or stenosis of the origin. Right vertebral artery: Right vertebral artery is dominant. Calcification at the origin of the right vertebral artery with [id number] stenosis. Left vertebral artery: Mild left vertebral artery V3 stenosis. Thyroid: Heterogeneous thyroid with ill-defined nodules. Soft tissues: Normal. No significant soft tissue swelling. Bones/joints: Degenerative change involving the spine. Lungs: There are nodular densities measuring up to 9 mm at the right lung apex. IMPRESSION: 1. 80% stenosis at the proximal left ICA. 2. Additional findings as above. COMMENTS: Consistent with the [employer]'s Incidental Findings Committee white paper (J Am Juan Miguel Radiol 2015): In patients aged 35 years and older with an incidental thyroid nodule equal to or greater than 1.[address], MRI or extrathyroidal US, further evaluation with dedicated thyroid US is recommended for patients with normal life expectancy and without comorbidities. For smaller nodules without suspicious features, no further evaluation or follow up is recommended. REFERENCES: NASCET CRITERIA. The degree of stenosis in the cervical segment of the internal carotid artery is based on NASCET criteria. Normal is no stenosis. Mild is less than 50% stenosis. Moderate is 50-69% stenosis. Severe is 70% to 99% stenosis. Total occlusion is no detectable patent lumen.
[2025-06-26 16:25] LABS: Adenovirus,PCR Not Detected (NotDetected); Coronovirus HKU1,PCR Not Detected (NotDetected)
[2025-06-26 16:27] LABS: Chlamydophila Pneumoniae, PCR Not Detected (NotDetected); Influenza A, PCR Not Detected (NotDetected); Influenza AH1, 2009 Not Detected (NotDetected); Influenza AH1, PCR Not Detected (NotDetected); Influenza AH3,PCR Not Detected (NotDetected); Influenza B, PCR Not Detected (NotDetected); Mycoplasma Pneumoniae, PCR Not Detected (NotDetected); Parainfluenza 1, PCR Not Detected (NotDetected); Parainfluenza 2, PCR Not Detected (NotDetected); Parainfluenza 3, PCR Not Detected (NotDetected); Parainfluenza 4, PCR Not Detected (NotDetected)
[2025-06-26 16:31] LABS: Hematocrit 38.5 % (37.0-47.0); Hemoglobin 12.7 g/dL (12.2-16.2); Immature Granulocytes % 0.9 %; Mean Corpuscular HGB Conc 33.0 g/dL (31.8-35.4); Mean Corpuscular Hemoglobin 31.7 pg (27.0-31.2); Mean Corpuscular Volume 96.0 fl (81-99); Nucleated Red Blood Cells % 0 %; Platelet Count 184 K/mm3 (142-424); Red Blood Count 4.01 M/mm3 (4.20-5.40); Red Cell Distribution Width-SD 44.9 fL; White Blood Count 8.9 K/mm3 (4.8-10.8)
[2025-06-26 16:33] LABS: Lactate Venous 1.9 mmol/L (0.4-2.0); VBG HCO3 29.6 mmol/L (23-30); VBG PCO2 47.8 mmol/L (35-51); VBG PH 7.41 mmol/L (7.31-7.41); VBG PO2 41.7 mmol/L (28-40)
[2025-06-26 16:37] LABS: Albumin Level 4.7 g/dl (3.5-5.0); Chloride 102 mmol/L (98-107); Potassium 3.7 mmoL/L (3.5-5.1); Sodium 141 mmol/L (136-145)
[2025-06-26] MEDS: ACETAMINOPHEN 500MG TAB 1000 MG PO (16:38)
[2025-06-26 16:40] LABS: Alanine Aminotransferase 13 U/L (12-78); Albumin/Globulin Ratio 1.3 (1.1-1.8); Alkaline Phosphatase 84 U/L (38-126); Anion Gap 13.7 mEq/L (5-15); Aspartate Amino Transferase 25 U/L (14-36); Bilirubin,Total 0.8 mg/dl (0.2-1.3); Blood Urea Nitrogen 31 mg/dl (7-17); Carbon Dioxide 29 mmol/L (22.0-30.0); Creatinine Clearance Estimated 52 mL/min (50-200); Creatinine,Serum 0.90 mg/dl (0.52-1.04); Estimated Glomerular Filt Rate 59 ml/min (>60); GFR (African American) 72 ML/MIN (>60); Globulin 3.7 g/dL (1.3-3.2); Total Protein,Serum 8.4 g/dl (6.3-8.2)
[2025-06-26 16:41] LABS: Calcium 10.1 mg/dl (8.4-10.2); Glucose 207 mg/dl (74-100)
[2025-06-26 16:57] LABS: Procalcitonin 0.046 ng/mL (0.0-2.0)
[2025-06-26 17:01] LABS: Troponin I < 0.01 ng/ml (0.00-0.034)
[2025-06-26] MEDS: RINGERS SOLUTION,LACTATED 500 ML 999 ML IV (17:03)
[2025-06-26] MEDS: 0.9 % SODIUM CHLORIDE 50 ML VIAL IV (17:38)
[2025-06-26] MEDS: IOPAMIDOL-370 (76%);100ML BOTTLE 80 ML IV (17:38)
[2025-06-26] MEDS: SODIUM CHLORIDE 0.9% 10ML SYR (RAD ONLY) 10 ML IV (17:38)
--- NOTE | 2025-06-26 17:53 | PC.NURSE ---
I called and requested a diabetic dinner tray from dietary with permission of
--- NOTE | 2025-06-26 18:15 | PC.NURSE ---
Called [facility] per Dr Braxton about transferring this pt. with a brain mass edema and a midline shift Images were powershared and [facility] advised they would call us back
[2025-06-26] MEDS: DEXAMETHASONE 4MG/ML 1ML VIAL 6 MG IV (18:31)
[2025-06-26] MEDS: levETIRAcetam 2,000 MG in 0.9 % SODIUM CHLORIDE 100 ML 240 MG IV (18:32)
--- NOTE | 2025-06-26 18:40 | PC.NURSE ---
called back and is speaking with Dr Braxton at this time
--- NOTE | 2025-06-26 18:45 | PC.NURSE ---
accepted the pt to [facility]
[2025-06-26 19:32] LABS: C-Reactive Protein 25.3 mg/L (0-4)
--- NOTE | 2025-06-26 19:58 | PC.NURSE ---
valerie aSlcedo collected UA
[2025-06-26 20:29] LABS: Coronavirus 19, PCR Detected (NotDetected)
[2025-06-26 21:52] LABS: Microscopic, Urine URINE MICROSCOPIC (MICROSCOPIC)
[2025-06-26 21:53] LABS: Bilirubin,Urine Negative (Negative); Color,Urine YELLOW (Yellow); Glucose,Urine (UA) Negative (Negative); Ketones,Urine TRACE (Negative); Leukocyte Esterase,Urine 1+ (Negative); PH,Urine 6.0 (5.0-8.5); Protein,Urine TRACE (Negative); Specific Gravity, Urine <= 1.005 (1.005-1.030); Urobilinogen,Urine 1.0 EU/dl (0.2)
[2025-06-26 21:58] LABS: Bacteria,Urine 4+ /lpf; RBC,Urine 20-50 #/hpf (0-3); WBC,Urine 20-50 #/hpf (0-3)
--- NOTE | 2025-06-28 07:58 | PC.NURSE ---
Urine culture results faxed to [facility]
== END 2025-06-26 23:04 | disposition other institution (70) ==
PROVIDERS: Emergency Provider Student in an Organized Health Care Education/Training Program; PCP Family Medicine
DX: U07.1 COVID-19 (principal); R09.02 Hypoxemia; R50.9 Fever, unspecified; N39.0 Urinary tract infection, site not specified; G93.6 Cerebral edema; R90.0 Intracranial space-occupying lesion found on diagnostic imaging of central nervous system; R53.1 Weakness; I10 Essential (primary) hypertension; Z86.79 Personal history of other diseases of the circulatory system
CPT/HCPCS: 0223U; 70450; 70496; 70498; 71045; 80053; 81001; 82803; 84145; 84484; 85025; 86140; 87040; 87086; 87088; 87186; 93005; 96365; 96375; 99285; J0696; J1100; J1953; J7120; Q9967

== ENCOUNTER 2025-08-27 16:30 | Outpatient (CLI) | payer MEDICARE, MEDICAID, SELFPAY ==
--- OUTSIDE RECORDS SUMMARY | 2025-08-29 13:59 | XMS_ITS | Clinical Summary ---
Author Organization [facility] Address [address] [place] [id number] Phone Care Team Providers Care Basic Combatant Swimmer Name Role Phone Unavailable Primary Care Provider [...] 75+ series) 2014 COVID-19 Vaccine (1 - 2024-2 6 season) 2025 Influenza Vaccine (#1) 2025 Hepatitis B Vaccine Aged Out No longe r eligible based on patient's age to complete this topic Meningococcal B Vaccine Aged Out No l onger eligible based on patient's age to complete this topic Insurance MEDICARE [place] PART A AND B MEDICAID [id number]
--- OUTSIDE RECORDS SUMMARY | 2025-08-29 13:59 | XMS_ITS ---
Author Organization [facility] Address [address] [place] [address] Care Team Providers Care Photographic Reproduction Technician Name Role Phone Suresh Claudio MD Primary Care Provider [phone] Pito Kohli MD Unavailable [phone] Norberto Art MD Unavailable [phone] Transitional Care Management Status:Closed (Closed) Start date:07/01/2025 Enrollment date:07/01/2025 Enrollment reason:Identified using hospital discharge data End date:07/31/2025 Close reason:Patient graduated Overview This episode type is for outpatient care managers enrolling patients in the [facility] Transitional Care Management program. Continued Care and Services Coordination
--- OUTSIDE RECORDS SUMMARY | 2025-08-29 14:00 | XMS_ITS ---
Author Organization [facility] Address [address] [place] [address] Care Team Providers Care Soda Fountain Manager Name Role Phone Suresh Claudio MD Primary Care Provider [phone] Pito Kohli MD Unavailable [phone] Norberto Art MD Unavailable [phone] Active Problems Problem Noted Date Diagnosed Date COVID-19 06/29/2025 UTI (urinary tract infection) 06/27/2025 Assessment & Plan (06/27/2025 5:19 PM EDT): Per history she switched from anticoagulation to antiplatelet about 3 weeks ago, and then about 1.5 weeks ago noticed sudden onset of dysarthria, some dysphonia. Over the past 24 hours patient felt week and almost had a fall. Patient doesn't fell any weakness but issues with knees buckling. She reports that she uses a walker sometimes at baseline. ON exam, non-focal exam, good strength, cautious gait with no obvious buckling. Mech: I think the weakness of the legs is likely due to debility in the setting of UTI. Dysarthria would be some that needs to be workup with MRI, PROMPT CARE RN eval. Continue stroke prophylaxis. Patient has not had a seizure, unclear indication for the Anti seizure medication. Recommendation: -PT/OT consult for gait and balance -PROMPT CARE RN for dysarthria -Increase the Atorvastatin to 40 mg (high intensity statin) -[facility] to r/o a subacute stroke -meningioma management per primary team/neurosurgery -rest per primary team Weakness of both lower extremities 06/27/2025 Assessment & Plan (06/28/2025 6:42 PM EDT): #left frontal meningioma 06/28 - No concerns of increasing size per NSGY - will dc steroid ; kepra to continue for now - follow on NSGY recs poa - CT head which showed large left frontal mass with significant vasogenic edema throughout the left frontal lobe which corresponds to extraaxial enhancing mass seen on MRI in 08/2021, there does appear to be an interval increase in associated edema - Neurosurgery consulted Plan per neuro - MRI head w/w/o - Obtain coag studies (PTT, INR, type & screen, platelets) - Dex 10 mg IV once - Dex 4 mg IV q6hrs - GI ppx while on steroids (H2 phani or PPI) - Keppra load 20mg/kg, then Keppra 1000mg BID maintenance 12 hrs after load - Hold all anticoagulation and antiplatelet medication #Urinary tract infection - OSH VS upon arrival: T-max 100.5 F, HR 83, RR 16, BP 170/60 (96), SpO2 93% on RA - No acute sign of TEDDY - UA with bacteruria, pyuria, nitrites, leuk. Esterase, bacteria, and WBCs - ED started Rocephin 2 g IV once Plan: - Rocephin 1 g IV daily - LR at 100 ml/hr - consider renal ultrasound Covid -19 Infection - Pos swab + symptomatic with predominantly dry cough - No respiratory failure - will monitor another day #Type 2 DM - Glu 238 - home meds: metformin 500 mg daily Plan - hold oral meds - ISS per protocol - FSBS per protocol - recommend rechecking Hgb A1c #Paroxysmal Afib s/p watchman procedure #HTN #HLD #Aortic Stenosis - home meds: sotalol 80 mg BID, ASA, lisinopril 10 mg daily, simvastatin 10 mg nightly, Coenyzme q10 100 mg daily, Lasix 20 mg every other day, Lasix 40 mg every other day Plan - continue sotalol, lisinopril, simvastatin, & coenyzme q - hold lasix & ASA, resume when medically appropriate #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 Over the past 24 hours patient felt week and almost had a fall. Patient doesn't fell any weakness but issues with knees buckling. She reports that she uses a walker sometimes at baseline. ON exam, non-focal exam, good strength, cautious gait with no obvious buckling. Mech: I think the weakness of the legs is likely due to debility in the setting of UTI. Dysarthria would be some that needs to be workup with MRI, PROMPT CARE RN eval. Continue stroke prophylaxis. Patient has not had a seizure, unclear indication for the Anti seizure medication. Recommendation: -PT/OT consult for gait and balance -PROMPT CARE RN for dysarthria -Increase the Atorvastatin to 40 mg (high intensity statin) -[facility]H to r/o a subacute stroke -meningioma management per primary team/neurosurgery -rest per primary team Assessment & Plan (06/27/2025 9:26 AM EDT): #left frontal meningioma - CT head which showed large left frontal mass with significant vasogenic edema throughout the left frontal lobe which corresponds to extraaxial enhancing mass seen on MRI in 08/2021, there does appear to be an interval increase in associated edema - Neurosurgery consulted Plan per neuro - MRI head w/w/o - Obtain coag studies (PTT, INR, type & screen, platelets) - Dex 10 mg IV once - Dex 4 mg IV q6hrs - GI ppx while on steroids (H2 phani or PPI) - Keppra load 20mg/kg, then Keppra 1000mg BID maintenance 12 hrs after load - Hold all anticoagulation and antiplatelet medication #Urinary tract infection - OSH VS upon arrival: T-max 100.5 F, HR 83, RR 16, BP 170/60 (96), SpO2 93% on RA - No acute sign of TEDDY - UA with bacteruria, pyuria, nitrites, leuk. Esterase, bacteria, and WBCs - ED started Rocephin 2 g IV once Plan: - Rocephin 1 g IV daily - LR at 100 ml/hr - consider renal ultrasound #Type 2 DM - Glu 238 - home meds: metformin 500 mg daily Plan - hold oral meds - ISS per protocol - FSBS per protocol - recommend rechecking Hgb A1c #Paroxysmal Afib s/p watchman procedure #HTN #HLD #Aortic Stenosis - home meds: sotalol 80 mg BID, ASA, lisinopril 10 mg daily, simvastatin 10 mg nightly, Coenyzme q10 100 mg daily, Lasix 20 mg every other day, Lasix 40 mg every other day Plan - continue sotalol, lisinopril, simvastatin, & coenyzme q - hold lasix & ASA, resume when medically appropriate #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 Over the past 24 hours patient felt week and almost had a fall. Patient doesn't fell any weakness but issues with knees buckling. She reports that she uses a walker sometimes at baseline. ON exam, non-focal exam, good strength, cautious gait with no obvious buckling. [facility]: I think the weakness of the legs is likely due to debility in the setting of UTI. Dysarthria would be some that needs to be workup with MRI, PROMPT CARE RN eval. Continue stroke prophylaxis. Patient has not had a seizure, unclear indication for the Anti seizure medication. Recommendation: -PT/OT consult for gait and balance -PROMPT CARE RN for dysarthria -Increase the Atorvastatin to 40 mg (high intensity statin) -[facility] to r/o a subacute stroke -meningioma management per primary team/neurosurgery -rest per primary team Carotid artery stenosis 08/30/2024 Cervical polyp 08/30/2024 Stenosis of cervix 08/30/2024 Dyspnea 08/30/2024 Endometrial thickening on ultrasound 08/30/2024 HTN (hypertension) 08/30/2024 Assessment & Plan (06/27/2025 5:19 PM EDT): Per history she switched from anticoagulation to antiplatelet about 3 weeks ago, and then about 1.5 weeks ago noticed sudden onset of dysarthria, some dysphonia. Over the past 24 hours patient felt week and almost had a fall. Patient doesn't fell any weakness but issues with knees buckling. She reports that she uses a walker sometimes at baseline. ON exam, non-focal exam, good strength, cautious gait with no obvious buckling. Mech: I think the weakness of the legs is likely due to debility in the setting of UTI. Dysarthria would be some that needs to be workup with MRI, PROMPT CARE RN eval. Continue stroke prophylaxis. Patient has not had a seizure, unclear indication for the Anti seizure medication. Recommendation: -PT/OT consult for gait and balance -PROMPT CARE RN for dysarthria -Increase the Atorvastatin to 40 mg (high intensity statin) -[facility] to r/o a subacute stroke -meningioma management per primary team/neurosurgery -rest per primary team Hypotension 08/30/2024 Syncope, near 08/30/2024 Hyperuricemia 08/30/2024 Junctional escape rhythm 08/30/2024 PAF (paroxysmal atrial fibrillation) 08/30/2024 Assessment & Plan (06/27/2025 5:19 PM EDT): Per history she switched from anticoagulation to antiplatelet about 3 weeks ago, and then about 1.5 weeks ago noticed sudden onset of dysarthria, some dysphonia. Over the past 24 hours patient felt week and almost had a fall. Patient doesn't fell any weakness but issues with knees buckling. She reports that she uses a walker sometimes at baseline. ON exam, non-focal exam, good strength, cautious gait with no obvious buckling. Mech: I think the weakness of the legs is likely due to debility in the setting of UTI. Dysarthria would be some that needs to be workup with MRI, PROMPT CARE RN eval. Continue stroke prophylaxis. Patient has not had a seizure, unclear indication for the Anti seizure medication. Recommendation: -PT/OT consult for gait and balance -PROMPT CARE RN for dysarthria -Increase the Atorvastatin to 40 mg (high intensity statin) -[facility] to r/o a subacute stroke -meningioma management per primary team/neurosurgery -rest per primary team Postmenopausal bleeding 08/30/2024 Vaginal bleeding 08/30/2024 Right carotid bruit 08/30/2024 Syncope 08/30/2024 Ventral hernia 08/30/2024 Diabetes mellitus type II, non insulin dependent 08/30/2024 Assessment & Plan (06/27/2025 5:19 PM EDT): Per history she switched from anticoagulation to antiplatelet about 3 weeks ago, and then about 1.5 weeks ago noticed sudden onset of dysarthria, some dysphonia. Over the past 24 hours patient felt week and almost had a fall. Patient doesn't fell any weakness but issues with knees buckling. She reports that she uses a walker sometimes at baseline. ON exam, non-focal exam, good strength, cautious gait with no obvious buckling. [facility]: I think the weakness of the legs is likely due to debility in the setting of UTI. Dysarthria would be some that needs to be workup with MRI, PROMPT CARE RN eval. Continue stroke prophylaxis. Patient has not had a seizure, unclear indication for the Anti seizure medication. Recommendation: -PT/OT consult for gait and balance -PROMPT CARE RN for dysarthria -Increase the Atorvastatin to 40 mg (high intensity statin) -[facility] to r/o a subacute stroke -meningioma management per primary team/neurosurgery -rest per primary team Leg pain 08/30/2024 Aortic stenosis 08/30/2024 Abdominal wall hernia 07/02/2022 Meningioma 01/12/2022 Assessment & Plan (06/27/2025 5:19 PM EDT): Per history she switched from anticoagulation to antiplatelet about 3 weeks ago, and then about 1.5 weeks ago noticed sudden onset of dysarthria, some dysphonia. Over the past 24 hours patient felt week and almost had a fall. Patient doesn't fell any weakness but issues with knees buckling. She reports that she uses a walker sometimes at baseline. ON exam, non-focal exam, good strength, cautious gait with no obvious buckling. Mech: I think the weakness of the legs is likely due to debility in the setting of UTI. Dysarthria would be some that needs to be workup with MRI, PROMPT CARE RN eval. Continue stroke prophylaxis. Patient has not had a seizure, unclear indication for the Anti seizure medication. Recommendation: -PT/OT consult for gait and balance -PROMPT CARE RN for dysarthria -Increase the Atorvastatin to 40 mg (high intensity statin) -MR to r/o a subacute stroke -meningioma management per primary team/neurosurgery -rest per primary team Endometrial cancer 04/04/2021 Cancer Staging:Clinical stage from 12/29/2020:FIGO Stage IA(cT1a, cN0, cM0) - Unsigned Assessment & Plan (06/27/2025 5:19 PM EDT): Per history she switched from anticoagulation to antiplatelet about 3 weeks ago, and then about 1.5 weeks ago noticed sudden onset of dysarthria, some dysphonia. Over the past 24 hours patient felt week and almost had a fall. Patient doesn't fell any weakness but issues with knees buckling. She reports that she uses a walker sometimes at baseline. ON exam, non-focal exam, good strength, cautious gait with no obvious buckling. Mech: I think the weakness of the legs is likely due to debility in the setting of UTI. Dysarthria would be some that needs to be workup with MRI, PROMPT CARE RN eval. Continue stroke prophylaxis. Patient has not had a seizure, unclear indication for the Anti seizure medication. Recommendation: -PT/OT consult for gait and balance -PROMPT CARE RN for dysarthria -Increase the Atorvastatin to 40 mg (high intensity statin) -[facility] to r/o a subacute stroke -meningioma management per primary team/neurosurgery -rest per primary team Current Treatment and Therapy Plans No current plan information found. Past Treatment and Therapy Plans No past plan information found. Lifetime Dose Tracking * Chemical Lifetime Dose Automatic Entry Manual Entr y Fluoro Time 4.5 minutes 0 minutes 4.5 minutes Air Kerma 70 mGy 0 mGy 70 mGy Air Kerma Area Product 6,222 Gy-cm2 0 Gy-cm2 6,222 Gy-cm2 Resolved Problems Problem Noted Date Diagnosed Date Resolved Date Acute kidney injury 08/30/2024 07/14/20 Cervical cancer 08/30/2024 06/27/2025
--- OUTSIDE RECORDS SUMMARY | 2025-08-29 14:00 | XMS_ITS | Encounter Summary ---
Author Organization Healthcare Address [address] [place] [address] Care Team Providers Care Drum Attendant Name Role Phone Suresh Claudio MD Primary Care Provider [phone] Pito Kohli MD Unavailable [phone] Norberto Art MD Unavailable [phone] Sylvia Collins LPN Unavailable Unavailable Reason for Visit * Reason Comments TCM Encounter Details Date Type Department Care Team (Late st Contact Info) Description 07/01/2025 Patient Outreach POPULATION HEALTH [address], [address] [place] [address] [phone] Sylvia Collins LPN [employer] [place] [address] TCM Social History Tobacco Use Types Packs/Day Years Used Date Smoking Tobacco: Never Smokeless Tobacco: Never Alcohol Use Standard Drinks/Week Comments Never 0 (1 standard drink = 0.6 oz pur e alcohol) PHQ-2 Answer Date Recorded Patient Health Questionnaire-2 Score 0 09/14/2024 PHQ-9 Answer Date Recorded Patient Health Questionnaire-9 Score 0 09/14/2024 Humiliation, Afraid, Rape, and Kick questionnair e Answer Date Recorded Within the last year, have y ou been afraid of your partner or ex-partner? No 06/28/2025 Within the last year, have y ou been humiliated or emotionally abused in other ways by your partner or ex-partner? No Within the last year, have y ou been kicked, hit, slapped, or otherwise physically hurt by your partner or ex-partner? No 06/28/2025 Within the last year, have y ou been raped or forced to have any kind of sexual activity by your partner or ex-partner? No 06/28/2025 Hunger Vital Sign Answer Date Recorded Within the past 12 months, y ou worried that your food would run out before you got the money to buy more. Never true 06/28/20 25 Within the past 12 months, t he food you bought just didn't last and you didn't have money to get more. Never true 06/28/2025 PRAPARE - Transportation Answer Date Re corded In the past 12 months, has l ack of transportation kept you from medical appointments or from getting medications? No 02/2025 In the past 12 months, has l ack of transportation kept you from meetings, work, or from getting things needed for daily living? No 06/28/2025 Housing Stability Vital Sign Answer Sanjeev e Recorded In the last 12 months, was t here a time when you were not able to pay the mortgage or rent on time? No 06/28/2025 In the past 12 months, how m any times have you moved where you were living? 0 06/28/2025 At any time in the past 12 m [facility], were you homeless or living in a nursing home (including now)? No 06/28/2025 [facility] Utilities Answer Date Recorded In the past 12 months has th e electric, gas, oil, or water company threatened to shut off services in your home? No 06/28/2025 CAGE ASSESSMENT Answer Date Recorded Cage unable to access Not on file 06/28/2025 Cage max number of drinks Not on file 2024 Cage Beverages a week Not on file 06/28/2025 Have you ever felt you should CUT down on your d rinking? 0 06/28/2025 Have you been ANNOYED by people criticizing your drinking? 0 06/28/2025 Have you felt GUILTY about your drinking? 0 06/28/2025 Have you had a drink first t sony in the morning (EYE-SPECIAL PROCEDURE TECH) to steady your nerves or to get rid of a hangover? 0 06/28/2025 CAGE Questionnaire Score 0 025 PHQ-2A Answer Date Recorded Patient Health Questionnaire-2 Score 0 07/18/2023 Comments No Sex and Gender Information Value Date Recorded Sex Assigned at Not on file Legal Sex Female 6:56 PM EDT Gender Identity Not on file Sexual Orientation Not on file documented as of this encounter Miscellaneous Notes * Progress Notes - Sylvia Collins LPN - 07/01/2025 11:38 AM EDT Admit Date: 06/26/2025 Discharge Date: 06/29/2025 Hospital Service: Hospital Medicine Discharge Diagnosis: Meningioma 07/01/2025 TCM call # 1 Patient Reached: Y Outcome: Patient's daughter Fernanda reached. Patient's daughter Fernanda states she will call patient's outside PCP Dr. Claudio to schedule 1-2 week hospital follow up appointment. Patient's daughter reports her mother does have a productive cough with white mucous but denied patient with N/V, diarrhea, fever, chills, CP, palpitations, or SOA or pain. States patient's oxygen was 95% last night. Medications reviewed and daughter reports her mother is compliant with all at home and discharge medications. Sdoh is up to date and patient's daughter denied patient with any new needs and reports she takesher mother to her appointments. Patient's daughter did not have any other questions, concerns or complaints at time of nurse call. Action: No upcoming appointments in [facility] at time of nurse call. Daughter is aware referrals are pending for Neurosurgery appointment and MRI. Medication changes per AVS: START taking: benzocaine-menthol (Chloraseptic) 6-10 MG lozenge Dissolve 1 lozenge in the mouth every 4 hours as needed for sore throat [facility] appointment: N/A Items to address at [facility] per discharge summary: -Advised follow up with Dr Unger in 1-3 months with a follow up MRI - recommend rechecking Hgb A1c -COVID isolation - one more week documented in this encounter Plan of Treatment Not on file documented as of this encounter Visit Diagnoses Not on filedocumented in this encounter Additional Health Concerns Infection Onset Date Last Indicated Resolved Time COVID 19 (Confirmed) 06/27/2025 06/27/2025 025 9:55 PM EDT Assessment Noted Time PHQ-9 Depression Total Score: 0 09/14/20 10:31 AM EST A fall risk assessment has been complete d for the patient 09/14/2024 10:31 AM EST A Body Mass Index follow-up plan has been documented for the patient 06/29/2025 1:27 PM EDT documented as of this encounter Care Teams Drum Attendant Relationship Specialty Start Date End Date Suresh Claudio MD [address], [place] [address] PCP - General Family Medicine 04/07/21 Pito Kohli MD [address], [place] [address] Referring Physician 05/05/21 Norberto Art MD [address] [place] [address] Surgeon Neurosurgery 07/15/22 Sylvia Collins LPN [employer] [place] [address] TCM Nurse 07/01/25 07/31/25 documented as of this encounter
--- OUTSIDE RECORDS SUMMARY | 2025-08-29 14:00 | XMS_ITS | Encounter Summary ---
Author Organization Healthcare Address [address] [place] [address] Care Team Providers Care Rotor Blade Installer Name Role Phone Suresh Claudio MD Primary Care Provider [phone] Pito Kohli MD Unavailable [phone] Norberto Art MD Unavailable [phone] Sylvia Collins LPN Unavailable Unavailable Encounter Details Date Type Department Care Team (Late st Contact Info) Description 06/26/2025 Orders Only External Location [address] [place] [address] Provider, External Social History Tobacco Use Types Packs/Day Years [...] money to buy more. Never true 06/28/20 Within the past 12 months, t he [...] any time in the past 12 m [facility], were you homeless or living in a assisted (including now)? No 06/28/2025 [facility] Utilities Answer Date Recorded In the past 12 months has e electric, gas, oil, or water company [...] drink first t sony in the morning (EYE-CEMETERY VAULT INSTALLER) to steady your nerves or to get [...] on file documented as of this encounter Functional Status * Calculated C-SSRS Risk Score (Lifetime/Recent) Answer Date of Assessment Author No Risk Indicated 06/29/2025 12:00 PM EDT Libra Murray RN * Question Answer Date of Assessment Author 1. Wish to be (Past 1 Month) No 025 12:00 PM EDT Libra Spence RN 2. Non-Specific Active Suici lucius Thoughts (Past 1 Month) No 06/29/2025 12:00 PM EDT Pérez Spence RN 6. Suicidal Behavior (Lifetime) No 12:00 PM EDT Libra Spence RN documented as of this encounter Plan of Treatment Not on file documented as of this encounter Procedures Procedure Name Priority Date/Time Associated Diagnosis Comments CT OUTSIDE IMAGES 06/26/2025 5:30 PM EDT documented in this encounter Results * CT OUTSIDE IMAGES (06/26/2025 5:30 PM EDT) Anatomical Region Laterality Modality Computed Tomogra phy 06/26/2025 5:30 PM EDT External Provider IMG CT PROCEDURES Final Result documented in this encounter Visit Diagnoses Not on filedocumented in this encounter Additional Health Concerns Infection Onset Date Last Indicated Resolved Time COVID-19 Rule-Out 06/27/2025 06/27/2025 06/27/2025 11:30 AM EDT COVID 19 (Confirmed) 06/27/2025 06/27/2025 025 9:55 PM EDT Assessment Noted Time PHQ-9 Depression Total Score: 0 09/14/20 24 10:31 AM EST A fall risk assessment has been complete d for the patient 09/14/2024 10:31 AM EST A Body Mass Index follow-up plan has been documented for the patient 06/29/2025 1:27 PM EDT documented as of this encounter Care Teams Rotor Blade Installer Relationship Specialty Start Date End Date Suresh Claudio MD [address] [place] [address] PCP - General Family Medicine 04/07/21 Pito Kohli MD [address] [place] [address] [place] [address] Referring Physician 05/05/21 Norberto Art MD [address] [place] [address] Surgeon Neurosurgery 07/15/22 Sylvia Collins, SHARRI VALUE-BASED [place] [address] TCM Nurse 07/01/25 07/31/25 documented as of this encounter
--- OUTSIDE RECORDS SUMMARY | 2025-08-29 14:00 | XMS_ITS | Encounter Summary ---
Author Organization Healthcare Address [address] [place] [address] Care Team Providers Care Chief Operator Lock Tender Name Role Phone Suresh Claudio MD Primary Care Provider [phone] Pito Kohli MD Unavailable [phone] Norberto Art MD Unavailable [phone] Sylvia Collins LPN Unavailable Unavailable Encounter Details Date Type Department Care Team (Late st Contact Info) Description 06/26/2025 Orders Only External Location [address] [place] [address] Provider, External Social History Tobacco Use Types [...] any time in the past 12 m [facility], were you homeless or living in a [facility] (including now)? No 06/28/2025 [facility] Utilities Answer Date Recorded In the [...] drink first t sony in the morning (EYE-ORIENTATION & MOBILITY SPECIALIST) to steady your nerves or to get [...] documented as of this encounter Care Teams Chief Operator Lock Tender Relationship Specialty Start Date End Date Suresh Claudio MD [address] [place] [address] PCP - General Family Medicine 04/07/21 Pito Kohli MD [address] [place] [address] Referring Physician 05/05/21 Norberto Art MD [address] [place] [address] Surgeon Neurosurgery 07/15/22 Sylvia Collins, SHARRI VALUE-[place] [place] [address] TCM Nurse 07/01/25 07/31/25 documented as of this encounter
--- OUTSIDE RECORDS SUMMARY | 2025-08-29 14:00 | XMS_ITS | Clinical Summary ---
Author Organization [facility] Address [address] [place] [address] Care Team Providers Care Financial Sales Assistant Name Role Phone Suresh Claudio MD Primary Care Provider [phone] Pito Kohli MD Unavailable [phone] Norberto Art MD Unavailable [phone] Allergies No known active allergies Medications sotalol (Betapace) 80 MG tablet Take 1 tablet by mouth 2 times a day. Active metFORMIN (Glucophage) 500 MG tablet Take 1 tablet by mouth daily. Active simvastatin (Zocor) 10 MG tablet Take 1 tablet by mouth daily. Active furosemide (Lasix) 20 MG tablet Take 2 tablets by mouth daily. Active docusate sodium (Colace) 100 MG capsule Take 1 capsule by mouth daily. Active lisinopril 10 MG tablet Take 1 tablet by mouth daily. Active Coenzyme Q10 (Q-SORB) 100 MG capsule Take 1 capsule by mouth daily. Active gabapentin (Neurontin) 100 MG capsule Take 1 capsule by mouth 3 times a day. Active pantoprazole (Protonix) 40 MG EC tablet Take 1 tablet by mouth daily. Active allopurinol (Zyloprim) 100 MG tablet Take 1 tablet by mouth daily. Active cyanocobalamin 1000 MCG tablet Take 1 tablet by mouth daily. Active FeroSul 325 (65 Fe) MG tablet Take 1 tablet by mouth 2 times a day. Active ASPIRIN 81 MG chewable tablet Chew 1 tablet daily. Active biotin 1000 MCG tablet Take 2 tablets by mouth daily. Active montelukast (Singulair) 10 MG tablet Take 1 tablet by mouth nightly. Active benzocaine-ment hol (Chloraseptic) 6-10 MG lozenge Dissolve 1 lozenge in the mouth every 4 hours as needed for sore throat. 100 lozenge 06/29/2025 Active Active Problems Problem Noted Date Diagnosed [...] that needs to be workup with MRI, COMMUNICATIONS BILLING ANALYST eval. Continue stroke prophylaxis. Patient has not had a seizure, unclear indication for the Anti seizure medication. Recommendation: -PT/OT consult for gait and balance -COMMUNICATIONS BILLING ANALYST for dysarthria -Increase the Atorvastatin to 40 [...] that needs to be workup with MRI, COMMUNICATIONS BILLING ANALYST eval. Continue stroke prophylaxis. Patient has not had a seizure, unclear indication for the Anti seizure medication. Recommendation: -PT/OT consult for gait and balance -COMMUNICATIONS BILLING ANALYST for dysarthria -Increase the Atorvastatin to 40 [...] strength, cautious gait with no obvious buckling. [facility]: I think the weakness of the legs is likely due to debility in the setting of UTI. Dysarthria would be some that needs to be workup with MRI, COMMUNICATIONS BILLING ANALYST eval. Continue stroke prophylaxis. Patient has not had a seizure, unclear indication for the Anti seizure medication. Recommendation: -PT/OT consult for gait and balance -COMMUNICATIONS BILLING ANALYST for dysarthria -Increase the Atorvastatin to 40 mg (high intensity statin) -[facility] to r/o a subacute stroke -meningioma management [...] that needs to be workup with MRI, COMMUNICATIONS BILLING ANALYST eval. Continue stroke prophylaxis. Patient has not had a seizure, unclear indication for the Anti seizure medication. Recommendation: -PT/OT consult for gait and balance -COMMUNICATIONS BILLING ANALYST for dysarthria -Increase the Atorvastatin to 40 mg (high intensity statin) -[facility] to r/o a subacute stroke -meningioma management [...] that needs to be workup with MRI, COMMUNICATIONS BILLING ANALYST eval. Continue stroke prophylaxis. Patient has not had a seizure, unclear indication for the Anti seizure medication. Recommendation: -PT/OT consult for gait and balance -COMMUNICATIONS BILLING ANALYST for dysarthria -Increase the Atorvastatin to 40 mg (high intensity statin) -[facility] to r/o a subacute stroke -meningioma management [...] that needs to be workup with MRI, COMMUNICATIONS BILLING ANALYST eval. Continue stroke prophylaxis. Patient has not had a seizure, unclear indication for the Anti seizure medication. Recommendation: -PT/OT consult for gait and balance -COMMUNICATIONS BILLING ANALYST for dysarthria -Increase the Atorvastatin to 40 [...] that needs to be workup with MRI, COMMUNICATIONS BILLING ANALYST eval. Continue stroke prophylaxis. Patient has not had a seizure, unclear indication for the Anti seizure medication. Recommendation: -PT/OT consult for gait and balance -COMMUNICATIONS BILLING ANALYST for dysarthria -Increase the Atorvastatin to 40 [...] that needs to be workup with MRI, COMMUNICATIONS BILLING ANALYST eval. Continue stroke prophylaxis. Patient has not had a seizure, unclear indication for the Anti seizure medication. Recommendation: -PT/OT consult for gait and balance -COMMUNICATIONS BILLING ANALYST for dysarthria -Increase the Atorvastatin to 40 mg (high intensity statin) -[facility] to r/o a subacute stroke -meningioma management per primary team/neurosurgery -rest per primary team Resolved Problems Problem Noted Date Diagnosed Date Resolved Date Acute kidney injury 08/30/2024 07/14/20 25 Cervical cancer 08/30/2024 06/27/2025 Encounters Date Type Department Care Team Description 07/01/2025 Patient Outreach [facility] [address], [address] [place] [address] Sylvia Collins LPN [facility] 06/29/2025 Travel 06/28/2025 Travel 06/27/2025 Travel 06/26/2025 11:57 PM EDT - 06/29/2025 3:10 PM EDT Hospital Encounter [facility] Inpatient [address] [place] [address] Avril Mullins MD Bowers, MD Elena Julian Mohamed E, MD Vyasabattu, Mahender, MD Meningioma ([facility]) (Primary Dx); Weakness Discharge Disposition: Home or Self Care 06/26/2025 Orders Only External Location [address] [place] [address] Provider, External 06/26/2025 Orders Only External Location [address] [place] [id number] Provider, External 06/26/2025 Orders Only External Location [address] [place] [id number] Provider, External 06/26/2025 Orders Only External Location [address] [place] [address] Provider, External 06/04/2025 Telephone [facility] Vinton Suraj [address] [place] [address] Alee Hawkins from Last 3 Months Immunizations Immunization Administration Dates Next Due Influenza, High-dose, Split Virus, Trivalent, Injectable, preservative free 08/28/2024,08/06/2022,08/01/2020,08/22,08/08/2017 Influenza, high-dose, quadrivalent 09/13,07/23/2021,08/22/2018,08/08,06/29/2016,07/31/2015,07/31/2014 ,08/01/2013,07/25/2012 Influenza, seasonal, injectable 07/27/20 11,08/05/2010,09/02/2009,09/02,07/31/2008,08/21/2007,09/02/2006 ,09/14/2005 Pneumococcal Conjugate PCV 13 07/31/2014 Pneumococcal Polysaccharide PPV23 04/06/2019, Tdap 08/08/2017,08/08/2017 Zoster, live 04/07/2019 Family History Medical History Relation Name Comments [...] any time in the past 12 m [facility], were you homeless or living in a longterm (including now)? 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) to steady your nerves or to get [...] Sign Reading Time Taken Comments Blood Pressure 139/50 06/29/2025 12:15 PM EDT Pulse 60 06/29/2025 12:15 PM EDT Temperature 36.4 C (97.5 F) 06/29/2025 8:18 AM EDT Respiratory Rate 23 06/29/2025 12:1 5 PM EDT Oxygen Saturation 100% 06/29/2025 12: 15 PM EDT Inhaled Oxygen Concentration - - Weight 62.9 kg (138 lb 10.7 oz) 025 11:53 PM EDT Height 154.9 cm (5' 1 ) 06/27/2025 12:1 7 AM EDT Body Mass Index 26.2 06/27/2025 12:17 AM EDT Plan of Treatment Health Maintenance Due Date Last Done Comments [facility]-Bone Density Scan 1940 [facility]-Medicare Annual Wellness (AWV) 1940 [facility]-/Child/Adol SDOH Screenings 1940 [id number] Vaccine (#1) 1944 Diabetes: Dental Exam 1949 [facility]-RSV Vaccine: 60+ Years or (1 - 1-dose 75+ series) 2014 [facility]-Zoster Vaccines (1 of 2) 06/02/2019 04/07/2019 [facility]-Diabetes: Hemoglobin A1C 06/10/2021 12/11/2020 [facility]-Influenza Vaccine (#1) 06/24/202508/28, 09/13/2023, 08/06/2022, Additional history exists [facility]-Depression Screening 09/14/2025 09/14/2024, 08/25 [facility]- SDOH Screenings 12/26/2025 [facility]-Adult SDOH Screenings 12/26/2025 06/28/2025 [facility]-DTaP,Tdap,and Td Vaccines (3 - Td or Tdap) 08/08/2027 08/08/2017, 08/08/2017 [facility]-Pneumococcal Vaccine: 50+ Years Completed 04/06/2019, 04/06/2019, 07/31/2014 [facility]-Obesity Intervention Completed 025, 09/14/2024, 09/14/2024, Additional history exists HPV Vaccines Aged Out [...] this topic Medical Devices Implanted Type Area Comb Setter Device Identifier Shelf Expiration Date Model / Serial / Lot Watchman Fxd Curve Dble 20mm - [id number] Implanted:Qty : 1 on 11/20/2024 by Suresh Quiles MD at [facility] [employer]-[id number] 85 08/16/2027 [id number] / / [id number] Device Watchman Flx Pro Felisha Closure 20mm - [id number] Implanted:Qty : 1 on 11/20/2024 by Suresh Quiles MD at [facility] [employer]-[id number] 85 07/03/2027 [id number] / / [id number] Device Watchman Flx Pro Procedure - [id number] Implanted:Qty : 1 on 11/20/2024 by Suresh Quiles MD at [facility] [employer]-[id number] / / Procedures Procedure Name Priority Date/Time Associated Diagnosis Comments POCT GLUCOSE METER UNSOLICITED RESULTS Routine 06/29/2025 11:52 AM EDT N-TERMINAL PROBNP, PLASMA STAT 06/29/2025 10:02 AM EDT POCT GLUCOSE METER UNSOLICITED RESULTS Routine 06/29/2025 8:18 AM EDT XR CHEST 1 VIEW Routine 06/29/2025 7:09 AM EDT ECG ADULT Routine 06/28/2025 10:52 PM EDT POCT GLUCOSE METER UNSOLICITED RESULTS Routine 06/28/2025 7:34 PM EDT POCT GLUCOSE METER UNSOLICITED RESULTS Routine 06/28/2025 5:15 PM EDT POCT GLUCOSE METER UNSOLICITED RESULTS Routine 06/28/2025 12:26 PM EDT POCT GLUCOSE METER UNSOLICITED RESULTS Routine 06/28/2025 8:30 AM EDT POCT GLUCOSE METER UNSOLICITED RESULTS Routine 06/28/2025 2:53 AM EDT MR HEAD W AND WO IV CONTRAST STAT 06/28/2025 1:25 AM EDT POCT GLUCOSE METER UNSOLICITED RESULTS Routine 06/27/2025 9:44 PM EDT POCT GLUCOSE METER UNSOLICITED RESULTS Routine 06/27/2025 7:09 PM EDT POCT GLUCOSE METER UNSOLICITED RESULTS Routine 06/27/2025 4:29 PM EDT POCT GLUCOSE METER UNSOLICITED RESULTS Routine 06/27/2025 12:09 PM EDT SARS COV-2/COVID-19 BY PCR - RAPID Routine 06/27/2025 10:01 AM EDT POCT GLUCOSE METER UNSOLICITED RESULTS Routine 06/27/2025 9:49 AM EDT PROTHROMBIN TIME(PT) / INR STAT 06/27/2025 4:56 AM EDT TYPE AND SCREEN STAT 06/27/2025 4:56 AM EDT APTT STAT Add-on 06/27/2025 2:39 AM EDT SEND AB MESSAGE STAT 06/27/2025 2: 39 AM EDT URINALYSIS MICROSCOPIC FOR UA REFLEX STAT 06/27/2025 2:39 AM EDT PROTHROMBIN TIME(PT) / INR STAT 06/27/2025 2:39 AM EDT URINE BLANCO PANEL STAT 06/27/2025 2:39 AM EDT URINALYSIS WITH REFLEX MICROSCOPIC STAT 06/27/2025 2:39 AM EDT URINALYSIS WITH REFLEX MICROSCOPIC AND CULTURE STAT 06/27/2025 2:39 AM EDT COMPREHENSIVE METABOLIC PANEL, PLASMA STAT 06/27/2025 2:39 AM EDT CBC WITH AUTO DIFFERENTIAL STAT 06/27/2025 2:39 AM EDT URINE CULTURE STAT 06/27/2025 2:[address] OUTSIDE IMAGES 06/26/2025 5:[address] OUTSIDE IMAGES 06/26/2025 5:3 0 PM EDT XR OUTSIDE IMAGES 06/26/2025 5:[address] OUTSIDE IMAGES 06/26/2025 5:2 6 PM EDT HEMOGLOBIN A1C Routine 12/11/2020 11:20 AM EST from Last 3 Months or Most Recently Relevant to Health Maintenance Results * (ABNORMAL) POCT glucose meter (06/29/2025 11:52 AM EDT) Only the most recent of12 resultswithin the time period is included. Pathologist [facility] POCT Glucose 176(H) 74 - 99 mg/dL 06/29/2025 11:53 AM EDT [facility] Comment:Accuracy of a glucos e result obtained from a capillary whole blood specimen relies upon adequate, non-compromised capillary blood flow. If the capillary glucose result is not consistent with the patient's clinical signs and symptoms, glucose testing should be repeated with either an arterial or venous sample on the glucometer or sent to the main labortory for testing. Comment 06/29/2025 11:53 AM EDT [facility] Unit Manager ID Jose Escobar 06/29/20 11:53 AM EDT HEALTH[facility]ARE LAB Device ID [id number] 06/29/2025 11:53 AM EDT [facility] Specimen Type POC Capillary 06/29/2025 11:53 AM EDT [facility] Blood Capillary blood specimen / Unknown 06/29/2025 11:52 AM EDT 06/29/2025 11:53 AM EDT Autumn Palma MD LAB POINT OF CARE TEST DOCKED DEVICE UNSOLICITED RESULTS Final Result Performing Organization Address City/[facility]/ZIP Co de Phone Number [facility] [address] [place] [address] * N-Terminal Probnp (06/29/2025 10:02 AM EDT) [facility] N-Terminal, PROBNP, Plasma 1,659 0 - 1,799 pg/mL 06/29/2025 10:35 AM EDT [facility] Blood Venous blood specimen / Unknown Venipuncture / Unknown 06/29/2025 10:02 AM EDT 06/29/2025 10:07 AM EDT Autumn Palma MD LAB BLOOD ORDERABLES Manasa l Result [facility] [address] [place] [address] * XR Chest 1 View (06/29/2025 7:09 AM EDT) Anatomical Region Laterality Modality Chest Digital Radiogra phy Impressions 06/29/2025 9:59 AM EDT Emphysema with ill-defined patchy opacities bilaterally, not significantly changed. CRITICAL RESULT: No. COMMUNICATION: Per this written report. Drafted by Torsten Dickinson MD on 06/29/2025 9:44 AM Final report signed by Torsten Dickinson MD on 06/29/2025 9:59 AM Narrative 06/29/2025 9:59 AM EDT CLINICAL INDICATION: COVID TECHNIQUE: XR CHEST 1 VIEW COMPARISON: June 26, 2025. FINDINGS: Underlying changes of emphysema with ill-defined airspace opacities bilaterally, unchanged. No pleural effusion or pneumothorax. Mediastinal silhouette is within normal limits. No acute osseous findings Procedure Note Torsten Dickinson MD - 06/29/2025 CLINICAL INDICATION: COVID TECHNIQUE: XR CHEST 1 VIEW COMPARISON: June 26, 2025. FINDINGS: Underlying changes of emphysema with ill-defined airspace opacitiesbilaterally, unchanged. No pleural effusion or pneumothorax. Mediastinalsilhouette is within normal limits. No acute osseous findings IMPRESSION: Emphysema with ill-defined patchy opacities bilaterally, not significantlychanged. CRITICAL RESULT: No. COMMUNICATION: Per this written report. Drafted by Torsten Dickinson MD on 06/29/2025 9:44 AM Final report signed by Torsten Dickinson MD on 06/29/2025 9:59 AM us Autumn Palma MD IMG XR PROCEDURES Final R esult * ECG Adult (06/28/2025 10:52 PM EDT) EKG DIAGNOSIS CLASS Normal MUSE ECG Ventricular Rate 68 BPM MUSE ECG Atrial Rate [address] Interval 166 ms MUSE ECG QRSD Interval 84 ms MUSE ECG QT Interval 430 ms MUSE ECG QTC Interval 457 ms MUSE ECG P [place] 58 degrees MUSE ECG R [place] 11 degrees MUSE ECG T Wave [place] 47 degrees MUSE ECG Diagnosis Normal sinus rhythm MUSE ECG Diagnosis Normal ECG MUSE ECG Diagnosis MUSE ECG Diagnosis Confirmed by Ponce Reyna ([id number]) on 06/29/2025 9:29:18 PM MUSE ECG 06/28/2025 10:5 2 PM EDT 06/29/2025 9:29 PM EDT us Sam Pinto MD ECG ORDERABLES Final Result MUSE ECG * MR Head w and wo IV Contrast (06/28/2025 1:25 AM EDT) Anatomical Region Laterality Modality Head Magnetic Resonan ce Impressions 06/28/2025 3:15 AM EDT Increased size of known meningioma along the superior lateral left frontal convexity. The lesion has cystic and solid components and causes mass effect on the left cerebral hemisphere and left lateral ventricle with rightward shift of the midline structures as discussed above. CRITICAL RESULT: No. COMMUNICATION: Per this written report. Drafted by Muna Quezada on 06/28/2025 3:05 AM Final report signed by Muna Quezada on 06/28/2025 3:15 AM Narrative 06/28/2025 3:15 AM EDT CLINICAL INDICATION: Stroke suspected. Known meningioma TECHNIQUE: Multiplanar multiecho sequences were performed through the brain utilizing T1 and T2 weighting, as well as either axial susceptibility weighted or gradient echo sequences, and axial diffusion weighted images. A coronal post-contrast 1mm thick T1-weighted 3D MP RAGE sequence was performed and multiplanar reformatted images were created. Imaging was performed with and without contrast administration: 6.3 mL of Gadavist. COMPARISON: MRI brain July 15, 2022 FINDINGS: Diagnostic Quality: Motion Degraded. Redemonstration of dural based extra-axial lesion along the superior lateral left frontal convexity. The majority of the lesion demonstrates solid enhancement, however there is a multicystic component with multiple enhancing septations along the majority of the margins of the lesion. The solid and cystic components of the lesion are increased since prior. The lesion including cystic and solid components now measures 5.1 x 3.3 cm on axial plane and 4 cm craniocaudal on coronal plane versus 4.0 x 2.8 x 3.2 cm previously. There is associated susceptibility which could represent hemorrhage and/or calcification. The surrounding dura is thickened. The lesion causes mass effect on the left cerebral hemisphere as seen previously but this is increased, now with mass effect on the left lateral ventricle which causes rightward shift of the midline structures, measuring 4 mm at the septum pellucidum. The lesion causes edema throughout the majority of the left frontal and parietal lobes. The calvarium overlying the lesion is likely involvement, however the appearance is similar to prior. Mild to moderate chronic microvascular changes of the white matter and chronic lacunar infarcts of the bilateral basal ganglia, right greater than left, as seen previously. No restricted diffusion to suggest acute ischemic change. Vascular Flow Voids: Normal. Paranasal Sinuses and Mastoid Air Cells: Grossly clear. Orbits: No definite masses within the limitations of the study. Extracranial Findings: None. Craniocervical Junction and Skull Base: No tonsillar ectopia or mass is present. Procedure Note Muna Quezada MD - 06/28/2025 CLINICAL INDICATION: Stroke suspected. Known meningioma TECHNIQUE: Multiplanar multiecho sequences were performed through the brain utilizingT1 and T2 weighting, as well as either axial susceptibility weighted orgradient echo sequences, and axial diffusion weighted images. A coronalpost-contrast 1mm thick T1- weighted 3D MP RAGE sequence was performed andmultiplanar reformatted images were created. Imaging was performed withand without contrast administration: 6.3 mL of Gadavist. COMPARISON: MRI brain July 15, 2022 FINDINGS: Diagnostic Quality: Motion Degraded. Redemonstration of dural based extra-axial lesion along the superiorlateral left frontal convexity. The majority of the lesion demonstratessolid enhancement, however there is a multicystic component with multipleenhancing septations along the majority of the margins of the lesion. The solid and cystic components of the lesion are increased since prior.The lesion including cystic and solid components now measures 5.1 x 3.3 cmon axial plane and 4 cm craniocaudal on coronal plane versus 4.0 x 2.8 x3.2 cm previously. There is associated susceptibility which couldrepresent hemorrhage and/or calcification. The surrounding dura isthickened. The lesion causes mass effect on the left cerebral hemisphereas seen previously but this is increased, now with mass effect on the leftlateral ventricle which causes rightward shift of the midline structures,measuring 4 mm at the septum pellucidum. The lesion causes edemathroughout the majority of the left frontal and parietal lobes. The calvarium overlying the lesion is likely involvement, however theappearance is similar to prior. Mild to moderate chronic microvascular changes of the white matter andchronic lacunar infarcts of the bilateral basal ganglia, right greaterthan left, as seen previously. No restricted diffusion to suggest acute ischemic change. Vascular Flow Voids: Normal. Paranasal Sinuses and Mastoid Air Cells: Grossly clear. Orbits: No definite masses within the limitations of the study. Extracranial Findings: None. Craniocervical Junction and Skull Base: No tonsillar ectopia or mass ispresent. IMPRESSION: Increased size of known meningioma along the superior lateral left frontalconvexity. The lesion has cystic and solid components and causes masseffect on the left cerebral hemisphere and left lateral ventricle withrightward shift of the midline structures as discussed above. CRITICAL RESULT: No. COMMUNICATION: Per this written report. Drafted by Muna Quezada on 06/28/2025 3:05 AM Final report signed by Muna Quezada on 06/28/2025 3:15 AM us Eamon Parker MD IMG MRI PROCEDURES Final Res ult * (ABNORMAL) SARS CoV-2/COVID-19 by PCR - Rapid (06/27/2025 10:01 AM EDT) SARS CoV-2/COVID-19 RNA PCR Result Detected( A) Not Detected 06/27/2025 11:30 AM EDT [facility] Swab Nasopharyngeal structure / Unknown Non-blood Collection / Unknown 06/27/2025 10:01 AM EDT 06/27/2025 10:36 AM EDT Narrative [facility] - 06/27/2025 11:30 AM EDT This test is FDA approved for use with nasopharyngeal specimens in Viral Transport Media (VTM). This test is used for clinical purposes. It should not be regarded as investigational or for research. This laboratory is certified under the Clinical Laboratory improvement Amendments of 1988 (CLIA-88 as qualified to perform high complexity clinical laboratory testing. This test was performed on the Xpert Xpress SARS CoV-2 Plus assay test, a PCR- based method. Negative results should be considered presumptive and do not preclude current or future infection obtained through community transmission or other exposures. Negative results must be considered in the context of an individual's recent exposures, history, presence of clinical signs and symptoms consistent with COVID-19. us Eamon Parker MD LAB MICROBIOLOGY - GENERAL O RDERABLES Final Result Performing Organization Address [facility] Co de Phone Number [facility] [address] [place] [address] * (ABNORMAL) PT-INR (06/27/2025 4:56 AM EDT) Only the most recent of2 resultswithin the time period is included. Prothrombin Time 14.6(H) 12.0 - 14.3 sec 06/27/2025 5:16 AM EDT [facility] INR 1.2(H) 0.9 - 1.1 06/27/2025 5:16 AM EDT [facility] Blood Venous blood specimen / Unknown Venipuncture / Unknown 06/27/2025 4:56 AM EDT 06/27/2025 5:00 AM EDT Narrative [facility] - 06/27/2025 5:16 AM EDT OPTIMAL INR RANGES FOR PATIENT ON ORAL ANTICOAGULANT THERAPY Prevention of venous thromboembolism INR 2.0 to 3.0 In patients with heart disease: Atrial fibrillation INR 2.0 to 3.0 Valvular heart disease INR 2.0 to 3.0 Tissue heart valves INR 2.0 to 3.0 Mechanical prosthetic valves INR 2.5 to 3.5 Prevention of recurrent IA INR 2.5 to 3.5 us Avril Mullins MD LAB BLOOD ORDERABLES Final Re sult Performing Organization Address City/[facility] Co de Phone Number [facility] [address] [place] [address] * Type and screen (06/27/2025 4:56 AM EDT) ABO/Rh B Positive 06/27/2025 4:21 AM EDT [facility]LOOD BANK Antibody Screen Negative 06/27/2025 4:21 AM EDT [facility] Specimen Expiration 06/30/2025 23:59 06/27/2025 4:21 AM EDT [facility] Blood Venous blood specimen / Unknown Venipuncture / Unknown 06/27/2025 4:56 AM EDT 06/27/2025 5:01 AM EDT us Avril Mullins MD LAB BLOOD BANK TEST ORDERABLE S Final Result Performing Organization Address [facility]/ZIP Co de Phone Number BLOOD BANK [address] [place] [address], [place] * SEND AB MESSAGE (06/27/2025 2:39 AM EDT) Urine Urine specimen obtained by clean catch procedure / Unknown Non-blood Collection / Unknown 06/27/2025 2:39 AM EDT 06/27/2025 2:48 AM EDT us Avril Mullins MD LAB URINE ORDERABLES Final Re sult Performing Organization Address [facility] Co de Phone Number [facility] [address] [place] [address] * Urine Blanco Panel (06/27/2025 2:39 AM EDT) Extra Sent for Culture 06/27/2025 4:03 AM EDT [facility] Urine Urine specimen obtained by clean catch procedure / Unknown Non-blood Collection / Unknown 06/27/2025 2:39 AM EDT 06/27/2025 2:48 AM EDT us Avril Mullins MD LAB URINE ORDERABLES Final Re sult Performing Organization Address [facility] Co de Phone Number [facility] [address] [place] [address] * Urinalysis Microscopic Examination (06/27/2025 2:39 AM EDT) Urine Urine specimen obtained by clean catch procedure / Unknown Non-blood Collection / Unknown 06/27/2025 2:39 AM EDT 06/27/2025 2:48 AM EDT us Avril Mullins MD LAB URINE ORDERABLES Final Re sult Performing Organization Address City/[facility]/ZIP Co de Phone Number [facility] [address] [place] [address] * (ABNORMAL) Urinalysis with reflex microscopic (Culture NOT Included) (06/27/2025 2:39 AM EDT) Color, Urine Yellow LAB URINALYSIS - AUTOMATED METHOD 06/27/2025 3:00 AM T [facility] Clarity, Urine Cloudy LAB URINALYSIS - AUTOMATED METHOD 06/27/2025 3:00 AM T [facility] Spec [place], Urine >1.030(H) 1.005 - 1.030 LAB URINALYSIS - AUTOMATED METHOD 06/27/2025 3:00 AM T [facility] pH, Urine 6.0 5.0 - 8.0 LAB URINALYSIS - AUTOMATED METHOD 06/27/2025 3:00 AM T [facility] Protein, Urine 30(A) Negative mg/dL LAB URINALYSIS - AUTOMATED METHOD 06/27/2025 3:00 AM T [facility] Glucose, Urine >=1000(A) Negative mg/dL LAB URINALYSIS - AUTOMATED METHOD 06/27/2025 3:00 AM T [facility] Ketones, Urine Negative Negative mg/dL LAB URINALYSIS - AUTOMATED METHOD 06/27/2025 3:00 AM T [facility] Blood, Urine Trace(A) Negative LAB URINALYSIS - AUTOMATED METHOD 06/27/2025 3:00 AM T [facility] Bilirubin, Urine Negative Negative LAB URINALYSIS - AUTOMATED METHOD 06/27/2025 3:00 AM T [facility] Urobilinogen, Urine 1.0 0.2 to 1.0 mg/dL LAB URINALYSIS - AUTOMATED METHOD 06/27/2025 3:00 AM T [facility] Leukocytes, Urine Small(A) Negative LAB URINALYSIS - AUTOMATED METHOD 06/27/2025 3:00 AM T [facility] Nitrite, Urine Positive(A) Negative LAB URINALYSIS - AUTOMATED METHOD 06/27/2025 3:00 AM [facility] RBC, Urine 1 0 to 3 /HPF LAB URINALYSIS - AUTOMATED METHOD 06/27/2025 3:00 AM T [facility] WBC, Urine 21 - 50(A) 0 to 5 /HPF LAB URINALYSIS - AUTOMATED METHOD 06/27/2025 3:00 AM T [facility] Squamous Epithelial Cells 0 - 2 0 to 5 /HPF LAB URINALYSIS - AUTOMATED METHOD 06/27/2025 3:00 AM EDT [facility] Hyaline Casts 0 - 2 0 to 5 /LPF LAB URINALYSIS - AUTOMATED METHOD 06/27/2025 3:00 AM EDT [facility] Bacteria, Urine Present Negative LAB URINALYSIS - AUTOMATED METHOD 06/27/2025 3:00 AM EDT [facility] Urine Urine specimen obtained by clean catch procedure / Unknown Non-blood Collection / Unknown 06/27/2025 2:39 AM EDT 06/27/2025 2:48 AM EDT us Avril Mullins MD LAB URINE ORDERABLES Final Re sult Performing Organization Address [facility] Co de Phone Number [facility] [address] [place] [address] * APTT (06/27/2025 2:39 AM EDT) aPTT 26 25 - 35 sec LAB COAGULATION METHOD 06/27/2025 5:42 AM EDT [facility] Blood Venous blood specimen / Unknown Venipuncture / Unknown 06/27/2025 2:39 AM EDT 06/27/2025 2:47 AM EDT us Avril Mullins MD LAB BLOOD ORDERABLES Final Re sult Performing Organization Address City/[facility]/ZIP Co de Phone Number [facility] [address] [place] [address] * (ABNORMAL) CBC w/diff (06/27/2025 2:39 AM EDT) WBC Count 6.31 3.70 - 10.30 10*3/uL LAB HEMATOLOGY METHOD 06/27/2025 2:57 AM EDT [facility] RBC Count 3.53(L) 3.90 - 5.20 10*6/uL LAB HEMATOLOGY METHOD 06/27/2025 2:57 AM EDT [facility] HGB 11.1(L) 11.2 - 15.7 g/dL LAB HEMATOLOGY METHOD 06/27/2025 2:57 AM EDT [facility] HCT 34.1 34.0 - 45.0 % LAB HEMATOLOGY METHOD 06/27/2025 2:57 AM EDT [facility] Platelet Count 152(L) 155 - 369 10*3/uL LAB HEMATOLOGY METHOD 06/27/2025 2:57 AM EDT [facility] MCV 97 79 - 98 fL LAB HEMATOLOGY METHOD 06/27/2025 2:57 AM EDT [facility] MCH 31.4 26.0 - 32.0 pg LAB HEMATOLOGY METHOD 06/27/2025 2:57 AM EDT [facility] MCHC 32.6 30.7 - 35.5 g/dL LAB HEMATOLOGY METHOD 06/27/2025 2:57 AM EDT [facility] RDW 12.9 11.5 - 14.5 % LAB HEMATOLOGY METHOD 06/27/2025 2:57 AM EDT [facility] MPV 9.9 8.8 - 12.5 fL LAB HEMATOLOGY METHOD 06/27/2025 2:57 AM EDT [facility] nRBC 0.0 <=0.0 per 100 WBCs LAB HEMATOLOGY METHOD 06/27/2025 2:57 AM EDT [facility] Differential Type Automated LAB HEMATOLOGY METHOD 06/27/2025 2:57 AM EDT [facility] Neutrophils % 82 % LAB HEMATOLOGY METHOD 06/27/2025 2:57 AM EDT [facility] Lymphocytes % 14 % LAB HEMATOLOGY METHOD 06/27/2025 2:57 AM EDT [facility] Monocytes % 3 % LAB HEMATOLOGY METHOD 06/27/2025 2:57 AM EDT [facility] Eosinophils % 0 % LAB HEMATOLOGY METHOD 06/27/2025 2:57 AM EDT [facility] Basophils % 0 % LAB HEMATOLOGY METHOD 06/27/2025 2:57 AM EDT [facility] Immature Granulocytes % 1 % LAB HEMATOLOGY METHOD 06/27/2025 2:57 AM EDT [facility] Neutrophils Absolute 5.17 1.60 - 6.10 10*3/uL LAB HEMATOLOGY METHOD 06/27/2025 2:57 AM EDT [facility] Lymphocytes Absolute 0.90(L) 1.20 - 3.90 10*3/uL LAB HEMATOLOGY METHOD 06/27/2025 2:57 AM EDT [facility] Monocytes Absolute 0.16(L) 0.30 - 0.90 10*3/uL LAB HEMATOLOGY METHOD 06/27/2025 2:57 AM EDT [facility] Eosinophils Absolute 0.00 0.00 - 0.50 10*3/uL LAB HEMATOLOGY METHOD 06/27/2025 2:57 AM EDT [facility] Basophils Absolute 0.02 0.00 - 0.10 10*3/uL LAB HEMATOLOGY METHOD 06/27/2025 2:57 AM EDT [facility] Immature Granulocytes Absolute 0.06 0.00 - 0.06 10*3/uL LAB HEMATOLOGY METHOD 06/27/2025 2:57 AM EDT [facility] Blood Venous blood specimen / Unknown Venipuncture / Unknown 06/27/2025 2:39 AM EDT 06/27/2025 2:48 AM EDT Narrative [facility] - 06/27/2025 2:57 AM EDT Therapeutic decision making should be based on absolute values, rather than percentages. us Avril Mullins MD LAB BLOOD ORDERABLES Final Re sult [facility] [address] [place] [address] * Urine Culture (06/27/2025 2:39 AM EDT) Culture No growth at day 1 06/28/2025 8:03 AM EDT [facility] Urine Urine specimen obtained by clean catch procedure / Unknown Non-blood Collection / Unknown 06/27/2025 2:39 AM EDT 06/27/2025 2:48 AM EDT us Avril Mullins MD LAB MICROBIOLOGY - GENERAL OR DERABLES Final Result [facility] [address] [place] [address] * (ABNORMAL) CMP (06/27/2025 2:39 AM EDT) Glucose, Plasma 238(H) 74 - 99 mg/dL 06/27/2025 3:17 AM EDT [facility] BUN, Plasma 25(H) 8 - 23 mg/dL 06/27/2025 3:17 AM EDT [facility] Creatinine, Plasma 0.70 0.60 - 1.10 mg/dL 06/27/2025 3:17 AM EDT [facility] BUN/Creatinine Ratio 36 06/27/2025 3:17 AM EDT [facility] Sodium, Plasma 143 136 - 145 mmol/L 06/27/2025 3:17 AM EDT [facility] Potassium, Plasma 3.9 3.6 - 4.9 mmol/L 06/27/2025 3:17 AM EDT [facility] Chloride, Plasma 105 97 - 107 mmol/L 06/27/2025 3:17 AM EDT [facility] CO2, Plasma 26 22 - 29 mmol/L 06/27/2025 3:17 AM EDT [facility] Anion Gap 12 6 - 16 mmol/L 06/27/2025 3:17 AM EDT [facility] Total Calcium, Plasma 9.0 8.9 - 10.2 mg/dL 06/27/2025 3:17 AM EDT [facility] Total Protein 7.1 6.3 - 7.9 g/dL 06/27/2025 3:17 AM EDT [facility] Albumin, Plasma 3.7 3.5 - 5.2 g/dL 06/27/2025 3:17 AM EDT [facility] AST, Plasma 14 10 - 35 U/L 06/27/2025 3:17 AM EDT [facility] ALT, Plasma 8(L) 10 - 35 U/L 06/27/2025 3:17 AM EDT [facility] Alkaline Phosphatase, Plasma 63 46 - 142 U/L 06/27/2025 3:17 AM EDT [facility] Total Bilirubin, Plasma 0.2 0.2 - 1.1 mg/dL 06/27/2025 3:17 AM EDT [facility] eGFRcr 84.3 mL/min/1.7 3m*2 06/27/2025 3:17 AM EDT [facility] Comment:Reported eGFRcr in m L/min/1.73m2 is based the CKD-EPI 2020 equation that does not use a race coefficient. Blood Venous blood specimen / Unknown Venipuncture / Unknown 06/27/2025 2:39 AM EDT 06/27/2025 2:47 AM EDT Avril Mullins MD LAB BLOOD ORDERABLES Final Re sult [facility] [address] [place] [address] * CT OUTSIDE IMAGES (06/26/2025 5:30 PM EDT) Only the most recent of3 resultswithin the time period is included. Anatomical Region Laterality Modality Computed Tomogra phy 06/26/2025 5:30 PM EDT us External Provider IMG CT PROCEDURES Final Result * XR OUTSIDE IMAGES (06/26/2025 5:27 PM EDT) Anatomical Region Laterality Modality Radiographic Monserrat ging 06/26/2025 5:27 PM EDT us External Provider IMG XR PROCEDURES Final Result * (ABNORMAL) Hemoglobin A1c (12/11/2020 11:20 AM [...] <6.0% Children and Adolescents <7.5% . Source: [place] [employer]. Standards of medical care in diabetes, 2017. Diabetes Care.2017:40 (suppl 1):S1-S135. . HbA1c assay performed by an ion-exchange chromatography method that is certified traceable to the DCCT. 12/11/2020 11:2 0 AM EST 12/11/2020 11:36 AM EST us Davy Rosales MD LAB BLOOD ORDERABLES F inal Result SUNQUEST from Last 3 Months or Most Recently Relevant to Health Maintenance Insurance [address] [place] [id number] MEDICARE Member Subscriber Plan / Payer (Ef fective 2004-Present) Name:Chen Negrete Member ID:[id number] Relation to Subscriber:Self Name:Chen Negrete Subscriber ID:[id number] Payer ID:MEDICARE Group ID:Not on file Type:Medicare Address: [address] Advance Directives * Full Code (Latest Code Status on File) Date Activated Date Inactivated Comments 06/27/2025 9:41 AM 06/29/2025 5:15 PM Question Answer Comments I have reviewed the capacity from the link above and, if needed, have updated to appropriate status: Yes * Full Code Date Activated Date Inactivated Comments 11/20/2024 9:42 AM 11/21/2024 2:05 PM Question Answer Comments Patient has decision-making capacity? Yes Care Teams Financial Sales Assistant Relationship Specialty Start Date End Date Suresh Claudio MD [address] [place] [address] PCP - General Family Medicine 04/07/21 Pito Kohli MD [address] [place] [address] [place] [address] Referring Physician 05/05/21 Norberto Art MD [address] [facility] [address] [place] [address] Surgeon Neurosurgery 07/15/22
--- OUTSIDE RECORDS SUMMARY | 2025-08-29 14:00 | XMS_ITS | Encounter Summary ---
Author Organization [facility] Address [address] [place] [address] Care Team Providers Care Insurance Claims Examiner Name Role Phone Suresh Claudio MD Primary Care Provider [phone] Pito Kohli MD Unavailable [phone] Norberto Art MD Unavailable [phone] Sylvia Collins LPN Unavailable Unavailable Reason for Referral * Consultation (Routine) - Closed Specialty Diagnoses / Procedures Referred By Contac t Referred To Contact Cardiology Diagnoses Episodic atrial fibrillation (CMS/HCC) Gera Chung MD [facility] [place] [address] Phone: tel: fax: Suresh Quiles MD [address] [place] [address] Phone: tel: fax: Referral ID Status Reason Start Date Expiration Date V isits Requested Visits Authorized [id number] Closed Specialty Services Required 08/29/2024 02/28/2026 1 1 Encounter Details Date Type Department Care Team (Latest Contact Info) Description 08/29/2024 Community Orders Community Practice [address] [place] [address] Gera Chung MD [address] [place] [id number] Episodic atrial fibrillation (CMS/HCC) (Primary Dx) Social [...] documented in this encounter Additional Health Concerns Infection Onset Date Last Indicated Resolved Time COVID-19 Rule-Out 06/27/2025 06/27/2025 06/27/2025 11:30 AM EDT COVID 19 (Confirmed) 06/27/2025 06/27/2025 025 9:55 PM EDT Assessment Noted Time A fall risk assessment has been complete d for the patient 03/12/2024 12:38 PM EDT documented as of this encounter Care Teams Insurance Claims Examiner Relationship Specialty Start Date End Date Suresh Claudio MD [address] [facility] [address] [place] [address] [place] [address] PCP - General Family Medicine 04/07/21 Pito Kohli MD [address] [place] [address] Referring Physician 05/05/21 Norberto Art MD [address] [place] [address] Surgeon Neurosurgery 07/15/22 Sylvia Collins LPN [employer]ED [place] [address] [facility] Nurse 07/01/25 07/31/25 documented as of this encounter
--- OUTSIDE RECORDS SUMMARY | 2025-08-29 14:00 | XMS_ITS | Encounter Summary ---
Author Organization Healthcare Address [address] [place] [address] Care Team Providers Care Video Game Creator Name Role Phone Suresh Claudio MD Primary Care Provider [phone] Pito Kohli MD Unavailable [phone] Norberto Art MD Unavailable [phone] Sylvia Collins LPN Unavailable Unavailable Encounter Details Date Type Department Care Team (Late st Contact Info) Description 06/26/2025 Orders Only External Location [address] [place] [address] Provider, External Social History Tobacco Use Types [...] any time in the past 12 m [facility], were you homeless or living in a retirement (including now)? No 06/28/2025 [facility] Utilities Answer Date Recorded In the past [...] drink first t sony in the morning (EYE-POTATO INSPECTOR) to steady your nerves or to get [...] Associated Diagnosis Comments CT OUTSIDE IMAGES 06/26/2025 5:26 PM EDT documented in this encounter Results * CT OUTSIDE IMAGES (06/26/2025 5:26 PM EDT) Anatomical Region Laterality Modality Computed Tomogra phy 06/26/2025 5:26 PM EDT External Provider IMG CT PROCEDURES [...] documented as of this encounter Care Teams Video Game Creator Relationship Specialty Start Date End Date Suresh Claudio MD [address] [place] [address] PCP - General Family Medicine 04/07/21 Pito Kohli MD [address] [place] [address] Referring Physician 05/05/21 Norberto Art MD [address] [place] [address] Surgeon Neurosurgery 07/15/22 Sylvia Collins, SHARRI [employer] [address] TCM Nurse 07/01/25 07/31/25 documented as of this encounter
--- OUTSIDE RECORDS SUMMARY | 2025-08-29 14:00 | XMS_ITS | Patient Health Record ---
Author Organization [facility] Address [address] [facility] [address] [place] [id number] Care Team Providers Care Evaluation Engineer Name Role Phone Swathi Claudio Primary Care Provider [phone] Allergies Allergen (clinical drug ingredient) Drug/Non Drug Allergy documented on EMR Reaction Allergy Type Onset Date Status colchicine Colcrys stomach upset Drug Allergy Ac tive Reason For Referral No Information Medications Medication [...] Vaccine Route Administration Date Status Comme nts sQncvryj-dvqnkbcxe-yodvcck e pts. IM Intramuscular 09/02/2009 Administered bTtlpbpk-sjwxyffoy-mhjerli e pts. IM 08/05/2010 Administered rKaodcbz-lrltlyrlx-fpuczde e pts. IM Intramuscular 07/27/2011 Administered xFlu [...] Problem Type II diabetes mellitus without complication (800879503) Type 2 diabetes mellitus without complications (E11.9) Active confirmed Problem Essential hypertension (82314460) Essential (primary) hypertension (I10) Active confirmed Problem Vertigo (447906504) Vertigo (R42) Active confirmed Problem Hyperuricemia (27957049) Hyperuricemia (E79.0) Active confirmed Problem Multiple thyroid nodules (807009418) Multiple thyroid nodules (E04.2) Active confirmed Problem Mixed hyperlipidemia (757995433) Mixed hyperlipidemia (E78.2) Active confirmed Problem Vasomotor rhinitis (3442962) Vasomotor rhinitis (J30.0) Active confirmed Problem Hernia of anterior abdominal wall (disorder) (283707057) Ventral hernia without obstruction or gangrene (K43.9) Active confirmed Problem Postmenopausal bleeding (85776171) Postmenopausal bleeding (N95.0) Active confirmed Problem Hysterectomy (518430114) Acquired 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) Active confirmed Problem Absent ovary, acquired (293284879) Acquired absence of ovaries, unilateral (Z90.721) Active confirmed Problem Abnormal vaginal bleeding (748277057) DUB (dysfunctional uterine bleeding) (N93.8) Active confirmed Problem Long-term current use of anticoagulant (321472118) USP current use of anticoagulant therapy (Z79.01) Active confirmed Problem Atherosclerotic heart disease of [place] coronary artery without angina pectoris (709292070079744) 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) Active confirmed Problem Atrial fibrillation (26044369) PAF (paroxysmal atrial fibrillation) (I48.0) Active confirmed Problem Hyperlipidaemia (83167555) Hyperlipidemia, unspecified hyperlipidemia type (E78.5) Active confirmed Problem Atherosclerotic heart disease of [place] coronary artery without angina pectoris (170219257299221) Atherosclerosis of [place] coronary artery without angina pectoris, unspecified whether [place] or transplanted heart (I25.10) Active confirmed Problem Thyromegaly (9071287) Thyromegaly (E01.0) Active confirmed Problem Endometrial carcinoma (739937362) Endometrial carcinoma (C54.1) Active confirmed Problem Cataract (516962866) Cataract of both eyes, unspecified cataract type (H26.9) Active confirmed Problem Aortic valve disorder (5866800) Aortic valve stenosis, etiology of cardiac valve disease unspecified (I35.0) Active confirmed Problem Arteriovenous malformation (36239200) 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) Active confirmed Problem Type II diabetes mellitus without complication (873481520) Type 2 diabetes mellitus without complication, unspecified whether fdc insulin use (E11.9) Active confirmed Problem Diabetic peripheral neuropathy associated with type 2 diabetes mellitus (6397601132637) Type 2 diabetes mellitus with diabetic neuropathy, without long-term current use of insulin (E11.40) Active confirmed Problem Anemia (330991905) Acute anemia (D64.9) Active confirmed Plan Of Treatment No Information Insurance Providers Payer Name Payer Address Payer Phone Subscriber Number Group Number Insured Name Patient Relationship to Insured Coverage Start Date Coverage End Date MEDICARE PART B [address] [address] [place] [address] [phone] [id number] LEONEL BALLARD Self - patient is the insured MEDICAID [employer] [address] [place] [address] [id number] LEONEL BALLARD Self - patient is the insured Medications Administered Medication Instructions Date of Administration Dosage Notes Depo- Medrol 40 mg/ml 05/27/2008 1.0 mL Medical (General) History Medical History History ICD Code hyperlipidemia type 2 diabetes cataracts declines mammogram - 08/08/17 declines colonoscopy - 08/08/17 declines DEXA - 08/08/17 hypertension cancer, cervical Surgical History Surgery Date(Month/Year) tubal ligation 1979 colonoscopy 2004 Total Hysterectomy 12/29/2020 Hospitalization History Reason Date(Month/Year) [id number] tubal atrial flutter/fib dizziness 08/10/17 Dr. Rivera, [facility] endometrial bx and polyp removal 03/2018 Total Hysterectomy, [facility] 12/29/2020
--- OUTSIDE RECORDS SUMMARY | 2025-08-29 14:00 | XMS_ITS | Encounter Summary ---
Author Organization Healthcare Address [address] [place] [address] Care Team Providers Care Taxation Consultant Name Role Phone Suresh Claudio MD Primary Care Provider [phone] Pito Kohli MD Unavailable [phone] Norberto Art MD Unavailable [phone] Sylvia Collins LPN Unavailable Unavailable Encounter Details Date Type Department Care Team (Late st Contact Info) Description 06/26/2025 Orders Only External Location [address] [place] [address] Provider, External Social History Tobacco Use Types [...] any time in the past 12 m [facility], were you homeless or living in a jail (including now)? No 06/28/2025 [facility] Utilities Answer Date Recorded In the past [...] drink first t sony in the morning (EYE-MACHINE OPERATOR ASSISTANT) to steady your nerves or to get [...] Procedure Name Priority Date/Time Associated Diagnosis Comments XR OUTSIDE IMAGES 06/26/2025 5:27 PM EDT documented in this encounter Results * XR OUTSIDE IMAGES (06/26/2025 5:27 PM EDT) Anatomical Region Laterality Modality Radiographic Monserrat ging 06/26/2025 5:27 PM EDT us External Provider IMG XR PROCEDURES Final Result documented in this encounter [...] documented as of this encounter Care Teams Taxation Consultant Relationship Specialty Start Date End Date Suresh Claudio MD [address] [place] [address] PCP - General Family Medicine 04/07/21 iPto Kohli MD [address] [place] [address] Referring Physician 05/05/21 Norberto Art MD [address] [place] [address] Surgeon Neurosurgery 07/15/22 Sylvia Collins, SHARRI [employer] [place] [address] TCM Nurse 07/01/25 07/31/25 documented as of this encounter
== END 2025-08-27 23:59 | disposition home or self-care (01) ==
LOC: LAB.DROPOF 08-29 13:55
PROVIDERS: PCP Family Medicine; Visit Provider Family Medicine
DX: R82.998 Other abnormal findings in urine (principal); R31.9 Hematuria, unspecified
CPT/HCPCS: 87086; 87088; 87186

== ENCOUNTER 2025-10-01 13:12 | Outpatient (CLI) | payer MEDICARE, MEDICAID, SELFPAY ==
[2025-10-01 20:53] LABS: Hematocrit 37.1 % (37.0-47.0); Hemoglobin 11.6 g/dL (12.2-16.2); Immature Granulocytes % 0.6 %; Mean Corpuscular HGB Conc 31.3 g/dL (31.8-35.4); Mean Corpuscular Hemoglobin 31.2 pg (27.0-31.2); Mean Corpuscular Volume 99.7 fl (81-99); Nucleated Red Blood Cells % 0 %; Platelet Count 205 K/mm3 (142-424); Red Blood Count 3.72 M/mm3 (4.20-5.40); Red Cell Distribution Width-SD 47.0 fL; White Blood Count 8.8 K/mm3 (4.8-10.8)
[2025-10-01 21:28] LABS: Alanine Aminotransferase 13 U/L (12-78); Albumin Level 4.3 g/dl (3.5-5.0); Albumin/Globulin Ratio 1.4 (1.1-1.8); Alkaline Phosphatase 85 U/L (38-126); Anion Gap 14.6 mEq/L (5-15); Aspartate Amino Transferase 21 U/L (14-36); Bilirubin,Total 0.6 mg/dl (0.2-1.3); Blood Urea Nitrogen 28 mg/dl (7-17); Calcium 9.8 mg/dl (8.4-10.2); Carbon Dioxide 32 mmol/L (22.0-30.0); Chloride 100 mmol/L (98-107); Creatinine,Serum 0.90 mg/dl (0.52-1.04); Estimated Glomerular Filt Rate 59 ml/min (>60); GFR (African American) 72 ML/MIN (>60); Globulin 3.0 g/dL (1.3-3.2); Glucose 171 mg/dl (74-100); Potassium 4.6 mmoL/L (3.5-5.1); Sodium 142 mmol/L (136-145); Total Protein,Serum 7.3 g/dl (6.3-8.2)
[2025-10-01 22:13] LABS: Thyroid Stimulating Hormone 0.49 uIU/mL (0.465-4.68)
[2025-10-01 23:21] LABS: Hemoglobin A1C 6.5 % (4.0-6.0)
== END 2025-10-01 23:59 | disposition home or self-care (01) ==
LOC: LAB.DROPOF 10-03 13:13
PROVIDERS: PCP Family Medicine; Visit Provider Nurse Practitioner
DX: I48.0 Paroxysmal atrial fibrillation (principal); E11.9 Type 2 diabetes mellitus without complications; Z79.4 Long term (current) use of insulin
CPT/HCPCS: 80053; 83036; 84443; 85025